=== PATIENT | male | born 1950 | race Caucasian/White ===

== ENCOUNTER 2017-01-06 04:11 | Inpatient (IN) | payer MEDICARE ==
[~2017-01-06] VITALS: Ht 180.3 cm; Wt 96.8 kg
[2017-01-06] VITALS (10 sets, daily range): BP systolic 103–139; BP diastolic 59–101
[~2017-01-06 04:11] MED LIST: ALLO300T PO; CARV25TA PO; CHOL10003 PO; CYCL10TA2 PO; DIGO125T PO; ENAL2.5T PO; FURO40TA4 PO; FURO80TA72 PO; INSU100C4 SQ; INSU100I13 SQ; LEVO100T5 PO; LEVO500T38 PO; MAGN400T22 PO; POTA10CA PO; POTA500T5 PO; SIMV10TA3 PO; WARF2.5T PO; WARF2TAB PO; WARF5TAB PO
[2017-01-06] MEDS ORDERED: hydrALAZINE 20 MG/ML VIAL. IVP PRN (05:00)
[2017-01-06] MEDS ORDERED: ONDANSETRON PF 4 MG/2 ML VIAL. IV PRN (05:00)
[2017-01-06] MEDS ORDERED: AMIO200T2 PO (05:59)
[2017-01-06] MEDS ORDERED: METO25TA2 PO (05:59)
[2017-01-06 06:28] LABS: ALBUMIN 3.7 g/dL (3.4-5.0); ALBUMIN/GLOBULIN RATIO 1.2 (1.0-1.7); CALCIUM 9.2 mg/dL (8.5-10.1); CREATININE 1.7 mg/dL (0.7-1.3); GFR 40.4; POTASSIUM 4.6 mmol/L (3.5-5.1); TOTAL BILIRUBIN 1.2 mg/dL (0.2-1.0); TOTAL PROTEIN 6.9 g/dL (6.4-8.2)
[2017-01-06 07:20] LABS: BASO % 0 % (0-3); EOS % 0 % (0-3); HEMATOCRIT 47.4 % (39.0-53.0); HEMOGLOBIN 14.5 g/dL (13.0-17.5); LYMPH # 0.2 x10^3/uL (1.0-4.8); LYMPH % 2 % (24-48); MEAN CORPUSCULAR HEMOGLOBIN 24 pg (25-35); MEAN CORPUSCULAR HGB CONC 31 g/dL (31-37); MEAN CORPUSCULAR VOLUME 79 fL (79-100); MONO % 1 % (0-9); NEUT % 97 % (31-73); PLATELET COUNT 152 x10^3/uL (140-400); RED BLOOD COUNT 5.99 x10^6/uL (4.30-5.70); RED CELL DISTRIBUTION WIDTH 22.1 % (11.5-14.5); WHITE BLOOD COUNT 11.1 x10^3/uL (4.0-11.0)
[2017-01-06] MEDS ORDERED: TORS20TA2 PO (08:46)
[2017-01-06 09:25] LABS: % EOS 2 % (0-5); PLT ESTIMATE ADEQUATE (ADEQUATE)
[2017-01-06 09:26] LABS: ANISOCYTOSIS MOD; HYPOCHROMIA SLIGHT
[2017-01-06] MEDS ORDERED: DEXTROSE 50% 25 GM / 50ML DISP.SYRIN. IV PRN (09:45)
--- NOTE | 2017-01-06 09:54 | PDOC2 ---
NOE CASTLE SUPERINTENDENT TRANSPORTATION 01/06/17 0954: CARDIAC CONSULT DATE OF CONSULT Date of Consult DATE: 01/06/17 TIME: 09:37 REASON FOR CONSULT Reason for Consult: CHF REFERRING PHYSICIAN Referring Physician: Joao SOURCE Source: Chart review HISTORY OF PRESENT ILLNESS HISTORY OF PRESENT ILLNESS This is a pleasant 66 yo male admitted for complains of SOA and hallucination. Reports that Friday last week, he saw his senior electronics technician in and told them of his SOA but was not significant at that time. Thru the week his SOA progressed to nonproductive cough, increasing elevation of his HOB when sleeping, PND. They then went to his senior electronics technician again Friday but with same answers. This weekend his SOA got even worse, now with wheezing and he was having auditory hallucination noting that someone was trying to talk to him but actually it was his wheezing that he was hearing. Notable for decreased urination, bloating, decreased appetite. He was then admitted to [facility] and was transferred to [facility] for further evaluation. Denies any CP nor palpitations. He does admit that sometimes he tend to skip his meds but compliant with his diuretics. He was recently started on amiodarone and zaroxylyn. Currently he is doing better and his SOA is much improved. 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 Cardiovascular: AFIB, CHF, HTN, Hyperlipidemia, Valve insufficiency, Other ( NICM) Pulmonary: COPD CENTRAL NERVOUS SYSTEM: Other (No pertinent history) GI: Constipation Heme/Onc: Anemia NOS, Other Hepatobiliary: No pertinent hx Psych: Anxiety Musculoskeletal: Osteoarthritis, Other (bilateral BKA; WC bound, uses bilateral prothetic) Rheumatologic: Gout Infectious disease: No pertinent hx ENT: No pertinent hx Renal/: Chronic renal insuff, UTI Endocrine: Diabetes (2), Hypothyroidism Dermatology: Other (superficial hemangioma to left neck?) PAST SURGICAL HISTORY Past Surgical History (cholecystectomy, mitral valve repair (medtronic) 2005 and 2009, Bilateral BKA and left hand digital amputation due to HIT (after MV repair in 2009), [employer] ( [employer]) FAMILY HISTORY Family History: Stroke SOCIAL HISTORY Smoke: No (quit) ALCOHOL: none Drugs: None Lives: with Family ALLERGIES ALLERGIES: Coded Allergies: heparin (Verified Allergy, Severe, HIT IN 2010 PER HX, 06/12/16) pt ended up loosing bilateral lower legs , partial tongue and several fingers as a result of a sever reaction to Heparin levofloxacin (Verified Allergy, Severe, 01/06/17) Penicillins (Verified Allergy, Intermediate, 11/06/15) ROS Review of System 14 point ROS evaluated with pertinent positives noted per HPI PHYSICAL EXAM General: Alert, Oriented X3, Cooperative, No acute distress HEENT: Atraumatic, Mucous membr. moist/pink Lungs: Other (diffuse wheeze with bibasilar crackles) Heart: Other (3/6 systolic murmur to LLS border; paced rhythm with underlying AFIB, rate controlled. ) Abdomen: Other (truncal obesity no scrotal edema) Extremities: No cyanosis, No edema (to BKA) Skin: No breakdown, No significant lesion Neuro: Normal speech, Sensation intact Psych/Mental Status: Mental status NL, Mood NL MUSCULOSKELETAL: Abnormal exam of right VITALS VITALS Vital Signs Date Time Temp Pulse Resp B/P Pulse Ox O2 Delivery O2 Flow Rate FiO2 01/06/17 09:09 89 24 133/78 100 Nasal Cannula 3.0 01/06/17 07:00 97.6 97.6 LABS Lab: Laboratory Tests Test 01/06/17 05:38 01/06/17 08:41 White Blood Count 11.1x10^3/uL (4.0-11.0) Red Blood Count 5.99x10^6/uL (4.30-5.70) Hemoglobin 14.5g/dL (13.0-17.5) Hematocrit 47.4% (39.0-53.0) Mean Corpuscular Volume 79fL (79-100) Mean Corpuscular Hemoglobin 24pg (25-35) Mean Corpuscular Hemoglobin Concent 31g/dL (31-37) Red Cell Distribution Width 22.1% (11.5-14.5) Platelet Count 152x10^3/uL (140-400) Neutrophils (%) (Auto) 97% (31-73) Lymphocytes (%) (Auto) 2% (24-48) Monocytes (%) (Auto) 1% (0-9) Eosinophils (%) (Auto) 0% (0-3) Basophils (%) (Auto) 0% (0-3) Neutrophils # (Auto) 10.7x10^3uL (1.8-7.7) Lymphocytes # (Auto) 0.2x10^3/uL (1.0-4.8) Monocytes # (Auto) 0.1x10^3/uL (0.0-1.1) Eosinophils # (Auto) 0.0x10^3/uL (0.0-0.7) Basophils # (Auto) 0.0x10^3/uL (0.0-0.2) Segmented Neutrophils % 97% (35-66) Monocytes % 1% (0-10) Eosinophils % 2% (0-5) Platelet Estimate Adequate (ADEQUATE) Hypochromasia Slight Anisocytosis Mod Activated Partial Thromboplast Time 44SEC (24-38) Sodium Level 144mmol/L (136-145) Potassium Level 4.6mmol/L (3.5-5.1) Chloride Level 102mmol/L (98-107) Carbon Dioxide Level 28mmol/L (21-32) Anion Gap 14 (6-14) Blood Urea Nitrogen 43mg/dL (8-26) Creatinine 1.7mg/dL (0.7-1.3) Estimated GFR (Cockcroft-Gault) 40.4 BUN/Creatinine Ratio 25 (6-20) Glucose Level 74mg/dL (70-99) Calcium Level 9.2mg/dL (8.5-10.1) Total Bilirubin 1.2mg/dL (0.2-1.0) Aspartate Amino Transf (AST/SGOT) 21U/L (15-37) Alanine Aminotransferase (ALT/SGPT) 20U/L (16-63) Alkaline Phosphatase 117U/L (46-116) Troponin I Quantitative 0.071ng/mL (0.000-0.055) Total Protein 6.9g/dL (6.4-8.2) Albumin 3.7g/dL (3.4-5.0) Albumin/Globulin Ratio 1.2 (1.0-1.7) Glucose (Fingerstick) 100mg/dL (70-99) ECHOCARDIOGRAM ECHOCARDIOGRAM <Conclusion> There is normal left ventricular wall thickness. Left ventricle systolic function is severely impaired. The Ejection Fraction is 15-20%. Doppler and Color Flow revealed moderate eccentric mitral regurgitation. Doppler and Color Flow revealed trace to mild tricuspid regurgitation. The PA pressure was estimated at 36 mmHg. Doppler and Color Flow revealed trace to mild pulmonic valvular regurgitation. There is no evidence of significant pericardial effusion. DATE: 03/13/16 0908 ASSESSMENT/PLAN ASSESSMENT/PLAN 1. Acute on chronic systolic CHF: improving 2. NICM: verbalized LHC with no significant obstructive disease in 2009. 3. Possible underlying AECOPD: possible DINO 4. HTN/HLP/DM2 5. [employer]ICAL [employer] insitu: [employer] 6. Hx of Mitral valve repair: 2005 and 2009 7. 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 Hypoglycemia 9. Hypoxic encephalopathy: notable for auditory hallucination 10 AFIB: Paroxysmal? paced with underlying AFIB 11. Subclinical hypothyroidism: TSH 4.8. Recommendation 1. Continue with diuretic therapy. extra dose lasix this afternoon. Add zaroxylyn I & O with khalil to DD. 2. Pulmonary and neurology was on board. 3. Continue with amiodarone/dig. On coumadin INR therapeutic. 4. Continue with secondary prevention 5. DC coreg (not on this at home) and continue with toprol 6. Avoid tight BG control 7. TTE today and interrogate device. 8. Will try to obtain records 9. Close monitoring of TSH with amiodarone use. Problems: ODALYS SHAHID MD 01/07/17 0937: CARDIAC CONSULT ALLERGIES ALLERGIES: Coded Allergies: heparin (Verified Allergy, Severe, HIT IN 2010 PER HX, 06/12/16) pt ended up loosing bilateral lower legs , partial tongue and several fingers as a result of a sever reaction to Heparin levofloxacin (Verified Allergy, Severe, 01/06/17) Penicillins (Verified Allergy, Intermediate, 11/06/15) ASSESSMENT/PLAN ASSESSMENT/PLAN Patient seen and examined 01/06/17. Agree with PHYSICIAN OFFICE REP's assessment and plan. Continue Lasix and add zaroxolyn for acute on chronic systolic heart failure. 2D echo showed severe LV systolic dysfunction. We will have patient's [employer]ICAL [employer] interrogated. Continue amiodarone and coumadin for paroxysmal atrial fibrillation. Thank you for your consultation. Problems: NOE CASTLE APRN Jan 06, 2017 09:54 ODALYS SHAHID MD Jan 07, 2017 09:37
[2017-01-06] MEDS ORDERED: TORSEMIDE 20 MG TABLET. PO SCH (10:00)
[2017-01-06] MEDS: TORSEMIDE 20 MG TABLET. PO SCH (10:19)
[2017-01-06] MEDS: CHOLECALCIFEROL (VITAMIN D3) 1,000 UNIT TABLET PO SCH (10:20)
[2017-01-06] MEDS: MAGNESIUM OXIDE 400 MG TABLET PO SCH (10:21)
[2017-01-06] MEDS: LISINOPRIL 2.5 MG TABLET PO SCH (10:21)
[2017-01-06] MEDS: LEVOTHYROXINE 100 MCG TABLET PO SCH (10:21)
[2017-01-06] MEDS: AMIODARONE HCL 200 MG TABLET PO SCH (10:21)
[2017-01-06] MEDS: DIGOXIN 125 MCG TABLET PO SCH (10:22)
[2017-01-06] MEDS: METOPROLOL SUCC 24HR ER 25 MG TAB.ER.24H. PO SCH (10:22)
--- NOTE | 2017-01-06 10:22 | RAD ---
Portable chest, 01/06/2017: History: Congestive heart failure Comparison is made to a study from 06/09/2016. There is been a previous median sternotomy. A left-sided transvenous pacing device remains in place with 3 leads extending into the heart. The heart is enlarged. The pulmonary vascularity appears congested. A moderate volume of right-sided pleural fluid has developed. There is mild underlying right basilar atelectasis/infiltrate. No left lung infiltrate is seen. IMPRESSION: 1. Cardiomegaly with mild vascular congestion. 2. A moderate-sized right pleural effusion has developed with underlying right basilar atelectasis/infiltrate.
[2017-01-06] MEDS: INSULIN DETEMIR 300 UNITS/3 ML INSULN.PEN. SQ SCH ×2 (10:27→20:11)
[2017-01-06] MEDS ORDERED: CARVEDILOL 12.5 MG TABLET PO SCH (10:30)
[2017-01-06 10:51] LABS: INR 2.6 (0.8-1.1); PROTHROMBIN TIME PATIENT 26.7 SEC (11.7-14.0)
[2017-01-06] MEDS: INSULIN ASPART 300 UNITS/3 ML INSULN.PEN SQ SCH ×4 (12:00→18:38)
[2017-01-06 12:10] LABS: MAGNESIUM 2.3 mg/dL (1.8-2.4)
[2017-01-06 12:14] LABS: CHOLESTEROL/HDL RATIO 2.5
--- NOTE | 2017-01-06 12:50 | PDOC2 ---
NEUROLOGY CONSULT Date of Admission Date of Admission DATE: 01/06/17 TIME: 12:40 Reason for Consult Reason for Consult: Dysarthria Referring Physician Referring Physician: Dr. Monzon PCP: Dr. Villalta Source Source: Caregiver, Chart review, Patient History of Present Illness History of Present Illness The patient is a 66-year-old right-handed male with a history of cardiomyopathy and heart failure who presented to the [facility] emergency department last night with severe dyspnea. He had some dysarthria. He had part of his tongue excised a few months ago due to heparin reaction and has had chronic dysarthria since then. He did have a stroke following valve replacement surgery several years ago, but no recent strokes. There is no history of seizure or head injury. Past Medical History Cardiovascular: AFIB, CHF, HTN Pulmonary: COPD, Other ( sleep apnea) CENTRAL NERVOUS SYSTEM: CVA ( following valve replacement surgery, he was in a coma for several months) Heme/Onc: Other ( heparin induced thrombocytopenia 2010) Musculoskeletal: low back pain, Osteoarthritis, Other (lumbar fracture, left clavicle fracture) Rheumatologic: Gout Renal/: Chronic renal insuff ( he was temporarily on dialysis), Benign prostatic enlarg. Endocrine: Diabetes, Hypothyroidism Past Surgical History Past Surgical History: Pacemaker ( and defibrillator), Appendectomy, Other ( Partial tongue resection, mechanical mitral valve replacement, bilateral below the knee amputations, ) Family History Family History: CVA Social History Social History , quit smoking, no alcohol Current Medications Current Medications Current Medications Acetaminophen (Tylenol) 650 mg PRN Q6HRS PRN PO MILD PAIN / TEMP; Start at 05:00 Ondansetron HCl (Zofran) 4 mg PRN Q6HRS PRN IV NAUSEA/VOMITING; Start 01/06/17 at 05:00 Hydralazine HCl (Apresoline) 10 mg PRN Q4HRS PRN IVP ELEVATED BP, SEE COMMENTS ; Start 01/06/17 at 05:00 Amiodarone HCl (Cordarone) 200 mg DAILY PO Last administered on 01/06/17 10:21 ; Start 01/06/17 at 10:00 Vitamin D (Vitamin D3) 2,000 unit DAILY PO Last administered on 01/06/17 10:20 ; Start 01/06/17 at 10:00 Digoxin (Lanoxin) 125 mcg DAILY PO Last administered on 01/06/17 10:22; Start 01/06/17 at 10:30 Levothyroxine Sodium (Synthroid) 100 mcg DAILY07 PO Last administered on 10:21; Start 01/06/17 at 10:30 Magnesium Oxide (Magnesium Oxide) 400 mg DAILY PO Last administered on 10:21; Start 01/06/17 at 10:30 Metoprolol Succinate (Toprol Xl) 25 mg DAILY PO Last administered on 01/06/17 10:22; Start 01/06/17 at 10:30 Simvastatin (Zocor) 10 mg QHS PO ; Start 01/06/17 at 21:00 Torsemide (Demadex) 80 mg DAILY PO Last administered on 01/06/17 10:19; Start 01/06/17 at 10:30 Warfarin Sodium (Coumadin) 2 mg DAILY16 PO ; Start 01/06/17 at 16:00 Carvedilol (Coreg) 25 mg BIDWMEALS PO Last administered on 01/06/17 10:22; Start 01/06/17 at 10:30; Stop 01/06/17 at 11:51; Status DC Lisinopril (Prinivil) 2.5 mg DAILY PO Last administered on 01/06/17 10:21; Start 01/06/17 at 10:30 Insulin Aspart (Novolog) 10 units TIDAC SQ Last administered on 01/06/17 12:33 ; Start 01/06/17 at 11:30 Insulin Detemir (Levemir) 30 units BID SQ Last administered on 01/06/17 10:27 ; Start 01/06/17 at 10:30 Non-Formulary Medication 500 mg DAILY PO ; Start 01/07/17 at 09:00; Status UNV Torsemide (Demadex) 80 mg DAILY PO ; Start 01/06/17 at 10:00; Status UNV Insulin Aspart (Novolog) 0-9 UNITS TIDWMEALS SQ ; Start 01/06/17 at 12:00 Dextrose 12.5 gm PRN Q15MIN PRN IV SEE COMMENTS; Start 01/06/17 at 09:45 Warfarin Sodium (Coumadin Per Physician) 1 each PRN DAILY PRN MC SEE COMMENTS; Start 01/06/17 at 10:45 Furosemide (Lasix) 40 mg 1X ONCE IVP ; Start 01/06/17 at 16:00; Stop 01/06/17 at 16:01 Metolazone (Zaroxolyn) 5 mg DAILY PO ; Start 01/07/17 at 09:00 Active Scripts Active Reported Torsemide 20 Mg Tablet 4 Tab PO DAILY Amiodarone Hcl 200 Mg Tablet 1 Tab PO DAILY Toprol Xl (Metoprolol Succinate) 25 Mg Tab.er.24h 1 Tab PO DAILY Novolog (Insulin Aspart) 100 Unit/1 Ml Cartridge 10 Unit SQ TID Lantus Solostar (Insulin Glargine,Hum.rec.anlog) 100 Unit/1 Ml Insuln.pen 40 Unit SQ BID Cyclobenzaprine Hcl 10 Mg Tablet 1 Tab PO TID Allopurinol 300 Mg Tablet 1 Tab PO DAILY Simvastatin 10 Mg Tablet 1 Tab PO QHS Coumadin (Warfarin Sodium) 2.5 Mg Tablet 1 Tab PO DAILY Potassium Gluconate 500 Mg Tablet 500 Mg PO DAILY Furosemide 40 Mg Tablet 1 Tab PO DAILY Mag-Oxide (Magnesium Oxide) 400 Mg Tablet 1 Tab PO DAILY Levothyroxine Sodium 100 Mcg Tablet 1 Tab PO DAILY Digoxin 125 Mcg Tablet 1 Tab PO DAILY Enalapril Maleate 2.5 Mg Tablet 1 Tab PO DAILY Vitamin D3 (Cholecalciferol (Vitamin D3)) 1,000 Unit Tablet 2,000 Unit PO DAILY Coreg (Carvedilol) 25 Mg Tablet 1 Tab PO BID Allergies Allergies: Coded Allergies: heparin (Verified Allergy, Severe, HIT IN 2010 PER HX, 06/12/16) pt ended up loosing bilateral lower legs , partial tongue and several fingers as a result of a sever reaction to Heparin levofloxacin (Verified Allergy, Severe, 01/06/17) Penicillins (Verified Allergy, Intermediate, 11/06/15) ROS Review of System Negative for fevers, chills, weight loss, shortness of breath, chest pain, indigestion, hematochezia, melena, dysuria. Full 14-point review systems is negative. Physical Exam Physical Examination PHYSICAL EXAMINATION: Vital signs: see above. General appearance is normal and in no acute distress. HEENT: Normocephalic and nontraumatic. Eyes, nose, ears, and throat are unremarkable. Extremities: bilateral below the knee amputations and several finger amputations NEUROLOGIC: Mental status is intact, there is no aphasia. He does has some lingual dysarthria. There is no facial asymmetry. Pupils are equal and reactive to light , extraocular movements are intact, palate elevates and tongue protrudes in the midline. Reflexes are 0-1+. Strength is 5/5. Finger nose finger is intact. sensory exam is intact. Gait is not tested. Vitals VITALS Vital Signs Date Time Temp Pulse Resp B/P Pulse Ox O2 Delivery O2 Flow Rate FiO2 01/06/17 12:00 97.7 89 31 118/67 96 Nasal Cannula 4.0 97.7 Labs Labs Laboratory Tests Test 01/06/17 05:38 01/06/17 08:41 01/06/17 10:00 01/06/17 12:29 White Blood Count 11.1x10^3/uL (4.0-11.0) Red Blood Count 5.99x10^6/uL (4.30-5.70) Hemoglobin 14.5g/dL (13.0-17.5) Hematocrit 47.4% (39.0-53.0) Mean Corpuscular Volume 79fL (79-100) Mean Corpuscular Hemoglobin 24pg (25-35) Mean Corpuscular Hemoglobin Concent 31g/dL (31-37) Red Cell Distribution Width 22.1% (11.5-14.5) Platelet Count 152x10^3/uL (140-400) Neutrophils (%) (Auto) 97% (31-73) Lymphocytes (%) (Auto) 2% (24-48) Monocytes (%) (Auto) 1% (0-9) Eosinophils (%) (Auto) 0% (0-3) Basophils (%) (Auto) 0% (0-3) Neutrophils # (Auto) 10.7x10^3uL (1.8-7.7) Lymphocytes # (Auto) 0.2x10^3/uL (1.0-4.8) Monocytes # (Auto) 0.1x10^3/uL (0.0-1.1) Eosinophils # (Auto) 0.0x10^3/uL (0.0-0.7) Basophils # (Auto) 0.0x10^3/uL (0.0-0.2) Segmented Neutrophils % 97% (35-66) Monocytes % 1% (0-10) Eosinophils % 2% (0-5) Platelet Estimate Adequate (ADEQUATE) Hypochromasia Slight Anisocytosis Mod Activated Partial Thromboplast Time 44SEC (24-38) Sodium Level 144mmol/L (136-145) Potassium Level 4.6mmol/L (3.5-5.1) Chloride Level 102mmol/L (98-107) Carbon Dioxide Level 28mmol/L (21-32) Anion Gap 14 (6-14) Blood Urea Nitrogen 43mg/dL (8-26) Creatinine 1.7mg/dL (0.7-1.3) Estimated GFR (Cockcroft-Gault) 40.4 BUN/Creatinine Ratio 25 (6-20) Glucose Level 74mg/dL (70-99) Calcium Level 9.2mg/dL (8.5-10.1) Magnesium Level 2.3mg/dL (1.8-2.4) Total Bilirubin 1.2mg/dL (0.2-1.0) Aspartate Amino Transf (AST/SGOT) 21U/L (15-37) Alanine Aminotransferase (ALT/SGPT) 20U/L (16-63) Alkaline Phosphatase 117U/L (46-116) Troponin I Quantitative 0.071ng/mL (0.000-0.055) 0.068ng/mL (0.000-0.055) Total Protein 6.9g/dL (6.4-8.2) Albumin 3.7g/dL (3.4-5.0) Albumin/Globulin Ratio 1.2 (1.0-1.7) Triglycerides Level 79mg/dL (0-150) Cholesterol Level 112mg/dL (0-200) LDL Cholesterol, Calculated 52mg/dL (0-100) VLDL Cholesterol, Calculated 16mg/dL (0-40) HDL Cholesterol 44mg/dL (40-60) Cholesterol/HDL Ratio 2.5 Thyroid Stimulating Hormone (TSH) 4.823uIU/mL (0.358-3.74) Glucose (Fingerstick) 100mg/dL (70-99) 143mg/dL (70-99) Prothrombin Time 26.7SEC (11.7-14.0) Prothromb Time International Ratio 2.6 (0.8-1.1) Laboratory Tests Test 01/06/17 05:38 01/06/17 08:41 01/06/17 10:00 01/06/17 12:29 White Blood Count 11.1x10^3/uL (4.0-11.0) Red Blood Count 5.99x10^6/uL (4.30-5.70) Hemoglobin 14.5g/dL (13.0-17.5) Hematocrit 47.4% (39.0-53.0) Mean Corpuscular Volume 79fL (79-100) Mean Corpuscular Hemoglobin 24pg (25-35) Mean Corpuscular Hemoglobin Concent 31g/dL (31-37) Red Cell Distribution Width 22.1% (11.5-14.5) Platelet Count 152x10^3/uL (140-400) Neutrophils (%) (Auto) 97% (31-73) Lymphocytes (%) (Auto) 2% (24-48) Monocytes (%) (Auto) 1% (0-9) Eosinophils (%) (Auto) 0% (0-3) Basophils (%) (Auto) 0% (0-3) Neutrophils # (Auto) 10.7x10^3uL (1.8-7.7) Lymphocytes # (Auto) 0.2x10^3/uL (1.0-4.8) Monocytes # (Auto) 0.1x10^3/uL (0.0-1.1) Eosinophils # (Auto) 0.0x10^3/uL (0.0-0.7) Basophils # (Auto) 0.0x10^3/uL (0.0-0.2) Segmented Neutrophils % 97% (35-66) Monocytes % 1% (0-10) Eosinophils % 2% (0-5) Platelet Estimate Adequate (ADEQUATE) Hypochromasia Slight Anisocytosis Mod Activated Partial Thromboplast Time 44SEC (24-38) Sodium Level 144mmol/L (136-145) Potassium Level 4.6mmol/L (3.5-5.1) Chloride Level 102mmol/L (98-107) Carbon Dioxide Level 28mmol/L (21-32) Anion Gap 14 (6-14) Blood Urea Nitrogen 43mg/dL (8-26) Creatinine 1.7mg/dL (0.7-1.3) Estimated GFR (Cockcroft-Gault) 40.4 BUN/Creatinine Ratio 25 (6-20) Glucose Level 74mg/dL (70-99) Calcium Level 9.2mg/dL (8.5-10.1) Magnesium Level 2.3mg/dL (1.8-2.4) Total Bilirubin 1.2mg/dL (0.2-1.0) Aspartate Amino Transf (AST/SGOT) 21U/L (15-37) Alanine Aminotransferase (ALT/SGPT) 20U/L (16-63) Alkaline Phosphatase 117U/L (46-116) Troponin I Quantitative 0.071ng/mL (0.000-0.055) 0.068ng/mL (0.000-0.055) Total Protein 6.9g/dL (6.4-8.2) Albumin 3.7g/dL (3.4-5.0) Albumin/Globulin Ratio 1.2 (1.0-1.7) Triglycerides Level 79mg/dL (0-150) Cholesterol Level 112mg/dL (0-200) LDL Cholesterol, Calculated 52mg/dL (0-100) VLDL Cholesterol, Calculated 16mg/dL (0-40) HDL Cholesterol 44mg/dL (40-60) Cholesterol/HDL Ratio 2.5 Thyroid Stimulating Hormone (TSH) 4.823uIU/mL (0.358-3.74) Glucose (Fingerstick) 100mg/dL (70-99) 143mg/dL (70-99) Prothrombin Time 26.7SEC (11.7-14.0) Prothromb Time International Ratio 2.6 (0.8-1.1) Assessment/Plan Assessment/Plan Impression: Dysarthria's due to previous tongue resection plus his hypoxia which makes him short of breath, but I find no evidence of neurological dysarthria or aphasia. Recommendations: It is reasonable to check a head CT. He cannot have an MRI because of his pacemaker/defibrillator No other neurological workup of treatment needed. Treatment of heart failure. Thank you for letting me help the patient care. ANN MARIE MALONE MD Jan 06, 2017 12:50
--- NOTE | 2017-01-06 12:50 | PDOC1 ---
History and Physical Date of Admission Date of Admission 01/06/17 Identification/Chief Complaint Chief Complaint sob Problems: Source Source: Chart review, Patient History of Present Illness History of Present Illness 66yo M with severe EF 15% with PPM/ICD, and severe MR was transfered from [facility] for sob. Pt has been sob for a few days, with mild cough which he said is his baseline. No home o2, now need NC 3L. no chest pain, N/V,. fever, chills. got lasix x1 in [facility]. He also has had slurry speech with hallucination for a few days, no weakness. Past Medical History Cardiovascular: AFIB, CHF, HTN, Hyperlipidemia, Valve insufficiency Heme/Onc: Anemia NOS Renal/: Chronic renal insuff, Acute renal failure Endocrine: Diabetes Past Surgical History Past Surgical History: CABG Family History Family History: Heart Disease Social History Smoke: No ALCOHOL: none Drugs: None Current Medications Current Medications Current Medications Medications (Trade) Dose Ordered Sig/Leonel Start Time Stop Time Status Last Admin Dose Admin Acetaminophen (Tylenol) 650 mg PRN Q6HRS PRN 01/06/17 05:00 Amiodarone HCl (Cordarone) 200 mg DAILY 01/06/17 10:00 01/06/17 10:21 200 MG Carvedilol (Coreg) 25 mg BIDWMEALS 01/06/17 10:30 01/06/17 11:51 DC 01/06/17 10:22 25 MG Dextrose 12.5 gm PRN Q15MIN PRN 01/06/17 09:45 Digoxin (Lanoxin) 125 mcg DAILY 01/06/17 10:30 01/06/17 10:22 125 MCG Furosemide (Lasix) 40 mg 1X ONCE 01/06/17 16:00 01/06/17 16:01 Hydralazine HCl (Apresoline) 10 mg PRN Q4HRS PRN 01/06/17 05:00 Insulin Aspart (Novolog) 0-9 UNITS TIDWMEALS 01/06/17 12:00 Insulin Detemir (Levemir) 30 units BID 01/06/17 10:30 01/06/17 10:27 30 UNITS Levothyroxine Sodium (Synthroid) 100 mcg DAILY07 01/06/17 10:30 01/06/17 10:21 100 MCG Lisinopril (Prinivil) 2.5 mg DAILY 01/06/17 10:30 01/06/17 10:21 2.5 MG Magnesium Oxide (Magnesium Oxide) 400 mg DAILY 01/06/17 10:30 01/06/17 10:21 400 MG Metolazone (Zaroxolyn) 5 mg DAILY 01/07/17 09:00 Metoprolol Succinate (Toprol Xl) 25 mg DAILY 01/06/17 10:30 01/06/17 10:22 25 MG Non-Formulary Medication 500 mg DAILY 01/07/17 09:00 UNV Ondansetron HCl (Zofran) 4 mg PRN Q6HRS PRN 01/06/17 05:00 Simvastatin (Zocor) 10 mg QHS 01/06/17 21:00 Torsemide (Demadex) 80 mg DAILY 01/06/17 10:00 UNV Vitamin D (Vitamin D3) 2,000 unit DAILY 01/06/17 10:00 01/06/17 10:20 2,000 UNIT Warfarin Sodium (Coumadin Per Physician) 1 each PRN DAILY PRN 01/06/17 10:45 Warfarin Sodium (Coumadin) 2 mg DAILY16 01/06/17 16:00 Allergies Allergies Allergies Coded Allergies Type Severity Reaction Last Updated Verified heparin Allergy Severe HIT IN 2011 PER HX 06/12/16 Yes levofloxacin Allergy Severe 01/06/17 Yes Penicillins Allergy Intermediate 11/06/15 Yes ROS Review of System CONSTITUTIONAL: No fever or chills EYES: No recent changes SKIN: No rash or itching CARDIOVASCULAR: No chest pain, syncope, palpitations, or edema RESPIRATORY: No SOB or cough GASTROINTESTINAL: No nausea, vomiting or abdominal pain NEUROLOGICAL: No headaches or weakness ENDOCRINE: No cold or heat intolerance GENITOURINARY: No urgency or frequency of urination MUSCULOSKELETAL: No back pain or joint pain LYMPHATICS: No enlarged lymph nodes PSYCHIATRIC: No anxiety or depression Physical Exam Physical Exam GEN.: No apparent distress. Alert and oriented x3 HEENT: Head is normocephalic, atraumatic NECK: Supple. LUNGS: bl diffuse tight, and mild wheezing HEART: RRR, S1, S2 present. Peripheral pulses intact ABDOMEN: Soft, nontender. Positive bowel sounds. EXTREMITIES: Without any cyanosis. multiple amputation from HIT NEUROLOGIC: Normal speech, normal tone PSYCHIATRIC: Normal affect, normal mood. SKIN: No ulcerations Vitals Vitals Vital Signs Date Time Temp Pulse Resp B/P Pulse Ox O2 Delivery O2 Flow Rate FiO2 01/06/17 12:00 97.7 89 31 118/67 96 Nasal Cannula 4.0 97.7 Labs Labs Laboratory Tests Test 01/06/17 05:38 01/06/17 08:41 01/06/17 10:00 01/06/17 12:29 White Blood Count 11.1x10^3/uL (4.0-11.0) Red Blood Count 5.99x10^6/uL (4.30-5.70) Hemoglobin 14.5g/dL (13.0-17.5) Hematocrit 47.4% (39.0-53.0) Mean Corpuscular Volume 79fL (79-100) Mean Corpuscular Hemoglobin 24pg (25-35) Mean Corpuscular Hemoglobin Concent 31g/dL (31-37) Red Cell Distribution Width 22.1% (11.5-14.5) Platelet Count 152x10^3/uL (140-400) Neutrophils (%) (Auto) 97% (31-73) Lymphocytes (%) (Auto) 2% (24-48) Monocytes (%) (Auto) 1% (0-9) Eosinophils (%) (Auto) 0% (0-3) Basophils (%) (Auto) 0% (0-3) Neutrophils # (Auto) 10.7x10^3uL (1.8-7.7) Lymphocytes # (Auto) 0.2x10^3/uL (1.0-4.8) Monocytes # (Auto) 0.1x10^3/uL (0.0-1.1) Eosinophils # (Auto) 0.0x10^3/uL (0.0-0.7) Basophils # (Auto) 0.0x10^3/uL (0.0-0.2) Segmented Neutrophils % 97% (35-66) Monocytes % 1% (0-10) Eosinophils % 2% (0-5) Platelet Estimate Adequate (ADEQUATE) Hypochromasia Slight Anisocytosis Mod Activated Partial Thromboplast Time 44SEC (24-38) Sodium Level 144mmol/L (136-145) Potassium Level 4.6mmol/L (3.5-5.1) Chloride Level 102mmol/L (98-107) Carbon Dioxide Level 28mmol/L (21-32) Anion Gap 14 (6-14) Blood Urea Nitrogen 43mg/dL (8-26) Creatinine 1.7mg/dL (0.7-1.3) Estimated GFR (Cockcroft-Gault) 40.4 BUN/Creatinine Ratio 25 (6-20) Glucose Level 74mg/dL (70-99) Calcium Level 9.2mg/dL (8.5-10.1) Magnesium Level 2.3mg/dL (1.8-2.4) Total Bilirubin 1.2mg/dL (0.2-1.0) Aspartate Amino Transf (AST/SGOT) 21U/L (15-37) Alanine Aminotransferase (ALT/SGPT) 20U/L (16-63) Alkaline Phosphatase 117U/L (46-116) Troponin I Quantitative 0.071ng/mL (0.000-0.055) 0.068ng/mL (0.000-0.055) Total Protein 6.9g/dL (6.4-8.2) Albumin 3.7g/dL (3.4-5.0) Albumin/Globulin Ratio 1.2 (1.0-1.7) Triglycerides Level 79mg/dL (0-150) Cholesterol Level 112mg/dL (0-200) LDL Cholesterol, Calculated 52mg/dL (0-100) VLDL Cholesterol, Calculated 16mg/dL (0-40) HDL Cholesterol 44mg/dL (40-60) Cholesterol/HDL Ratio 2.5 Thyroid Stimulating Hormone (TSH) 4.823uIU/mL (0.358-3.74) Glucose (Fingerstick) 100mg/dL (70-99) 143mg/dL (70-99) Prothrombin Time 26.7SEC (11.7-14.0) Prothromb Time International Ratio 2.6 (0.8-1.1) Laboratory Tests Test 01/06/17 05:38 01/06/17 08:41 01/06/17 10:00 01/06/17 12:29 White Blood Count 11.1x10^3/uL (4.0-11.0) Red Blood Count 5.99x10^6/uL (4.30-5.70) Hemoglobin 14.5g/dL (13.0-17.5) Hematocrit 47.4% (39.0-53.0) Mean Corpuscular Volume 79fL (79-100) Mean Corpuscular Hemoglobin 24pg (25-35) Mean Corpuscular Hemoglobin Concent 31g/dL (31-37) Red Cell Distribution Width 22.1% (11.5-14.5) Platelet Count 152x10^3/uL (140-400) Neutrophils (%) (Auto) 97% (31-73) Lymphocytes (%) (Auto) 2% (24-48) Monocytes (%) (Auto) 1% (0-9) Eosinophils (%) (Auto) 0% (0-3) Basophils (%) (Auto) 0% (0-3) Neutrophils # (Auto) 10.7x10^3uL (1.8-7.7) Lymphocytes # (Auto) 0.2x10^3/uL (1.0-4.8) Monocytes # (Auto) 0.1x10^3/uL (0.0-1.1) Eosinophils # (Auto) 0.0x10^3/uL (0.0-0.7) Basophils # (Auto) 0.0x10^3/uL (0.0-0.2) Segmented Neutrophils % 97% (35-66) Monocytes % 1% (0-10) Eosinophils % 2% (0-5) Platelet Estimate Adequate (ADEQUATE) Hypochromasia Slight Anisocytosis Mod Activated Partial Thromboplast Time 44SEC (24-38) Sodium Level 144mmol/L (136-145) Potassium Level 4.6mmol/L (3.5-5.1) Chloride Level 102mmol/L (98-107) Carbon Dioxide Level 28mmol/L (21-32) Anion Gap 14 (6-14) Blood Urea Nitrogen 43mg/dL (8-26) Creatinine 1.7mg/dL (0.7-1.3) Estimated GFR (Cockcroft-Gault) 40.4 BUN/Creatinine Ratio 25 (6-20) Glucose Level 74mg/dL (70-99) Calcium Level 9.2mg/dL (8.5-10.1) Magnesium Level 2.3mg/dL (1.8-2.4) Total Bilirubin 1.2mg/dL (0.2-1.0) Aspartate Amino Transf (AST/SGOT) 21U/L (15-37) Alanine Aminotransferase (ALT/SGPT) 20U/L (16-63) Alkaline Phosphatase 117U/L (46-116) Troponin I Quantitative 0.071ng/mL (0.000-0.055) 0.068ng/mL (0.000-0.055) Total Protein 6.9g/dL (6.4-8.2) Albumin 3.7g/dL (3.4-5.0) Albumin/Globulin Ratio 1.2 (1.0-1.7) Triglycerides Level 79mg/dL (0-150) Cholesterol Level 112mg/dL (0-200) LDL Cholesterol, Calculated 52mg/dL (0-100) VLDL Cholesterol, Calculated 16mg/dL (0-40) HDL Cholesterol 44mg/dL (40-60) Cholesterol/HDL Ratio 2.5 Thyroid Stimulating Hormone (TSH) 4.823uIU/mL (0.358-3.74) Glucose (Fingerstick) 100mg/dL (70-99) 143mg/dL (70-99) Prothrombin Time 26.7SEC (11.7-14.0) Prothromb Time International Ratio 2.6 (0.8-1.1) VTE Prophylaxis Ordered VTE Prophylaxis Devices: No VTE Pharmacological Prophylaxi: No Assessment/Plan Assessment/Plan 1. acute resp failure with systolic CHF exacerbation 2. systolic CHF exacerbation EF 15 % before 3. ICD, PPM 4. CHRNOIC afib, on coumadin 5. 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 AMS, slurry speech , hallucination, 2/2 hypoxica possibly, need to rule out stroke 7. HTN 8. CKD4 9. HLD 10. MR 11. DM2 on insulin 12. high troponin, 2/2 2 likely plan: 1. card consult, echo pending 2. cont home meds, hold lasix, on torsemide, add metolazone as per card 3. slightly decrease insulin to levemir 30u bid and aspart 10u tid, SSI 4. on NC 5. cont warfarin 2mg daily home dose, INR daily talk to family at bedside RENATO WEBER MD Jan 06, 2017 12:49
--- NOTE | 2017-01-06 14:06 | PDOC ---
PULMONARY PROGRESS NOTES Vitals Vital Signs Date Time Temp Pulse Resp B/P Pulse Ox O2 Delivery O2 Flow Rate FiO2 01/06/17 12:00 97.7 89 31 118/67 96 Nasal Cannula 4.0 97.7 General: Alert, Oriented X4, No acute distress Lungs: Clear, Other Cardiovascular: S1 Abdomen: Soft, Non-tender Extremities: Other Labs Laboratory Tests Test 01/06/17 05:38 01/06/17 08:41 01/06/17 10:00 01/06/17 12:29 White Blood Count 11.1x10^3/uL (4.0-11.0) Red Blood Count 5.99x10^6/uL (4.30-5.70) Hemoglobin 14.5g/dL (13.0-17.5) Hematocrit 47.4% (39.0-53.0) Mean Corpuscular Volume 79fL (79-100) Mean Corpuscular Hemoglobin 24pg (25-35) Mean Corpuscular Hemoglobin Concent 31g/dL (31-37) Red Cell Distribution Width 22.1% (11.5-14.5) Platelet Count 152x10^3/uL (140-400) Neutrophils (%) (Auto) 97% (31-73) Lymphocytes (%) (Auto) 2% (24-48) Monocytes (%) (Auto) 1% (0-9) Eosinophils (%) (Auto) 0% (0-3) Basophils (%) (Auto) 0% (0-3) Neutrophils # (Auto) 10.7x10^3uL (1.8-7.7) Lymphocytes # (Auto) 0.2x10^3/uL (1.0-4.8) Monocytes # (Auto) 0.1x10^3/uL (0.0-1.1) Eosinophils # (Auto) 0.0x10^3/uL (0.0-0.7) Basophils # (Auto) 0.0x10^3/uL (0.0-0.2) Segmented Neutrophils % 97% (35-66) Monocytes % 1% (0-10) Eosinophils % 2% (0-5) Platelet Estimate Adequate (ADEQUATE) Hypochromasia Slight Anisocytosis Mod Activated Partial Thromboplast Time 44SEC (24-38) Sodium Level 144mmol/L (136-145) Potassium Level 4.6mmol/L (3.5-5.1) Chloride Level 102mmol/L (98-107) Carbon Dioxide Level 28mmol/L (21-32) Anion Gap 14 (6-14) Blood Urea Nitrogen 43mg/dL (8-26) Creatinine 1.7mg/dL (0.7-1.3) Estimated GFR (Cockcroft-Gault) 40.4 BUN/Creatinine Ratio 25 (6-20) Glucose Level 74mg/dL (70-99) Calcium Level 9.2mg/dL (8.5-10.1) Magnesium Level 2.3mg/dL (1.8-2.4) Total Bilirubin 1.2mg/dL (0.2-1.0) Aspartate Amino Transf (AST/SGOT) 21U/L (15-37) Alanine Aminotransferase (ALT/SGPT) 20U/L (16-63) Alkaline Phosphatase 117U/L (46-116) Troponin I Quantitative 0.071ng/mL (0.000-0.055) 0.068ng/mL (0.000-0.055) Total Protein 6.9g/dL (6.4-8.2) Albumin 3.7g/dL (3.4-5.0) Albumin/Globulin Ratio 1.2 (1.0-1.7) Triglycerides Level 79mg/dL (0-150) Cholesterol Level 112mg/dL (0-200) LDL Cholesterol, Calculated 52mg/dL (0-100) VLDL Cholesterol, Calculated 16mg/dL (0-40) HDL Cholesterol 44mg/dL (40-60) Cholesterol/HDL Ratio 2.5 Thyroid Stimulating Hormone (TSH) 4.823uIU/mL (0.358-3.74) Glucose (Fingerstick) 100mg/dL (70-99) 143mg/dL (70-99) Prothrombin Time 26.7SEC (11.7-14.0) Prothromb Time International Ratio 2.6 (0.8-1.1) Laboratory Tests Test 01/06/17 05:38 01/06/17 08:41 01/06/17 10:00 01/06/17 12:29 White Blood Count 11.1x10^3/uL (4.0-11.0) Red Blood Count 5.99x10^6/uL (4.30-5.70) Hemoglobin 14.5g/dL (13.0-17.5) Hematocrit 47.4% (39.0-53.0) Mean Corpuscular Volume 79fL (79-100) Mean Corpuscular Hemoglobin 24pg (25-35) Mean Corpuscular Hemoglobin Concent 31g/dL (31-37) Red Cell Distribution Width 22.1% (11.5-14.5) Platelet Count 152x10^3/uL (140-400) Neutrophils (%) (Auto) 97% (31-73) Lymphocytes (%) (Auto) 2% (24-48) Monocytes (%) (Auto) 1% (0-9) Eosinophils (%) (Auto) 0% (0-3) Basophils (%) (Auto) 0% (0-3) Neutrophils # (Auto) 10.7x10^3uL (1.8-7.7) Lymphocytes # (Auto) 0.2x10^3/uL (1.0-4.8) Monocytes # (Auto) 0.1x10^3/uL (0.0-1.1) Eosinophils # (Auto) 0.0x10^3/uL (0.0-0.7) Basophils # (Auto) 0.0x10^3/uL (0.0-0.2) Segmented Neutrophils % 97% (35-66) Monocytes % 1% (0-10) Eosinophils % 2% (0-5) Platelet Estimate Adequate (ADEQUATE) Hypochromasia Slight Anisocytosis Mod Activated Partial Thromboplast Time 44SEC (24-38) Sodium Level 144mmol/L (136-145) Potassium Level 4.6mmol/L (3.5-5.1) Chloride Level 102mmol/L (98-107) Carbon Dioxide Level 28mmol/L (21-32) Anion Gap 14 (6-14) Blood Urea Nitrogen 43mg/dL (8-26) Creatinine 1.7mg/dL (0.7-1.3) Estimated GFR (Cockcroft-Gault) 40.4 BUN/Creatinine Ratio 25 (6-20) Glucose Level 74mg/dL (70-99) Calcium Level 9.2mg/dL (8.5-10.1) Magnesium Level 2.3mg/dL (1.8-2.4) Total Bilirubin 1.2mg/dL (0.2-1.0) Aspartate Amino Transf (AST/SGOT) 21U/L (15-37) Alanine Aminotransferase (ALT/SGPT) 20U/L (16-63) Alkaline Phosphatase 117U/L (46-116) Troponin I Quantitative 0.071ng/mL (0.000-0.055) 0.068ng/mL (0.000-0.055) Total Protein 6.9g/dL (6.4-8.2) Albumin 3.7g/dL (3.4-5.0) Albumin/Globulin Ratio 1.2 (1.0-1.7) Triglycerides Level 79mg/dL (0-150) Cholesterol Level 112mg/dL (0-200) LDL Cholesterol, Calculated 52mg/dL (0-100) VLDL Cholesterol, Calculated 16mg/dL (0-40) HDL Cholesterol 44mg/dL (40-60) Cholesterol/HDL Ratio 2.5 Thyroid Stimulating Hormone (TSH) 4.823uIU/mL (0.358-3.74) Glucose (Fingerstick) 100mg/dL (70-99) 143mg/dL (70-99) Prothrombin Time 26.7SEC (11.7-14.0) Prothromb Time International Ratio 2.6 (0.8-1.1) Medications Active Scripts Medications Dose Route/Sig Days Date Category Torsemide 20 Mg Tablet 4 Tab PO DAILY 01/06/17 Reported Amiodarone Hcl 200 Mg Tablet 1 Tab PO DAILY 01/06/17 Reported Toprol Xl (Metoprolol Succinate) 25 Mg Tab.er.24h 1 Tab PO DAILY 01/06/17 Reported Novolog (Insulin Aspart) 100 Unit/1 Ml Cartridge 10 Unit SQ TID 06/08/16 Reported Lantus Solostar (Insulin Glargine,Hum.rec.anlog) 100 Unit/1 Ml Insuln.pen 40 Unit SQ BID 06/08/16 Reported Cyclobenzaprine Hcl 10 Mg Tablet 1 Tab PO TID 06/08/16 Reported Allopurinol 300 Mg Tablet 1 Tab PO DAILY 06/08/16 Reported Simvastatin 10 Mg Tablet 1 Tab PO QHS 06/08/16 Reported Coumadin (Warfarin Sodium) 2.5 Mg Tablet 1 Tab PO DAILY 06/08/16 Reported Potassium Gluconate 500 Mg Tablet 500 Mg PO DAILY 06/08/16 Reported Furosemide 40 Mg Tablet 1 Tab PO DAILY 06/08/16 Reported Mag-Oxide (Magnesium Oxide) 400 Mg Tablet 1 Tab PO DAILY 11/06/15 Reported Levothyroxine Sodium 100 Mcg Tablet 1 Tab PO DAILY 11/06/15 Reported Digoxin 125 Mcg Tablet 1 Tab PO DAILY 11/06/15 Reported Enalapril Maleate 2.5 Mg Tablet 1 Tab PO DAILY 11/06/15 Reported Vitamin D3 (Cholecalciferol (Vitamin D3)) 1,000 Unit Tablet 2,000 Unit PO DAILY 11/06/15 Reported Coreg (Carvedilol) 25 Mg Tablet 1 Tab PO BID 11/06/15 Reported Impression . FULL CONSULT DICTATED WILL PROCEED WITH THORACENTESIS HOLD ANTICOAGULATION TIMMY BACON MD Jan 06, 2017 14:06
--- NOTE | 2017-01-06 15:13 | CARD ---
APPROVED REPORT EXAM: Two-dimensional and M-mode echocardiogram with Doppler and color Doppler. Other Information Quality : Good Rhythm : NSR INDICATION CHF, NIDM 2D DIMENSIONS RVDd5.0 (2.9-3.5cm)Left Atrium(2D)6.3 (1.6-4.0cm) IVSd1.2 (0.7-1.1cm)Aortic Root(2D)3.1 (2.0-3.7cm) LVDd5.8 (3.9-5.9cm)LVOT Diameter2.4 (1.8-2.4cm) PWd1.2 (0.7-1.1cm)LVDs5.6 (2.5-4.0cm) FS (%) 4.2 %SV15.7 ml LVEF(%)9.3 (>50%) Aortic Valve AoV Peak Joshua.109.4cm/sAoV VTI15.7cm AO Peak GR.4.8mmHgLVOT Peak Joshua.95.3cm/s AO Mean GR.3mmHgAVA (VMAX)4.02cm2 Mitral Valve MV E Kjbzizhm532.6cm/sMV E Peak Gr.13mmHg MV DECEL [id number] A Vapbxgdj247.7cm/s MV E Mean Gr.6mmHgE/A Ratio1.6 Pulmonary Valve PV Peak Yosddcmm95.2cm/s Tricuspid Valve TR P. [id number]/sTR Peak Gr.39mmHg Pulmonary Vein S1 Cecxefzn41.3cm/sD2 Jwybfxzr97.8cm/s PVa [id number] LEFT VENTRICLE The Left Ventricle is mildly dilated. There is mild concentric left ventricular hypertrophy. Left rajeev tricle systolic function is severely impaired. The Ejection Fraction is <20%. There is severe global hypokinesis of the left ventricle. Abnormal septal wall motion is noted. Tissue Doppler imaging revea ls severe left ventricular diastolic dysfunction. No left ventricle thrombus noted on this study. The re is no left ventricular aneurysm. RIGHT VENTRICLE The right ventricle is mildly dilated. There is normal right ventricular wall thickness. The right ve ntricular systolic function is normal. There is a pacemaker lead in the right ventricle. ATRIA The left atrium is severely dilated. The right atrium size is normal. The interatrial septum is intac t with no evidence for an atrial septal defect or patent foramen ovale as noted on 2-D or Doppler sven ging. AORTIC VALVE The aortic valve is mildly sclerotic. Doppler and Color Flow revealed no significant aortic regurgita tion. There is no significant aortic valvular stenosis. MITRAL VALVE Mitral annular calcification is mild. There is no evidence of mitral valve prolapse. There is no mitr al valve stenosis. Doppler and Color Flow revealed mild mitral regurgitation. Suspect mitral ring, no clear mechanical valve noted. TRICUSPID VALVE The tricuspid valve is normal in structure and function. Doppler and Color Flow revealed moderate tri cuspid regurgitation. There is no tricuspid valve stenosis. PULMONIC VALVE Doppler and Color Flow revealed no pulmonic valvular regurgitation. There is no pulmonic valvular foster nosis. GREAT VESSELS The aortic root is normal in size. The ascending aorta is normal in size. The IVC is dilated and [place] apses <50% with inspiration consistent with fluid overload. PERICARDIAL EFFUSION There is large right pleural effusion. There is no evidence of significant pericardial effusion. Critical Notification Critical Value: No <Conclusion> Left ventricle systolic function is severely impaired. The Ejection Fraction is <20%. There is severe global hypokinesis of the left ventricle. Abnormal septal wall motion is noted. Tissue Doppler imaging reveals severe left ventricular diastolic dysfunction. There is a pacemaker lead in the right ventricle. The IVC is dilated and collapses <50% with inspiration consistent with fluid overload. There is large right pleural effusion.
[2017-01-06] MEDS ORDERED: FUROSEMIDE 40 MG/4 ML VIAL IVP ONE (16:00)
[2017-01-06] MEDS ORDERED: WARFARIN 2 MG TABLET. PO SCH (16:00)
--- NOTE | 2017-01-06 17:19 | RAD ---
INDICATION: slurred speech/ COMPARISON: None. TECHNIQUE: Axial CT images obtained through the head without intravenous contrast. FINDINGS: No intracranial hemorrhage. No midline shift. Basal cisterns patents. Ventricles and sulci are globally prominent. Romero white differentiation is maintained without evidence of acute ischemia to large vessel territory. No acute osseous abnormality. Orbits and paranasal sinuses unremarkable. Scattered foci of low attenuation within the white matter. IMPRESSION: 1. No acute intracranial hemorrhage. 2. Scattered regions of low attenuation within the white matter. Non-specific in nature but frequently secondary to chronic small vessel ischemic disease. If there is clinical concern for acute etiology MRI could better evaluate to ensure none of these foci are acute. 3. Prominence of ventricles and sulci which is frequently secondary to age related volume loss. PQRS Compliance Statement: One or more of the following individualized dose reduction techniques were utilized for this examination: 1. Automated exposure control 2. Adjustment of the mA and/or kV according to patient size 3. Use of iterative reconstruction technique
--- NOTE | 2017-01-06 17:45 | RAD ---
CT of the chest without contrast, 01/06/2017: History: Pleural fluid, congestive heart failure Noncontrast scans were obtained as requested. There has been a previous median sternotomy. There is severe generalized cardiomegaly. Transvenous pacing leads are in place. The inferior vena cava is mildly dilated. There is mild calcific plaquing of the thoracic aorta without evidence of aneurysm. Mild scattered coronary artery calcifications are present. Multiple small mediastinal lymph nodes are seen without definite pathologic enlargement. There is a moderate-sized right pleural effusion. The right lower lobe is atelectatic. There is partial atelectasis of the right middle lobe and the posterior aspect of the right upper lobe due to the pleural fluid. There is only a trace amount of left-sided pleural fluid. Evaluation of the lung parenchyma is compromised by patient history motion artifact, however, there are mild scattered groundglass opacities and interlobular septal thickening probably due to edema. There is a moderate vertebral compression forming at T12, of indeterminate age. There are scattered spurs in the spine. IMPRESSION: 1. Moderate sized right pleural effusion with underlying right lower lobe atelectasis and partial atelectasis of the right middle and upper lobes. 2. Mild patchy groundglass opacities and interlobular septal thickening compatible with mild pulmonary edema. 3. Severe generalized cardiomegaly.
[2017-01-06] MEDS: SIMVASTATIN 10 MG TABLET PO SCH (20:10)
[2017-01-07] VITALS (7 sets, daily range): BP systolic 84–108; BP diastolic 49–62
--- NOTE | 2017-01-07 04:59 | CONS ---
DATE OF CONSULTATION: 01/06/2017 ATTENDING PHYSICIAN: Dr. Monzon. REASON FOR CONSULTATION: The patient seen in pulmonary consultation at the request of Dr. Monzon for abnormal x-ray and dyspnea. HISTORY OF PRESENT ILLNESS: The patient is a 66-year-old with a prior history of severe cardiomyopathy, ejection fraction 15%, status post ICD placement with severe mitral regurgitation, was transferred from [facility] for shortness of breath. The patient has been more short of breath for the last several days. No fever, chills or night sweats. No home oxygen. He was also experiencing some paroxysmal nocturnal dyspnea. A chest x-ray was obtained. I reviewed the x-ray, which revealed right-sided effusion with some atelectasis. I was asked to see him in consultation. The patient states that he has had a previous thoracentesis sometime ago, removing 2 liters of fluid. PAST MEDICAL HISTORY: 1. Cardiomyopathy with ejection fraction estimated at 15%, status post ICD placement. 2. AFib. 3. Chronic heart failure. 4. Hypertension. 5. Hyperlipidemia. 6. Chronic renal insufficiency. 7. Acute renal failure. 8. Heparin intolerance, status post repair below knee amputation bilaterally. 9. Diabetes. 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 FAMILY HISTORY: Heart disease. SOCIAL HISTORY: He quit tobacco many years ago. Denies any alcohol intake. CURRENT MEDICATIONS: List was reviewed. ALLERGIES: PENICILLIN, HEPARIN AND LEVOFLOXACIN. PHYSICAL EXAMINATION: GENERAL: The patient was in mild respiratory distress, but able to complete full sentences. VITAL SIGNS: He is currently on 4 liters of oxygen supplementation, has been afebrile. HEENT: Eyes, the sclerae were nonicteric. NECK: Jugular venous distention was not elevated. No lymphadenopathy. CHEST: Full expansion. LUNGS: Poor airway flow, no wheezes. CARDIOVASCULAR: Regular rate and rhythm with S1, S2, no S3. ABDOMEN: Soft, nontender, nondistended. EXTREMITIES: Amputation as indicated above, below knee, bilaterally. NEUROLOGIC: The patient was awake, alert, following commands. A detailed neuro exam was not performed. LABORATORY DATA: White count was 11,000, hemoglobin 14, hematocrit 47, platelet count was 252. INR was 2.6. Electrolytes were noted. BUN is elevated. Creatinine was elevated. Troponin was elevated. IMPRESSION: 1. Acute respiratory failure secondary to acute systolic heart failure. 2. Acute on chronic systolic heart failure with previous ejection fraction estimated at 15%. 3. Status post implantable cardioverter-defibrillator placement. 4. Abnormal x-ray revealing a large right-sided effusion with atelectasis. 5. Chronic atrial fibrillation, on Coumadin. 6. History of heparin-induced thrombocytopenia, status post bilateral below knee amputation. 7. Hypertension. 8. Chronic kidney disease. 9. Type 2 diabetes. 10. Elevated troponin level. PLAN: 1. From a pulmonary standpoint of view, I suspect most of the patient's respiratory distress is related to acute heart failure in addition to the right-sided effusion. 2. We will proceed with thoracentesis, doubt that the fluid is related to infectious or malignant process. 3. Echo pending. 4. Hold anticoagulation for now. 5. Continue home meds. 6. Follow cardiology input. Dr. Monzon, I do appreciate the privilege in sharing in the patient's care. TIMMY BACON MD DR: YAKELIN/eder JOB#: [id number] / [id number]
[2017-01-07 06:49] LABS: BASO % 0 % (0-3); EOS % 0 % (0-3); HEMOGLOBIN 13.3 g/dL (13.0-17.5); LYMPH # 0.3 x10^3/uL (1.0-4.8); LYMPH % 4 % (24-48); MEAN CORPUSCULAR HEMOGLOBIN 24 pg (25-35); MEAN CORPUSCULAR HGB CONC 31 g/dL (31-37); MEAN CORPUSCULAR VOLUME 78 fL (79-100); MONO % 7 % (0-9); NEUT % 89 % (31-73); PLATELET COUNT 148 x10^3/uL (140-400); RED BLOOD COUNT 5.55 x10^6/uL (4.30-5.70); RED CELL DISTRIBUTION WIDTH 22.6 % (11.5-14.5); WHITE BLOOD COUNT 8.3 x10^3/uL (4.0-11.0)
[2017-01-07 06:52] LABS: CALCIUM 8.9 mg/dL (8.5-10.1); CREATININE 1.8 mg/dL (0.7-1.3); GFR 37.8; POTASSIUM 4.5 mmol/L (3.5-5.1)
[2017-01-07 07:08] LABS: INR 2.9 (0.8-1.1); PROTHROMBIN TIME PATIENT 28.7 SEC (11.7-14.0)
[2017-01-07] MEDS: INSULIN ASPART 300 UNITS/3 ML INSULN.PEN SQ SCH ×6 (07:30→16:58)
[2017-01-07] MEDS: MAGNESIUM OXIDE 400 MG TABLET PO SCH (08:38)
[2017-01-07] MEDS: CHOLECALCIFEROL (VITAMIN D3) 1,000 UNIT TABLET PO SCH (08:38)
[2017-01-07] MEDS: LEVOTHYROXINE 100 MCG TABLET PO SCH (08:39)
[2017-01-07] MEDS: DIGOXIN 125 MCG TABLET PO SCH (08:39)
[2017-01-07] MEDS: TORSEMIDE 20 MG TABLET. PO SCH (08:40)
[2017-01-07] MEDS: METOPROLOL SUCC 24HR ER 25 MG TAB.ER.24H. PO SCH (08:41)
[2017-01-07] MEDS: LISINOPRIL 2.5 MG TABLET PO SCH (08:41)
[2017-01-07] MEDS: AMIODARONE HCL 200 MG TABLET PO SCH (08:41)
[2017-01-07] MEDS ORDERED: NON FORMULARY ITEM (Potassium Gluconate 500 MG) PO SCH (09:00)
[2017-01-07] MEDS ORDERED: METOLAZONE 2.5 MG TABLET PO SCH (09:00)
[2017-01-07] MEDS: INSULIN DETEMIR 300 UNITS/3 ML INSULN.PEN. SQ SCH ×2 (09:35→21:10)
--- NOTE | 2017-01-07 09:49 | PDOC ---
NOE CASTLE SIGNAL REPAIRER 01/07/17 0949: CARDIO Progress Notes Date and Time Date of Service 01/07/2017 Time of Evaluation 0940 Subjective Subjective: No Chest Pain, No shortness of breath, No Palpitations, No Dizziness, Other (feels wheezy; appetite better) Vitals Vitals Vital Signs Date Time Temp Pulse Resp B/P Pulse Ox O2 Delivery O2 Flow Rate FiO2 01/07/17 08:39 89 84/60 01/07/17 04:00 98.5 27 97 Nasal Cannula 4.0 98.5 Weight Weight [ ] Input and Output Intake and Output Intake and Output 01/07/17 07:00 Intake Total 100 ml Output Total 1375 ml Balance -1275 ml Intake Oral 100 ml Output Urine Total 1375 ml Laboratory Labs Laboratory Tests Test 01/06/17 10:00 01/06/17 12:29 01/06/17 17:44 01/06/17 20:09 Prothrombin Time 26.7SEC (11.7-14.0) Prothromb Time International Ratio 2.6 (0.8-1.1) Troponin I Quantitative 0.068ng/mL (0.000-0.055) Glucose (Fingerstick) 143mg/dL (70-99) 130mg/dL (70-99) 144mg/dL (70-99) Test 01/07/17 06:05 01/07/17 08:36 White Blood Count 8.3x10^3/uL (4.0-11.0) Red Blood Count 5.55x10^6/uL (4.30-5.70) Hemoglobin 13.3g/dL (13.0-17.5) Hematocrit 43.0% (39.0-53.0) Mean Corpuscular Volume 78fL (79-100) Mean Corpuscular Hemoglobin 24pg (25-35) Mean Corpuscular Hemoglobin Concent 31g/dL (31-37) Red Cell Distribution Width 22.6% (11.5-14.5) Platelet Count 148x10^3/uL (140-400) Neutrophils (%) (Auto) 89% (31-73) Lymphocytes (%) (Auto) 4% (24-48) Monocytes (%) (Auto) 7% (0-9) Eosinophils (%) (Auto) 0% (0-3) Basophils (%) (Auto) 0% (0-3) Neutrophils # (Auto) 7.4x10^3uL (1.8-7.7) Lymphocytes # (Auto) 0.3x10^3/uL (1.0-4.8) Monocytes # (Auto) 0.5x10^3/uL (0.0-1.1) Eosinophils # (Auto) 0.0x10^3/uL (0.0-0.7) Basophils # (Auto) 0.0x10^3/uL (0.0-0.2) Prothrombin Time 28.7SEC (11.7-14.0) Prothromb Time International Ratio 2.9 (0.8-1.1) Sodium Level 141mmol/L (136-145) Potassium Level 4.5mmol/L (3.5-5.1) Chloride Level 101mmol/L (98-107) Carbon Dioxide Level 30mmol/L (21-32) Anion Gap 10 (6-14) Blood Urea Nitrogen 57mg/dL (8-26) Creatinine 1.8mg/dL (0.7-1.3) Estimated GFR (Cockcroft-Gault) 37.8 Glucose Level 123mg/dL (70-99) Calcium Level 8.9mg/dL (8.5-10.1) Glucose (Fingerstick) 103mg/dL (70-99) Physical Exam HEENT: Neck Supple W Full Motion Chest: Symmetric LUNGS: Other (diminished bases with diffuse wheezes) Heart: S1S2, murmurs (3/6 systolic murmur to LLS border), irregularly irregular (Paced with underlying AFIB) Extremities: Other (bilateral BKA; no stump edema, no scrotal edema) Neurology: alert, oriented, follow commands Assessment Assessment 1. Acute on chronic mixed diastolic/systolic CHF/persistent right mod pleural effusion 2. NICM: verbalized LHC with no significant obstructive disease in 2009. EF is < 20% 3. 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 4. 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 Hx of Mitral valve repair: 2005 and 2009 7. 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 Hypoglycemia: no further episodes 9. Hypoxic encephalopathy: notable for auditory hallucination, no recurrences 10 AFIB: Paroxysmal? paced with underlying AFIB 11. Subclinical hypothyroidism: TSH 4.8. Recommendation 1. Continue with diuretic therapy per BP tolerance, dosing decreased 2. Albuterol x1, no home inhalers. Will defer further to pulmonary 3. Continue with amiodarone/dig. On coumadin INR 2.9, will hold coumadin for anticipated thoracentesis 4. Continue with secondary prevention as tolerated 5. Avoid tight BG control 6. Device interrogation pending. PCXR 7. Records still not available. 8. Staff mentioned adequate po hydration, not recorded, good UOP overnight. Strict I & O. ODALYS SHAHID MD 01/07/17 1700: CARDIO Progress Notes Assessment Assessment Patient seen and examined. Agree with TALENT ASSISTANT's assessment and plan. Continue diuresis for acute on chronic systolic heart failure. Coumadin on hold for thoracentesis. Continue other medications. NOE CASTLE APRN Jan 07, 2017 09:49 ODALYS SHAHID MD Jan 07, 2017 17:00
--- NOTE | 2017-01-07 10:58 | PDOC ---
PROGRESS NOTES Assessment Problems Medical Problems: (1) Acute congestive heart failure Status: Acute Dysarthria due to prior tongue surgery and dyspnea, resolved CT head negative Plan Will follow as needed Subjective Feels better Objective Vital Signs Date Time Temp Pulse Resp B/P Pulse Ox O2 Delivery O2 Flow Rate FiO2 01/07/17 09:00 89 84/60 01/07/17 08:00 97.4 18 94 Nasal Cannula 4.0 97.4 Intake and Output 01/07/17 07:00 Intake Total 100 ml Output Total 1375 ml Balance -1275 ml Intake Oral 100 ml Output Urine Total 1375 ml PHYSICAL EXAM Alert. Oriented to time, place and person. PERRL. EOMI. CN: no focal findings. Muscle tone: normal. Muscle strength: 4/5 DTR: 1+ Plantar reflex: s/p BKA Gait: not examined in bed. Sensory exam: no abnormal findings. No cerebellar signs elicited. Review of Relevant I have reviewed the following items anuja (where applicable) has been applied. Labs Laboratory Tests Test 01/06/17 04:00 01/06/17 05:38 01/06/17 08:41 01/06/17 10:00 Nasal Screen MRSA (PCR) Negative (Negative) White Blood Count 11.1x10^3/uL (4.0-11.0) Red Blood Count 5.99x10^6/uL (4.30-5.70) Hemoglobin 14.5g/dL (13.0-17.5) Hematocrit 47.4% (39.0-53.0) Mean Corpuscular Volume 79fL (79-100) Mean Corpuscular Hemoglobin 24pg (25-35) Mean Corpuscular Hemoglobin Concent 31g/dL (31-37) Red Cell Distribution Width 22.1% (11.5-14.5) Platelet Count 152x10^3/uL (140-400) Neutrophils (%) (Auto) 97% (31-73) Lymphocytes (%) (Auto) 2% (24-48) Monocytes (%) (Auto) 1% (0-9) Eosinophils (%) (Auto) 0% (0-3) Basophils (%) (Auto) 0% (0-3) Neutrophils # (Auto) 10.7x10^3uL (1.8-7.7) Lymphocytes # (Auto) 0.2x10^3/uL (1.0-4.8) Monocytes # (Auto) 0.1x10^3/uL (0.0-1.1) Eosinophils # (Auto) 0.0x10^3/uL (0.0-0.7) Basophils # (Auto) 0.0x10^3/uL (0.0-0.2) Segmented Neutrophils % 97% (35-66) Monocytes % 1% (0-10) Eosinophils % 2% (0-5) Platelet Estimate Adequate (ADEQUATE) Hypochromasia Slight Anisocytosis Mod Activated Partial Thromboplast Time 44SEC (24-38) Sodium Level 144mmol/L (136-145) Potassium Level 4.6mmol/L (3.5-5.1) Chloride Level 102mmol/L (98-107) Carbon Dioxide Level 28mmol/L (21-32) Anion Gap 14 (6-14) Blood Urea Nitrogen 43mg/dL (8-26) Creatinine 1.7mg/dL (0.7-1.3) Estimated GFR (Cockcroft-Gault) 40.4 BUN/Creatinine Ratio 25 (6-20) Glucose Level 74mg/dL (70-99) Calcium Level 9.2mg/dL (8.5-10.1) Magnesium Level 2.3mg/dL (1.8-2.4) Total Bilirubin 1.2mg/dL (0.2-1.0) Aspartate Amino Transf (AST/SGOT) 21U/L (15-37) Alanine Aminotransferase (ALT/SGPT) 20U/L (16-63) Alkaline Phosphatase 117U/L (46-116) Troponin I Quantitative 0.071ng/mL (0.000-0.055) 0.068ng/mL (0.000-0.055) Total Protein 6.9g/dL (6.4-8.2) Albumin 3.7g/dL (3.4-5.0) Albumin/Globulin Ratio 1.2 (1.0-1.7) Triglycerides Level 79mg/dL (0-150) Cholesterol Level 112mg/dL (0-200) LDL Cholesterol, Calculated 52mg/dL (0-100) VLDL Cholesterol, Calculated 16mg/dL (0-40) HDL Cholesterol 44mg/dL (40-60) Cholesterol/HDL Ratio 2.5 Thyroid Stimulating Hormone (TSH) 4.823uIU/mL (0.358-3.74) Glucose (Fingerstick) 100mg/dL (70-99) Prothrombin Time 26.7SEC (11.7-14.0) Prothromb Time International Ratio 2.6 (0.8-1.1) Test 01/06/17 12:29 01/06/17 17:44 01/06/17 20:09 01/07/17 06:05 Glucose (Fingerstick) 143mg/dL (70-99) 130mg/dL (70-99) 144mg/dL (70-99) White Blood Count 8.3x10^3/uL (4.0-11.0) Red Blood Count 5.55x10^6/uL (4.30-5.70) Hemoglobin 13.3g/dL (13.0-17.5) Hematocrit 43.0% (39.0-53.0) Mean Corpuscular Volume 78fL (79-100) Mean Corpuscular Hemoglobin 24pg (25-35) Mean Corpuscular Hemoglobin Concent 31g/dL (31-37) Red Cell Distribution Width 22.6% (11.5-14.5) Platelet Count 148x10^3/uL (140-400) Neutrophils (%) (Auto) 89% (31-73) Lymphocytes (%) (Auto) 4% (24-48) Monocytes (%) (Auto) 7% (0-9) Eosinophils (%) (Auto) 0% (0-3) Basophils (%) (Auto) 0% (0-3) Neutrophils # (Auto) 7.4x10^3uL (1.8-7.7) Lymphocytes # (Auto) 0.3x10^3/uL (1.0-4.8) Monocytes # (Auto) 0.5x10^3/uL (0.0-1.1) Eosinophils # (Auto) 0.0x10^3/uL (0.0-0.7) Basophils # (Auto) 0.0x10^3/uL (0.0-0.2) Prothrombin Time 28.7SEC (11.7-14.0) Prothromb Time International Ratio 2.9 (0.8-1.1) Sodium Level 141mmol/L (136-145) Potassium Level 4.5mmol/L (3.5-5.1) Chloride Level 101mmol/L (98-107) Carbon Dioxide Level 30mmol/L (21-32) Anion Gap 10 (6-14) Blood Urea Nitrogen 57mg/dL (8-26) Creatinine 1.8mg/dL (0.7-1.3) Estimated GFR (Cockcroft-Gault) 37.8 Glucose Level 123mg/dL (70-99) Calcium Level 8.9mg/dL (8.5-10.1) Test 01/07/17 08:36 Glucose (Fingerstick) 103mg/dL (70-99) Laboratory Tests Test 01/06/17 12:29 01/06/17 17:44 01/06/17 20:09 01/07/17 06:05 Glucose (Fingerstick) 143mg/dL (70-99) 130mg/dL (70-99) 144mg/dL (70-99) White Blood Count 8.3x10^3/uL (4.0-11.0) Red Blood Count 5.55x10^6/uL (4.30-5.70) Hemoglobin 13.3g/dL (13.0-17.5) Hematocrit 43.0% (39.0-53.0) Mean Corpuscular Volume 78fL (79-100) Mean Corpuscular Hemoglobin 24pg (25-35) Mean Corpuscular Hemoglobin Concent 31g/dL (31-37) Red Cell Distribution Width 22.6% (11.5-14.5) Platelet Count 148x10^3/uL (140-400) Neutrophils (%) (Auto) 89% (31-73) Lymphocytes (%) (Auto) 4% (24-48) Monocytes (%) (Auto) 7% (0-9) Eosinophils (%) (Auto) 0% (0-3) Basophils (%) (Auto) 0% (0-3) Neutrophils # (Auto) 7.4x10^3uL (1.8-7.7) Lymphocytes # (Auto) 0.3x10^3/uL (1.0-4.8) Monocytes # (Auto) 0.5x10^3/uL (0.0-1.1) Eosinophils # (Auto) 0.0x10^3/uL (0.0-0.7) Basophils # (Auto) 0.0x10^3/uL (0.0-0.2) Prothrombin Time 28.7SEC (11.7-14.0) Prothromb Time International Ratio 2.9 (0.8-1.1) Sodium Level 141mmol/L (136-145) Potassium Level 4.5mmol/L (3.5-5.1) Chloride Level 101mmol/L (98-107) Carbon Dioxide Level 30mmol/L (21-32) Anion Gap 10 (6-14) Blood Urea Nitrogen 57mg/dL (8-26) Creatinine 1.8mg/dL (0.7-1.3) Estimated GFR (Cockcroft-Gault) 37.8 Glucose Level 123mg/dL (70-99) Calcium Level 8.9mg/dL (8.5-10.1) Test 01/07/17 08:36 Glucose (Fingerstick) 103mg/dL (70-99) Medications Current Medications Acetaminophen (Tylenol) 650 mg PRN Q6HRS PRN PO MILD PAIN / TEMP; Start at 05:00 Ondansetron HCl (Zofran) 4 mg PRN Q6HRS PRN IV NAUSEA/VOMITING; Start 01/06/17 at 05:00 Hydralazine HCl (Apresoline) 10 mg PRN Q4HRS PRN IVP ELEVATED BP, SEE COMMENTS ; Start 01/06/17 at 05:00 Amiodarone HCl (Cordarone) 200 mg DAILY PO Last administered on 01/06/17 10:21 ; Start 01/06/17 at 10:00 Vitamin D (Vitamin D3) 2,000 unit DAILY PO Last administered on 01/07/17 08:38 ; Start 01/06/17 at 10:00 Digoxin (Lanoxin) 125 mcg DAILY PO Last administered on 01/07/17 08:39; Start 01/06/17 at 10:30 Levothyroxine Sodium (Synthroid) 100 mcg DAILY07 PO Last administered on 08:39; Start 01/06/17 at 10:30 Magnesium Oxide (Magnesium Oxide) 400 mg DAILY PO Last administered on 08:38; Start 01/06/17 at 10:30 Metoprolol Succinate (Toprol Xl) 25 mg DAILY PO Last administered on 01/06/17 10:22; Start 01/06/17 at 10:30 Simvastatin (Zocor) 10 mg QHS PO Last administered on 01/06/17 20:10; Start at 21:00 Torsemide (Demadex) 80 mg DAILY PO Last administered on 01/07/17 08:40; Start 01/06/17 at 10:30 Warfarin Sodium (Coumadin) 2 mg DAILY16 PO ; Start 01/06/17 at 16:00; Stop 01/06 at 16:00; Status DC Carvedilol (Coreg) 25 mg BIDWMEALS PO Last administered on 01/06/17 10:22; Start 01/06/17 at 10:30; Stop 01/06/17 at 11:51; Status DC Lisinopril (Prinivil) 2.5 mg DAILY PO Last administered on 01/06/17 10:21; Start 01/06/17 at 10:30 Insulin Aspart (Novolog) 10 units TIDAC SQ Last administered on 01/06/17 18:38 ; Start 01/06/17 at 11:30 Insulin Detemir (Levemir) 30 units BID SQ Last administered on 01/07/17 09:35 ; Start 01/06/17 at 10:30 Non-Formulary Medication 500 mg DAILY PO ; Start 01/07/17 at 09:00; Status UNV Torsemide (Demadex) 80 mg DAILY PO ; Start 01/06/17 at 10:00; Status UNV Insulin Aspart (Novolog) 0-9 UNITS TIDWMEALS SQ ; Start 01/06/17 at 12:00 Dextrose 12.5 gm PRN Q15MIN PRN IV SEE COMMENTS; Start 01/06/17 at 09:45 Warfarin Sodium (Coumadin Per Physician) 1 each PRN DAILY PRN MC SEE COMMENTS Last administered on 01/06/17 17:31; Start 01/06/17 at 10:45 Furosemide (Lasix) 40 mg 1X ONCE IVP Last administered on 01/06/17 15:55; Start 01/06/17 at 16:00; Stop 01/06/17 at 16:01; Status DC Metolazone (Zaroxolyn) 5 mg DAILY PO Last administered on 01/07/17t 08:40; Start 01/07/17 at 09:00 Ascorbic Acid (Vitamin C) 500 mg DAILY PO ; Start 01/08/17 at 09:00 Multivitamins/ Calcium (Thera M Plus) 1 tab DAILY PO ; Start 01/08/17 at 09:00 Active Scripts Active Reported Torsemide 20 Mg Tablet 4 Tab PO DAILY Amiodarone Hcl 200 Mg Tablet 1 Tab PO DAILY Toprol Xl (Metoprolol Succinate) 25 Mg Tab.er.24h 1 Tab PO DAILY Novolog (Insulin Aspart) 100 Unit/1 Ml Cartridge 10 Unit SQ TID Lantus Solostar (Insulin Glargine,Hum.rec.anlog) 100 Unit/1 Ml Insuln.pen 40 Unit SQ BID Cyclobenzaprine Hcl 10 Mg Tablet 1 Tab PO TID Allopurinol 300 Mg Tablet 1 Tab PO DAILY Simvastatin 10 Mg Tablet 1 Tab PO QHS Coumadin (Warfarin Sodium) 2.5 Mg Tablet 1 Tab PO DAILY Potassium Gluconate 500 Mg Tablet 500 Mg PO DAILY Furosemide 40 Mg Tablet 1 Tab PO DAILY Mag-Oxide (Magnesium Oxide) 400 Mg Tablet 1 Tab PO DAILY Levothyroxine Sodium 100 Mcg Tablet 1 Tab PO DAILY Digoxin 125 Mcg Tablet 1 Tab PO DAILY Enalapril Maleate 2.5 Mg Tablet 1 Tab PO DAILY Vitamin D3 (Cholecalciferol (Vitamin D3)) 1,000 Unit Tablet 2,000 Unit PO DAILY Coreg (Carvedilol) 25 Mg Tablet 1 Tab PO BID Vitals/I & O Vital Sign - Last 24 Hours 01/06/17 01/06/17 01/06/17 01/06/17 12:00 16:00 20:00 20:00 Temp 97.7 98.5 97.7 98.5 Pulse 89 89 89 Resp 31 27 25 B/P 118/67 103/60 106/59 Pulse Ox 96 98 98 O2 Delivery Nasal Cannula Nasal Cannula Nasal Cannula O2 Flow Rate 4.0 4.0 4.0 4.0 01/07/17 01/07/17 01/07/17 01/07/17 00:00 04:00 08:00 08:00 Temp 98.4 98.5 97.4 98.4 98.5 97.4 Pulse 90 89 92 Resp 22 27 18 B/P 98/55 104/49 105/56 Pulse Ox 98 97 94 O2 Delivery Nasal Cannula Nasal Cannula Nasal Cannula Nasal Cannula O2 Flow Rate 4.0 4.0 4.0 4.0 01/07/17 01/07/17 08:39 09:00 Pulse 89 89 B/P 84/60 84/60 Intake and Output 01/06/17 01/06/17 01/07/17 15:00 23:00 07:00 Intake Total 100 ml Output Total 200 ml 825 ml 350 ml Balance -200 ml -725 ml -[address] head: 1. No acute intracranial hemorrhage. 2. Scattered regions of low attenuation within the white matter. Non-specific in nature but frequently secondary to chronic small vessel ischemic disease. If there is clinical concern for acute etiology MRI could better evaluate to ensure none of these foci are acute. 3. Prominence of ventricles and sulci which is frequently secondary to age related volume loss. ANN MARIE MALONE MD Jan 07, 2017 10:58
--- NOTE | 2017-01-07 11:12 | PDOC ---
PULMONARY PROGRESS NOTES Subjective PT LESS SOA Vitals Vital Signs Date Time Temp Pulse Resp B/P Pulse Ox O2 Delivery O2 Flow Rate FiO2 01/07/17 09:00 89 84/60 01/07/17 08:00 97.4 18 94 Nasal Cannula 4.0 97.4 ROS: No Nausea, No Chest Pain, No Abdominal Pain, No Increase Cough General: Alert, No acute distress Lungs: Clear, Other (DECREASE BS RIGHT BASE) Cardiovascular: S1 Abdomen: Soft, Non-tender Neuro Exam: Alert Extremities: Other Skin: Warm Labs Laboratory Tests Test 01/06/17 04:00 01/06/17 05:38 01/06/17 08:41 01/06/17 10:00 Nasal Screen MRSA (PCR) Negative (Negative) White Blood Count 11.1x10^3/uL (4.0-11.0) Red Blood Count 5.99x10^6/uL (4.30-5.70) Hemoglobin 14.5g/dL (13.0-17.5) Hematocrit 47.4% (39.0-53.0) Mean Corpuscular Volume 79fL (79-100) Mean Corpuscular Hemoglobin 24pg (25-35) Mean Corpuscular Hemoglobin Concent 31g/dL (31-37) Red Cell Distribution Width 22.1% (11.5-14.5) Platelet Count 152x10^3/uL (140-400) Neutrophils (%) (Auto) 97% (31-73) Lymphocytes (%) (Auto) 2% (24-48) Monocytes (%) (Auto) 1% (0-9) Eosinophils (%) (Auto) 0% (0-3) Basophils (%) (Auto) 0% (0-3) Neutrophils # (Auto) 10.7x10^3uL (1.8-7.7) Lymphocytes # (Auto) 0.2x10^3/uL (1.0-4.8) Monocytes # (Auto) 0.1x10^3/uL (0.0-1.1) Eosinophils # (Auto) 0.0x10^3/uL (0.0-0.7) Basophils # (Auto) 0.0x10^3/uL (0.0-0.2) Segmented Neutrophils % 97% (35-66) Monocytes % 1% (0-10) Eosinophils % 2% (0-5) Platelet Estimate Adequate (ADEQUATE) Hypochromasia Slight Anisocytosis Mod Activated Partial Thromboplast Time 44SEC (24-38) Sodium Level 144mmol/L (136-145) Potassium Level 4.6mmol/L (3.5-5.1) Chloride Level 102mmol/L (98-107) Carbon Dioxide Level 28mmol/L (21-32) Anion Gap 14 (6-14) Blood Urea Nitrogen 43mg/dL (8-26) Creatinine 1.7mg/dL (0.7-1.3) Estimated GFR (Cockcroft-Gault) 40.4 BUN/Creatinine Ratio 25 (6-20) Glucose Level 74mg/dL (70-99) Calcium Level 9.2mg/dL (8.5-10.1) Magnesium Level 2.3mg/dL (1.8-2.4) Total Bilirubin 1.2mg/dL (0.2-1.0) Aspartate Amino Transf (AST/SGOT) 21U/L (15-37) Alanine Aminotransferase (ALT/SGPT) 20U/L (16-63) Alkaline Phosphatase 117U/L (46-116) Troponin I Quantitative 0.071ng/mL (0.000-0.055) 0.068ng/mL (0.000-0.055) Total Protein 6.9g/dL (6.4-8.2) Albumin 3.7g/dL (3.4-5.0) Albumin/Globulin Ratio 1.2 (1.0-1.7) Triglycerides Level 79mg/dL (0-150) Cholesterol Level 112mg/dL (0-200) LDL Cholesterol, Calculated 52mg/dL (0-100) VLDL Cholesterol, Calculated 16mg/dL (0-40) HDL Cholesterol 44mg/dL (40-60) Cholesterol/HDL Ratio 2.5 Thyroid Stimulating Hormone (TSH) 4.823uIU/mL (0.358-3.74) Glucose (Fingerstick) 100mg/dL (70-99) Prothrombin Time 26.7SEC (11.7-14.0) Prothromb Time International Ratio 2.6 (0.8-1.1) Test 01/06/17 12:29 01/06/17 17:44 01/06/17 20:09 01/07/17 06:05 Glucose (Fingerstick) 143mg/dL (70-99) 130mg/dL (70-99) 144mg/dL (70-99) White Blood Count 8.3x10^3/uL (4.0-11.0) Red Blood Count 5.55x10^6/uL (4.30-5.70) Hemoglobin 13.3g/dL (13.0-17.5) Hematocrit 43.0% (39.0-53.0) Mean Corpuscular Volume 78fL (79-100) Mean Corpuscular Hemoglobin 24pg (25-35) Mean Corpuscular Hemoglobin Concent 31g/dL (31-37) Red Cell Distribution Width 22.6% (11.5-14.5) Platelet Count 148x10^3/uL (140-400) Neutrophils (%) (Auto) 89% (31-73) Lymphocytes (%) (Auto) 4% (24-48) Monocytes (%) (Auto) 7% (0-9) Eosinophils (%) (Auto) 0% (0-3) Basophils (%) (Auto) 0% (0-3) Neutrophils # (Auto) 7.4x10^3uL (1.8-7.7) Lymphocytes # (Auto) 0.3x10^3/uL (1.0-4.8) Monocytes # (Auto) 0.5x10^3/uL (0.0-1.1) Eosinophils # (Auto) 0.0x10^3/uL (0.0-0.7) Basophils # (Auto) 0.0x10^3/uL (0.0-0.2) Prothrombin Time 28.7SEC (11.7-14.0) Prothromb Time International Ratio 2.9 (0.8-1.1) Sodium Level 141mmol/L (136-145) Potassium Level 4.5mmol/L (3.5-5.1) Chloride Level 101mmol/L (98-107) Carbon Dioxide Level 30mmol/L (21-32) Anion Gap 10 (6-14) Blood Urea Nitrogen 57mg/dL (8-26) Creatinine 1.8mg/dL (0.7-1.3) Estimated GFR (Cockcroft-Gault) 37.8 Glucose Level 123mg/dL (70-99) Calcium Level 8.9mg/dL (8.5-10.1) Test 01/07/17 08:36 Glucose (Fingerstick) 103mg/dL (70-99) Laboratory Tests Test 01/06/17 12:29 01/06/17 17:44 01/06/17 20:09 01/07/17 06:05 Glucose (Fingerstick) 143mg/dL (70-99) 130mg/dL (70-99) 144mg/dL (70-99) White Blood Count 8.3x10^3/uL (4.0-11.0) Red Blood Count 5.55x10^6/uL (4.30-5.70) Hemoglobin 13.3g/dL (13.0-17.5) Hematocrit 43.0% (39.0-53.0) Mean Corpuscular Volume 78fL (79-100) Mean Corpuscular Hemoglobin 24pg (25-35) Mean Corpuscular Hemoglobin Concent 31g/dL (31-37) Red Cell Distribution Width 22.6% (11.5-14.5) Platelet Count 148x10^3/uL (140-400) Neutrophils (%) (Auto) 89% (31-73) Lymphocytes (%) (Auto) 4% (24-48) Monocytes (%) (Auto) 7% (0-9) Eosinophils (%) (Auto) 0% (0-3) Basophils (%) (Auto) 0% (0-3) Neutrophils # (Auto) 7.4x10^3uL (1.8-7.7) Lymphocytes # (Auto) 0.3x10^3/uL (1.0-4.8) Monocytes # (Auto) 0.5x10^3/uL (0.0-1.1) Eosinophils # (Auto) 0.0x10^3/uL (0.0-0.7) Basophils # (Auto) 0.0x10^3/uL (0.0-0.2) Prothrombin Time 28.7SEC (11.7-14.0) Prothromb Time International Ratio 2.9 (0.8-1.1) Sodium Level 141mmol/L (136-145) Potassium Level 4.5mmol/L (3.5-5.1) Chloride Level 101mmol/L (98-107) Carbon Dioxide Level 30mmol/L (21-32) Anion Gap 10 (6-14) Blood Urea Nitrogen 57mg/dL (8-26) Creatinine 1.8mg/dL (0.7-1.3) Estimated GFR (Cockcroft-Gault) 37.8 Glucose Level 123mg/dL (70-99) Calcium Level 8.9mg/dL (8.5-10.1) Test 01/07/17 08:36 Glucose (Fingerstick) 103mg/dL (70-99) Medications Active Scripts Medications Dose Route/Sig Days Date Category Torsemide 20 Mg Tablet 4 Tab PO DAILY 01/06/17 Reported Amiodarone Hcl 200 Mg Tablet 1 Tab PO DAILY 01/06/17 Reported Toprol Xl (Metoprolol Succinate) 25 Mg Tab.er.24h 1 Tab PO DAILY 01/06/17 Reported Novolog (Insulin Aspart) 100 Unit/1 Ml Cartridge 10 Unit SQ TID 06/08/16 Reported Lantus Solostar (Insulin Glargine,Hum.rec.anlog) 100 Unit/1 Ml Insuln.pen 40 Unit SQ BID 06/08/16 Reported Cyclobenzaprine Hcl 10 Mg Tablet 1 Tab PO TID 06/08/16 Reported Allopurinol 300 Mg Tablet 1 Tab PO DAILY 06/08/16 Reported Simvastatin 10 Mg Tablet 1 Tab PO QHS 06/08/16 Reported Coumadin (Warfarin Sodium) 2.5 Mg Tablet 1 Tab PO DAILY 06/08/16 Reported Potassium Gluconate 500 Mg Tablet 500 Mg PO DAILY 06/08/16 Reported Furosemide 40 Mg Tablet 1 Tab PO DAILY 06/08/16 Reported Mag-Oxide (Magnesium Oxide) 400 Mg Tablet 1 Tab PO DAILY 11/06/15 Reported Levothyroxine Sodium 100 Mcg Tablet 1 Tab PO DAILY 11/06/15 Reported Digoxin 125 Mcg Tablet 1 Tab PO DAILY 11/06/15 Reported Enalapril Maleate 2.5 Mg Tablet 1 Tab PO DAILY 11/06/15 Reported Vitamin D3 (Cholecalciferol (Vitamin D3)) 1,000 Unit Tablet 2,000 Unit PO DAILY 11/06/15 Reported Coreg (Carvedilol) 25 Mg Tablet 1 Tab PO BID 11/06/15 Reported Impression . 1. Acute respiratory failure secondary to acute systolic heart failure. 2. Acute on chronic systolic heart failure with previous ejection fraction estimated at 15%. 3. Status post implantable cardioverter-defibrillator placement. 4. Abnormal x-ray revealing a large right-sided effusion with atelectasis. 5. Chronic atrial fibrillation, on Coumadin. 6. History of heparin-induced thrombocytopenia, status post bilateral below knee amputation. 7. Hypertension. 8. Chronic kidney disease. 9. Type 2 diabetes. 10. Elevated troponin level. CT CHEST 1. Moderate sized right pleural effusion with underlying right lower lobe atelectasis and partial atelectasis of the right middle and upper lobes. 2. Mild patchy groundglass opacities and interlobular septal thickening compatible with mild pulmonary edema. 3. Severe generalized cardiomegaly. Plan . WILL PROCEED WITH THORACENTESIS WHEN INR IS LOWER PT BETTER LESS SOA TODAY CONTINUE THE SAME TRANSFER OUT OF ICU TIMMY BACON MD Jan 07, 2017 11:12
[2017-01-07] MEDS ORDERED: ALBUTEROL SULFATE 2.5 MG/3 ML NEBU. NEB ONE (11:45)
--- NOTE | 2017-01-07 12:36 | PDOC ---
PROGRESS NOTES Chief Complaint Chief Complaint 1. acute resp failure with systolic CHF exacerbation 2. systolic CHF exacerbation EF 15 % before 3. ICD, PPM 4. CHRNOIC afib, on coumadin 5. 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 AMS, slurry speech , hallucination, 2/2 hypoxica possibly,no stroke 7. HTN 8. CKD4 9. HLD 10. MR 11. DM2 on insulin 12. high troponin, 2/2 2 likely 13. bl pleural effusion, moderate RT plan: 1. card consult, echo pending 2. cont home meds, hold lasix, on torsemide, decreased to 40mg daily as per Card , add metolazone as per card 3. slightly decrease insulin to levemir 30u bid and decrease aspart to 8u tid, SSI 4. on NC 3L. 5. cont warfarin 2mg daily home dose, INR daily, hold coumadin for today, with INR 2.9, need to do thoracentesis with pulm OK to transfer out of ICU hEAD CT neg History of Present Illness History of Present Illness sob better, still on NC 3L Vitals Vitals Vital Signs Date Time Temp Pulse Resp B/P Pulse Ox O2 Delivery O2 Flow Rate FiO2 01/07/17 12:00 97.8 88 18 99/60 94 Nasal Cannula 4.0 97.8 Physical Exam General: Alert, Oriented X3, Cooperative, No acute distress Heart: Other (3/6 systolic murmur to LLS border; paced rhythm with underlying AFIB, rate controlled. ) Lungs: Other (bl mild wheezing) Abdomen: Other (truncal obesity no scrotal edema) Extremities: No cyanosis, No edema (to BKA) Skin: No breakdown, No significant lesion Labs LABS Laboratory Tests Test 01/06/17 17:44 01/06/17 20:09 01/07/17 06:05 01/07/17 08:36 Glucose (Fingerstick) 130mg/dL (70-99) 144mg/dL (70-99) 103mg/dL (70-99) White Blood Count 8.3x10^3/uL (4.0-11.0) Red Blood Count 5.55x10^6/uL (4.30-5.70) Hemoglobin 13.3g/dL (13.0-17.5) Hematocrit 43.0% (39.0-53.0) Mean Corpuscular Volume 78fL (79-100) Mean Corpuscular Hemoglobin 24pg (25-35) Mean Corpuscular Hemoglobin Concent 31g/dL (31-37) Red Cell Distribution Width 22.6% (11.5-14.5) Platelet Count 148x10^3/uL (140-400) Neutrophils (%) (Auto) 89% (31-73) Lymphocytes (%) (Auto) 4% (24-48) Monocytes (%) (Auto) 7% (0-9) Eosinophils (%) (Auto) 0% (0-3) Basophils (%) (Auto) 0% (0-3) Neutrophils # (Auto) 7.4x10^3uL (1.8-7.7) Lymphocytes # (Auto) 0.3x10^3/uL (1.0-4.8) Monocytes # (Auto) 0.5x10^3/uL (0.0-1.1) Eosinophils # (Auto) 0.0x10^3/uL (0.0-0.7) Basophils # (Auto) 0.0x10^3/uL (0.0-0.2) Prothrombin Time 28.7SEC (11.7-14.0) Prothromb Time International Ratio 2.9 (0.8-1.1) Sodium Level 141mmol/L (136-145) Potassium Level 4.5mmol/L (3.5-5.1) Chloride Level 101mmol/L (98-107) Carbon Dioxide Level 30mmol/L (21-32) Anion Gap 10 (6-14) Blood Urea Nitrogen 57mg/dL (8-26) Creatinine 1.8mg/dL (0.7-1.3) Estimated GFR (Cockcroft-Gault) 37.8 Glucose Level 123mg/dL (70-99) Calcium Level 8.9mg/dL (8.5-10.1) Test 01/07/17 11:35 Glucose (Fingerstick) 147mg/dL (70-99) Review of Systems Review of Systems no fever, chills, sob or chest pain Assessment and Plan Assessmemt and Plan Problems Medical Problems: (1) Acute congestive heart failure Status: Acute Problems: Comment Review of Relevant I have reviewed the following items anuja (where applicable) has been applied. Labs Laboratory Tests Test 01/06/17 04:00 01/06/17 05:38 01/06/17 08:41 01/06/17 10:00 Nasal Screen MRSA (PCR) Negative (Negative) White Blood Count 11.1x10^3/uL (4.0-11.0) Red Blood Count 5.99x10^6/uL (4.30-5.70) Hemoglobin 14.5g/dL (13.0-17.5) Hematocrit 47.4% (39.0-53.0) Mean Corpuscular Volume 79fL (79-100) Mean Corpuscular Hemoglobin 24pg (25-35) Mean Corpuscular Hemoglobin Concent 31g/dL (31-37) Red Cell Distribution Width 22.1% (11.5-14.5) Platelet Count 152x10^3/uL (140-400) Neutrophils (%) (Auto) 97% (31-73) Lymphocytes (%) (Auto) 2% (24-48) Monocytes (%) (Auto) 1% (0-9) Eosinophils (%) (Auto) 0% (0-3) Basophils (%) (Auto) 0% (0-3) Neutrophils # (Auto) 10.7x10^3uL (1.8-7.7) Lymphocytes # (Auto) 0.2x10^3/uL (1.0-4.8) Monocytes # (Auto) 0.1x10^3/uL (0.0-1.1) Eosinophils # (Auto) 0.0x10^3/uL (0.0-0.7) Basophils # (Auto) 0.0x10^3/uL (0.0-0.2) Segmented Neutrophils % 97% (35-66) Monocytes % 1% (0-10) Eosinophils % 2% (0-5) Platelet Estimate Adequate (ADEQUATE) Hypochromasia Slight Anisocytosis Mod Activated Partial Thromboplast Time 44SEC (24-38) Sodium Level 144mmol/L (136-145) Potassium Level 4.6mmol/L (3.5-5.1) Chloride Level 102mmol/L (98-107) Carbon Dioxide Level 28mmol/L (21-32) Anion Gap 14 (6-14) Blood Urea Nitrogen 43mg/dL (8-26) Creatinine 1.7mg/dL (0.7-1.3) Estimated GFR (Cockcroft-Gault) 40.4 BUN/Creatinine Ratio 25 (6-20) Glucose Level 74mg/dL (70-99) Calcium Level 9.2mg/dL (8.5-10.1) Magnesium Level 2.3mg/dL (1.8-2.4) Total Bilirubin 1.2mg/dL (0.2-1.0) Aspartate Amino Transf (AST/SGOT) 21U/L (15-37) Alanine Aminotransferase (ALT/SGPT) 20U/L (16-63) Alkaline Phosphatase 117U/L (46-116) Troponin I Quantitative 0.071ng/mL (0.000-0.055) 0.068ng/mL (0.000-0.055) Total Protein 6.9g/dL (6.4-8.2) Albumin 3.7g/dL (3.4-5.0) Albumin/Globulin Ratio 1.2 (1.0-1.7) Triglycerides Level 79mg/dL (0-150) Cholesterol Level 112mg/dL (0-200) LDL Cholesterol, Calculated 52mg/dL (0-100) VLDL Cholesterol, Calculated 16mg/dL (0-40) HDL Cholesterol 44mg/dL (40-60) Cholesterol/HDL Ratio 2.5 Thyroid Stimulating Hormone (TSH) 4.823uIU/mL (0.358-3.74) Glucose (Fingerstick) 100mg/dL (70-99) Prothrombin Time 26.7SEC (11.7-14.0) Prothromb Time International Ratio 2.6 (0.8-1.1) Test 01/06/17 12:29 01/06/17 17:44 01/06/17 20:09 01/07/17 06:05 Glucose (Fingerstick) 143mg/dL (70-99) 130mg/dL (70-99) 144mg/dL (70-99) White Blood Count 8.3x10^3/uL (4.0-11.0) Red Blood Count 5.55x10^6/uL (4.30-5.70) Hemoglobin 13.3g/dL (13.0-17.5) Hematocrit 43.0% (39.0-53.0) Mean Corpuscular Volume 78fL (79-100) Mean Corpuscular Hemoglobin 24pg (25-35) Mean Corpuscular Hemoglobin Concent 31g/dL (31-37) Red Cell Distribution Width 22.6% (11.5-14.5) Platelet Count 148x10^3/uL (140-400) Neutrophils (%) (Auto) 89% (31-73) Lymphocytes (%) (Auto) 4% (24-48) Monocytes (%) (Auto) 7% (0-9) Eosinophils (%) (Auto) 0% (0-3) Basophils (%) (Auto) 0% (0-3) Neutrophils # (Auto) 7.4x10^3uL (1.8-7.7) Lymphocytes # (Auto) 0.3x10^3/uL (1.0-4.8) Monocytes # (Auto) 0.5x10^3/uL (0.0-1.1) Eosinophils # (Auto) 0.0x10^3/uL (0.0-0.7) Basophils # (Auto) 0.0x10^3/uL (0.0-0.2) Prothrombin Time 28.7SEC (11.7-14.0) Prothromb Time International Ratio 2.9 (0.8-1.1) Sodium Level 141mmol/L (136-145) Potassium Level 4.5mmol/L (3.5-5.1) Chloride Level 101mmol/L (98-107) Carbon Dioxide Level 30mmol/L (21-32) Anion Gap 10 (6-14) Blood Urea Nitrogen 57mg/dL (8-26) Creatinine 1.8mg/dL (0.7-1.3) Estimated GFR (Cockcroft-Gault) 37.8 Glucose Level 123mg/dL (70-99) Calcium Level 8.9mg/dL (8.5-10.1) Test 01/07/17 08:36 01/07/17 11:35 Glucose (Fingerstick) 103mg/dL (70-99) 147mg/dL (70-99) Laboratory Tests Test 01/06/17 17:44 01/06/17 20:09 01/07/17 06:05 01/07/17 08:36 Glucose (Fingerstick) 130mg/dL (70-99) 144mg/dL (70-99) 103mg/dL (70-99) White Blood Count 8.3x10^3/uL (4.0-11.0) Red Blood Count 5.55x10^6/uL (4.30-5.70) Hemoglobin 13.3g/dL (13.0-17.5) Hematocrit 43.0% (39.0-53.0) Mean Corpuscular Volume 78fL (79-100) Mean Corpuscular Hemoglobin 24pg (25-35) Mean Corpuscular Hemoglobin Concent 31g/dL (31-37) Red Cell Distribution Width 22.6% (11.5-14.5) Platelet Count 148x10^3/uL (140-400) Neutrophils (%) (Auto) 89% (31-73) Lymphocytes (%) (Auto) 4% (24-48) Monocytes (%) (Auto) 7% (0-9) Eosinophils (%) (Auto) 0% (0-3) Basophils (%) (Auto) 0% (0-3) Neutrophils # (Auto) 7.4x10^3uL (1.8-7.7) Lymphocytes # (Auto) 0.3x10^3/uL (1.0-4.8) Monocytes # (Auto) 0.5x10^3/uL (0.0-1.1) Eosinophils # (Auto) 0.0x10^3/uL (0.0-0.7) Basophils # (Auto) 0.0x10^3/uL (0.0-0.2) Prothrombin Time 28.7SEC (11.7-14.0) Prothromb Time International Ratio 2.9 (0.8-1.1) Sodium Level 141mmol/L (136-145) Potassium Level 4.5mmol/L (3.5-5.1) Chloride Level 101mmol/L (98-107) Carbon Dioxide Level 30mmol/L (21-32) Anion Gap 10 (6-14) Blood Urea Nitrogen 57mg/dL (8-26) Creatinine 1.8mg/dL (0.7-1.3) Estimated GFR (Cockcroft-Gault) 37.8 Glucose Level 123mg/dL (70-99) Calcium Level 8.9mg/dL (8.5-10.1) Test 01/07/17 11:35 Glucose (Fingerstick) 147mg/dL (70-99) Medications Current Medications Acetaminophen (Tylenol) 650 mg PRN Q6HRS PRN PO MILD PAIN / TEMP; Start at 05:00 Ondansetron HCl (Zofran) 4 mg PRN Q6HRS PRN IV NAUSEA/VOMITING; Start 01/06/17 at 05:00 Hydralazine HCl (Apresoline) 10 mg PRN Q4HRS PRN IVP ELEVATED BP, SEE COMMENTS ; Start 01/06/17 at 05:00 Amiodarone HCl (Cordarone) 200 mg DAILY PO Last administered on 01/06/17 10:21 ; Start 01/06/17 at 10:00 Vitamin D (Vitamin D3) 2,000 unit DAILY PO Last administered on 01/07/17 08:38 ; Start 01/06/17 at 10:00 Digoxin (Lanoxin) 125 mcg DAILY PO Last administered on 01/07/17 08:39; Start 01/06/17 at 10:30 Levothyroxine Sodium (Synthroid) 100 mcg DAILY07 PO Last administered on 08:39; Start 01/06/17 at 10:30 Magnesium Oxide (Magnesium Oxide) 400 mg DAILY PO Last administered on 08:38; Start 01/06/17 at 10:30 Metoprolol Succinate (Toprol Xl) 25 mg DAILY PO Last administered on 01/06/17 10:22; Start 01/06/17 at 10:30 Simvastatin (Zocor) 10 mg QHS PO Last administered on 01/06/17 20:10; Start at 21:00 Torsemide (Demadex) 80 mg DAILY PO Last administered on 01/07/17 08:40; Start 01/06/17 at 10:30; Stop 01/07/17 at 11:53; Status DC Warfarin Sodium (Coumadin) 2 mg DAILY16 PO ; Start 01/06/17 at 16:00; Stop 01/06 at 16:00; Status DC Carvedilol (Coreg) 25 mg BIDWMEALS PO Last administered on 01/06/17 10:22; Start 01/06/17 at 10:30; Stop 01/06/17 at 11:51; Status DC Lisinopril (Prinivil) 2.5 mg DAILY PO Last administered on 01/06/17 10:21; Start 01/06/17 at 10:30 Insulin Aspart (Novolog) 10 units TIDAC SQ Last administered on 01/06/17 18:38 ; Start 01/06/17 at 11:30 Insulin Detemir (Levemir) 30 units BID SQ Last administered on 01/07/17 09:35 ; Start 01/06/17 at 10:30 Non-Formulary Medication 500 mg DAILY PO ; Start 01/07/17 at 09:00; Status UNV Torsemide (Demadex) 80 mg DAILY PO ; Start 01/06/17 at 10:00; Status UNV Insulin Aspart (Novolog) 0-9 UNITS TIDWMEALS SQ ; Start 01/06/17 at 12:00 Dextrose 12.5 gm PRN Q15MIN PRN IV SEE COMMENTS; Start 01/06/17 at 09:45 Warfarin Sodium (Coumadin Per Physician) 1 each PRN DAILY PRN MC SEE COMMENTS Last administered on 01/06/17 17:31; Start 01/06/17 at 10:45 Furosemide (Lasix) 40 mg 1X ONCE IVP Last administered on 01/06/17 15:55; Start 01/06/17 at 16:00; Stop 01/06/17 at 16:01; Status DC Metolazone (Zaroxolyn) 5 mg DAILY PO Last administered on 01/07/17 08:40; Start 01/07/17 at 09:00 Ascorbic Acid (Vitamin C) 500 mg DAILY PO ; Start 01/08/17 at 09:00 Multivitamins/ Calcium (Thera M Plus) 1 tab DAILY PO ; Start 01/08/17 at 09:00 Albuterol Sulfate (Ventolin Neb Soln) 2.5 mg 1X ONCE NEB ; Start 01/07/17 at 11 :45; Stop 01/07/17 at 11:46; Status DC Torsemide (Demadex) 40 mg DAILY PO ; Start 01/08/17 at 09:00 Active Scripts Active Reported Torsemide 20 Mg Tablet 4 Tab PO DAILY Amiodarone Hcl 200 Mg Tablet 1 Tab PO DAILY Toprol Xl (Metoprolol Succinate) 25 Mg Tab.er.24h 1 Tab PO DAILY Novolog (Insulin Aspart) 100 Unit/1 Ml Cartridge 10 Unit SQ TID Lantus Solostar (Insulin Glargine,Hum.rec.anlog) 100 Unit/1 Ml Insuln.pen 40 Unit SQ BID Cyclobenzaprine Hcl 10 Mg Tablet 1 Tab PO TID Allopurinol 300 Mg Tablet 1 Tab PO DAILY Simvastatin 10 Mg Tablet 1 Tab PO QHS Coumadin (Warfarin Sodium) 2.5 Mg Tablet 1 Tab PO DAILY Potassium Gluconate 500 Mg Tablet 500 Mg PO DAILY Furosemide 40 Mg Tablet 1 Tab PO DAILY Mag-Oxide (Magnesium Oxide) 400 Mg Tablet 1 Tab PO DAILY Levothyroxine Sodium 100 Mcg Tablet 1 Tab PO DAILY Digoxin 125 Mcg Tablet 1 Tab PO DAILY Enalapril Maleate 2.5 Mg Tablet 1 Tab PO DAILY Vitamin D3 (Cholecalciferol (Vitamin D3)) 1,000 Unit Tablet 2,000 Unit PO DAILY Coreg (Carvedilol) 25 Mg Tablet 1 Tab PO BID Vitals/I & O Vital Sign - Last 24 Hours 01/06/17 01/06/17 01/06/17 01/07/17 16:00 20:00 20:00 00:00 Temp 98.5 98.4 98.5 98.4 Pulse 89 89 90 Resp 22 B/P 103/60 106/59 98/55 Pulse Ox 98 98 98 O2 Delivery Nasal Cannula Nasal Cannula Nasal Cannula O2 Flow Rate 4.0 4.0 4.0 4.0 01/07/17 01/07/17 01/07/17 01/07/17 04:00 08:00 08:00 08:39 Temp 98.5 97.4 98.5 97.4 Pulse 89 92 89 Resp 27 18 B/P 104/49 105/56 84/60 Pulse Ox 97 94 O2 Delivery Nasal Cannula Nasal Cannula Nasal Cannula O2 Flow Rate 4.0 4.0 4.0 01/07/17 01/07/17 09:00 12:00 Temp 97.8 97.8 Pulse 89 88 Resp 18 B/P 84/60 99/60 Pulse Ox 94 O2 Delivery Nasal Cannula O2 Flow Rate 4.0 Intake and Output 2/01/06/17 01/07/17 15:00 23:00 07:00 Intake Total 100 ml Output Total 200 ml 825 ml 350 ml Balance -200 ml -725 ml -350 ml RENATO WEBER MD Jan 07, 2017 12:36
--- NOTE | 2017-01-07 14:13 | RAD ---
01/07/2017: History: Congestive heart failure Comparison is made to a study from 01/06/2017. A transvenous pacemaker is unchanged in position. The heart is enlarged. The pulmonary vascularity is at the upper limits of normal and slightly better defined. There is a moderate ongoing right basilar opacity compatible with pleural fluid and underlying atelectasis/infiltrate. This is unchanged. No new pulmonary abnormality is seen. No left-sided pleural fluid is evident. IMPRESSION: Unchanged moderate sized right pleural effusion with underlying right basilar atelectasis/infiltrate.
[2017-01-07] MEDS: SIMVASTATIN 10 MG TABLET PO SCH (21:09)
[2017-01-08] VITALS: BP 107/52
[2017-01-08 04:00] VITALS: BP 106/55
[2017-01-08 06:59] LABS: INR 2.6 (0.8-1.1); PROTHROMBIN TIME PATIENT 26.5 SEC (11.7-14.0)
[2017-01-08] MEDS: LEVOTHYROXINE 100 MCG TABLET PO SCH (07:08)
[2017-01-08 07:13] LABS: CALCIUM 9.1 mg/dL (8.5-10.1); CREATININE 2.5 mg/dL (0.7-1.3); GFR 25.9
[2017-01-08] MEDS: INSULIN ASPART 300 UNITS/3 ML INSULN.PEN SQ SCH ×6 (07:30→16:09)
[2017-01-08 08:00] VITALS: BP 129/66
[2017-01-08] MEDS ORDERED: IV NORMAL SALINE 1000ML BAG 1,000 ML IV ONE (08:45)
[2017-01-08] MEDS: METOPROLOL SUCC 24HR ER 25 MG TAB.ER.24H. PO SCH (08:52)
[2017-01-08] MEDS: MULTIVITAMIN with MINERAL TABLET. PO SCH (08:52)
[2017-01-08] MEDS: MAGNESIUM OXIDE 400 MG TABLET PO SCH (08:52)
[2017-01-08] MEDS: CHOLECALCIFEROL (VITAMIN D3) 1,000 UNIT TABLET PO SCH (08:52)
[2017-01-08] MEDS: ASPIRIN ENTERIC COATED 81 MG TABLET.DR. PO SCH (08:52)
[2017-01-08] MEDS: ASCORBIC ACID 500 MG TABLET PO SCH (08:53)
[2017-01-08] MEDS: AMIODARONE HCL 200 MG TABLET PO SCH (08:53)
[2017-01-08] MEDS: DIGOXIN 125 MCG TABLET PO SCH (08:54)
[2017-01-08] MEDS ORDERED: METOLAZONE 2.5 MG TABLET PO SCH (09:00)
[2017-01-08] MEDS: INSULIN DETEMIR 300 UNITS/3 ML INSULN.PEN. SQ SCH ×2 (09:00→21:00)
[2017-01-08] MEDS ORDERED: TORSEMIDE 20 MG TABLET. PO SCH (09:00)
--- NOTE | 2017-01-08 10:10 | PDOC ---
CARDIO Progress Notes Date and Time Date of Service 01/08/2017 Time of Evaluation 0950 Subjective Subjective: No Chest Pain, No shortness of breath, No Palpitations, No Dizziness, Other (Remains with wheeze) Vitals Vitals Vital Signs Date Time Temp Pulse Resp B/P Pulse Ox O2 Delivery O2 Flow Rate FiO2 01/08/17 08:54 91 129/66 01/08/17 08:00 97.3 33 100 Nasal Cannula 3.0 97.3 Weight Weight [ ] Input and Output Intake and Output Intake and Output 01/08/17 07:00 Intake Total 900 ml Output Total 1205 ml Balance -305 ml Intake Oral 900 ml Output Urine Total 1205 ml Laboratory Labs Laboratory Tests Test 01/07/17 11:35 01/07/17 16:49 01/07/17 21:08 01/08/17 06:34 Glucose (Fingerstick) 147mg/dL (70-99) 163mg/dL (70-99) 143mg/dL (70-99) Prothrombin Time 26.5SEC (11.7-14.0) Prothromb Time International Ratio 2.6 (0.8-1.1) Sodium Level 144mmol/L (136-145) Potassium Level 4.0mmol/L (3.5-5.1) Chloride Level 103mmol/L (98-107) Carbon Dioxide Level 32mmol/L (21-32) Anion Gap 9 (6-14) Blood Urea Nitrogen 69mg/dL (8-26) Creatinine 2.5mg/dL (0.7-1.3) Estimated GFR (Cockcroft-Gault) 25.9 Glucose Level 95mg/dL (70-99) Calcium Level 9.1mg/dL (8.5-10.1) Test 01/08/17 08:26 Glucose (Fingerstick) 85mg/dL (70-99) Physical Exam HEENT: Neck Supple W Full Motion Chest: Symmetric LUNGS: Other (diffuse wheeze) Heart: S1S2, murmurs (3/6 systolic murmur to LLS border), irregularly irregular (Paced with underlying AFIB) Extremities: Other (bilateral BKA; no stump edema, no scrotal edema) Neurology: alert, oriented, follow commands Assessment Assessment 1. Acute on chronic mixed diastolic/systolic CHF/persistent right mod pleural effusion 2. Nonischemic dilated cardiomyopathy: 09/[address] [facility]. EF is <20%, virtually unchanged by comparison. NYHA2-3 3. COPD: >30 yrs of tobaccoism. 4. HTN/HLP/DM2 5. [employer] insitu: [employer]. This has alicia RV lead, per interrogation this has been stable. Last Gen change 06/08/2015 6. Permanent AFIB: paced with underlying AFIB, rate controlled 7. JOHANN on CKD3: po hydration inadequacy confirmed, with diuretic therapy. 8. Hx of mitral valve repair , Hx of HIT (2009) Recommendation 1. DC diuretics/ACEi for now till evaluated by renal. IVF x1. 2. Thoracentesis pending per pulmonary. Continue to hold coumadin. OAC is for AFIB not for his mitral valve repair. Resume OAC once OK with IR. 3. Unpaced AFIB with aberrancy today x1. Continue with amiodarone/dig. 4. Continue with secondary prevention as tolerated 5. Avoid tight BG control 6. Device interrogation revealed normal function, DDDR, optivol elevated, AFIB burden 100% since 11/28/2016, no ventricular arrhythmias, no treatments, 7. [facility] records reviewed, AV elieser ablation was brought up on his last appointment with Dr. Hernandez on 12/25/2016 but hesitant due to his past hx of HIT. 8. Already has a established f/u with [facility] on 01/31/2017 NOE CASTLE APRN Jan 08, 2017 10:10
[2017-01-08] MEDS ORDERED: PHYTONADIONE 10 MG in IV NORMAL SALINE 50ML 50 ML IV ONE (11:00)
--- NOTE | 2017-01-08 11:16 | PDOC2 ---
CONSULT Date of Consult Date of Consult DATE: 01/08/17 TIME: 11:11 Reason for Consult Reason for Consult: JOHANN Referring Physician Referring Physician: GUSTAVO Identification/Chief Complaint Chief Complaint SOB Source Source: Chart review History of Present Illness Reason for Visit: THIS IS A 66 YR OLD TRANSFERRED HERE FROM [facility] FOR SOB. HE HAS AN EF OF 15% AND IS CHF. HE HAS BEEN GIVEN DIURETICS WITH MILD RELIEF. HIS CR IS 2.5. USUALLY IT IS ABOUT 1.5-1.8 C/W STAGE 3 CKD. HE HAS CKD DUE TO HTN AND DM HX. HE ALSO HAS RIGHT SIDED PLEURAL EFFUSION Past Medical History Cardiovascular: AFIB, CHF, HTN, Hyperlipidemia, Valve insufficiency, Other ( NICM) Pulmonary: COPD CENTRAL NERVOUS SYSTEM: Other (No pertinent history) GI: Constipation Heme/Onc: Anemia NOS, Other Hepatobiliary: No pertinent hx Psych: Anxiety Musculoskeletal: Osteoarthritis, Other (bilateral BKA; WC bound, uses bilateral prothetic) Rheumatologic: Gout Infectious disease: No pertinent hx ENT: No pertinent hx Renal/: Chronic renal insuff, UTI Endocrine: Diabetes (2), Hypothyroidism Dermatology: Other (superficial hemangioma to left neck?) Past Surgical History Past Surgical History: Pacemaker ( and defibrillator), Appendectomy, Other ( Partial tongue resection, mechanical mitral valve replacement, bilateral below the knee amputations, ) Family History Family History: Stroke Social History No (quit) ALCOHOL: none Drugs: None Lives: with Family Current Problem List Problem List Problems Medical Problems: (1) Acute congestive heart failure Status: Acute Current Medications Current Medications Current Medications Acetaminophen (Tylenol) 650 mg PRN Q6HRS PRN PO MILD PAIN / TEMP; Start at 05:00 Ondansetron HCl (Zofran) 4 mg PRN Q6HRS PRN IV NAUSEA/VOMITING; Start 01/06/17 at 05:00 Hydralazine HCl (Apresoline) 10 mg PRN Q4HRS PRN IVP ELEVATED BP, SEE COMMENTS ; Start 01/06/17 at 05:00 Amiodarone HCl (Cordarone) 200 mg DAILY PO Last administered on 01/08/17 08:53 ; Start 01/06/17 at 10:00 Vitamin D (Vitamin D3) 2,000 unit DAILY PO Last administered on 01/08/17 08:52 ; Start 01/06/17 at 10:00 Digoxin (Lanoxin) 125 mcg DAILY PO Last administered on 01/08/17 08:54; Start 01/06/17 at 10:30 Levothyroxine Sodium (Synthroid) 100 mcg DAILY07 PO Last administered on 07:08; Start 01/06/17 at 10:30 Magnesium Oxide (Magnesium Oxide) 400 mg DAILY PO Last administered on 08:52; Start 01/06/17 at 10:30 Metoprolol Succinate (Toprol Xl) 25 mg DAILY PO Last administered on 01/08/17 08:52; Start 01/06/17 at 10:30 Simvastatin (Zocor) 10 mg QHS PO Last administered on 01/07/17 21:09; Start at 21:00 Torsemide (Demadex) 80 mg DAILY PO Last administered on 01/07/17 08:40; Start 01/06/17 at 10:30; Stop 01/07/17 at 11:53; Status DC Warfarin Sodium (Coumadin) 2 mg DAILY16 PO ; Start 01/06/17 at 16:00; Stop 01/06 at 16:00; Status DC Carvedilol (Coreg) 25 mg BIDWMEALS PO Last administered on 01/06/17 10:22; Start 01/06/17 at 10:30; Stop 01/06/17 at 11:51; Status DC Lisinopril (Prinivil) 2.5 mg DAILY PO Last administered on 01/06/17 10:21; Start 01/06/17 at 10:30; Stop 01/08/17 at 08:36; Status DC Insulin Aspart (Novolog) 10 units TIDAC SQ Last administered on 01/06/17 18:38 ; Start 01/06/17 at 11:30; Stop 01/07/17 at 12:38; Status DC Insulin Detemir (Levemir) 30 units BID SQ Last administered on 01/07/17 21:10 ; Start 01/06/17 at 10:30 Non-Formulary Medication 500 mg DAILY PO ; Start 01/07/17 at 09:00; Status UNV Torsemide (Demadex) 80 mg DAILY PO ; Start 01/06/17 at 10:00; Status UNV Insulin Aspart (Novolog) 0-9 UNITS TIDWMEALS SQ Last administered on 01/07/17 16:58; Start 01/06/17 at 12:00 Dextrose 12.5 gm PRN Q15MIN PRN IV SEE COMMENTS; Start 01/06/17 at 09:45 Warfarin Sodium (Coumadin Per Physician) 1 each PRN DAILY PRN MC SEE COMMENTS Last administered on 01/07/17 12:33; Start 01/06/17 at 10:45; Stop 01/07/17 at 13:37; Status DC Furosemide (Lasix) 40 mg 1X ONCE IVP Last administered on 01/06/17 15:55; Start 01/06/17 at 16:00; Stop 01/06/17 at 16:01; Status DC Metolazone (Zaroxolyn) 5 mg DAILY PO Last administered on 01/07/17 08:40; Start 01/07/17 at 09:00; Stop 01/07/17 at 14:45; Status DC Ascorbic Acid (Vitamin C) 500 mg DAILY PO Last administered on 01/08/17 08:53 ; Start 01/08/17 at 09:00 Multivitamins/ Calcium (Thera M Plus) 1 tab DAILY PO Last administered on 08:52; Start 01/08/17 at 09:00 Albuterol Sulfate (Ventolin Neb Soln) 2.5 mg 1X ONCE NEB Last administered on 01/07/17 15:45; Start 01/07/17 at 11:45; Stop 01/07/17 at 11:46; Status DC Torsemide (Demadex) 40 mg DAILY PO ; Start 01/08/17 at 09:00; Stop 01/08/17 at 09:00; Status DC Insulin Aspart (Novolog) 8 units TIDAC SQ Last administered on 01/07/17 16:57 ; Start 01/07/17 at 16:30 Warfarin Sodium (Coumadin Per Pharmacy) 1 each PRN DAILY PRN MC SEE COMMENTS; Start 01/09/17 at 13:45 Aspirin (Ecotrin) 81 mg DAILYWBKFT PO Last administered on 01/08/17 08:52; Start 01/08/17 at 08:00 Warfarin Sodium (Coumadin - No Dose Today) 1 each 1X WARF ONCE MC ; Start 01/07 at 16:00; Stop 01/07/17 at 16:01; Status DC Metolazone 2.5 mg 2.5 mg DAILY PO ; Start 01/08/17 at 09:00; Stop 01/08/17 at 09 :00; Status DC Sodium Chloride 1,000 ml @ 100 mls/hr 1X ONCE IV Last administered on t 10:53; Start 01/08/17 at 08:45; Stop 01/08/17 at 18:44 Phytonadione/ Sodium Chloride (Vitamin K/Iv Sodium Chloride 0.9% 50ml) 51 ml @ 102 mls/hr 1X ONCE IV ; Start 01/08/17 at 11:00; Stop 01/08/17 at 11:29 Active Scripts Active Reported Torsemide 20 Mg Tablet 4 Tab PO DAILY Amiodarone Hcl 200 Mg Tablet 1 Tab PO DAILY Toprol Xl (Metoprolol Succinate) 25 Mg Tab.er.24h 1 Tab PO DAILY Novolog (Insulin Aspart) 100 Unit/1 Ml Cartridge 10 Unit SQ TID Lantus Solostar (Insulin Glargine,Hum.rec.anlog) 100 Unit/1 Ml Insuln.pen 40 Unit SQ BID Cyclobenzaprine Hcl 10 Mg Tablet 1 Tab PO TID Allopurinol 300 Mg Tablet 1 Tab PO DAILY Simvastatin 10 Mg Tablet 1 Tab PO QHS Coumadin (Warfarin Sodium) 2.5 Mg Tablet 1 Tab PO DAILY Potassium Gluconate 500 Mg Tablet 500 Mg PO DAILY Furosemide 40 Mg Tablet 1 Tab PO DAILY Mag-Oxide (Magnesium Oxide) 400 Mg Tablet 1 Tab PO DAILY Levothyroxine Sodium 100 Mcg Tablet 1 Tab PO DAILY Digoxin 125 Mcg Tablet 1 Tab PO DAILY Enalapril Maleate 2.5 Mg Tablet 1 Tab PO DAILY Vitamin D3 (Cholecalciferol (Vitamin D3)) 1,000 Unit Tablet 2,000 Unit PO DAILY Coreg (Carvedilol) 25 Mg Tablet 1 Tab PO BID Allergies Allergies: Coded Allergies: heparin (Verified Allergy, Severe, HIT IN 2010 PER HX, 06/12/16) pt ended up loosing bilateral lower legs , partial tongue and several fingers as a result of a sever reaction to Heparin levofloxacin (Verified Allergy, Severe, 01/06/17) Penicillins (Verified Allergy, Intermediate, 11/06/15) ROS General: YES: Appetite, Fatigue, Malaise PSYCHOLOGICAL ROS: YES: Anxiety, Depression Eyes: Yes Decreased vision Respiratory: YES: Cough, Orthopnea, Shortness of breath Cardiovascular: yes Orthopnea Gastrointestinal: Yes Constipation Musculoskeletal: Yes Muscular Weakness Neurological: Yes Weakness Skin: Yes Dry Skin Physical Exam General: Alert, moderate distress HEENT: Atraumatic, PERRLA Lungs: Other (DECREASED AT BASES) Heart: Regular rate, Normal S1 Abdomen: Normal bowel sounds, Soft, No tenderness Neuro: Normal speech, Cranial nerves 3-12 NL Psych/Mental Status: Mood NL MUSCULOSKELETAL: No deformity, No swelling Vitals VITALS Vital Signs Date Time Temp Pulse Resp B/P Pulse Ox O2 Delivery O2 Flow Rate FiO2 01/08/17 08:54 91 129/66 01/08/17 08:00 97.3 33 100 Nasal Cannula 3.0 97.3 Labs Labs Laboratory Tests Test 01/06/17 12:29 01/06/17 17:44 01/06/17 20:09 01/07/17 06:05 Glucose (Fingerstick) 143mg/dL (70-99) 130mg/dL (70-99) 144mg/dL (70-99) White Blood Count 8.3x10^3/uL (4.0-11.0) Red Blood Count 5.55x10^6/uL (4.30-5.70) Hemoglobin 13.3g/dL (13.0-17.5) Hematocrit 43.0% (39.0-53.0) Mean Corpuscular Volume 78fL (79-100) Mean Corpuscular Hemoglobin 24pg (25-35) Mean Corpuscular Hemoglobin Concent 31g/dL (31-37) Red Cell Distribution Width 22.6% (11.5-14.5) Platelet Count 148x10^3/uL (140-400) Neutrophils (%) (Auto) 89% (31-73) Lymphocytes (%) (Auto) 4% (24-48) Monocytes (%) (Auto) 7% (0-9) Eosinophils (%) (Auto) 0% (0-3) Basophils (%) (Auto) 0% (0-3) Neutrophils # (Auto) 7.4x10^3uL (1.8-7.7) Lymphocytes # (Auto) 0.3x10^3/uL (1.0-4.8) Monocytes # (Auto) 0.5x10^3/uL (0.0-1.1) Eosinophils # (Auto) 0.0x10^3/uL (0.0-0.7) Basophils # (Auto) 0.0x10^3/uL (0.0-0.2) Prothrombin Time 28.7SEC (11.7-14.0) Prothromb Time International Ratio 2.9 (0.8-1.1) Sodium Level 141mmol/L (136-145) Potassium Level 4.5mmol/L (3.5-5.1) Chloride Level 101mmol/L (98-107) Carbon Dioxide Level 30mmol/L (21-32) Anion Gap 10 (6-14) Blood Urea Nitrogen 57mg/dL (8-26) Creatinine 1.8mg/dL (0.7-1.3) Estimated GFR (Cockcroft-Gault) 37.8 Glucose Level 123mg/dL (70-99) Calcium Level 8.9mg/dL (8.5-10.1) Test 01/07/17 08:36 01/07/17 11:35 01/07/17 16:49 01/07/17 21:08 Glucose (Fingerstick) 103mg/dL (70-99) 147mg/dL (70-99) 163mg/dL (70-99) 143mg/dL (70-99) Test 01/08/17 06:34 01/08/17 08:26 Prothrombin Time 26.5SEC (11.7-14.0) Prothromb Time International Ratio 2.6 (0.8-1.1) Sodium Level 144mmol/L (136-145) Potassium Level 4.0mmol/L (3.5-5.1) Chloride Level 103mmol/L (98-107) Carbon Dioxide Level 32mmol/L (21-32) Anion Gap 9 (6-14) Blood Urea Nitrogen 69mg/dL (8-26) Creatinine 2.5mg/dL (0.7-1.3) Estimated GFR (Cockcroft-Gault) 25.9 Glucose Level 95mg/dL (70-99) Calcium Level 9.1mg/dL (8.5-10.1) Glucose (Fingerstick) 85mg/dL (70-99) Laboratory Tests Test 01/07/17 11:35 01/07/17 16:49 01/07/17 21:08 01/08/17 06:34 Glucose (Fingerstick) 147mg/dL (70-99) 163mg/dL (70-99) 143mg/dL (70-99) Prothrombin Time 26.5SEC (11.7-14.0) Prothromb Time International Ratio 2.6 (0.8-1.1) Sodium Level 144mmol/L (136-145) Potassium Level 4.0mmol/L (3.5-5.1) Chloride Level 103mmol/L (98-107) Carbon Dioxide Level 32mmol/L (21-32) Anion Gap 9 (6-14) Blood Urea Nitrogen 69mg/dL (8-26) Creatinine 2.5mg/dL (0.7-1.3) Estimated GFR (Cockcroft-Gault) 25.9 Glucose Level 95mg/dL (70-99) Calcium Level 9.1mg/dL (8.5-10.1) Test 01/08/17 08:26 Glucose (Fingerstick) 85mg/dL (70-99) Assessment/Plan Assessment/Plan IMP CHRONIC SYSTOLIC CHF PLEURAL EFFUSION ANEMIA JOHANN-CR OF 2.5 DUE TO DIURETICS CKD STAGE 3 CR OF 1.5-1.8 PLAN NEEDS THORACENTESIS RESUME LOW DOSE PO DEMADEX AGREE WITH LITER OF IVF'S MONITOR RESP STATUS WILL FOLLOW LIZETTE DAVIS MD Jan 08, 2017 11:16
--- NOTE | 2017-01-08 11:40 | PDOC ---
PULMONARY PROGRESS NOTES Subjective PT LESS SOA Vitals Vital Signs Date Time Temp Pulse Resp B/P Pulse Ox O2 Delivery O2 Flow Rate FiO2 01/08/17 08:54 91 129/66 01/08/17 08:00 97.3 33 100 Nasal Cannula 3.0 97.3 ROS: No Nausea, No Chest Pain, No Abdominal Pain, No Increase Cough General: Alert, No acute distress Lungs: Other (bl mild wheezing) Cardiovascular: S1 Abdomen: Soft, Non-tender Neuro Exam: Alert Extremities: Other Skin: Warm Labs Laboratory Tests Test 01/06/17 12:29 01/06/17 17:44 01/06/17 20:09 01/07/17 06:05 Glucose (Fingerstick) 143mg/dL (70-99) 130mg/dL (70-99) 144mg/dL (70-99) White Blood Count 8.3x10^3/uL (4.0-11.0) Red Blood Count 5.55x10^6/uL (4.30-5.70) Hemoglobin 13.3g/dL (13.0-17.5) Hematocrit 43.0% (39.0-53.0) Mean Corpuscular Volume 78fL (79-100) Mean Corpuscular Hemoglobin 24pg (25-35) Mean Corpuscular Hemoglobin Concent 31g/dL (31-37) Red Cell Distribution Width 22.6% (11.5-14.5) Platelet Count 148x10^3/uL (140-400) Neutrophils (%) (Auto) 89% (31-73) Lymphocytes (%) (Auto) 4% (24-48) Monocytes (%) (Auto) 7% (0-9) Eosinophils (%) (Auto) 0% (0-3) Basophils (%) (Auto) 0% (0-3) Neutrophils # (Auto) 7.4x10^3uL (1.8-7.7) Lymphocytes # (Auto) 0.3x10^3/uL (1.0-4.8) Monocytes # (Auto) 0.5x10^3/uL (0.0-1.1) Eosinophils # (Auto) 0.0x10^3/uL (0.0-0.7) Basophils # (Auto) 0.0x10^3/uL (0.0-0.2) Prothrombin Time 28.7SEC (11.7-14.0) Prothromb Time International Ratio 2.9 (0.8-1.1) Sodium Level 141mmol/L (136-145) Potassium Level 4.5mmol/L (3.5-5.1) Chloride Level 101mmol/L (98-107) Carbon Dioxide Level 30mmol/L (21-32) Anion Gap 10 (6-14) Blood Urea Nitrogen 57mg/dL (8-26) Creatinine 1.8mg/dL (0.7-1.3) Estimated GFR (Cockcroft-Gault) 37.8 Glucose Level 123mg/dL (70-99) Calcium Level 8.9mg/dL (8.5-10.1) Test 01/07/17 08:36 01/07/17 11:35 01/07/17 16:49 01/07/17 21:08 Glucose (Fingerstick) 103mg/dL (70-99) 147mg/dL (70-99) 163mg/dL (70-99) 143mg/dL (70-99) Test 01/08/17 06:34 01/08/17 08:26 Prothrombin Time 26.5SEC (11.7-14.0) Prothromb Time International Ratio 2.6 (0.8-1.1) Sodium Level 144mmol/L (136-145) Potassium Level 4.0mmol/L (3.5-5.1) Chloride Level 103mmol/L (98-107) Carbon Dioxide Level 32mmol/L (21-32) Anion Gap 9 (6-14) Blood Urea Nitrogen 69mg/dL (8-26) Creatinine 2.5mg/dL (0.7-1.3) Estimated GFR (Cockcroft-Gault) 25.9 Glucose Level 95mg/dL (70-99) Calcium Level 9.1mg/dL (8.5-10.1) Glucose (Fingerstick) 85mg/dL (70-99) Laboratory Tests Test 01/07/17 16:49 01/07/17 21:08 01/08/17 06:34 01/08/17 08:26 Glucose (Fingerstick) 163mg/dL (70-99) 143mg/dL (70-99) 85mg/dL (70-99) Prothrombin Time 26.5SEC (11.7-14.0) Prothromb Time International Ratio 2.6 (0.8-1.1) Sodium Level 144mmol/L (136-145) Potassium Level 4.0mmol/L (3.5-5.1) Chloride Level 103mmol/L (98-107) Carbon Dioxide Level 32mmol/L (21-32) Anion Gap 9 (6-14) Blood Urea Nitrogen 69mg/dL (8-26) Creatinine 2.5mg/dL (0.7-1.3) Estimated GFR (Cockcroft-Gault) 25.9 Glucose Level 95mg/dL (70-99) Calcium Level 9.1mg/dL (8.5-10.1) Medications Active Scripts Medications Dose Route/Sig Days Date Category Torsemide 20 Mg Tablet 4 Tab PO DAILY 01/06/17 Reported Amiodarone Hcl 200 Mg Tablet 1 Tab PO DAILY 01/06/17 Reported Toprol Xl (Metoprolol Succinate) 25 Mg Tab.er.24h 1 Tab PO DAILY 01/06/17 Reported Novolog (Insulin Aspart) 100 Unit/1 Ml Cartridge 10 Unit SQ TID 06/08/16 Reported Lantus Solostar (Insulin Glargine,Hum.rec.anlog) 100 Unit/1 Ml Insuln.pen 40 Unit SQ BID 06/08/16 Reported Cyclobenzaprine Hcl 10 Mg Tablet 1 Tab PO TID 06/08/16 Reported Allopurinol 300 Mg Tablet 1 Tab PO DAILY 06/08/16 Reported Simvastatin 10 Mg Tablet 1 Tab PO QHS 06/08/16 Reported Coumadin (Warfarin Sodium) 2.5 Mg Tablet 1 Tab PO DAILY 06/08/16 Reported Potassium Gluconate 500 Mg Tablet 500 Mg PO DAILY 06/08/16 Reported Furosemide 40 Mg Tablet 1 Tab PO DAILY 06/08/16 Reported Mag-Oxide (Magnesium Oxide) 400 Mg Tablet 1 Tab PO DAILY 11/06/15 Reported Levothyroxine Sodium 100 Mcg Tablet 1 Tab PO DAILY 11/06/15 Reported Digoxin 125 Mcg Tablet 1 Tab PO DAILY 11/06/15 Reported Enalapril Maleate 2.5 Mg Tablet 1 Tab PO DAILY 11/06/15 Reported Vitamin D3 (Cholecalciferol (Vitamin D3)) 1,000 Unit Tablet 2,000 Unit PO DAILY 11/06/15 Reported Coreg (Carvedilol) 25 Mg Tablet 1 Tab PO BID 11/06/15 Reported Impression . 1. Acute respiratory failure secondary to acute systolic heart failure. 2. Acute on chronic systolic heart failure with previous ejection fraction estimated at 15%. 3. Status post implantable cardioverter-defibrillator placement. 4. Abnormal x-ray revealing a large right-sided effusion with atelectasis. 5. Chronic atrial fibrillation, on Coumadin. 6. History of heparin-induced thrombocytopenia, status post bilateral below knee amputation. 7. Hypertension. 8. Chronic kidney disease. 9. Type 2 diabetes. 10. Elevated troponin level. CT CHEST 1. Moderate sized right pleural effusion with underlying right lower lobe atelectasis and partial atelectasis of the right middle and upper lobes. 2. Mild patchy groundglass opacities and interlobular septal thickening compatible with mild pulmonary edema. 3. Severe generalized cardiomegaly. Plan . WILL PROCEED WITH THORACENTESIS WHEN INR IS LOWER VIT K FOR NOW CONTINUE THE SAME TRANSFER OUT OF ICU TIMMY BACON MD Jan 08, 2017 11:40
[2017-01-08 12:00] VITALS: BP 128/64
[2017-01-08] MEDS: TORSEMIDE 20 MG TABLET. PO SCH (12:15)
[2017-01-08] MEDS ORDERED: IPRATRPIUM/ALBUTEROL 0.5/2.5MG 3 ML NEBU. NEB ONE (12:45)
--- NOTE | 2017-01-08 12:58 | PDOC ---
PROGRESS NOTES Chief Complaint Chief Complaint 1. acute resp failure with systolic CHF exacerbation 2. systolic CHF exacerbation EF 15 % before 3. ICD, PPM 4. CHRNOIC afib, on coumadin 5. 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 AMS, slurry speech , hallucination, 2/2 hypoxica possibly,no stroke 7. HTN 8. JOHANN on CKD4, ATN 9. HLD 10. MR s/p repair 11. DM2 on insulin 12. high troponin, 2/2 2 likely 13. bl pleural effusion, moderate RT plan: 1. card consult, echo done 2. cont home meds, held lasix, ACEI given JOHANN, GENTel IVF with card, renal consult, low dose torsomide 20mg daily 3. slightly decrease insulin to levemir 25u bid and decrease aspart to 8u tid, SSI 4. on NC 3L. 5. cont warfarin 2mg daily home dose, INR daily, hold coumadin for today, with INR 2.9, need to do thoracentesis with pulm, vit K today, may need FFP OK to transfer out of ICU hEAD CT neg History of Present Illness History of Present Illness sob better, still on NC 3L seems cough more today to me, INR 2.6 Cr higher, 2.5 Vitals Vitals Vital Signs Date Time Temp Pulse Resp B/P Pulse Ox O2 Delivery O2 Flow Rate FiO2 01/08/17 08:54 91 129/66 01/08/17 08:00 97.3 33 100 Nasal Cannula 3.0 97.3 Physical Exam General: Alert, moderate distress Heart: Regular rate, Normal S1 Lungs: Other (bl mild wheezing) Abdomen: Normal bowel sounds, Soft, No tenderness Extremities: No cyanosis, No edema (to BKA) Skin: No breakdown, No significant lesion Labs LABS Laboratory Tests Test 01/07/17 16:49 01/07/17 21:08 01/08/17 06:34 01/08/17 08:26 Glucose (Fingerstick) 163mg/dL (70-99) 143mg/dL (70-99) 85mg/dL (70-99) Prothrombin Time 26.5SEC (11.7-14.0) Prothromb Time International Ratio 2.6 (0.8-1.1) Sodium Level 144mmol/L (136-145) Potassium Level 4.0mmol/L (3.5-5.1) Chloride Level 103mmol/L (98-107) Carbon Dioxide Level 32mmol/L (21-32) Anion Gap 9 (6-14) Blood Urea Nitrogen 69mg/dL (8-26) Creatinine 2.5mg/dL (0.7-1.3) Estimated GFR (Cockcroft-Gault) 25.9 Glucose Level 95mg/dL (70-99) Calcium Level 9.1mg/dL (8.5-10.1) Test 01/08/17 11:53 01/08/17 12:42 Glucose (Fingerstick) 69mg/dL (70-99) 60mg/dL (70-99) Review of Systems Review of Systems no fever, chills, chest pain Assessment and Plan Assessmemt and Plan Problems Medical Problems: (1) Acute congestive heart failure Status: Acute Problems: Comment Review of Relevant I have reviewed the following items anuja (where applicable) has been applied. Labs Laboratory Tests Test 01/06/17 17:44 01/06/17 20:09 01/07/17 06:05 01/07/17 08:36 Glucose (Fingerstick) 130mg/dL (70-99) 144mg/dL (70-99) 103mg/dL (70-99) White Blood Count 8.3x10^3/uL (4.0-11.0) Red Blood Count 5.55x10^6/uL (4.30-5.70) Hemoglobin 13.3g/dL (13.0-17.5) Hematocrit 43.0% (39.0-53.0) Mean Corpuscular Volume 78fL (79-100) Mean Corpuscular Hemoglobin 24pg (25-35) Mean Corpuscular Hemoglobin Concent 31g/dL (31-37) Red Cell Distribution Width 22.6% (11.5-14.5) Platelet Count 148x10^3/uL (140-400) Neutrophils (%) (Auto) 89% (31-73) Lymphocytes (%) (Auto) 4% (24-48) Monocytes (%) (Auto) 7% (0-9) Eosinophils (%) (Auto) 0% (0-3) Basophils (%) (Auto) 0% (0-3) Neutrophils # (Auto) 7.4x10^3uL (1.8-7.7) Lymphocytes # (Auto) 0.3x10^3/uL (1.0-4.8) Monocytes # (Auto) 0.5x10^3/uL (0.0-1.1) Eosinophils # (Auto) 0.0x10^3/uL (0.0-0.7) Basophils # (Auto) 0.0x10^3/uL (0.0-0.2) Prothrombin Time 28.7SEC (11.7-14.0) Prothromb Time International Ratio 2.9 (0.8-1.1) Sodium Level 141mmol/L (136-145) Potassium Level 4.5mmol/L (3.5-5.1) Chloride Level 101mmol/L (98-107) Carbon Dioxide Level 30mmol/L (21-32) Anion Gap 10 (6-14) Blood Urea Nitrogen 57mg/dL (8-26) Creatinine 1.8mg/dL (0.7-1.3) Estimated GFR (Cockcroft-Gault) 37.8 Glucose Level 123mg/dL (70-99) Calcium Level 8.9mg/dL (8.5-10.1) Test 01/07/17 11:35 01/07/17 16:49 01/07/17 21:08 01/08/17 06:34 Glucose (Fingerstick) 147mg/dL (70-99) 163mg/dL (70-99) 143mg/dL (70-99) Prothrombin Time 26.5SEC (11.7-14.0) Prothromb Time International Ratio 2.6 (0.8-1.1) Sodium Level 144mmol/L (136-145) Potassium Level 4.0mmol/L (3.5-5.1) Chloride Level 103mmol/L (98-107) Carbon Dioxide Level 32mmol/L (21-32) Anion Gap 9 (6-14) Blood Urea Nitrogen 69mg/dL (8-26) Creatinine 2.5mg/dL (0.7-1.3) Estimated GFR (Cockcroft-Gault) 25.9 Glucose Level 95mg/dL (70-99) Calcium Level 9.1mg/dL (8.5-10.1) Test 01/08/17 08:26 01/08/17 11:53 01/08/17 12:42 Glucose (Fingerstick) 85mg/dL (70-99) 69mg/dL (70-99) 60mg/dL (70-99) Laboratory Tests Test 01/07/17 16:49 01/07/17 21:08 01/08/17 06:34 01/08/17 08:26 Glucose (Fingerstick) 163mg/dL (70-99) 143mg/dL (70-99) 85mg/dL (70-99) Prothrombin Time 26.5SEC (11.7-14.0) Prothromb Time International Ratio 2.6 (0.8-1.1) Sodium Level 144mmol/L (136-145) Potassium Level 4.0mmol/L (3.5-5.1) Chloride Level 103mmol/L (98-107) Carbon Dioxide Level 32mmol/L (21-32) Anion Gap 9 (6-14) Blood Urea Nitrogen 69mg/dL (8-26) Creatinine 2.5mg/dL (0.7-1.3) Estimated GFR (Cockcroft-Gault) 25.9 Glucose Level 95mg/dL (70-99) Calcium Level 9.1mg/dL (8.5-10.1) Test 01/08/17 11:53 01/08/17 12:42 Glucose (Fingerstick) 69mg/dL (70-99) 60mg/dL (70-99) Medications Current Medications Acetaminophen (Tylenol) 650 mg PRN Q6HRS PRN PO MILD PAIN / TEMP; Start at 05:00 Ondansetron HCl (Zofran) 4 mg PRN Q6HRS PRN IV NAUSEA/VOMITING; Start 01/06/17 at 05:00 Hydralazine HCl (Apresoline) 10 mg PRN Q4HRS PRN IVP ELEVATED BP, SEE COMMENTS ; Start 01/06/17 at 05:00 Amiodarone HCl (Cordarone) 200 mg DAILY PO Last administered on 01/08/17 08:53 ; Start 01/06/17 at 10:00 Vitamin D (Vitamin D3) 2,000 unit DAILY PO Last administered on 01/08/17 08:52 ; Start 01/06/17 at 10:00 Digoxin (Lanoxin) 125 mcg DAILY PO Last administered on 01/08/17 08:54; Start 01/06/17 at 10:30 Levothyroxine Sodium (Synthroid) 100 mcg DAILY07 PO Last administered on 07:08; Start 01/06/17 at 10:30 Magnesium Oxide (Magnesium Oxide) 400 mg DAILY PO Last administered on 08:52; Start 01/06/17 at 10:30 Metoprolol Succinate (Toprol Xl) 25 mg DAILY PO Last administered on 01/08/17 08:52; Start 01/06/17 at 10:30 Simvastatin (Zocor) 10 mg QHS PO Last administered on 01/07/17 21:09; Start at 21:00 Torsemide (Demadex) 80 mg DAILY PO Last administered on 01/07/17 08:40; Start 01/06/17 at 10:30; Stop 01/07/17 at 11:53; Status DC Warfarin Sodium (Coumadin) 2 mg DAILY16 PO ; Start 01/06/17 at 16:00; Stop 01/06 at 16:00; Status DC Carvedilol (Coreg) 25 mg BIDWMEALS PO Last administered on 01/06/17 10:22; Start 01/06/17 at 10:30; Stop 01/06/17 at 11:51; Status DC Lisinopril (Prinivil) 2.5 mg DAILY PO Last administered on 01/06/17 10:21; Start 01/06/17 at 10:30; Stop 01/08/17 at 08:36; Status DC Insulin Aspart (Novolog) 10 units TIDAC SQ Last administered on 01/06/17 18:38 ; Start 01/06/17 at 11:30; Stop 01/07/17 at 12:38; Status DC Insulin Detemir (Levemir) 30 units BID SQ Last administered on 01/08/17 09:00 ; Start 01/06/17 at 10:30 Non-Formulary Medication 500 mg DAILY PO ; Start 01/07/17 at 09:00; Status UNV Torsemide (Demadex) 80 mg DAILY PO ; Start 01/06/17 at 10:00; Status UNV Insulin Aspart (Novolog) 0-9 UNITS TIDWMEALS SQ Last administered on 01/07/17 16:58; Start 01/06/17 at 12:00 Dextrose 12.5 gm PRN Q15MIN PRN IV SEE COMMENTS; Start 01/06/17 at 09:45 Warfarin Sodium (Coumadin Per Physician) 1 each PRN DAILY PRN MC SEE COMMENTS Last administered on 01/07/17 12:33; Start 01/06/17 at 10:45; Stop 01/07/17 at 13:37; Status DC Furosemide (Lasix) 40 mg 1X ONCE IVP Last administered on 01/06/17 15:55; Start 01/06/17 at 16:00; Stop 01/06/17 at 16:01; Status DC Metolazone (Zaroxolyn) 5 mg DAILY PO Last administered on 01/07/17 08:40; Start 01/07/17 at 09:00; Stop 01/07/17 at 14:45; Status DC Ascorbic Acid (Vitamin C) 500 mg DAILY PO Last administered on 01/08/17 08:53 ; Start 01/08/17 at 09:00 Multivitamins/ Calcium (Thera M Plus) 1 tab DAILY PO Last administered on 08:52; Start 01/08/17 at 09:00 Albuterol Sulfate (Ventolin Neb Soln) 2.5 mg 1X ONCE NEB Last administered on 01/07/17 15:45; Start 01/07/17 at 11:45; Stop 01/07/17 at 11:46; Status DC Torsemide (Demadex) 40 mg DAILY PO ; Start 01/08/17 at 09:00; Stop 01/08/17 at 09:00; Status DC Insulin Aspart (Novolog) 8 units TIDAC SQ Last administered on 01/08/17 07:30 ; Start 01/07/17 at 16:30 Warfarin Sodium (Coumadin Per Pharmacy) 1 each PRN DAILY PRN MC SEE COMMENTS; Start 01/09/17 at 13:45 Aspirin (Ecotrin) 81 mg DAILYWBKFT PO Last administered on 01/08/17 08:52; Start 01/08/17 at 08:00 Warfarin Sodium (Coumadin - No Dose Today) 1 each 1X WARF ONCE MC ; Start 01/07 at 16:00; Stop 01/07/17 at 16:01; Status DC Metolazone 2.5 mg 2.5 mg DAILY PO ; Start 01/08/17 at 09:00; Stop 01/08/17 at 09 :00; Status DC Sodium Chloride 1,000 ml @ 100 mls/hr 1X ONCE IV Last administered on t 10:53; Start 01/08/17 at 08:45; Stop 01/08/17 at 18:44 Phytonadione/ Sodium Chloride (Vitamin K/Iv Sodium Chloride 0.9% 50ml) 51 ml @ 102 mls/hr 1X ONCE IV Last administered on 01/08/17t 12:15; Start 01/08/17 at 11:00; Stop 01/08/17 at 11:29; Status DC Torsemide (Demadex) 20 mg DAILY PO Last administered on 01/08/17t 12:15; Start 01/08/17 at 12:00 Albuterol/ Ipratropium (Duoneb) 3 ml 1X ONCE NEB ; Start 01/08/17 at 12:45; Stop 01/08/17 at 12:46; Status DC Active Scripts Active Reported Torsemide 20 Mg Tablet 4 Tab PO DAILY Amiodarone Hcl 200 Mg Tablet 1 Tab PO DAILY Toprol Xl (Metoprolol Succinate) 25 Mg Tab.er.24h 1 Tab PO DAILY Novolog (Insulin Aspart) 100 Unit/1 Ml Cartridge 10 Unit SQ TID Lantus Solostar (Insulin Glargine,Hum.rec.anlog) 100 Unit/1 Ml Insuln.pen 40 Unit SQ BID Cyclobenzaprine Hcl 10 Mg Tablet 1 Tab PO TID Allopurinol 300 Mg Tablet 1 Tab PO DAILY Simvastatin 10 Mg Tablet 1 Tab PO QHS Coumadin (Warfarin Sodium) 2.5 Mg Tablet 1 Tab PO DAILY Potassium Gluconate 500 Mg Tablet 500 Mg PO DAILY Furosemide 40 Mg Tablet 1 Tab PO DAILY Mag-Oxide (Magnesium Oxide) 400 Mg Tablet 1 Tab PO DAILY Levothyroxine Sodium 100 Mcg Tablet 1 Tab PO DAILY Digoxin 125 Mcg Tablet 1 Tab PO DAILY Enalapril Maleate 2.5 Mg Tablet 1 Tab PO DAILY Vitamin D3 (Cholecalciferol (Vitamin D3)) 1,000 Unit Tablet 2,000 Unit PO DAILY Coreg (Carvedilol) 25 Mg Tablet 1 Tab PO BID Vitals/I & O Vital Sign - Last 24 Hours 01/07/17 01/07/17 01/07/17 01/07/17 15:45 16:00 20:00 20:00 Temp 97.8 98.5 97.8 98.5 Pulse 90 90 Resp 30 28 B/P 108/62 103/61 Pulse Ox 100 99 100 O2 Delivery Nasal Cannula Nasal Cannula Nasal Cannula Nasal Cannula O2 Flow Rate 3.0 3.0 3.0 4.0 01/08/17 01/08/17 01/08/17 01/08/17 00:00 04:00 08:00 08:52 Temp 98.0 97.4 97.3 98.0 97.4 97.3 Pulse 86 89 91 91 Resp 28 3 33 B/P 107/52 106/55 129/66 129/66 Pulse Ox 100 100 100 O2 Delivery Nasal Cannula Nasal Cannula Nasal Cannula O2 Flow Rate 3.0 3.0 3.0 01/08/17 01/08/17 08:53 08:54 Pulse 91 91 B/P 129/66 129/66 Intake and Output 01/07/17 01/07/17 01/08/17 15:00 23:00 07:00 Intake Total 500 ml 400 ml Output Total 455 ml 750 ml Balance 500 ml -55 ml -750 ml RENATO WEBER MD Jan 08, 2017 12:58
[2017-01-08] MEDS ORDERED: PHYTONADIONE 5 MG TABLET PO ONE (15:45)
[2017-01-08 16:00] VITALS: BP 139/65
[2017-01-08 20:00] VITALS: BP 139/75
[2017-01-08] MEDS: SIMVASTATIN 10 MG TABLET PO SCH (20:04)
[2017-01-08] MEDS: ACETAMINOPHEN 325 MG TABLET. PO PRN (20:04)
[2017-01-09] VITALS: BP 109/54
[2017-01-09 04:00] VITALS: BP 123/55
[2017-01-09] MEDS: LEVOTHYROXINE 100 MCG TABLET PO SCH (07:12)
[2017-01-09 07:14] LABS: CALCIUM 8.9 mg/dL (8.5-10.1); CREATININE 1.9 mg/dL (0.7-1.3); GFR 35.5; POTASSIUM 3.5 mmol/L (3.5-5.1)
[2017-01-09] MEDS: INSULIN ASPART 300 UNITS/3 ML INSULN.PEN SQ SCH ×6 (07:30→17:00)
[2017-01-09 08:00] VITALS: BP 120/83
[2017-01-09] MEDS: METOPROLOL SUCC 24HR ER 25 MG TAB.ER.24H. PO SCH (09:17)
[2017-01-09] MEDS: ASCORBIC ACID 500 MG TABLET PO SCH (09:17)
[2017-01-09] MEDS: MULTIVITAMIN with MINERAL TABLET. PO SCH (09:17)
[2017-01-09] MEDS: MAGNESIUM OXIDE 400 MG TABLET PO SCH (09:17)
[2017-01-09] MEDS: TORSEMIDE 20 MG TABLET. PO SCH (09:17)
[2017-01-09] MEDS: ASPIRIN ENTERIC COATED 81 MG TABLET.DR. PO SCH (09:18)
[2017-01-09] MEDS: DIGOXIN 125 MCG TABLET PO SCH (09:18)
[2017-01-09] MEDS: CHOLECALCIFEROL (VITAMIN D3) 1,000 UNIT TABLET PO SCH (09:18)
[2017-01-09] MEDS: AMIODARONE HCL 200 MG TABLET PO SCH (09:18)
[2017-01-09] MEDS: INSULIN DETEMIR 300 UNITS/3 ML INSULN.PEN. SQ SCH ×2 (09:22→20:56)
--- NOTE | 2017-01-09 09:37 | PDOC ---
PULMONARY PROGRESS NOTES Subjective PT LESS SOA Vitals Vital Signs Date Time Temp Pulse Resp B/P Pulse Ox O2 Delivery O2 Flow Rate FiO2 01/09/17 09:18 76 120/83 01/09/17 08:00 98.3 31 95 Nasal Cannula 3.0 98.3 ROS: No Nausea, No Chest Pain, No Abdominal Pain, No Increase Cough General: Alert, No acute distress Lungs: Other (bl mild wheezing) Cardiovascular: S1 Abdomen: Soft, Non-tender Neuro Exam: Alert Extremities: Other Skin: Warm Labs Laboratory Tests Test 01/07/17 11:35 01/07/17 16:49 01/07/17 21:08 01/08/17 06:34 Glucose (Fingerstick) 147mg/dL (70-99) 163mg/dL (70-99) 143mg/dL (70-99) Prothrombin Time 26.5SEC (11.7-14.0) Prothromb Time International Ratio 2.6 (0.8-1.1) Sodium Level 144mmol/L (136-145) Potassium Level 4.0mmol/L (3.5-5.1) Chloride Level 103mmol/L (98-107) Carbon Dioxide Level 32mmol/L (21-32) Anion Gap 9 (6-14) Blood Urea Nitrogen 69mg/dL (8-26) Creatinine 2.5mg/dL (0.7-1.3) Estimated GFR (Cockcroft-Gault) 25.9 Glucose Level 95mg/dL (70-99) Calcium Level 9.1mg/dL (8.5-10.1) Test 01/08/17 08:26 01/08/17 11:53 01/08/17 12:42 01/08/17 13:06 Glucose (Fingerstick) 85mg/dL (70-99) 69mg/dL (70-99) 60mg/dL (70-99) 108mg/dL (70-99) Test 01/08/17 16:05 01/08/17 18:37 01/08/17 19:55 01/09/17 00:06 Glucose (Fingerstick) 68mg/dL (70-99) 69mg/dL (70-99) 81mg/dL (70-99) 63mg/dL (70-99) Test 01/09/17 00:53 01/09/17 01:26 01/09/17 05:55 01/09/17 08:38 Glucose (Fingerstick) 60mg/dL (70-99) 103mg/dL (70-99) 81mg/dL (70-99) Sodium Level 144mmol/L (136-145) Potassium Level 3.5mmol/L (3.5-5.1) Chloride Level 101mmol/L (98-107) Carbon Dioxide Level 34mmol/L (21-32) Anion Gap 9 (6-14) Blood Urea Nitrogen 62mg/dL (8-26) Creatinine 1.9mg/dL (0.7-1.3) Estimated GFR (Cockcroft-Gault) 35.5 Glucose Level 77mg/dL (70-99) Calcium Level 8.9mg/dL (8.5-10.1) Laboratory Tests Test 01/08/17 11:53 01/08/17 12:42 01/08/17 13:06 01/08/17 16:05 Glucose (Fingerstick) 69mg/dL (70-99) 60mg/dL (70-99) 108mg/dL (70-99) 68mg/dL (70-99) Test 01/08/17 18:37 01/08/17 19:55 01/09/17 00:06 01/09/17 00:53 Glucose (Fingerstick) 69mg/dL (70-99) 81mg/dL (70-99) 63mg/dL (70-99) 60mg/dL (70-99) Test 01/09/17 01:26 01/09/17 05:55 01/09/17 08:38 Glucose (Fingerstick) 103mg/dL (70-99) 81mg/dL (70-99) Sodium Level 144mmol/L (136-145) Potassium Level 3.5mmol/L (3.5-5.1) Chloride Level 101mmol/L (98-107) Carbon Dioxide Level 34mmol/L (21-32) Anion Gap 9 (6-14) Blood Urea Nitrogen 62mg/dL (8-26) Creatinine 1.9mg/dL (0.7-1.3) Estimated GFR (Cockcroft-Gault) 35.5 Glucose Level 77mg/dL (70-99) Calcium Level 8.9mg/dL (8.5-10.1) Medications Active Scripts Medications Dose Route/Sig Days Date Category Torsemide 20 Mg Tablet 4 Tab PO DAILY 01/06/17 Reported Amiodarone Hcl 200 Mg Tablet 1 Tab PO DAILY 01/06/17 Reported Toprol Xl (Metoprolol Succinate) 25 Mg Tab.er.24h 1 Tab PO DAILY 01/06/17 Reported Novolog (Insulin Aspart) 100 Unit/1 Ml Cartridge 10 Unit SQ TID 06/08/16 Reported Lantus Solostar (Insulin Glargine,Hum.rec.anlog) 100 Unit/1 Ml Insuln.pen 40 Unit SQ BID 06/08/16 Reported Cyclobenzaprine Hcl 10 Mg Tablet 1 Tab PO TID 06/08/16 Reported Allopurinol 300 Mg Tablet 1 Tab PO DAILY 06/08/16 Reported Simvastatin 10 Mg Tablet 1 Tab PO QHS 06/08/16 Reported Coumadin (Warfarin Sodium) 2.5 Mg Tablet 1 Tab PO DAILY 06/08/16 Reported Potassium Gluconate 500 Mg Tablet 500 Mg PO DAILY 06/08/16 Reported Furosemide 40 Mg Tablet 1 Tab PO DAILY 06/08/16 Reported Mag-Oxide (Magnesium Oxide) 400 Mg Tablet 1 Tab PO DAILY 11/06/15 Reported Levothyroxine Sodium 100 Mcg Tablet 1 Tab PO DAILY 11/06/15 Reported Digoxin 125 Mcg Tablet 1 Tab PO DAILY 11/06/15 Reported Enalapril Maleate 2.5 Mg Tablet 1 Tab PO DAILY 11/06/15 Reported Vitamin D3 (Cholecalciferol (Vitamin D3)) 1,000 Unit Tablet 2,000 Unit PO DAILY 11/06/15 Reported Coreg (Carvedilol) 25 Mg Tablet 1 Tab PO BID 11/06/15 Reported Impression . 1. Acute respiratory failure secondary to acute systolic heart failure. 2. Acute on chronic systolic heart failure with previous ejection fraction estimated at 15%. 3. Status post implantable cardioverter-defibrillator placement. 4. Abnormal x-ray revealing a large right-sided effusion with atelectasis. 5. Chronic atrial fibrillation, on Coumadin. 6. History of heparin-induced thrombocytopenia, status post bilateral below knee amputation. 7. Hypertension. 8. Chronic kidney disease. 9. Type 2 diabetes. 10. Elevated troponin level. CT CHEST 1. Moderate sized right pleural effusion with underlying right lower lobe atelectasis and partial atelectasis of the right middle and upper lobes. 2. Mild patchy groundglass opacities and interlobular septal thickening compatible with mild pulmonary edema. 3. Severe generalized cardiomegaly. Plan . WILL PROCEED WITH THORACENTESIS INR 1.4 02, SEE ORDERS CONTINUE THE SAME TRANSFER OUT OF ICU TIMMY BACON MD Jan 09, 2017 09:37
--- NOTE | 2017-01-09 10:45 | PDOC ---
CARDIO Progress Notes Date and Time Date of Service 01/09/2017 Time of Evaluation 0930 Subjective Subjective: No Chest Pain, No shortness of breath, No Palpitations, No Dizziness, Other (appetite better but feels weak) Vitals Vitals Vital Signs Date Time Temp Pulse Resp B/P Pulse Ox O2 Delivery O2 Flow Rate FiO2 01/09/17 09:18 76 120/83 01/09/17 08:00 98.3 31 95 Nasal Cannula 3.0 98.3 Weight Weight [ ] Input and Output Intake and Output Intake and Output 01/09/17 07:00 Intake Total 1691 ml Output Total 2323 ml Balance -632 ml Intake Oral 1100 ml IV Total 591 ml Output Urine Total 2323 ml Laboratory Labs Laboratory Tests Test 01/08/17 11:53 01/08/17 12:42 01/08/17 13:06 01/08/17 16:05 Glucose (Fingerstick) 69mg/dL (70-99) 60mg/dL (70-99) 108mg/dL (70-99) 68mg/dL (70-99) Test 01/08/17 18:37 01/08/17 19:55 01/09/17 00:06 01/09/17 00:53 Glucose (Fingerstick) 69mg/dL (70-99) 81mg/dL (70-99) 63mg/dL (70-99) 60mg/dL (70-99) Test 01/09/17 01:26 01/09/17 05:55 01/09/17 08:38 Glucose (Fingerstick) 103mg/dL (70-99) 81mg/dL (70-99) Sodium Level 144mmol/L (136-145) Potassium Level 3.5mmol/L (3.5-5.1) Chloride Level 101mmol/L (98-107) Carbon Dioxide Level 34mmol/L (21-32) Anion Gap 9 (6-14) Blood Urea Nitrogen 62mg/dL (8-26) Creatinine 1.9mg/dL (0.7-1.3) Estimated GFR (Cockcroft-Gault) 35.5 Glucose Level 77mg/dL (70-99) Calcium Level 8.9mg/dL (8.5-10.1) Physical Exam HEENT: Neck Supple W Full Motion Chest: Symmetric LUNGS: Other (bibasilar crackles with expiratory wheeze) Heart: S1S2, murmurs (3/6 systolic murmur to LLS border), irregularly irregular (Paced with underlying AFIB; no significant rhythm ectopies overnight) Extremities: Other (bilateral BKA; no stump edema, no scrotal edema) Neurology: alert, oriented, follow commands Assessment Assessment 1. Acute on chronic mixed diastolic/systolic CHF/persistent right mod pleural effusion 2. Nonischemic dilated cardiomyopathy: 09/2010 normal coronaries via [facility]. EF is <20%, virtually unchanged by comparison. NYHA2-3 3. COPD: >30 yrs of tobaccoism. 4. HTN/HLP/DM2: BP controlled 5. 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 This has alicia RV lead, per interrogation this has been stable. Last Gen change 06/08/2015 6. Permanent AFIB: Past documentation revealed permanent AFIB but upon further inquiry with interrogation, he does show paroxysms. Rate controlled. 7. JOHANN on CKD3: Improving 8. Hx of mitral valve repair , Hx of HIT (2009) Recommendation 1. Push fluids within fluid restriction range. Low dose demadex for now per nephrology. 2. Thoracentesis pending per pulmonary. Continue to hold coumadin. OAC is for AFIB not for his mitral valve repair. Resume OAC once OK with IR. 3. Continue with amiodarone/dig. 4. Continue with secondary prevention as tolerated 5. Avoid tight BG control 6. Already has a established f/u with [place] on 01/31/2017 7. Will Reevaluate diuretic need post thoracentesis NOE CASTLE APRN Jan 09, 2017 10:45
[2017-01-09 11:14] LABS: INR 1.4 (0.8-1.1); PROTHROMBIN TIME PATIENT 16.6 SEC (11.7-14.0)
--- NOTE | 2017-01-09 11:21 | PDOC ---
Renal-Progress Notes Subjective Notes Notes NONE History of Present Illness Hx of present illness STABLE Vitals Vitals Vital Signs Date Time Temp Pulse Resp B/P Pulse Ox O2 Delivery O2 Flow Rate FiO2 01/09/17 09:18 76 120/83 01/09/17 08:00 98.3 31 95 Nasal Cannula 3.0 98.3 Weight Weight [ ] I.O. Intake and Output Intake and Output 01/09/17 07:00 Intake Total 1691 ml Output Total 2323 ml Balance -632 ml Intake Oral 1100 ml IV Total 591 ml Output Urine Total 2323 ml Labs Labs Laboratory Tests Test 01/08/17 11:53 01/08/17 12:42 01/08/17 13:06 01/08/17 16:05 Glucose (Fingerstick) 69mg/dL (70-99) 60mg/dL (70-99) 108mg/dL (70-99) 68mg/dL (70-99) Test 01/08/17 18:37 01/08/17 19:55 01/09/17 00:06 01/09/17 00:53 Glucose (Fingerstick) 69mg/dL (70-99) 81mg/dL (70-99) 63mg/dL (70-99) 60mg/dL (70-99) Test 01/09/17 01:26 01/09/17 05:55 01/09/17 08:38 01/09/17 10:58 Glucose (Fingerstick) 103mg/dL (70-99) 81mg/dL (70-99) Sodium Level 144mmol/L (136-145) Potassium Level 3.5mmol/L (3.5-5.1) Chloride Level 101mmol/L (98-107) Carbon Dioxide Level 34mmol/L (21-32) Anion Gap 9 (6-14) Blood Urea Nitrogen 62mg/dL (8-26) Creatinine 1.9mg/dL (0.7-1.3) Estimated GFR (Cockcroft-Gault) 35.5 Glucose Level 77mg/dL (70-99) Calcium Level 8.9mg/dL (8.5-10.1) Prothrombin Time 16.6SEC (11.7-14.0) Prothromb Time International Ratio 1.4 (0.8-1.1) Review of Systems Constitutional: yes: alert, weakness Ears/Nose/Throat: Yes: no symptom reported Eyes: Yes: no symptom reported Pulmonary: Yes dyspnea Cardiovascular: Yes edema Gastrointestional: Yes: constipation Genitourinary: Yes: no symptom reported Skin: Yes no symptom reported Physical Exam General Appearance: no apparent distress Skin: warm Respiratory: decreased breath sounds Heart: S1S2, RRR Abdomen: soft, bowel sounds present Extremities: edema Neurology: alert, oriented, follow commands Musculoskeletal: Other (bilateral BKA; WC bound, uses bilateral prothetic) Assessment Assessment IMP JOHANN-BETTER WITH CR DOWN TO 1.9 FROM 2.5 CKD STAGE 3 WTIH CR OF 1.7 CHF-IMPROVED PLAN CONT WITH DEMADEX FLUID AND NA RESTRICT WILL FOLLOW LIZETTE DAVIS MD Jan 09, 2017 11:21
[2017-01-09 12:00] VITALS: BP 154/85
--- NOTE | 2017-01-09 14:21 | PDOC ---
PROGRESS NOTES Chief Complaint Chief Complaint 1. acute resp failure with systolic CHF exacerbation 2. systolic CHF exacerbation EF 15 % before 3. ICD, PPM 4. CHRNOIC afib, on coumadin 5. 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 AMS, slurry speech , hallucination, 2/2 hypoxica possibly,no stroke 7. HTN 8. JOHANN on CKD4, ATN 9. HLD 10. MR s/p repair 11. DM2 on insulin 12. high troponin, 2/2 2 likely 13. bl pleural effusion, moderate RT plan: 1. card consult, echo done 2. cont home meds, held lasix, ACEI given JOHANN, GENTel IVF with card, renal consult, low dose torsomide 20mg daily 3. slightly decrease insulin to levemir 25u bid and decrease aspart to 5u tid, SSI 4. on NC 3L. 5. cont warfarin 2mg daily home dose, INR daily, hold coumadin for today, with INR 2.9, need to do thoracentesis with pulm, vit K given on 01/08. OK to transfer out of ICU hEAD CT neg need thoracentesis. History of Present Illness History of Present Illness sob better, still on NC 3L seems cough more today to me, INR 2.6 to 1.4 post vitk Cr silghtly better Vitals Vitals Vital Signs Date Time Temp Pulse Resp B/P Pulse Ox O2 Delivery O2 Flow Rate FiO2 01/09/17 12:00 98.5 88 24 154/85 97 Nasal Cannula 4.0 98.5 Physical Exam General: Alert, moderate distress Heart: Regular rate, Normal S1 Lungs: Other (bl mild wheezing) Abdomen: Normal bowel sounds, Soft, No tenderness Extremities: No cyanosis, No edema (to BKA) Skin: No breakdown, No significant lesion Labs LABS Laboratory Tests Test 01/08/17 16:05 01/08/17 18:37 01/08/17 19:55 01/09/17 00:06 Glucose (Fingerstick) 68mg/dL (70-99) 69mg/dL (70-99) 81mg/dL (70-99) 63mg/dL (70-99) Test 01/09/17 00:53 01/09/17 01:26 01/09/17 05:55 01/09/17 08:38 Glucose (Fingerstick) 60mg/dL (70-99) 103mg/dL (70-99) 81mg/dL (70-99) Sodium Level 144mmol/L (136-145) Potassium Level 3.5mmol/L (3.5-5.1) Chloride Level 101mmol/L (98-107) Carbon Dioxide Level 34mmol/L (21-32) Anion Gap 9 (6-14) Blood Urea Nitrogen 62mg/dL (8-26) Creatinine 1.9mg/dL (0.7-1.3) Estimated GFR (Cockcroft-Gault) 35.5 Glucose Level 77mg/dL (70-99) Calcium Level 8.9mg/dL (8.5-10.1) Test 01/09/17 10:58 01/09/17 12:28 Prothrombin Time 16.6SEC (11.7-14.0) Prothromb Time International Ratio 1.4 (0.8-1.1) Glucose (Fingerstick) 107mg/dL (70-99) Review of Systems Review of Systems no fever, chills, chest pain Assessment and Plan Assessmemt and Plan Problems Medical Problems: (1) Acute congestive heart failure Status: Acute Problems: Comment Review of Relevant I have reviewed the following items anuja (where applicable) has been applied. Labs Laboratory Tests Test 01/07/17 16:49 01/07/17 21:08 01/08/17 06:34 01/08/17 08:26 Glucose (Fingerstick) 163mg/dL (70-99) 143mg/dL (70-99) 85mg/dL (70-99) Prothrombin Time 26.5SEC (11.7-14.0) Prothromb Time International Ratio 2.6 (0.8-1.1) Sodium Level 144mmol/L (136-145) Potassium Level 4.0mmol/L (3.5-5.1) Chloride Level 103mmol/L (98-107) Carbon Dioxide Level 32mmol/L (21-32) Anion Gap 9 (6-14) Blood Urea Nitrogen 69mg/dL (8-26) Creatinine 2.5mg/dL (0.7-1.3) Estimated GFR (Cockcroft-Gault) 25.9 Glucose Level 95mg/dL (70-99) Calcium Level 9.1mg/dL (8.5-10.1) Test 01/08/17 11:53 01/08/17 12:42 01/08/17 13:06 01/08/17 16:05 Glucose (Fingerstick) 69mg/dL (70-99) 60mg/dL (70-99) 108mg/dL (70-99) 68mg/dL (70-99) Test 01/08/17 18:37 01/08/17 19:55 01/09/17 00:06 01/09/17 00:53 Glucose (Fingerstick) 69mg/dL (70-99) 81mg/dL (70-99) 63mg/dL (70-99) 60mg/dL (70-99) Test 01/09/17 01:26 01/09/17 05:55 01/09/17 08:38 01/09/17 10:58 Glucose (Fingerstick) 103mg/dL (70-99) 81mg/dL (70-99) Sodium Level 144mmol/L (136-145) Potassium Level 3.5mmol/L (3.5-5.1) Chloride Level 101mmol/L (98-107) Carbon Dioxide Level 34mmol/L (21-32) Anion Gap 9 (6-14) Blood Urea Nitrogen 62mg/dL (8-26) Creatinine 1.9mg/dL (0.7-1.3) Estimated GFR (Cockcroft-Gault) 35.5 Glucose Level 77mg/dL (70-99) Calcium Level 8.9mg/dL (8.5-10.1) Prothrombin Time 16.6SEC (11.7-14.0) Prothromb Time International Ratio 1.4 (0.8-1.1) Test 01/09/17 12:28 Glucose (Fingerstick) 107mg/dL (70-99) Laboratory Tests Test 01/08/17 16:05 01/08/17 18:37 01/08/17 19:55 01/09/17 00:06 Glucose (Fingerstick) 68mg/dL (70-99) 69mg/dL (70-99) 81mg/dL (70-99) 63mg/dL (70-99) Test 01/09/17 00:53 01/09/17 01:26 01/09/17 05:55 01/09/17 08:38 Glucose (Fingerstick) 60mg/dL (70-99) 103mg/dL (70-99) 81mg/dL (70-99) Sodium Level 144mmol/L (136-145) Potassium Level 3.5mmol/L (3.5-5.1) Chloride Level 101mmol/L (98-107) Carbon Dioxide Level 34mmol/L (21-32) Anion Gap 9 (6-14) Blood Urea Nitrogen 62mg/dL (8-26) Creatinine 1.9mg/dL (0.7-1.3) Estimated GFR (Cockcroft-Gault) 35.5 Glucose Level 77mg/dL (70-99) Calcium Level 8.9mg/dL (8.5-10.1) Test 01/09/17 10:58 01/09/17 12:28 Prothrombin Time 16.6SEC (11.7-14.0) Prothromb Time International Ratio 1.4 (0.8-1.1) Glucose (Fingerstick) 107mg/dL (70-99) Medications Current Medications Acetaminophen (Tylenol) 650 mg PRN Q6HRS PRN PO MILD PAIN / TEMP Last administered on 01/08/17 20:04; Start 01/06/17 at 05:00 Ondansetron HCl (Zofran) 4 mg PRN Q6HRS PRN IV NAUSEA/VOMITING; Start 01/06/17 at 05:00 Hydralazine HCl (Apresoline) 10 mg PRN Q4HRS PRN IVP ELEVATED BP, SEE COMMENTS ; Start 01/06/17 at 05:00 Amiodarone HCl (Cordarone) 200 mg DAILY PO Last administered on 01/09/17 09:18 ; Start 01/06/17 at 10:00 Vitamin D (Vitamin D3) 2,000 unit DAILY PO Last administered on 01/09/17 09:18 ; Start 01/06/17 at 10:00 Digoxin (Lanoxin) 125 mcg DAILY PO Last administered on 01/09/17 09:18; Start 01/06/17 at 10:30 Levothyroxine Sodium (Synthroid) 100 mcg DAILY07 PO Last administered on 07:12; Start 01/06/17 at 10:30 Magnesium Oxide (Magnesium Oxide) 400 mg DAILY PO Last administered on 09:17; Start 01/06/17 at 10:30 Metoprolol Succinate (Toprol Xl) 25 mg DAILY PO Last administered on 01/09/17 09:17; Start 01/06/17 at 10:30 Simvastatin (Zocor) 10 mg QHS PO Last administered on 01/08/17 20:04; Start at 21:00 Torsemide (Demadex) 80 mg DAILY PO Last administered on 01/07/17 08:40; Start 01/06/17 at 10:30; Stop 01/07/17 at 11:53; Status DC Warfarin Sodium (Coumadin) 2 mg DAILY16 PO ; Start 01/06/17 at 16:00; Stop 01/06 at 16:00; Status DC Carvedilol (Coreg) 25 mg BIDWMEALS PO Last administered on 01/06/17 10:22; Start 01/06/17 at 10:30; Stop 01/06/17 at 11:51; Status DC Lisinopril (Prinivil) 2.5 mg DAILY PO Last administered on 01/06/17 10:21; Start 01/06/17 at 10:30; Stop 01/08/17 at 08:36; Status DC Insulin Aspart (Novolog) 10 units TIDAC SQ Last administered on 01/06/17 18:38 ; Start 01/06/17 at 11:30; Stop 01/07/17 at 12:38; Status DC Insulin Detemir (Levemir) 30 units BID SQ Last administered on 01/08/17 09:00 ; Start 01/06/17 at 10:30; Stop 01/08/17 at 12:56; Status DC Non-Formulary Medication 500 mg DAILY PO ; Start 01/07/17 at 09:00; Status UNV Torsemide (Demadex) 80 mg DAILY PO ; Start 01/06/17 at 10:00; Status UNV Insulin Aspart (Novolog) 0-9 UNITS TIDWMEALS SQ Last administered on 01/07/17 16:58; Start 01/06/17 at 12:00 Dextrose 12.5 gm PRN Q15MIN PRN IV SEE COMMENTS Last administered on 01/09/17 00:56; Start 01/06/17 at 09:45 Warfarin Sodium (Coumadin Per Physician) 1 each PRN DAILY PRN MC SEE COMMENTS Last administered on 01/07/17 12:33; Start 01/06/17 at 10:45; Stop 01/07/17 at 13:37; Status DC Furosemide (Lasix) 40 mg 1X ONCE IVP Last administered on 01/06/17 15:55; Start 01/06/17 at 16:00; Stop 01/06/17 at 16:01; Status DC Metolazone (Zaroxolyn) 5 mg DAILY PO Last administered on 01/07/17 08:40; Start 01/07/17 at 09:00; Stop 01/07/17 at 14:45; Status DC Ascorbic Acid (Vitamin C) 500 mg DAILY PO Last administered on 01/09/17 09:17 ; Start 01/08/17 at 09:00 Multivitamins/ Calcium (Thera M Plus) 1 tab DAILY PO Last administered on 09:17; Start 01/08/17 at 09:00 Albuterol Sulfate (Ventolin Neb Soln) 2.5 mg 1X ONCE NEB Last administered on 01/07/17 15:45; Start 01/07/17 at 11:45; Stop 01/07/17 at 11:46; Status DC Torsemide (Demadex) 40 mg DAILY PO ; Start 01/08/17 at 09:00; Stop 01/08/17 at 09:00; Status DC Insulin Aspart (Novolog) 8 units TIDAC SQ Last administered on 01/08/17 07:30 ; Start 01/07/17 at 16:30; Stop 01/08/17 at 12:56; Status DC Warfarin Sodium (Coumadin Per Pharmacy) 1 each PRN DAILY PRN MC SEE COMMENTS Last administered on 01/09/17 12:26; Start 01/09/17 at 13:45 Aspirin (Ecotrin) 81 mg DAILYWBKFT PO Last administered on 01/09/17 09:18; Start 01/08/17 at 08:00 Warfarin Sodium (Coumadin - No Dose Today) 1 each 1X WARF ONCE MC ; Start 01/07 at 16:00; Stop 01/07/17 at 16:01; Status DC Metolazone 2.5 mg 2.5 mg DAILY PO ; Start 01/08/17 at 09:00; Stop 01/08/17 at 09 :00; Status DC Sodium Chloride 1,000 ml @ 100 mls/hr 1X ONCE IV Last administered on 10:53; Start 01/08/17 at 08:45; Stop 01/08/17 at 18:44; Status DC Phytonadione/ Sodium Chloride (Vitamin K/Iv Sodium Chloride 0.9% 50ml) 51 ml @ 102 mls/hr 1X ONCE IV Last administered on 01/08/17 12:15; Start 01/08/17 at 11:00; Stop 01/08/17 at 11:29; Status DC Torsemide (Demadex) 20 mg DAILY PO Last administered on 01/09/17 09:17; Start 01/08/17 at 12:00 Albuterol/ Ipratropium (Duoneb) 3 ml 1X ONCE NEB ; Start 01/08/17 at 12:45; Stop 01/08/17 at 12:46; Status DC Insulin Aspart (Novolog) 5 units TIDAC SQ ; Start 01/08/17 at 16:30 Insulin Detemir (Levemir) 25 units BID SQ Last administered on 01/09/17 09:22 ; Start 01/08/17 at 21:00 Warfarin Sodium (Coumadin - No Dose Today) 1 each 1X WARF ONCE MC ; Start 01/08 at 16:00; Stop 01/08/17 at 16:01; Status DC Phytonadione (Mephyton) 2.5 mg 1X ONCE PO Last administered on 01/08/17 16:02 ; Start 01/08/17 at 15:45; Stop 01/08/17 at 15:46; Status DC Warfarin Sodium (Coumadin - No Dose Today) 1 each 1X WARF ONCE MC ; Start 01/09 at 16:00; Stop 01/09/17 at 16:01 Active Scripts Active Reported Torsemide 20 Mg Tablet 4 Tab PO DAILY Amiodarone Hcl 200 Mg Tablet 1 Tab PO DAILY Toprol Xl (Metoprolol Succinate) 25 Mg Tab.er.24h 1 Tab PO DAILY Novolog (Insulin Aspart) 100 Unit/1 Ml Cartridge 10 Unit SQ TID Lantus Solostar (Insulin Glargine,Hum.rec.anlog) 100 Unit/1 Ml Insuln.pen 40 Unit SQ BID Cyclobenzaprine Hcl 10 Mg Tablet 1 Tab PO TID Allopurinol 300 Mg Tablet 1 Tab PO DAILY Simvastatin 10 Mg Tablet 1 Tab PO QHS Coumadin (Warfarin Sodium) 2.5 Mg Tablet 1 Tab PO DAILY Potassium Gluconate 500 Mg Tablet 500 Mg PO DAILY Furosemide 40 Mg Tablet 1 Tab PO DAILY Mag-Oxide (Magnesium Oxide) 400 Mg Tablet 1 Tab PO DAILY Levothyroxine Sodium 100 Mcg Tablet 1 Tab PO DAILY Digoxin 125 Mcg Tablet 1 Tab PO DAILY Enalapril Maleate 2.5 Mg Tablet 1 Tab PO DAILY Vitamin D3 (Cholecalciferol (Vitamin D3)) 1,000 Unit Tablet 2,000 Unit PO DAILY Coreg (Carvedilol) 25 Mg Tablet 1 Tab PO BID Vitals/I & O Vital Sign - Last 24 Hours 01/08/17 01/08/17 01/08/17 01/08/17 16:00 17:39 20:00 20:00 Temp 97.8 99.8 97.8 99.8 Pulse 89 89 Resp 33 32 B/P 139/65 139/75 Pulse Ox 98 98 99 O2 Delivery Nasal Cannula Nasal Cannula Nasal Cannula Nasal Cannula O2 Flow Rate 3.0 3.0 3.0 3.0 01/09/17 01/09/17 01/09/17 01/09/17 00:00 04:00 08:00 09:17 Temp 98.5 98.2 98.3 98.5 98.2 98.3 Pulse 81 89 76 76 Resp 26 28 31 B/P 109/54 123/55 120/83 120/83 Pulse Ox 98 99 95 O2 Delivery Nasal Cannula Nasal Cannula Nasal Cannula O2 Flow Rate 3.0 3.0 3.0 01/09/17 01/09/17 01/09/17 09:18 09:18 12:00 Temp 98.5 98.5 Pulse 76 76 88 Resp 24 B/P 120/83 120/83 154/85 Pulse Ox 97 O2 Delivery Nasal Cannula O2 Flow Rate 4.0 Intake and Output 01/08/17 01/08/17 01/09/17 15:00 23:00 07:00 Intake Total 100 ml 791 ml 800 ml Output Total 1400 ml 923 ml Balance 100 ml -609 ml -123 ml RENATO WEBER MD Jan 09, 2017 14:21
[2017-01-09] MEDS ORDERED: LIDOCAINE 1% / SOD BICARB 8.4% 20 ML VIAL. IJ ONE ×2 (15:15→16:30)
[2017-01-09 16:00] VITALS: BP 136/97
--- NOTE | 2017-01-09 16:23 | PDOC ---
Exam Data Integrity Consultant Data Integrity Consultant Aldo Teacher [employer] Consumer Science Teacher Of Family [employer] Consumer Science F Ndumbu. Andrew Moran Pre-Procedure Diagnosis Pre-Procedure Diagnosis 66 YO male with recurrent mod large right pleural effusion, with SOA and cough Post-Procedure Diagnosis Post-Procedure Diagnosis Same Procedure Performed Procedure Performed Bedside ICU sono guided Dx/Tx thoracentesis Type of Anesthesia Type of Anesthesia Local Estimated Blood Loss EBL: Trace Specimens Specimans 2000 cc straw-cloudy right pleural fluid removed---samples to lab per Pulmonary Condition of Patient Condition of Patient No change. No apparent complication. Disposition Disposition STAT pCXR requested post thoracentesis to exclude ptx. Full report to follow. THEE ROSADO MD Jan 09, 2017 16:23
--- NOTE | 2017-01-09 17:04 | RAD ---
INDICATION: Immediate post bedside thoracentesis pCXR COMPARISON: 01/07/2017 FINDINGS: Single view of chest obtained. Enlarged cardiac silhouette with poststernotomy changes and artificial valve as well as pacemaker again seen. Decrease in size of right-sided pleural effusion with pigtail drain seen at right lower chest. Mild haziness left lower lung. Left lower lung is obscured by overlying cardiac silhouette IMPRESSION: Interval decrease in right sided pleural effusion with pigtail catheter seen at right lower chest. No significant post procedure pneumothorax. Repeat demonstration of enlarged cardiac silhouette.
[2017-01-09 20:00] VITALS: BP 129/68
[2017-01-09] MEDS: ACETAMINOPHEN 325 MG TABLET. PO PRN (20:56)
[2017-01-09] MEDS: SIMVASTATIN 10 MG TABLET PO SCH (20:56)
[2017-01-10] VITALS (7 sets, daily range): BP systolic 99–116; BP diastolic 54–75
[2017-01-10 07:09] LABS: CALCIUM 8.8 mg/dL (8.5-10.1); CREATININE 1.6 mg/dL (0.7-1.3); GFR 43.3; POTASSIUM 3.3 mmol/L (3.5-5.1)
[2017-01-10] MEDS: INSULIN ASPART 300 UNITS/3 ML INSULN.PEN SQ SCH ×4 (07:30→16:58)
--- NOTE | 2017-01-10 07:32 | RAD ---
Ultrasound-guided diagnostic and therapeutic right thoracentesis Indication: 66-year-old male with large right pleural effusion, right lung compression atelectasis/infiltrate, shortness of air, and cough. Image guided diagnostic/therapeutic thoracentesis has been requested by pulmonary. Anesthesia: Local only Procedure: Informed consent was obtained from the patient. This procedure was performed bedside in the intensive care unit. Preliminary ultrasound examination over right chest confirm the presence of a large right pleural effusion. A l skin site suitable for ultrasound-guided thoracentesis was selected and marked along posterior lateral, inferior aspect of right hemithorax. This was documented with a single hard copy ultrasound image. That area was prepped and draped in the usual sterile fashion. Using aseptic technique, local anesthesia, and direct ultrasound guidance, a small micropuncture sheath was successfully introduced into the low right posterolateral pleural space. The micropuncture sheath was exchanged over a guidewire for a 6 K[place] drainage catheter. 2000 cc of straw-cloudy right pleural fluid was then easily aspirated, samples which were submitted to the clinical laboratory per referring blood coordinator request. A stat portable chest x-ray was obtained, which revealed no post thoracentesis pneumothorax. The drainage catheter was then removed and a sterile dressing was applied. Patient tolerated the procedure well without apparent complication. Impression: Successful, uneventful ultrasound-guided diagnostic and therapeutic right thoracentesis, performed bedside in the intensive care unit, as described.
[2017-01-10] MEDS: TORSEMIDE 20 MG TABLET. PO SCH (08:53)
[2017-01-10] MEDS: CHOLECALCIFEROL (VITAMIN D3) 1,000 UNIT TABLET PO SCH (08:53)
[2017-01-10] MEDS: MULTIVITAMIN with MINERAL TABLET. PO SCH (08:53)
[2017-01-10] MEDS: LEVOTHYROXINE 100 MCG TABLET PO SCH (08:53)
[2017-01-10] MEDS: ASCORBIC ACID 500 MG TABLET PO SCH (08:54)
[2017-01-10] MEDS: MAGNESIUM OXIDE 400 MG TABLET PO SCH (08:54)
[2017-01-10] MEDS: AMIODARONE HCL 200 MG TABLET PO SCH (08:54)
[2017-01-10] MEDS: DIGOXIN 125 MCG TABLET PO SCH (08:54)
[2017-01-10] MEDS: METOPROLOL SUCC 24HR ER 25 MG TAB.ER.24H. PO SCH (08:54)
[2017-01-10] MEDS: ASPIRIN ENTERIC COATED 81 MG TABLET.DR. PO SCH (08:54)
[2017-01-10] MEDS: INSULIN DETEMIR 300 UNITS/3 ML INSULN.PEN. SQ SCH ×3 (08:58→20:34)
[2017-01-10] MEDS ORDERED: POTASSIUM CHLORIDE 20 MEQ TABLET.ER. PO ONE (09:15)
--- NOTE | 2017-01-10 10:32 | PDOC ---
Renal-Progress Notes Subjective Notes Notes NONE History of Present Illness Hx of present illness BETTER Vitals Vitals Vital Signs Date Time Temp Pulse Resp B/P Pulse Ox O2 Delivery O2 Flow Rate FiO2 01/10/17 08:54 91 116/58 01/10/17 08:00 97.8 39 100 Nasal Cannula 4.0 97.8 Weight Weight [ ] I.O. Intake and Output Intake and Output 01/10/17 07:00 Intake Total 750 ml Output Total 2600 ml Balance -1850 ml Intake Oral 750 ml Output Urine Total 2600 ml Labs Labs Laboratory Tests Test 01/09/17 10:58 01/09/17 12:28 01/09/17 15:35 01/09/17 17:59 Prothrombin Time 16.6SEC (11.7-14.0) Prothromb Time International Ratio 1.4 (0.8-1.1) Glucose (Fingerstick) 107mg/dL (70-99) 74mg/dL (70-99) Body Fluid pH 7.3 Test 01/09/17 20:55 01/10/17 06:07 01/10/17 08:35 Glucose (Fingerstick) 116mg/dL (70-99) 62mg/dL (70-99) Sodium Level 142mmol/L (136-145) Potassium Level 3.3mmol/L (3.5-5.1) Chloride Level 100mmol/L (98-107) Carbon Dioxide Level 36mmol/L (21-32) Anion Gap 6 (6-14) Blood Urea Nitrogen 63mg/dL (8-26) Creatinine 1.6mg/dL (0.7-1.3) Estimated GFR (Cockcroft-Gault) 43.3 Glucose Level 69mg/dL (70-99) Calcium Level 8.8mg/dL (8.5-10.1) Micro Micro Microbiology Review of Systems Constitutional: yes: alert, weakness Ears/Nose/Throat: Yes: no symptom reported Eyes: Yes: no symptom reported Pulmonary: Yes dyspnea Cardiovascular: Yes edema Gastrointestional: Yes: constipation Genitourinary: Yes: no symptom reported Skin: Yes no symptom reported Physical Exam General Appearance: no apparent distress Skin: warm Respiratory: decreased breath sounds Heart: S1S2, RRR Abdomen: soft, bowel sounds present Extremities: edema Neurology: alert, oriented, follow commands Musculoskeletal: Other (bilateral BKA; WC bound, uses bilateral prothetic) Assessment Assessment IMP JOHANN-BETTER WITH CR DOWN TO 1.6 FROM 2.5 CKD STAGE 3 WTIH CR OF 1.7 CHF-IMPROVED PLEURAL EFFUSION S/P THORACENTESIS HYPOKALEMIA PLAN CONT WITH DEMADEX K REPLACED FLUID AND NA RESTRICT WILL FOLLOW LIZETTE DAVIS MD Jan 10, 2017 10:32
--- NOTE | 2017-01-10 11:24 | PDOC ---
NOE CASTLE ENVIRONMENTAL PROTECTION GEOLOGIST 01/10/17 1124: CARDIO Progress Notes Date and Time Date of Service 01/10/2017 Time of Evaluation 1040 Subjective Subjective: No Chest Pain, No shortness of breath, No Palpitations, No Dizziness, Other (appetite better, slept well overnight) Vitals Vitals Vital Signs Date Time Temp Pulse Resp B/P Pulse Ox O2 Delivery O2 Flow Rate FiO2 01/10/17 08:54 91 116/58 01/10/17 08:00 97.8 39 100 Nasal Cannula 4.0 97.8 Weight Weight [ ] Input and Output Intake and Output Intake and Output 01/10/17 07:00 Intake Total 750 ml Output Total 2600 ml Balance -1850 ml Intake Oral 750 ml Output Urine Total 2600 ml Laboratory Labs Laboratory Tests Test 01/09/17 12:28 01/09/17 15:35 01/09/17 17:59 01/09/17 20:55 Glucose (Fingerstick) 107mg/dL (70-99) 74mg/dL (70-99) 116mg/dL (70-99) Body Fluid pH 7.3 Test 01/10/17 06:07 01/10/17 08:35 Sodium Level 142mmol/L (136-145) Potassium Level 3.3mmol/L (3.5-5.1) Chloride Level 100mmol/L (98-107) Carbon Dioxide Level 36mmol/L (21-32) Anion Gap 6 (6-14) Blood Urea Nitrogen 63mg/dL (8-26) Creatinine 1.6mg/dL (0.7-1.3) Estimated GFR (Cockcroft-Gault) 43.3 Glucose Level 69mg/dL (70-99) Calcium Level 8.8mg/dL (8.5-10.1) Glucose (Fingerstick) 62mg/dL (70-99) Microbiology Micro Microbiology Review of Systems Constitutional: yes: alert, weakness Ears/Nose/Throat: Yes: no symptom reported Eyes: Yes: no symptom reported Pulmonary: Yes dyspnea Cardiovascular: Yes edema Gastrointestional: Yes: constipation Genitourinary: Yes: no symptom reported Skin: Yes no symptom reported Physical Exam HEENT: Neck Supple W Full Motion Chest: Symmetric LUNGS: Other (bibasilar crackles ) Heart: S1S2, murmurs (3/6 systolic murmur to LLS border), irregularly irregular (Paced with underlying AFIB; no significant rhythm ectopies overnight) Extremities: Other (bilateral BKA; no stump edema, no scrotal edema) Neurology: alert, oriented, follow commands Assessment Assessment 1. 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 Nonischemic dilated cardiomyopathy: 09/[address] [facility]. EF is <20%, virtually unchanged by comparison. NYHA2-3 3. COPD: >30 yrs of tobaccoism. 4. 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 PAFIB: Paced with underlying AFIB. 7. JOHANN on CKD3: Improving 8. Hx of mitral valve repair , Hx of HIT (2009) Recommendation 1. S/P thoracentesis with 2L off, very good UOP. Continue with current diuretic regimen. 2. Resume coumadin 3. Continue with cardiac regimen. Fluid restriction 1500-2000ml 4. Continue with secondary prevention as tolerated 5. Avoid tight BG control 6. Already has a established f/u with [facility] on 01/31/2017 7. Will increase diuretic regimen as warranted. Replace K 8. Recommend home health arrangement specializing in CHF. [facility]. Consult CM. ODALYS SHAHID MD 01/11/17 0538: CARDIO Progress Notes Assessment Assessment Patient seen and examined 01/10/17. Agree with MULTIPLE PRESSURE RIVETER OPERATOR's assessment and plan. s/p thoracentesis, feeling better. Acute on chronic systolic heart failure better compensated. Resume coumadin and continue other meds. Follow up with Dr. Hernandez as scheduled. NOE CASTLE APRN Jan 10, 2017 11:24 ODALYS SHAHID MD Jan 11, 2017 05:38
[2017-01-10 12:14] LABS: INR 1.2 (0.8-1.1); PROTHROMBIN TIME PATIENT 14.9 SEC (11.7-14.0)
--- NOTE | 2017-01-10 12:56 | PDOC ---
PULMONARY PROGRESS NOTES Subjective PT LESS SOA Vitals Vital Signs Date Time Temp Pulse Resp B/P Pulse Ox O2 Delivery O2 Flow Rate FiO2 01/10/17 12:00 97.6 92 24 106/59 100 Nasal Cannula 2.0 97.6 ROS: No Nausea, No Chest Pain, No Abdominal Pain, No Increase Cough General: Alert, No acute distress Lungs: Other (bl mild wheezing) Cardiovascular: S1 Abdomen: Soft, Non-tender Neuro Exam: Alert Extremities: Other Skin: Warm Labs Laboratory Tests Test 01/08/17 13:06 01/08/17 16:05 01/08/17 18:37 01/08/17 19:55 Glucose (Fingerstick) 108mg/dL (70-99) 68mg/dL (70-99) 69mg/dL (70-99) 81mg/dL (70-99) Test 01/09/17 00:06 01/09/17 00:53 01/09/17 01:26 01/09/17 05:55 Glucose (Fingerstick) 63mg/dL (70-99) 60mg/dL (70-99) 103mg/dL (70-99) Sodium Level 144mmol/L (136-145) Potassium Level 3.5mmol/L (3.5-5.1) Chloride Level 101mmol/L (98-107) Carbon Dioxide Level 34mmol/L (21-32) Anion Gap 9 (6-14) Blood Urea Nitrogen 62mg/dL (8-26) Creatinine 1.9mg/dL (0.7-1.3) Estimated GFR (Cockcroft-Gault) 35.5 Glucose Level 77mg/dL (70-99) Calcium Level 8.9mg/dL (8.5-10.1) Test 01/09/17 08:38 01/09/17 10:58 01/09/17 12:28 01/09/17 15:35 Glucose (Fingerstick) 81mg/dL (70-99) 107mg/dL (70-99) Prothrombin Time 16.6SEC (11.7-14.0) Prothromb Time International Ratio 1.4 (0.8-1.1) Body Fluid pH 7.3 Test 01/09/17 17:59 01/09/17 20:55 01/10/17 06:07 01/10/17 08:35 Glucose (Fingerstick) 74mg/dL (70-99) 116mg/dL (70-99) 62mg/dL (70-99) Sodium Level 142mmol/L (136-145) Potassium Level 3.3mmol/L (3.5-5.1) Chloride Level 100mmol/L (98-107) Carbon Dioxide Level 36mmol/L (21-32) Anion Gap 6 (6-14) Blood Urea Nitrogen 63mg/dL (8-26) Creatinine 1.6mg/dL (0.7-1.3) Estimated GFR (Cockcroft-Gault) 43.3 Glucose Level 69mg/dL (70-99) Calcium Level 8.8mg/dL (8.5-10.1) Test 01/10/17 11:34 01/10/17 12:51 Prothrombin Time 14.9SEC (11.7-14.0) Prothromb Time International Ratio 1.2 (0.8-1.1) Glucose (Fingerstick) 98mg/dL (70-99) Laboratory Tests Test 01/09/17 15:35 01/09/17 17:59 01/09/17 20:55 01/10/17 06:07 Body Fluid pH 7.3 Glucose (Fingerstick) 74mg/dL (70-99) 116mg/dL (70-99) Sodium Level 142mmol/L (136-145) Potassium Level 3.3mmol/L (3.5-5.1) Chloride Level 100mmol/L (98-107) Carbon Dioxide Level 36mmol/L (21-32) Anion Gap 6 (6-14) Blood Urea Nitrogen 63mg/dL (8-26) Creatinine 1.6mg/dL (0.7-1.3) Estimated GFR (Cockcroft-Gault) 43.3 Glucose Level 69mg/dL (70-99) Calcium Level 8.8mg/dL (8.5-10.1) Test 01/10/17 08:35 01/10/17 11:34 01/10/17 12:51 Glucose (Fingerstick) 62mg/dL (70-99) 98mg/dL (70-99) Prothrombin Time 14.9SEC (11.7-14.0) Prothromb Time International Ratio 1.2 (0.8-1.1) Medications Active Scripts Medications Dose Route/Sig Days Date Category Torsemide 20 Mg Tablet 4 Tab PO DAILY 01/06/17 Reported Amiodarone Hcl 200 Mg Tablet 1 Tab PO DAILY 01/06/17 Reported Toprol Xl (Metoprolol Succinate) 25 Mg Tab.er.24h 1 Tab PO DAILY 01/06/17 Reported Novolog (Insulin Aspart) 100 Unit/1 Ml Cartridge 10 Unit SQ TID 06/08/16 Reported Lantus Solostar (Insulin Glargine,Hum.rec.anlog) 100 Unit/1 Ml Insuln.pen 40 Unit SQ BID 06/08/16 Reported Cyclobenzaprine Hcl 10 Mg Tablet 1 Tab PO TID 06/08/16 Reported Allopurinol 300 Mg Tablet 1 Tab PO DAILY 06/08/16 Reported Simvastatin 10 Mg Tablet 1 Tab PO QHS 06/08/16 Reported Coumadin (Warfarin Sodium) 2.5 Mg Tablet 1 Tab PO DAILY 06/08/16 Reported Potassium Gluconate 500 Mg Tablet 500 Mg PO DAILY 06/08/16 Reported Furosemide 40 Mg Tablet 1 Tab PO DAILY 06/08/16 Reported Mag-Oxide (Magnesium Oxide) 400 Mg Tablet 1 Tab PO DAILY 11/06/15 Reported Levothyroxine Sodium 100 Mcg Tablet 1 Tab PO DAILY 11/06/15 Reported Digoxin 125 Mcg Tablet 1 Tab PO DAILY 11/06/15 Reported Enalapril Maleate 2.5 Mg Tablet 1 Tab PO DAILY 11/06/15 Reported Vitamin D3 (Cholecalciferol (Vitamin D3)) 1,000 Unit Tablet 2,000 Unit PO DAILY 11/06/15 Reported Coreg (Carvedilol) 25 Mg Tablet 1 Tab PO BID 11/06/15 Reported Impression . 1. Acute respiratory failure secondary to acute systolic heart failure. 2. Acute on chronic systolic heart failure with previous ejection fraction estimated at 15%. 3. Status post implantable cardioverter-defibrillator placement. 4. Abnormal x-ray revealing a large right-sided effusion with atelectasis. 5. Chronic atrial fibrillation, on Coumadin. 6. History of heparin-induced thrombocytopenia, status post bilateral below knee amputation. 7. Hypertension. 8. Chronic kidney disease. 9. Type 2 diabetes. 10. Elevated troponin level. CT CHEST 1. Moderate sized right pleural effusion with underlying right lower lobe atelectasis and partial atelectasis of the right middle and upper lobes. 2. Mild patchy groundglass opacities and interlobular septal thickening compatible with mild pulmonary edema. 3. Severe generalized cardiomegaly. Plan . WILL PROCEED WITH THORACENTESIS INR 1.4 02, SEE ORDERS CONTINUE THE SAME TRANSFER OUT OF ICU TIMMY BACON MD Jan 10, 2017 12:56
--- NOTE | 2017-01-10 13:26 | PDOC ---
PROGRESS NOTES Chief Complaint Chief Complaint 1. acute resp failure with systolic CHF exacerbation 2. systolic CHF exacerbation EF 15 % before 3. ICD, PPM 4. CHRNOIC afib, on coumadin 5. 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 AMS, slurry speech , hallucination, 2/2 hypoxica possibly,no stroke 7. HTN 8. JOHANN on CKD4, ATN 9. HLD 10. MR s/p repair 11. DM2 on insulin 12. high troponin, 2/2 2 likely 13. bl pleural effusion, moderate RT 14. hypokalemia plan: 1. card consult, echo done 2. cont home meds, held lasix, ACEI given JOHANN, GENTel IVF with card, renal consult, low dose torsomide 20mg daily 3. slightly decrease insulin to levemir 10u bid, dc aspart 4. on NC 2L. 5. thoracentesis done, resume warfarin 2mg daily home dose, INR daily. OK to transfer out of ICU hEAD CT neg hope dc in 1-2 days History of Present Illness History of Present Illness sob better post thoracentesis, on NC 2 L now seems cough more today to me, INR 2.6 to 1.4 post vitk Cr silghtly better, 1.6 low po intake with low glucose Vitals Vitals Vital Signs Date Time Temp Pulse Resp B/P Pulse Ox O2 Delivery O2 Flow Rate FiO2 01/10/17 12:00 97.6 92 24 106/59 100 Nasal Cannula 2.0 97.6 Physical Exam General: Alert, moderate distress Heart: Regular rate, Normal S1 Lungs: Other (bl mild wheezing) Abdomen: Normal bowel sounds, Soft, No tenderness Extremities: No cyanosis, No edema (to BKA) Skin: No breakdown, No significant lesion Labs LABS Laboratory Tests Test 01/09/17 15:35 01/09/17 17:59 01/09/17 20:55 01/10/17 06:07 Body Fluid pH 7.3 Glucose (Fingerstick) 74mg/dL (70-99) 116mg/dL (70-99) Sodium Level 142mmol/L (136-145) Potassium Level 3.3mmol/L (3.5-5.1) Chloride Level 100mmol/L (98-107) Carbon Dioxide Level 36mmol/L (21-32) Anion Gap 6 (6-14) Blood Urea Nitrogen 63mg/dL (8-26) Creatinine 1.6mg/dL (0.7-1.3) Estimated GFR (Cockcroft-Gault) 43.3 Glucose Level 69mg/dL (70-99) Calcium Level 8.8mg/dL (8.5-10.1) Test 01/10/17 08:35 01/10/17 11:34 01/10/17 12:51 Glucose (Fingerstick) 62mg/dL (70-99) 98mg/dL (70-99) Prothrombin Time 14.9SEC (11.7-14.0) Prothromb Time International Ratio 1.2 (0.8-1.1) Review of Systems Review of Systems no fever, chills, sob or chest pain Assessment and Plan Assessmemt and Plan Problems Medical Problems: (1) Acute congestive heart failure Status: Acute Problems: Comment Review of Relevant I have reviewed the following items anuja (where applicable) has been applied. Labs Laboratory Tests Test 01/08/17 16:05 01/08/17 18:37 01/08/17 19:55 01/09/17 00:06 Glucose (Fingerstick) 68mg/dL (70-99) 69mg/dL (70-99) 81mg/dL (70-99) 63mg/dL (70-99) Test 01/09/17 00:53 01/09/17 01:26 01/09/17 05:55 01/09/17 08:38 Glucose (Fingerstick) 60mg/dL (70-99) 103mg/dL (70-99) 81mg/dL (70-99) Sodium Level 144mmol/L (136-145) Potassium Level 3.5mmol/L (3.5-5.1) Chloride Level 101mmol/L (98-107) Carbon Dioxide Level 34mmol/L (21-32) Anion Gap 9 (6-14) Blood Urea Nitrogen 62mg/dL (8-26) Creatinine 1.9mg/dL (0.7-1.3) Estimated GFR (Cockcroft-Gault) 35.5 Glucose Level 77mg/dL (70-99) Calcium Level 8.9mg/dL (8.5-10.1) Test 01/09/17 10:58 01/09/17 12:28 01/09/17 15:35 01/09/17 17:59 Prothrombin Time 16.6SEC (11.7-14.0) Prothromb Time International Ratio 1.4 (0.8-1.1) Glucose (Fingerstick) 107mg/dL (70-99) 74mg/dL (70-99) Body Fluid pH 7.3 Test 01/09/17 20:55 01/10/17 06:07 01/10/17 08:35 01/10/17 11:34 Glucose (Fingerstick) 116mg/dL (70-99) 62mg/dL (70-99) Sodium Level 142mmol/L (136-145) Potassium Level 3.3mmol/L (3.5-5.1) Chloride Level 100mmol/L (98-107) Carbon Dioxide Level 36mmol/L (21-32) Anion Gap 6 (6-14) Blood Urea Nitrogen 63mg/dL (8-26) Creatinine 1.6mg/dL (0.7-1.3) Estimated GFR (Cockcroft-Gault) 43.3 Glucose Level 69mg/dL (70-99) Calcium Level 8.8mg/dL (8.5-10.1) Prothrombin Time 14.9SEC (11.7-14.0) Prothromb Time International Ratio 1.2 (0.8-1.1) Test 01/10/17 12:51 Glucose (Fingerstick) 98mg/dL (70-99) Laboratory Tests Test 01/09/17 15:35 01/09/17 17:59 01/09/17 20:55 01/10/17 06:07 Body Fluid pH 7.3 Glucose (Fingerstick) 74mg/dL (70-99) 116mg/dL (70-99) Sodium Level 142mmol/L (136-145) Potassium Level 3.3mmol/L (3.5-5.1) Chloride Level 100mmol/L (98-107) Carbon Dioxide Level 36mmol/L (21-32) Anion Gap 6 (6-14) Blood Urea Nitrogen 63mg/dL (8-26) Creatinine 1.6mg/dL (0.7-1.3) Estimated GFR (Cockcroft-Gault) 43.3 Glucose Level 69mg/dL (70-99) Calcium Level 8.8mg/dL (8.5-10.1) Test 01/10/17 08:35 01/10/17 11:34 01/10/17 12:51 Glucose (Fingerstick) 62mg/dL (70-99) 98mg/dL (70-99) Prothrombin Time 14.9SEC (11.7-14.0) Prothromb Time International Ratio 1.2 (0.8-1.1) Microbiology 01/09/17 Gram Stain - Final, Complete Medications Current Medications Acetaminophen (Tylenol) 650 mg PRN Q6HRS PRN PO MILD PAIN / TEMP Last administered on 01/09/17 20:56; Start 01/06/17 at 05:00 Ondansetron HCl (Zofran) 4 mg PRN Q6HRS PRN IV NAUSEA/VOMITING; Start 01/06/17 at 05:00 Hydralazine HCl (Apresoline) 10 mg PRN Q4HRS PRN IVP ELEVATED BP, SEE COMMENTS ; Start 01/06/17 at 05:00 Amiodarone HCl (Cordarone) 200 mg DAILY PO Last administered on 01/10/17 08:54 ; Start 01/06/17 at 10:00 Vitamin D (Vitamin D3) 2,000 unit DAILY PO Last administered on 01/10/17 08:53 ; Start 01/06/17 at 10:00 Digoxin (Lanoxin) 125 mcg DAILY PO Last administered on 01/10/17 08:54; Start 01/06/17 at 10:30 Levothyroxine Sodium (Synthroid) 100 mcg DAILY07 PO Last administered on 08:53; Start 01/06/17 at 10:30 Magnesium Oxide (Magnesium Oxide) 400 mg DAILY PO Last administered on 08:54; Start 01/06/17 at 10:30 Metoprolol Succinate (Toprol Xl) 25 mg DAILY PO Last administered on 01/10/17 08:54; Start 01/06/17 at 10:30 Simvastatin (Zocor) 10 mg QHS PO Last administered on 01/09/17 20:56; Start at 21:00 Torsemide (Demadex) 80 mg DAILY PO Last administered on 01/07/17 08:40; Start 01/06/17 at 10:30; Stop 01/07/17 at 11:53; Status DC Warfarin Sodium (Coumadin) 2 mg DAILY16 PO ; Start 01/06/17 at 16:00; Stop 01/06 at 16:00; Status DC Carvedilol (Coreg) 25 mg BIDWMEALS PO Last administered on 01/06/17 10:22; Start 01/06/17 at 10:30; Stop 01/06/17 at 11:51; Status DC Lisinopril (Prinivil) 2.5 mg DAILY PO Last administered on 01/06/17 10:21; Start 01/06/17 at 10:30; Stop 01/08/17 at 08:36; Status DC Insulin Aspart (Novolog) 10 units TIDAC SQ Last administered on 01/06/17 18:38 ; Start 01/06/17 at 11:30; Stop 01/07/17 at 12:38; Status DC Insulin Detemir (Levemir) 30 units BID SQ Last administered on 01/08/17 09:00 ; Start 01/06/17 at 10:30; Stop 01/08/17 at 12:56; Status DC Non-Formulary Medication 500 mg DAILY PO ; Start 01/07/17 at 09:00; Status UNV Torsemide (Demadex) 80 mg DAILY PO ; Start 01/06/17 at 10:00; Status UNV Insulin Aspart (Novolog) 0-9 UNITS TIDWMEALS SQ Last administered on 01/07/17 16:58; Start 01/06/17 at 12:00 Dextrose 12.5 gm PRN Q15MIN PRN IV SEE COMMENTS Last administered on 01/09/17 00:56; Start 01/06/17 at 09:45 Warfarin Sodium (Coumadin Per Physician) 1 each PRN DAILY PRN MC SEE COMMENTS Last administered on 01/07/17 12:33; Start 01/06/17 at 10:45; Stop 01/07/17 at 13:37; Status DC Furosemide (Lasix) 40 mg 1X ONCE IVP Last administered on 01/06/17 15:55; Start 01/06/17 at 16:00; Stop 01/06/17 at 16:01; Status DC Metolazone (Zaroxolyn) 5 mg DAILY PO Last administered on 01/07/17 08:40; Start 01/07/17 at 09:00; Stop 01/07/17 at 14:45; Status DC Ascorbic Acid (Vitamin C) 500 mg DAILY PO Last administered on 01/10/17 08:54 ; Start 01/08/17 at 09:00 Multivitamins/ Calcium (Thera M Plus) 1 tab DAILY PO Last administered on 08:53; Start 01/08/17 at 09:00 Albuterol Sulfate (Ventolin Neb Soln) 2.5 mg 1X ONCE NEB Last administered on 01/07/17 15:45; Start 01/07/17 at 11:45; Stop 01/07/17 at 11:46; Status DC Torsemide (Demadex) 40 mg DAILY PO ; Start 01/08/17 at 09:00; Stop 01/08/17 at 09:00; Status DC Insulin Aspart (Novolog) 8 units TIDAC SQ Last administered on 01/08/17 07:30 ; Start 01/07/17 at 16:30; Stop 01/08/17 at 12:56; Status DC Warfarin Sodium (Coumadin Per Pharmacy) 1 each PRN DAILY PRN MC SEE COMMENTS Last administered on 01/10/17 09:57; Start 01/09/17 at 13:45 Aspirin (Ecotrin) 81 mg DAILYWBKFT PO Last administered on 01/10/17 08:54; Start 01/08/17 at 08:00 Warfarin Sodium (Coumadin - No Dose Today) 1 each 1X WARF ONCE MC ; Start 01/07 at 16:00; Stop 01/07/17 at 16:01; Status DC Metolazone 2.5 mg 2.5 mg DAILY PO ; Start 01/08/17 at 09:00; Stop 01/08/17 at 09 :00; Status DC Sodium Chloride 1,000 ml @ 100 mls/hr 1X ONCE IV Last administered on 10:53; Start 01/08/17 at 08:45; Stop 01/08/17 at 18:44; Status DC Phytonadione/ Sodium Chloride (Vitamin K/Iv Sodium Chloride 0.9% 50ml) 51 ml @ 102 mls/hr 1X ONCE IV Last administered on 01/08/17 12:15; Start 01/08/17 at 11:00; Stop 01/08/17 at 11:29; Status DC Torsemide (Demadex) 20 mg DAILY PO Last administered on 01/10/17 08:53; Start 01/08/17 at 12:00 Albuterol/ Ipratropium (Duoneb) 3 ml 1X ONCE NEB ; Start 01/08/17 at 12:45; Stop 01/08/17 at 12:46; Status DC Insulin Aspart (Novolog) 5 units TIDAC SQ ; Start 01/08/17 at 16:30; Stop at 09:04; Status DC Insulin Detemir (Levemir) 25 units BID SQ Last administered on 01/10/17 08:58 ; Start 01/08/17 at 21:00; Stop 01/10/17 at 09:04; Status DC Warfarin Sodium (Coumadin - No Dose Today) 1 each 1X WARF ONCE MC ; Start 01/08 at 16:00; Stop 01/08/17 at 16:01; Status DC Phytonadione (Mephyton) 2.5 mg 1X ONCE PO Last administered on 01/08/17 16:02 ; Start 01/08/17 at 15:45; Stop 01/08/17 at 15:46; Status DC Warfarin Sodium (Coumadin - No Dose Today) 1 each 1X WARF ONCE MC ; Start 01/09 at 16:00; Stop 01/09/17 at 16:01; Status DC Lidocaine/Sodium Bicarbonate (Buffered Lidocaine 1%) 20 ml STK-MED ONCE IJ ; Start 01/09/17 at 15:15; Stop 01/09/17 at 15:16; Status DC Lidocaine/Sodium Bicarbonate (Buffered Lidocaine 1%) 8 ml 1X ONCE IJ Last administered on 01/09/17 16:25; Start 01/09/17 at 16:30; Stop 01/09/17 at 16:31 ; Status DC Potassium Chloride (Klor-Con) 40 meq 1X ONCE PO Last administered on 10:44; Start 01/10/17 at 09:15; Stop 01/10/17 at 09:16; Status DC Insulin Detemir (Levemir) 10 units BID SQ ; Start 01/10/17 at 09:00 Warfarin Sodium (Coumadin) 2 mg 1X WARF ONCE PO ; Start 01/10/17 at 16:00; Stop 01/10/17 at 16:01 Active Scripts Active Reported Torsemide 20 Mg Tablet 4 Tab PO DAILY Amiodarone Hcl 200 Mg Tablet 1 Tab PO DAILY Toprol Xl (Metoprolol Succinate) 25 Mg Tab.er.24h 1 Tab PO DAILY Novolog (Insulin Aspart) 100 Unit/1 Ml Cartridge 10 Unit SQ TID Lantus Solostar (Insulin Glargine,Hum.rec.anlog) 100 Unit/1 Ml Insuln.pen 40 Unit SQ BID Cyclobenzaprine Hcl 10 Mg Tablet 1 Tab PO TID Allopurinol 300 Mg Tablet 1 Tab PO DAILY Simvastatin 10 Mg Tablet 1 Tab PO QHS Coumadin (Warfarin Sodium) 2.5 Mg Tablet 1 Tab PO DAILY Potassium Gluconate 500 Mg Tablet 500 Mg PO DAILY Furosemide 40 Mg Tablet 1 Tab PO DAILY Mag-Oxide (Magnesium Oxide) 400 Mg Tablet 1 Tab PO DAILY Levothyroxine Sodium 100 Mcg Tablet 1 Tab PO DAILY Digoxin 125 Mcg Tablet 1 Tab PO DAILY Enalapril Maleate 2.5 Mg Tablet 1 Tab PO DAILY Vitamin D3 (Cholecalciferol (Vitamin D3)) 1,000 Unit Tablet 2,000 Unit PO DAILY Coreg (Carvedilol) 25 Mg Tablet 1 Tab PO BID Vitals/I & O Vital Sign - Last 24 Hours 01/09/17 01/09/17 01/09/17 01/10/17 16:00 20:00 20:00 00:00 Temp 97.6 99.6 98.4 97.6 99.6 98.4 Pulse 89 89 88 Resp 32 25 23 B/P 136/97 129/68 103/54 Pulse Ox 89 97 95 O2 Delivery Nasal Cannula Nasal Cannula Nasal Cannula Nasal Cannula O2 Flow Rate 4.0 3.0 4.0 4.0 01/10/17 01/10/17 01/10/17 01/10/17 04:00 08:00 08:54 08:54 Temp 97.0 97.8 97.0 97.8 Pulse 89 91 91 91 Resp 30 39 B/P 116/58 116/58 116/58 116/58 Pulse Ox 98 100 O2 Delivery Nasal Cannula Nasal Cannula O2 Flow Rate 4.0 4.0 01/10/17 01/10/17 08:54 12:00 Temp 97.6 97.6 Pulse 91 92 Resp 24 B/P 116/58 106/59 Pulse Ox 100 O2 Delivery Nasal Cannula O2 Flow Rate 2.0 Intake and Output 01/09/17 01/09/17 01/10/17 15:00 23:00 07:00 Intake Total 750 ml Output Total 2265 ml 335 ml Balance -1515 ml -335 ml RENATO WEBER MD Jan 10, 2017 13:26
[2017-01-10] MEDS ORDERED: WARFARIN 2 MG TABLET. PO ONE (16:00)
[2017-01-10] MEDS: ACETAMINOPHEN 325 MG TABLET. PO PRN (20:26)
[2017-01-10] MEDS: SIMVASTATIN 10 MG TABLET PO SCH (20:29)
[2017-01-11] VITALS (14 sets, daily range): BP systolic 120–148; BP diastolic 55–74
[2017-01-11 05:49] LABS: CREATININE 1.5 mg/dL (0.7-1.3); GFR 46.7; POTASSIUM 3.5 mmol/L (3.5-5.1)
[2017-01-11] MEDS: ACETAMINOPHEN 325 MG TABLET. PO PRN (06:17)
[2017-01-11] MEDS: LEVOTHYROXINE 100 MCG TABLET PO SCH (06:17)
[2017-01-11] MEDS: INSULIN ASPART 300 UNITS/3 ML INSULN.PEN SQ SCH ×3 (08:00→17:00)
[2017-01-11] MEDS: AMIODARONE HCL 200 MG TABLET PO SCH (08:32)
[2017-01-11] MEDS: METOPROLOL SUCC 24HR ER 25 MG TAB.ER.24H. PO SCH (08:32)
[2017-01-11] MEDS: MULTIVITAMIN with MINERAL TABLET. PO SCH (08:33)
[2017-01-11] MEDS: CHOLECALCIFEROL (VITAMIN D3) 1,000 UNIT TABLET PO SCH (08:33)
[2017-01-11] MEDS: MAGNESIUM OXIDE 400 MG TABLET PO SCH (08:33)
[2017-01-11] MEDS: TORSEMIDE 20 MG TABLET. PO SCH (08:33)
[2017-01-11] MEDS: DIGOXIN 125 MCG TABLET PO SCH (08:33)
[2017-01-11] MEDS: ASPIRIN ENTERIC COATED 81 MG TABLET.DR. PO SCH (08:34)
[2017-01-11] MEDS: ASCORBIC ACID 500 MG TABLET PO SCH (08:34)
[2017-01-11] MEDS: INSULIN DETEMIR 300 UNITS/3 ML INSULN.PEN. SQ SCH ×2 (09:00→20:42)
--- NOTE | 2017-01-11 09:27 | PDOC ---
PULMONARY PROGRESS NOTES Subjective PT LESS SOA, has cough, pain, no runny nose. Vitals Vital Signs Date Time Temp Pulse Resp B/P Pulse Ox O2 Delivery O2 Flow Rate FiO2 01/11/17 08:33 93 120/67 01/11/17 08:00 Nasal Cannula 2.0 01/11/17 07:00 98.1 22 92 98.1 Comments ros as mentioned as above, other sys otherwise neg ROS: No Nausea, No Chest Pain, No Abdominal Pain, No Increase Cough General: Alert, No acute distress HEENT: Other (nc at perrl thorat clear) Lungs: Crackles, Other (bl mild wheezing) Cardiovascular: S1, S2 Abdomen: Soft, Non-tender Neuro Exam: Alert Extremities: Other ( + edema, s/p bka) Skin: Warm Labs Laboratory Tests Test 01/09/17 10:58 01/09/17 12:28 01/09/17 15:35 01/09/17 17:30 Prothrombin Time 16.6SEC (11.7-14.0) Prothromb Time International Ratio 1.4 (0.8-1.1) Glucose (Fingerstick) 107mg/dL (70-99) Body Fluid pH 7.3 Body Fluid Total Protein 2.8g/dL (.) Body Fluid Lactate Dehydrogenase 128IU/L (.) Test 01/09/17 17:59 01/09/17 20:55 01/10/17 06:07 01/10/17 08:35 Glucose (Fingerstick) 74mg/dL (70-99) 116mg/dL (70-99) 62mg/dL (70-99) Sodium Level 142mmol/L (136-145) Potassium Level 3.3mmol/L (3.5-5.1) Chloride Level 100mmol/L (98-107) Carbon Dioxide Level 36mmol/L (21-32) Anion Gap 6 (6-14) Blood Urea Nitrogen 63mg/dL (8-26) Creatinine 1.6mg/dL (0.7-1.3) Estimated GFR (Cockcroft-Gault) 43.3 Glucose Level 69mg/dL (70-99) Calcium Level 8.8mg/dL (8.5-10.1) Test 01/10/17 11:34 01/10/17 12:51 01/10/17 16:41 01/10/17 20:28 Prothrombin Time 14.9SEC (11.7-14.0) Prothromb Time International Ratio 1.2 (0.8-1.1) Glucose (Fingerstick) 98mg/dL (70-99) 104mg/dL (70-99) 134mg/dL (70-99) Test 01/11/17 03:50 01/11/17 08:33 Sodium Level 144mmol/L (136-145) Potassium Level 3.5mmol/L (3.5-5.1) Chloride Level 98mmol/L (98-107) Carbon Dioxide Level 37mmol/L (21-32) Anion Gap 9 (6-14) Blood Urea Nitrogen 62mg/dL (8-26) Creatinine 1.5mg/dL (0.7-1.3) Estimated GFR (Cockcroft-Gault) 46.7 Glucose Level 65mg/dL (70-99) Calcium Level 9.0mg/dL (8.5-10.1) Glucose (Fingerstick) 86mg/dL (70-99) Laboratory Tests Test 01/10/17 11:34 01/10/17 12:51 01/10/17 16:41 01/10/17 20:28 Prothrombin Time 14.9SEC (11.7-14.0) Prothromb Time International Ratio 1.2 (0.8-1.1) Glucose (Fingerstick) 98mg/dL (70-99) 104mg/dL (70-99) 134mg/dL (70-99) Test 01/11/17 03:50 01/11/17 08:33 Sodium Level 144mmol/L (136-145) Potassium Level 3.5mmol/L (3.5-5.1) Chloride Level 98mmol/L (98-107) Carbon Dioxide Level 37mmol/L (21-32) Anion Gap 9 (6-14) Blood Urea Nitrogen 62mg/dL (8-26) Creatinine 1.5mg/dL (0.7-1.3) Estimated GFR (Cockcroft-Gault) 46.7 Glucose Level 65mg/dL (70-99) Calcium Level 9.0mg/dL (8.5-10.1) Glucose (Fingerstick) 86mg/dL (70-99) Medications Active Scripts Medications Dose Route/Sig Days Date Category Torsemide 20 Mg Tablet 4 Tab PO DAILY 01/06/17 Reported Amiodarone Hcl 200 Mg Tablet 1 Tab PO DAILY 01/06/17 Reported Toprol Xl (Metoprolol Succinate) 25 Mg Tab.er.24h 1 Tab PO DAILY 01/06/17 Reported Novolog (Insulin Aspart) 100 Unit/1 Ml Cartridge 10 Unit SQ TID 06/08/16 Reported Lantus Solostar (Insulin Glargine,Hum.rec.anlog) 100 Unit/1 Ml Insuln.pen 40 Unit SQ BID 06/08/16 Reported Cyclobenzaprine Hcl 10 Mg Tablet 1 Tab PO TID 06/08/16 Reported Allopurinol 300 Mg Tablet 1 Tab PO DAILY 06/08/16 Reported Simvastatin 10 Mg Tablet 1 Tab PO QHS 06/08/16 Reported Coumadin (Warfarin Sodium) 2.5 Mg Tablet 1 Tab PO DAILY 06/08/16 Reported Potassium Gluconate 500 Mg Tablet 500 Mg PO DAILY 06/08/16 Reported Furosemide 40 Mg Tablet 1 Tab PO DAILY 06/08/16 Reported Mag-Oxide (Magnesium Oxide) 400 Mg Tablet 1 Tab PO DAILY 11/06/15 Reported Levothyroxine Sodium 100 Mcg Tablet 1 Tab PO DAILY 11/06/15 Reported Digoxin 125 Mcg Tablet 1 Tab PO DAILY 11/06/15 Reported Enalapril Maleate 2.5 Mg Tablet 1 Tab PO DAILY 11/06/15 Reported Vitamin D3 (Cholecalciferol (Vitamin D3)) 1,000 Unit Tablet 2,000 Unit PO DAILY 11/06/15 Reported Coreg (Carvedilol) 25 Mg Tablet 1 Tab PO BID 11/06/[address] reviewed, CT CHEST 1. Moderate sized right pleural effusion with underlying right lower lobe atelectasis and partial atelectasis of the right middle and upper lobes. 2. Mild patchy groundglass opacities and interlobular septal thickening compatible with mild pulmonary edema. 3. Severe generalized cardiomegaly. Impression . 1. Acute respiratory failure secondary to acute systolic heart failure. 2. Acute on chronic systolic heart failure with previous ejection fraction estimated at 15%. 3. Status post implantable cardioverter-defibrillator placement. 4. Abnormal x-ray revealing a large right-sided effusion with atelectasis. 5. Chronic atrial fibrillation, on Coumadin. 6. History of heparin-induced thrombocytopenia, status post bilateral below knee amputation. 7. Hypertension. 8. Chronic kidney disease. 9. Type 2 diabetes. 10. Elevated troponin level. 11. wheezing Plan . fu pl studies add bronchodilator, atrovent only keep I<O, torsemide, monitor k, cr increase activity on coumadin, adjust dose per inr. monitor for bleeding. discussed w rn, pt ASHLEY LOVETT MD Jan 11, 2017 09:27
[2017-01-11 11:41] LABS: INR 1.2 (0.8-1.1); PROTHROMBIN TIME PATIENT 14.2 SEC (11.7-14.0)
[2017-01-11] MEDS: IPRATROPIUM BROMIDE 0.5 MG/2.5 ML NEBU. NEB SCH ×3 (12:05→19:28)
--- NOTE | 2017-01-11 12:54 | RAD ---
Indication difficulty breathing. A single view of the chest was obtained and is compared to a study 2 days previously. Postoperative changes as well as defibrillator and cardiac pacing device and a prosthetic valve are noted. There is generalized cardiomegaly similar to the previous exam. There are increasing pulmonary infiltrates compared to the prior study. Findings may reflect congestive heart failure. Superimposed pneumonia is not excluded. There are bilateral pleural effusions. There is no pneumothorax. IMPRESSION: Worsening pulmonary infiltrates. Findings probably reflect congestive heart failure. Pneumonia is not entirely excluded. Bilateral pleural effusions left greater than right
--- NOTE | 2017-01-11 14:57 | PDOC ---
PROGRESS NOTES Chief Complaint Chief Complaint 1. acute resp failure with systolic CHF exacerbation 2. systolic CHF exacerbation EF 15 % before 3. ICD, PPM 4. CHRNOIC afib, on coumadin 5. 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 AMS, slurry speech , hallucination, 2/2 hypoxica possibly,no stroke 7. HTN 8. JOHANN on CKD4, ATN 9. HLD 10. MR s/p repair 11. DM2 on insulin 12. high troponin, 2/2 2 likely 13. bl pleural effusion, moderate RT 14. hypokalemia plan: 1. card consult, echo done 2. cont home meds, held lasix, ACEI given JOHANN, GENTel IVF with card, renal consult, low dose torsomide 20mg daily 3. slightly decrease insulin to levemir 10u bid, dc aspart 4. on NC 2L. 5. thoracentesis done, resume warfarin 2mg daily home dose, INR daily. OK to transfer out of ICU hEAD CT neg hope dc in 1-2 days History of Present Illness History of Present Illness SOB again today,very STAT CXR ordered today by me shows worsening fluid again, pulm infiltrates cant be excluded Just had thoracentesis done few days ago, lots of fluid taken out EF 15% - family not ready for hospice, introduced the concept I < O as per pulmo TRansferred out of iCU yesterday+ PLAN: Extra lasix 40 IV now (crea 1.4, better()\ MIght need indwelling CT tube? Reaching out to pulmo now... Vitals Vitals Vital Signs Date Time Temp Pulse Resp B/P Pulse Ox O2 Delivery O2 Flow Rate FiO2 01/11/17 12:07 93 Nasal Cannula 2.0 01/11/17 11:54 99.3 89 22 121/60 99.3 Physical Exam General: Alert, moderate distress Heart: Regular rate, Normal S1 Lungs: Crackles, Other (bl mild wheezing) Abdomen: Normal bowel sounds, Soft, No tenderness Extremities: No cyanosis, No edema (to BKA) Skin: No breakdown, No significant lesion Labs LABS Laboratory Tests Test 01/10/17 16:41 01/10/17 20:28 01/11/17 03:50 01/11/17 08:33 Glucose (Fingerstick) 104mg/dL (70-99) 134mg/dL (70-99) 86mg/dL (70-99) Sodium Level 144mmol/L (136-145) Potassium Level 3.5mmol/L (3.5-5.1) Chloride Level 98mmol/L (98-107) Carbon Dioxide Level 37mmol/L (21-32) Anion Gap 9 (6-14) Blood Urea Nitrogen 62mg/dL (8-26) Creatinine 1.5mg/dL (0.7-1.3) Estimated GFR (Cockcroft-Gault) 46.7 Glucose Level 65mg/dL (70-99) Calcium Level 9.0mg/dL (8.5-10.1) Test 01/11/17 10:25 01/11/17 11:44 Prothrombin Time 14.2SEC (11.7-14.0) Prothromb Time International Ratio 1.2 (0.8-1.1) Glucose (Fingerstick) 114mg/dL (70-99) Review of Systems Review of Systems cant be obtained SOA Assessment and Plan Assessmemt and Plan Problems Medical Problems: (1) Acute congestive heart failure Status: Acute Problems: Comment Review of Relevant I have reviewed the following items anuja (where applicable) has been applied. Labs Laboratory Tests Test 01/09/17 15:35 01/09/17 17:30 01/09/17 17:59 01/09/17 20:55 Body Fluid pH 7.3 Body Fluid Total Protein 2.8g/dL (.) Body Fluid Lactate Dehydrogenase 128IU/L (.) Glucose (Fingerstick) 74mg/dL (70-99) 116mg/dL (70-99) Test 01/10/17 06:07 01/10/17 08:35 01/10/17 11:34 01/10/17 12:51 Sodium Level 142mmol/L (136-145) Potassium Level 3.3mmol/L (3.5-5.1) Chloride Level 100mmol/L (98-107) Carbon Dioxide Level 36mmol/L (21-32) Anion Gap 6 (6-14) Blood Urea Nitrogen 63mg/dL (8-26) Creatinine 1.6mg/dL (0.7-1.3) Estimated GFR (Cockcroft-Gault) 43.3 Glucose Level 69mg/dL (70-99) Calcium Level 8.8mg/dL (8.5-10.1) Glucose (Fingerstick) 62mg/dL (70-99) 98mg/dL (70-99) Prothrombin Time 14.9SEC (11.7-14.0) Prothromb Time International Ratio 1.2 (0.8-1.1) Test 01/10/17 16:41 01/10/17 20:28 01/11/17 03:50 01/11/17 08:33 Glucose (Fingerstick) 104mg/dL (70-99) 134mg/dL (70-99) 86mg/dL (70-99) Sodium Level 144mmol/L (136-145) Potassium Level 3.5mmol/L (3.5-5.1) Chloride Level 98mmol/L (98-107) Carbon Dioxide Level 37mmol/L (21-32) Anion Gap 9 (6-14) Blood Urea Nitrogen 62mg/dL (8-26) Creatinine 1.5mg/dL (0.7-1.3) Estimated GFR (Cockcroft-Gault) 46.7 Glucose Level 65mg/dL (70-99) Calcium Level 9.0mg/dL (8.5-10.1) Test 01/11/17 10:25 01/11/17 11:44 Prothrombin Time 14.2SEC (11.7-14.0) Prothromb Time International Ratio 1.2 (0.8-1.1) Glucose (Fingerstick) 114mg/dL (70-99) Laboratory Tests Test 01/10/17 16:41 01/10/17 20:28 01/11/17 03:50 01/11/17 08:33 Glucose (Fingerstick) 104mg/dL (70-99) 134mg/dL (70-99) 86mg/dL (70-99) Sodium Level 144mmol/L (136-145) Potassium Level 3.5mmol/L (3.5-5.1) Chloride Level 98mmol/L (98-107) Carbon Dioxide Level 37mmol/L (21-32) Anion Gap 9 (6-14) Blood Urea Nitrogen 62mg/dL (8-26) Creatinine 1.5mg/dL (0.7-1.3) Estimated GFR (Cockcroft-Gault) 46.7 Glucose Level 65mg/dL (70-99) Calcium Level 9.0mg/dL (8.5-10.1) Test 01/11/17 10:25 01/11/17 11:44 Prothrombin Time 14.2SEC (11.7-14.0) Prothromb Time International Ratio 1.2 (0.8-1.1) Glucose (Fingerstick) 114mg/dL (70-99) Microbiology 01/09/17 Gram Stain - Final, Complete Medications Current Medications Acetaminophen (Tylenol) 650 mg PRN Q6HRS PRN PO MILD PAIN / TEMP Last administered on 01/11/17 06:17; Start 01/06/17 at 05:00 Ondansetron HCl (Zofran) 4 mg PRN Q6HRS PRN IV NAUSEA/VOMITING; Start 01/06/17 at 05:00 Hydralazine HCl (Apresoline) 10 mg PRN Q4HRS PRN IVP ELEVATED BP, SEE COMMENTS ; Start 01/06/17 at 05:00 Amiodarone HCl (Cordarone) 200 mg DAILY PO Last administered on 01/11/17 08:32 ; Start 01/06/17 at 10:00 Vitamin D (Vitamin D3) 2,000 unit DAILY PO Last administered on 01/11/17 08:33 ; Start 01/06/17 at 10:00 Digoxin (Lanoxin) 125 mcg DAILY PO Last administered on 01/11/17 08:33; Start 01/06/17 at 10:30 Levothyroxine Sodium (Synthroid) 100 mcg DAILY07 PO Last administered on 06:17; Start 01/06/17 at 10:30 Magnesium Oxide (Magnesium Oxide) 400 mg DAILY PO Last administered on 08:33; Start 01/06/17 at 10:30 Metoprolol Succinate (Toprol Xl) 25 mg DAILY PO Last administered on 01/11/17 08:32; Start 01/06/17 at 10:30 Simvastatin (Zocor) 10 mg QHS PO Last administered on 01/10/17 20:29; Start at 21:00 Torsemide (Demadex) 80 mg DAILY PO Last administered on 01/07/17 08:40; Start 01/06/17 at 10:30; Stop 01/07/17 at 11:53; Status DC Warfarin Sodium (Coumadin) 2 mg DAILY16 PO ; Start 01/06/17 at 16:00; Stop 01/06 at 16:00; Status DC Carvedilol (Coreg) 25 mg BIDWMEALS PO Last administered on 01/06/17 10:22; Start 01/06/17 at 10:30; Stop 01/06/17 at 11:51; Status DC Lisinopril (Prinivil) 2.5 mg DAILY PO Last administered on 01/06/17 10:21; Start 01/06/17 at 10:30; Stop 01/08/17 at 08:36; Status DC Insulin Aspart (Novolog) 10 units TIDAC SQ Last administered on 01/06/17 18:38 ; Start 01/06/17 at 11:30; Stop 01/07/17 at 12:38; Status DC Insulin Detemir (Levemir) 30 units BID SQ Last administered on 01/08/17 09:00 ; Start 01/06/17 at 10:30; Stop 01/08/17 at 12:56; Status DC Non-Formulary Medication 500 mg DAILY PO ; Start 01/07/17 at 09:00; Status UNV Torsemide (Demadex) 80 mg DAILY PO ; Start 01/06/17 at 10:00; Status UNV Insulin Aspart (Novolog) 0-9 UNITS TIDWMEALS SQ Last administered on 01/07/17 16:58; Start 01/06/17 at 12:00 Dextrose 12.5 gm PRN Q15MIN PRN IV SEE COMMENTS Last administered on 01/09/17 00:56; Start 01/06/17 at 09:45 Warfarin Sodium (Coumadin Per Physician) 1 each PRN DAILY PRN MC SEE COMMENTS Last administered on 01/07/17 12:33; Start 01/06/17 at 10:45; Stop 01/07/17 at 13:37; Status DC Furosemide (Lasix) 40 mg 1X ONCE IVP Last administered on 01/06/17 15:55; Start 01/06/17 at 16:00; Stop 01/06/17 at 16:01; Status DC Metolazone (Zaroxolyn) 5 mg DAILY PO Last administered on 01/07/17 08:40; Start 01/07/17 at 09:00; Stop 01/07/17 at 14:45; Status DC Ascorbic Acid (Vitamin C) 500 mg DAILY PO Last administered on 01/11/17 08:34 ; Start 01/08/17 at 09:00 Multivitamins/ Calcium (Thera M Plus) 1 tab DAILY PO Last administered on 08:33; Start 01/08/17 at 09:00 Albuterol Sulfate (Ventolin Neb Soln) 2.5 mg 1X ONCE NEB Last administered on 01/07/17 15:45; Start 01/07/17 at 11:45; Stop 01/07/17 at 11:46; Status DC Torsemide (Demadex) 40 mg DAILY PO ; Start 01/08/17 at 09:00; Stop 01/08/17 at 09:00; Status DC Insulin Aspart (Novolog) 8 units TIDAC SQ Last administered on 01/08/17 07:30 ; Start 01/07/17 at 16:30; Stop 01/08/17 at 12:56; Status DC Warfarin Sodium (Coumadin Per Pharmacy) 1 each PRN DAILY PRN MC SEE COMMENTS Last administered on 01/11/17 12:22; Start 01/09/17 at 13:45 Aspirin (Ecotrin) 81 mg DAILYWBKFT PO Last administered on 01/11/17 08:34; Start 01/08/17 at 08:00 Warfarin Sodium (Coumadin - No Dose Today) 1 each 1X WARF ONCE MC ; Start 01/07 at 16:00; Stop 01/07/17 at 16:01; Status DC Metolazone 2.5 mg 2.5 mg DAILY PO ; Start 01/08/17 at 09:00; Stop 01/08/17 at 09 :00; Status DC Sodium Chloride 1,000 ml @ 100 mls/hr 1X ONCE IV Last administered on 10:53; Start 01/08/17 at 08:45; Stop 01/08/17 at 18:44; Status DC Phytonadione/ Sodium Chloride (Vitamin K/Iv Sodium Chloride 0.9% 50ml) 51 ml @ 102 mls/hr 1X ONCE IV Last administered on 01/08/17 12:15; Start 01/08/17 at 11:00; Stop 01/08/17 at 11:29; Status DC Torsemide (Demadex) 20 mg DAILY PO Last administered on 01/11/17 08:33; Start 01/08/17 at 12:00 Albuterol/ Ipratropium (Duoneb) 3 ml 1X ONCE NEB ; Start 01/08/17 at 12:45; Stop 01/08/17 at 12:46; Status DC Insulin Aspart (Novolog) 5 units TIDAC SQ ; Start 01/08/17 at 16:30; Stop at 09:04; Status DC Insulin Detemir (Levemir) 25 units BID SQ Last administered on 01/10/17 08:58 ; Start 01/08/17 at 21:00; Stop 01/10/17 at 09:04; Status DC Warfarin Sodium (Coumadin - No Dose Today) 1 each 1X WARF ONCE MC ; Start 01/08 at 16:00; Stop 01/08/17 at 16:01; Status DC Phytonadione (Mephyton) 2.5 mg 1X ONCE PO Last administered on 01/08/17 16:02 ; Start 01/08/17 at 15:45; Stop 01/08/17 at 15:46; Status DC Warfarin Sodium (Coumadin - No Dose Today) 1 each 1X WARF ONCE MC ; Start 01/09 at 16:00; Stop 01/09/17 at 16:01; Status DC Lidocaine/Sodium Bicarbonate (Buffered Lidocaine 1%) 20 ml STK-MED ONCE IJ ; Start 01/09/17 at 15:15; Stop 01/09/17 at 15:16; Status DC Lidocaine/Sodium Bicarbonate (Buffered Lidocaine 1%) 8 ml 1X ONCE IJ Last administered on 01/09/17 16:25; Start 01/09/17 at 16:30; Stop 01/09/17 at 16:31 ; Status DC Potassium Chloride (Klor-Con) 40 meq 1X ONCE PO Last administered on 10:44; Start 01/10/17 at 09:15; Stop 01/10/17 at 09:16; Status DC Insulin Detemir (Levemir) 10 units BID SQ Last administered on 01/10/17 20:34 ; Start 01/10/17 at 09:00 Warfarin Sodium (Coumadin) 2 mg 1X WARF ONCE PO Last administered on 17:41; Start 01/10/17 at 16:00; Stop 01/10/17 at 16:01; Status DC Ipratropium [place] (Atrovent) 0.5 mg RTQID NEB Last administered on 01/11/17 12:05; Start 01/11/17 at 12:00 Warfarin Sodium (Coumadin) 4 mg 1X WARF ONCE PO ; Start 01/11/17 at 16:00; Stop 01/11/17 at 16:01 Active Scripts Active Reported Torsemide 20 Mg Tablet 4 Tab PO DAILY Amiodarone Hcl 200 Mg Tablet 1 Tab PO DAILY Toprol Xl (Metoprolol Succinate) 25 Mg Tab.er.24h 1 Tab PO DAILY Novolog (Insulin Aspart) 100 Unit/1 Ml Cartridge 10 Unit SQ TID Lantus Solostar (Insulin Glargine,Hum.rec.anlog) 100 Unit/1 Ml Insuln.pen 40 Unit SQ BID Cyclobenzaprine Hcl 10 Mg Tablet 1 Tab PO TID Allopurinol 300 Mg Tablet 1 Tab PO DAILY Simvastatin 10 Mg Tablet 1 Tab PO QHS Coumadin (Warfarin Sodium) 2.5 Mg Tablet 1 Tab PO DAILY Potassium Gluconate 500 Mg Tablet 500 Mg PO DAILY Furosemide 40 Mg Tablet 1 Tab PO DAILY Mag-Oxide (Magnesium Oxide) 400 Mg Tablet 1 Tab PO DAILY Levothyroxine Sodium 100 Mcg Tablet 1 Tab PO DAILY Digoxin 125 Mcg Tablet 1 Tab PO DAILY Enalapril Maleate 2.5 Mg Tablet 1 Tab PO DAILY Vitamin D3 (Cholecalciferol (Vitamin D3)) 1,000 Unit Tablet 2,000 Unit PO DAILY Coreg (Carvedilol) 25 Mg Tablet 1 Tab PO BID Vitals/I & O Vital Sign - Last 24 Hours 01/10/17 01/10/17 01/10/17 01/10/17 15:48 19:55 20:00 23:55 Temp 97.9 100.4 98.8 97.9 100.4 98.8 Pulse 89 88 88 Resp 16 24 28 B/P 112/65 105/75 99/62 Pulse Ox 92 95 94 O2 Delivery Room Air Nasal Cannula Nasal Cannula Nasal Cannula O2 Flow Rate 2.0 2.0 2.0 01/11/17 01/11/17 01/11/1701/11/17 03:18 07:00 08:00 08:32 Temp 98.1 98.1 Pulse 89 93 Resp 24 22 B/P 120/67 120/67 Pulse Ox 92 O2 Delivery Nasal Cannula Nasal Cannula Nasal Cannula O2 Flow Rate 2.0 2.0 2.0 01/11/17 01/11/17 01/11/17 01/11/17 08:32 08:33 11:54 12:07 Temp 99.3 99.3 Pulse 89 93 89 Resp 22 B/P 120/67 120/67 121/60 Pulse Ox 93 93 O2 Delivery Nasal Cannula Nasal Cannula O2 Flow Rate 2.0 2.0 Intake and Output 01/10/17 01/10/17 01/11/17 15:00 23:00 07:00 Intake Total 370 ml Output Total 1600 ml 800 ml 1200 ml Balance -1600 ml -800 ml -830 ml LORENA ROSENBERG MD Jan 11, 2017 14:57
[2017-01-11] MEDS ORDERED: FUROSEMIDE 40 MG/4 ML VIAL IVP ONE (15:00)
[2017-01-11] MEDS ORDERED: MORPHINE SULFATE 2 MG/ML DISP.SYRIN. IV PRN (15:30)
[2017-01-11] MEDS ORDERED: WARFARIN 4 MG TABLET. PO ONE (16:00)
[2017-01-11 16:37] LABS: BASO % 1 % (0-3); EOS % 3 % (0-3); HEMATOCRIT 47.4 % (39.0-53.0); HEMOGLOBIN 14.3 g/dL (13.0-17.5); LYMPH # 0.6 x10^3/uL (1.0-4.8); LYMPH % 6 % (24-48); MEAN CORPUSCULAR HEMOGLOBIN 24 pg (25-35); MEAN CORPUSCULAR HGB CONC 30 g/dL (31-37); MEAN CORPUSCULAR VOLUME 79 fL (79-100); MONO % 10 % (0-9); NEUT % 81 % (31-73); PLATELET COUNT 119 x10^3/uL (140-400); RED BLOOD COUNT 6.02 x10^6/uL (4.30-5.70); RED CELL DISTRIBUTION WIDTH 22.4 % (11.5-14.5); WHITE BLOOD COUNT 10.1 x10^3/uL (4.0-11.0)
[2017-01-11] MEDS: SIMVASTATIN 10 MG TABLET PO SCH (20:47)
[2017-01-12] VITALS (22 sets, daily range): BP systolic 90–140; BP diastolic 47–74
[2017-01-12 05:45] LABS: INR 1.2 (0.8-1.1); PROTHROMBIN TIME PATIENT 14.9 SEC (11.7-14.0)
[2017-01-12] MEDS: LEVOTHYROXINE 100 MCG TABLET PO SCH (06:52)
--- NOTE | 2017-01-12 06:53 | PDOC ---
PULMONARY PROGRESS NOTES Subjective transfered to icu for resp distress, on 02, responded to lasix, PT LESS SOA, has cough, pain, no runny nose. Vitals Vital Signs Date Time Temp Pulse Resp B/P Pulse Ox O2 Delivery O2 Flow Rate FiO2 01/12/17 06:00 92 18 117/59 95 Nasal Cannula 3.0 01/12/17 04:00 98.8 98.8 Comments ros as mentioned as above, other sys otherwise neg ROS: No Nausea, No Chest Pain, No Abdominal Pain, No Increase Cough General: Alert, No acute distress HEENT: Other (nc at perr thorat clear) Lungs: Wheezing, Crackles, Other (bl mild wheezing) Cardiovascular: S1, S2 Abdomen: Soft, Non-tender Neuro Exam: Alert Extremities: Other ( + edema, s/p bka) Skin: Warm Labs Laboratory Tests Test 01/10/17 08:35 01/10/17 11:34 01/10/17 12:51 01/10/17 16:41 Glucose (Fingerstick) 62mg/dL (70-99) 98mg/dL (70-99) 104mg/dL (70-99) Prothrombin Time 14.9SEC (11.7-14.0) Prothromb Time International Ratio 1.2 (0.8-1.1) Test 01/10/17 20:28 01/11/17 03:50 01/11/17 08:33 01/11/17 08:50 Glucose (Fingerstick) 134mg/dL (70-99) 86mg/dL (70-99) Sodium Level 144mmol/L (136-145) Potassium Level 3.5mmol/L (3.5-5.1) Chloride Level 98mmol/L (98-107) Carbon Dioxide Level 37mmol/L (21-32) Anion Gap 9 (6-14) Blood Urea Nitrogen 62mg/dL (8-26) Creatinine 1.5mg/dL (0.7-1.3) Estimated GFR (Cockcroft-Gault) 46.7 Glucose Level 65mg/dL (70-99) Calcium Level 9.0mg/dL (8.5-10.1) White Blood Count 10.1x10^3/uL (4.0-11.0) Red Blood Count 6.02x10^6/uL (4.30-5.70) Hemoglobin 14.3g/dL (13.0-17.5) Hematocrit 47.4% (39.0-53.0) Mean Corpuscular Volume 79fL (79-100) Mean Corpuscular Hemoglobin 24pg (25-35) Mean Corpuscular Hemoglobin Concent 30g/dL (31-37) Red Cell Distribution Width 22.4% (11.5-14.5) Platelet Count 119x10^3/uL (140-400) Neutrophils (%) (Auto) 81% (31-73) Lymphocytes (%) (Auto) 6% (24-48) Monocytes (%) (Auto) 10% (0-9) Eosinophils (%) (Auto) 3% (0-3) Basophils (%) (Auto) 1% (0-3) Neutrophils # (Auto) 8.2x10^3uL (1.8-7.7) Lymphocytes # (Auto) 0.6x10^3/uL (1.0-4.8) Monocytes # (Auto) 1.0x10^3/uL (0.0-1.1) Eosinophils # (Auto) 0.3x10^3/uL (0.0-0.7) Basophils # (Auto) 0.0x10^3/uL (0.0-0.2) Test 01/11/17 10:25 01/11/17 11:44 01/11/17 17:14 01/11/17 20:40 Prothrombin Time 14.2SEC (11.7-14.0) Prothromb Time International Ratio 1.2 (0.8-1.1) Glucose (Fingerstick) 114mg/dL (70-99) 107mg/dL (70-99) 101mg/dL (70-99) Test 01/12/17 05:00 Prothrombin Time 14.9SEC (11.7-14.0) Prothromb Time International Ratio 1.2 (0.8-1.1) Laboratory Tests Test 01/11/17 08:33 01/11/17 08:50 01/11/17 10:25 01/11/17 11:44 Glucose (Fingerstick) 86mg/dL (70-99) 114mg/dL (70-99) White Blood Count 10.1x10^3/uL (4.0-11.0) Red Blood Count 6.02x10^6/uL (4.30-5.70) Hemoglobin 14.3g/dL (13.0-17.5) Hematocrit 47.4% (39.0-53.0) Mean Corpuscular Volume 79fL (79-100) Mean Corpuscular Hemoglobin 24pg (25-35) Mean Corpuscular Hemoglobin Concent 30g/dL (31-37) Red Cell Distribution Width 22.4% (11.5-14.5) Platelet Count 119x10^3/uL (140-400) Neutrophils (%) (Auto) 81% (31-73) Lymphocytes (%) (Auto) 6% (24-48) Monocytes (%) (Auto) 10% (0-9) Eosinophils (%) (Auto) 3% (0-3) Basophils (%) (Auto) 1% (0-3) Neutrophils # (Auto) 8.2x10^3uL (1.8-7.7) Lymphocytes # (Auto) 0.6x10^3/uL (1.0-4.8) Monocytes # (Auto) 1.0x10^3/uL (0.0-1.1) Eosinophils # (Auto) 0.3x10^3/uL (0.0-0.7) Basophils # (Auto) 0.0x10^3/uL (0.0-0.2) Prothrombin Time 14.2SEC (11.7-14.0) Prothromb Time International Ratio 1.2 (0.8-1.1) Test 01/11/17 17:14 01/11/17 20:40 01/12/17 05:00 Glucose (Fingerstick) 107mg/dL (70-99) 101mg/dL (70-99) Prothrombin Time 14.9SEC (11.7-14.0) Prothromb Time International Ratio 1.2 (0.8-1.1) Medications Active Scripts Medications Dose Route/Sig Days Date Category Torsemide 20 Mg Tablet 4 Tab PO DAILY 01/06/17 Reported Amiodarone Hcl 200 Mg Tablet 1 Tab PO DAILY 01/06/17 Reported Toprol Xl (Metoprolol Succinate) 25 Mg Tab.er.24h 1 Tab PO DAILY 01/06/17 Reported Novolog (Insulin Aspart) 100 Unit/1 Ml Cartridge 10 Unit SQ TID 06/08/16 Reported Lantus Solostar (Insulin Glargine,Hum.rec.anlog) 100 Unit/1 Ml Insuln.pen 40 Unit SQ BID 06/08/16 Reported Cyclobenzaprine Hcl 10 Mg Tablet 1 Tab PO TID 06/08/16 Reported Allopurinol 300 Mg Tablet 1 Tab PO DAILY 06/08/16 Reported Simvastatin 10 Mg Tablet 1 Tab PO QHS 06/08/16 Reported Coumadin (Warfarin Sodium) 2.5 Mg Tablet 1 Tab PO DAILY 06/08/16 Reported Potassium Gluconate 500 Mg Tablet 500 Mg PO DAILY 06/08/16 Reported Furosemide 40 Mg Tablet 1 Tab PO DAILY 06/08/16 Reported Mag-Oxide (Magnesium Oxide) 400 Mg Tablet 1 Tab PO DAILY 11/06/15 Reported Levothyroxine Sodium 100 Mcg Tablet 1 Tab PO DAILY 11/06/15 Reported Digoxin 125 Mcg Tablet 1 Tab PO DAILY 11/06/15 Reported Enalapril Maleate 2.5 Mg Tablet 1 Tab PO DAILY 11/06/15 Reported Vitamin D3 (Cholecalciferol (Vitamin D3)) 1,000 Unit Tablet 2,000 Unit PO DAILY 11/06/15 Reported Coreg (Carvedilol) 25 Mg Tablet 1 Tab PO BID 11/06/[address] reviewed, CT CHEST 1. Moderate sized right pleural effusion with underlying right lower lobe atelectasis and partial atelectasis of the right middle and upper lobes. 2. Mild patchy groundglass opacities and interlobular septal thickening compatible with mild pulmonary edema. 3. Severe generalized cardiomegaly. Impression . 1. Acute respiratory failure secondary to acute systolic heart failure. 2. Acute on chronic systolic heart failure with previous ejection fraction estimated at 15%. 3. Status post implantable cardioverter-defibrillator placement. 4. Abnormal x-ray revealing a large right-sided effusion with atelectasis. 5. Chronic atrial fibrillation, on Coumadin. 6. History of heparin-induced thrombocytopenia, status post bilateral below knee amputation. 7. Hypertension. 8. Chronic kidney disease. 9. Type 2 diabetes. 10. Elevated troponin level. 11. wheezing Plan . fu pl studies add ics bronchodilator, atrovent only keep I<O, torsemide, ? increase dose, monitor k, cr bipap prn on coumadin, adjust dose per inr. monitor for bleeding. discussed w rn, pt ? out of icu ASHLEY LOVETT MD Jan 12, 2017 06:53
[2017-01-12] MEDS ORDERED: AMIODARONE 150 MG in IV DEXTROSE 5% 100 ML IV ONE (07:15)
[2017-01-12 07:25] LABS: CALCIUM 8.9 mg/dL (8.5-10.1); CREATININE 1.7 mg/dL (0.7-1.3); GFR 40.4; POTASSIUM 3.7 mmol/L (3.5-5.1)
[2017-01-12] MEDS ORDERED: AMIODARONE 900 MG in IV DEXTROSE 5% 500 ML IV PRN ×2 (07:30→15:30)
[2017-01-12] MEDS ORDERED: MAGNESIUM SULFATE 2GM 50 ML IV ONE (07:30)
[2017-01-12] MEDS: INSULIN ASPART 300 UNITS/3 ML INSULN.PEN SQ SCH ×3 (08:00→17:00)
[2017-01-12] MEDS: ASPIRIN ENTERIC COATED 81 MG TABLET.DR. PO SCH (08:00)
[2017-01-12] MEDS: AMIODARONE HCL 200 MG TABLET PO SCH (08:30)
[2017-01-12] MEDS: MAGNESIUM OXIDE 400 MG TABLET PO SCH (08:31)
[2017-01-12] MEDS ORDERED: POTASSIUM CHLORIDE 10MEQ 100 ML IV ONE (09:00)
[2017-01-12] MEDS: IPRATROPIUM BROMIDE 0.5 MG/2.5 ML NEBU. NEB SCH ×4 (09:04→20:33)
[2017-01-12] MEDS: BUDESONIDE 0.5 MG/2 ML NEBU NEB SCH ×2 (09:04→20:33)
[2017-01-12] MEDS: TORSEMIDE 20 MG TABLET. PO SCH (09:18)
[2017-01-12] MEDS: MULTIVITAMIN with MINERAL TABLET. PO SCH (09:18)
[2017-01-12] MEDS: ASCORBIC ACID 500 MG TABLET PO SCH (09:18)
[2017-01-12] MEDS: CHOLECALCIFEROL (VITAMIN D3) 1,000 UNIT TABLET PO SCH (09:19)
[2017-01-12] MEDS: METOPROLOL SUCC 24HR ER 25 MG TAB.ER.24H. PO SCH (09:19)
[2017-01-12] MEDS: DIGOXIN 125 MCG TABLET PO SCH (09:19)
[2017-01-12] MEDS: INSULIN DETEMIR 300 UNITS/3 ML INSULN.PEN. SQ SCH (09:40)
[2017-01-12] MEDS ORDERED: VANCOMYCIN 1.75 GM in IV NORMAL SALINE 500ML BAG 500 ML IV SCH (10:15)
--- NOTE | 2017-01-12 10:21 | RAD ---
Indication right-sided abdominal pain. Grayscale imaging was performed targeted to the right upper quadrant. No similar imaging is available. The visualized inferior vena cava is slightly prominent. This suggest possible right heart failure. Clinical correlation advised. Note was made during the examination of a right pleural effusion. In the visualized liver no mass is seen. The gallbladder appears unremarkable. The common bile duct diameter of approximately 6 mm is within normal limits. The right kidney appears unremarkable. The pancreas was poorly visualized and largely obscured by gas. IMPRESSION: Normal gallbladder. Slightly prominent inferior vena cava suggesting possible right heart failure. Clinical correlation advised. Right pleural effusion.
[2017-01-12] MEDS ORDERED: VANCOMYCIN 2 GM in IV NORMAL SALINE 500ML BAG 500 ML IV ONE (11:00)
[2017-01-12] MEDS: MEROPENEM 1 GM in IV NORMAL SALINE 100ML 100 ML IV SCH ×2 (11:22→22:30)
[2017-01-12] MEDS: VANCOMYCIN PER PHARMACY MC PRN (11:26)
--- NOTE | 2017-01-12 11:36 | PDOC ---
PROGRESS NOTES Subjective Subjective The patient is feeling better after field examiner ICD discharges have resolved. Objective Objective Vital Signs Date Time Temp Pulse Resp B/P Pulse Ox O2 Delivery O2 Flow Rate FiO2 01/12/17 11:19 89 24 132/66 99 Nasal Cannula 5.0 01/12/17 04:00 98.8 98.8 Intake and Output 01/12/17 07:00 Intake Total 300 ml Output Total 2555 ml Balance -2255 ml Intake Oral 300 ml Output Urine Total 2555 ml Physical Exam Abdomen: Normal bowel sounds Heart: Regular rate General: mild distress Lungs: Other (mildly decreased breath sounds) Assessment Assessment Problems Medical Problems: (1) Acute congestive heart failure Status: Acute Assessment 1. 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 Nonischemic dilated cardiomyopathy: 09/2010 normal coronaries via [facility]. EF is <20%, virtually unchanged by comparison. Recurrent episodes of discharge of his ICD this morning. Lab testing is within normal limits. Shocks have resolved after starting IV amiodarone. We'll to continue close monitoring. We'll continue IV amiodarone until tomorrow. 3. COPD: >30 yrs of tobaccoism. 4. HTN/HLP/DM2: BP controlled 5. 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 Recurrent discharges this morning as above. 6. PAFIB: Paced with underlying AFIB. 7. JOHANN on CKD3: Improving 8. Hx of mitral valve repair , Hx of HIT (2009) Comment Review of Relevant I have reviewed the following items anuja (where applicable) has been applied. Labs Laboratory Tests Test 01/10/17 12:51 01/10/17 16:41 01/10/17 20:28 01/11/17 03:50 Glucose (Fingerstick) 98mg/dL (70-99) 104mg/dL (70-99) 134mg/dL (70-99) Sodium Level 144mmol/L (136-145) Potassium Level 3.5mmol/L (3.5-5.1) Chloride Level 98mmol/L (98-107) Carbon Dioxide Level 37mmol/L (21-32) Anion Gap 9 (6-14) Blood Urea Nitrogen 62mg/dL (8-26) Creatinine 1.5mg/dL (0.7-1.3) Estimated GFR (Cockcroft-Gault) 46.7 Glucose Level 65mg/dL (70-99) Calcium Level 9.0mg/dL (8.5-10.1) Test 01/11/17 08:33 01/11/17 08:50 01/11/17 10:25 01/11/17 11:44 Glucose (Fingerstick) 86mg/dL (70-99) 114mg/dL (70-99) White Blood Count 10.1x10^3/uL (4.0-11.0) Red Blood Count 6.02x10^6/uL (4.30-5.70) Hemoglobin 14.3g/dL (13.0-17.5) Hematocrit 47.4% (39.0-53.0) Mean Corpuscular Volume 79fL (79-100) Mean Corpuscular Hemoglobin 24pg (25-35) Mean Corpuscular Hemoglobin Concent 30g/dL (31-37) Red Cell Distribution Width 22.4% (11.5-14.5) Platelet Count 119x10^3/uL (140-400) Neutrophils (%) (Auto) 81% (31-73) Lymphocytes (%) (Auto) 6% (24-48) Monocytes (%) (Auto) 10% (0-9) Eosinophils (%) (Auto) 3% (0-3) Basophils (%) (Auto) 1% (0-3) Neutrophils # (Auto) 8.2x10^3uL (1.8-7.7) Lymphocytes # (Auto) 0.6x10^3/uL (1.0-4.8) Monocytes # (Auto) 1.0x10^3/uL (0.0-1.1) Eosinophils # (Auto) 0.3x10^3/uL (0.0-0.7) Basophils # (Auto) 0.0x10^3/uL (0.0-0.2) Prothrombin Time 14.2SEC (11.7-14.0) Prothromb Time International Ratio 1.2 (0.8-1.1) Test 01/11/17 17:14 01/11/17 20:40 01/12/17 05:00 01/12/17 08:34 Glucose (Fingerstick) 107mg/dL (70-99) 101mg/dL (70-99) 143mg/dL (70-99) Prothrombin Time 14.9SEC (11.7-14.0) Prothromb Time International Ratio 1.2 (0.8-1.1) Sodium Level 143mmol/L (136-145) Potassium Level 3.7mmol/L (3.5-5.1) Chloride Level 98mmol/L (98-107) Carbon Dioxide Level 38mmol/L (21-32) Anion Gap 7 (6-14) Blood Urea Nitrogen 66mg/dL (8-26) Creatinine 1.7mg/dL (0.7-1.3) Estimated GFR (Cockcroft-Gault) 40.4 Glucose Level 112mg/dL (70-99) Calcium Level 8.9mg/dL (8.5-10.1) Magnesium Level 1.9mg/dL (1.8-2.4) Laboratory Tests Test 01/11/17 11:44 01/11/17 17:14 01/11/17 20:40 01/12/17 05:00 Glucose (Fingerstick) 114mg/dL (70-99) 107mg/dL (70-99) 101mg/dL (70-99) Prothrombin Time 14.9SEC (11.7-14.0) Prothromb Time International Ratio 1.2 (0.8-1.1) Sodium Level 143mmol/L (136-145) Potassium Level 3.7mmol/L (3.5-5.1) Chloride Level 98mmol/L (98-107) Carbon Dioxide Level 38mmol/L (21-32) Anion Gap 7 (6-14) Blood Urea Nitrogen 66mg/dL (8-26) Creatinine 1.7mg/dL (0.7-1.3) Estimated GFR (Cockcroft-Gault) 40.4 Glucose Level 112mg/dL (70-99) Calcium Level 8.9mg/dL (8.5-10.1) Magnesium Level 1.9mg/dL (1.8-2.4) Test 01/12/17 08:34 Glucose (Fingerstick) 143mg/dL (70-99) Microbiology 01/09/17 Gram Stain - Final, Complete Medications Current Medications Acetaminophen (Tylenol) 650 mg PRN Q6HRS PRN PO MILD PAIN / TEMP Last administered on 01/11/17 06:17; Start 01/06/17 at 05:00 Ondansetron HCl (Zofran) 4 mg PRN Q6HRS PRN IV NAUSEA/VOMITING; Start 01/06/17 at 05:00 Hydralazine HCl (Apresoline) 10 mg PRN Q4HRS PRN IVP ELEVATED BP, SEE COMMENTS ; Start 01/06/17 at 05:00 Amiodarone HCl (Cordarone) 200 mg DAILY PO Last administered on 01/11/17 08:32 ; Start 01/06/17 at 10:00 Vitamin D (Vitamin D3) 2,000 unit DAILY PO Last administered on 01/12/17 09:19 ; Start 01/06/17 at 10:00 Digoxin (Lanoxin) 125 mcg DAILY PO Last administered on 01/12/17 09:19; Start 01/06/17 at 10:30 Levothyroxine Sodium (Synthroid) 100 mcg DAILY07 PO Last administered on 06:52; Start 01/06/17 at 10:30 Magnesium Oxide (Magnesium Oxide) 400 mg DAILY PO Last administered on 08:33; Start 01/06/17 at 10:30 Metoprolol Succinate (Toprol Xl) 25 mg DAILY PO Last administered on 01/12/17 09:19; Start 01/06/17 at 10:30 Simvastatin (Zocor) 10 mg QHS PO Last administered on 01/11/17 20:47; Start at 21:00 Torsemide (Demadex) 80 mg DAILY PO Last administered on 01/07/17 08:40; Start 01/06/17 at 10:30; Stop 01/07/17 at 11:53; Status DC Warfarin Sodium (Coumadin) 2 mg DAILY16 PO ; Start 01/06/17 at 16:00; Stop 01/06 at 16:00; Status DC Carvedilol (Coreg) 25 mg BIDWMEALS PO Last administered on 01/06/17 10:22; Start 01/06/17 at 10:30; Stop 01/06/17 at 11:51; Status DC Lisinopril (Prinivil) 2.5 mg DAILY PO Last administered on 01/06/17 10:21; Start 01/06/17 at 10:30; Stop 01/08/17 at 08:36; Status DC Insulin Aspart (Novolog) 10 units TIDAC SQ Last administered on 01/06/17 18:38 ; Start 01/06/17 at 11:30; Stop 01/07/17 at 12:38; Status DC Insulin Detemir (Levemir) 30 units BID SQ Last administered on 01/08/17 09:00 ; Start 01/06/17 at 10:30; Stop 01/08/17 at 12:56; Status DC Non-Formulary Medication 500 mg DAILY PO ; Start 01/07/17 at 09:00; Status UNV Torsemide (Demadex) 80 mg DAILY PO ; Start 01/06/17 at 10:00; Status UNV Insulin Aspart (Novolog) 0-9 UNITS TIDWMEALS SQ Last administered on 01/07/17 16:58; Start 01/06/17 at 12:00 Dextrose 12.5 gm PRN Q15MIN PRN IV SEE COMMENTS Last administered on 01/09/17 00:56; Start 01/06/17 at 09:45 Warfarin Sodium (Coumadin Per Physician) 1 each PRN DAILY PRN MC SEE COMMENTS Last administered on 01/07/17 12:33; Start 01/06/17 at 10:45; Stop 01/07/17 at 13:37; Status DC Furosemide (Lasix) 40 mg 1X ONCE IVP Last administered on 01/06/17 15:55; Start 01/06/17 at 16:00; Stop 01/06/17 at 16:01; Status DC Metolazone (Zaroxolyn) 5 mg DAILY PO Last administered on 01/07/17 08:40; Start 01/07/17 at 09:00; Stop 01/07/17 at 14:45; Status DC Ascorbic Acid (Vitamin C) 500 mg DAILY PO Last administered on 01/12/17 09:18 ; Start 01/08/17 at 09:00 Multivitamins/ Calcium (Thera M Plus) 1 tab DAILY PO Last administered on 09:18; Start 01/08/17 at 09:00 Albuterol Sulfate (Ventolin Neb Soln) 2.5 mg 1X ONCE NEB Last administered on 01/07/17 15:45; Start 01/07/17 at 11:45; Stop 01/07/17 at 11:46; Status DC Torsemide (Demadex) 40 mg DAILY PO ; Start 01/08/17 at 09:00; Stop 01/08/17 at 09:00; Status DC Insulin Aspart (Novolog) 8 units TIDAC SQ Last administered on 01/08/17 07:30 ; Start 01/07/17 at 16:30; Stop 01/08/17 at 12:56; Status DC Warfarin Sodium (Coumadin Per Pharmacy) 1 each PRN DAILY PRN MC SEE COMMENTS Last administered on 01/11/17 12:22; Start 01/09/17 at 13:45 Aspirin (Ecotrin) 81 mg DAILYWBKFT PO Last administered on 01/11/17 08:34; Start 01/08/17 at 08:00 Warfarin Sodium (Coumadin - No Dose Today) 1 each 1X WARF ONCE MC ; Start 01/07 at 16:00; Stop 01/07/17 at 16:01; Status DC Metolazone 2.5 mg 2.5 mg DAILY PO ; Start 01/08/17 at 09:00; Stop 01/08/17 at 09 :00; Status DC Sodium Chloride 1,000 ml @ 100 mls/hr 1X ONCE IV Last administered on 10:53; Start 01/08/17 at 08:45; Stop 01/08/17 at 18:44; Status DC Phytonadione/ Sodium Chloride (Vitamin K/Iv Sodium Chloride 0.9% 50ml) 51 ml @ 102 mls/hr 1X ONCE IV Last administered on 01/08/17 12:15; Start 01/08/17 at 11:00; Stop 01/08/17 at 11:29; Status DC Torsemide (Demadex) 20 mg DAILY PO Last administered on 01/12/17 09:18; Start 01/08/17 at 12:00 Albuterol/ Ipratropium (Duoneb) 3 ml 1X ONCE NEB ; Start 01/08/17 at 12:45; Stop 01/08/17 at 12:46; Status DC Insulin Aspart (Novolog) 5 units TIDAC SQ ; Start 01/08/17 at 16:30; Stop at 09:04; Status DC Insulin Detemir (Levemir) 25 units BID SQ Last administered on 01/10/17 08:58 ; Start 01/08/17 at 21:00; Stop 01/10/17 at 09:04; Status DC Warfarin Sodium (Coumadin - No Dose Today) 1 each 1X WARF ONCE MC ; Start 01/08 at 16:00; Stop 01/08/17 at 16:01; Status DC Phytonadione (Mephyton) 2.5 mg 1X ONCE PO Last administered on 01/08/17 16:02 ; Start 01/08/17 at 15:45; Stop 01/08/17 at 15:46; Status DC Warfarin Sodium (Coumadin - No Dose Today) 1 each 1X WARF ONCE MC ; Start 01/09 at 16:00; Stop 01/09/17 at 16:01; Status DC Lidocaine/Sodium Bicarbonate (Buffered Lidocaine 1%) 20 ml STK-MED ONCE IJ ; Start 01/09/17 at 15:15; Stop 01/09/17 at 15:16; Status DC Lidocaine/Sodium Bicarbonate (Buffered Lidocaine 1%) 8 ml 1X ONCE IJ Last administered on 01/09/17 16:25; Start 01/09/17 at 16:30; Stop 01/09/17 at 16:31 ; Status DC Potassium Chloride (Klor-Con) 40 meq 1X ONCE PO Last administered on 10:44; Start 01/10/17 at 09:15; Stop 01/10/17 at 09:16; Status DC Insulin Detemir (Levemir) 10 units BID SQ Last administered on 01/12/17 09:40 ; Start 01/10/17 at 09:00; Stop 01/12/17 at 10:04; Status DC Warfarin Sodium (Coumadin) 2 mg 1X WARF ONCE PO Last administered on 17:41; Start 01/10/17 at 16:00; Stop 01/10/17 at 16:01; Status DC Ipratropium [place] (Atrovent) 0.5 mg RTQID NEB Last administered on 01/12/17 09:04; Start 01/11/17 at 12:00 Warfarin Sodium (Coumadin) 4 mg 1X WARF ONCE PO Last administered on 16:34; Start 01/11/17 at 16:00; Stop 01/11/17 at 16:01; Status DC Furosemide (Lasix) 40 mg 1X ONCE IVP Last administered on 01/11/17 15:00; Start 01/11/17 at 15:00; Stop 01/11/17 at 15:01; Status DC Morphine Sulfate 2 mg PRN Q2HR PRN IV PAIN Last administered on 01/11/17 15:37 ; Start 01/11/17 at 15:30 Budesonide 0.5 mg 0.5 mg RTBID NEB Last administered on 01/12/17 09:04; Start 01/12/17 at 08:00 Amiodarone HCl 150 mg/Dextrose 103 ml @ 618 mls/hr 1X ONCE IV Last administered on 01/12/17 08:29; Start 01/12/17 at 07:15; Stop 01/12/17 at 07:24 ; Status DC Amiodarone HCl 900 mg/Dextrose 518 ml @ 0 mls/hr CONT PRN IV SEE I/O RECORD Last administered on 01/12/17 08:28; Start 01/12/17 at 07:30; Stop 01/12/17 at 08:31; Status DC Magnesium Sulfate/ Dextrose 50 ml @ 25 mls/hr 1X ONCE IV Last administered on 01/12/17 08:29; Start 01/12/17 at 07:30; Stop 01/12/17 at 09:29; Status DC Potassium Chloride (KCl Premix 10meq) 100 ml @ 100 mls/hr 1X ONCE IV Last administered on 01/12/17 08:30; Start 01/12/17 at 09:00; Stop 01/12/17 at 09:59 ; Status DC Insulin Detemir 10 units 10 units DAILY SQ ; Start 01/13/17 at 09:00 Meropenem 500 mg/ Sodium Chloride 50 ml @ 100 mls/hr Q8HRS IV ; Start 01/12/17 at 14:00; Status UNV Vancomycin HCl/ Sodium Chloride (Iv Sodium Chloride 0.9% 500ml Bag) 500 ml @ 250 mls/hr Q12H IV ; Start 01/12/17 at 10:15; Status UNV Vancomycin HCl 1 each 1 each PRN DAILY PRN MC SEE COMMENTS Last administered on 01/12/17 11:26; Start 01/12/17 at 10:15 Vancomycin HCl 2 gm/Sodium Chloride 500 ml @ 250 mls/hr 1X ONCE IV Last administered on 01/12/17 11:22; Start 01/12/17 at 11:00; Stop 01/12/17 at 12:59 Meropenem 1 gm/ Sodium Chloride 100 ml @ 200 mls/hr Q8HRS IV Last administered on 01/12/17 11:22; Start 01/12/17 at 11:00 Vancomycin HCl/ Sodium Chloride (Iv Sodium Chloride 0.9% 500ml Bag) 500 ml @ 250 mls/hr Q24H IV ; Start 01/13/17 at 11:00 Vancomycin HCl 1 each 1X ONCE MC ; Start 01/14/17 at 10:30; Stop 01/14/17 at 10 :31 Active Scripts Active Reported Torsemide 20 Mg Tablet 4 Tab PO DAILY Amiodarone Hcl 200 Mg Tablet 1 Tab PO DAILY Toprol Xl (Metoprolol Succinate) 25 Mg Tab.er.24h 1 Tab PO DAILY Novolog (Insulin Aspart) 100 Unit/1 Ml Cartridge 10 Unit SQ TID Lantus Solostar (Insulin Glargine,Hum.rec.anlog) 100 Unit/1 Ml Insuln.pen 40 Unit SQ BID Cyclobenzaprine Hcl 10 Mg Tablet 1 Tab PO TID Allopurinol 300 Mg Tablet 1 Tab PO DAILY Simvastatin 10 Mg Tablet 1 Tab PO QHS Coumadin (Warfarin Sodium) 2.5 Mg Tablet 1 Tab PO DAILY Potassium Gluconate 500 Mg Tablet 500 Mg PO DAILY Furosemide 40 Mg Tablet 1 Tab PO DAILY Mag-Oxide (Magnesium Oxide) 400 Mg Tablet 1 Tab PO DAILY Levothyroxine Sodium 100 Mcg Tablet 1 Tab PO DAILY Digoxin 125 Mcg Tablet 1 Tab PO DAILY Enalapril Maleate 2.5 Mg Tablet 1 Tab PO DAILY Vitamin D3 (Cholecalciferol (Vitamin D3)) 1,000 Unit Tablet 2,000 Unit PO DAILY Coreg (Carvedilol) 25 Mg Tablet 1 Tab PO BID Vitals/I & O Vital Sign - Last 24 Hours 01/11/17 01/11/17 01/11/17 01/11/17 11:54 12:07 15:00 15:37 Temp 99.3 101.8 99.3 101.8 Pulse 89 92 Resp 22 20 24 B/P 121/60 130/61 Pulse Ox 93 93 93 O2 Delivery Nasal Cannula Nasal Cannula Nasal Cannula Nasal Cannula O2 Flow Rate 2.0 2.0 2.0 2.0 2/18/17 2/18/17 2/18/17 2/18/17 16:00 16:15 16:30 16:39 Temp 98.9 98.9 Pulse 90 90 94 Resp B/P 121/63 127/66 134/67 Pulse Ox 95 97 97 97 O2 Delivery Nasal Cannula Nasal Cannula Nasal Cannula Nasal Cannula O2 Flow Rate 3.0 3.0 3.0 4.0 2/18/17 2/18/17 2/18/17 2/18/17 16:45 17:00 18:00 19:00 Temp 98.2 98.2 Pulse 92 90 90 90 Resp B/P 148/67 145/71 125/55 148/63 Pulse Ox 98 99 99 98 O2 Delivery Nasal Cannula Nasal Cannula Nasal Cannula Nasal Cannula O2 Flow Rate 3.0 3.0 3.0 3.0 2/18/17 2/18/17 2/18/17 2/18/17 19:28 19:51 20:00 21:00 Pulse 90 88 Resp 18 20 B/P 129/67 147/68 Pulse Ox 98 98 94 O2 Delivery Nasal Cannula Nasal Cannula Nasal Cannula Nasal Cannula O2 Flow Rate 4.0 3.0 3.0 3.0 2/18/17 2/18/17 2/18/17 2/19/17 22:00 23:00 23:38 00:00 Temp 101.7 101.7 Pulse 94 92 92 Resp 18 18 18 B/P 140/67 137/74 139/74 Pulse Ox 96 98 99 O2 Delivery Nasal Cannula Nasal Cannula Nasal Cannula Nasal Cannula O2 Flow Rate 3.0 3.0 3.0 3.0 2/19/17 2/19/17 2/19/17 2/19/17 01:00 02:00 03:00 03:39 Pulse 90 92 88 Resp 18 18 18 B/P 111/53 92/47 117/67 Pulse Ox 96 96 95 O2 Delivery Nasal Cannula Nasal Cannula Nasal Cannula Nasal Cannula O2 Flow Rate 3.0 3.0 3.0 3.0 2/19/17 2/19/17 2/19/17 2/19/17 04:00 05:00 06:00 07:00 Temp 98.8 98.8 Pulse 94 86 92 104 Resp 18 18 18 B/P 117/59 140/66 Pulse Ox 95 98 95 97 O2 Delivery Nasal Cannula Nasal Cannula Nasal Cannula Nasal Cannula O2 Flow Rate 3.0 3.0 3.0 3.0 01/12/17 01/12/17 01/12/17 01/12/17 08:00 08:00 08:29 09:07 Pulse 88 105 Resp 24 B/P 122/59 122/79 Pulse Ox 95 98 O2 Delivery Nasal Cannula Nasal Cannula Nasal Cannula O2 Flow Rate 3.0 5.0 5.0 01/12/17 01/12/17 01/12/17 01/12/17 09:10 09:12 09:19 09:19 Pulse 89 89 89 Resp 20 B/P 137/70 137/70 137/70 Pulse Ox 98 100 O2 Delivery Nasal Cannula Nasal Cannula O2 Flow Rate 5.0 5.0 01/12/17 01/12/17 10:03 11:19 Pulse 90 89 Resp 22 24 B/P 124/62 132/66 Pulse Ox 98 99 O2 Delivery Nasal Cannula Nasal Cannula O2 Flow Rate 5.0 5.0 Intake and Output 01/11/17 01/11/17 01/12/17 15:00 23:00 07:00 Intake Total 300 ml Output Total 2175 ml 380 ml Balance 300 ml -2175 ml -380 ml VIOLET VILLEGAS MD Jan 12, 2017 11:36
--- NOTE | 2017-01-12 11:43 | PDOC ---
SUBJECTIVE ROS CKD III DOign OK overall but was having Arrhythmias so moved to ICU CVS: no Orthopnea, no CP RESP: no SOB, no GLEZ GI: no Nausea, no Vomiting : no Dysuria, no Urgency OBJECTIVE Vital Signs Vital Signs Date Time Temp Pulse Resp B/P Pulse Ox O2 Delivery O2 Flow Rate FiO2 01/12/17 11:37 Nasal Cannula 5.0 01/12/17 11:19 89 24 132/66 99 01/12/17 04:00 98.8 98.8 I & 0 Intake and Output 01/12/17 07:00 Intake Total 300 ml Output Total 2555 ml Balance -2255 ml Intake Oral 300 ml Output Urine Total 2555 ml PHYSICAL EXAM Physical Exam GEN: Awake, Oriented x 3, In no distress EYES: Vision Unchanged, Conjunctiva Normal EN: No EN Drainage, Mucous Membranes moist NECK: no JVD, min JVP, Supple, no Thyromegaly CVS: S1S2, + Murmur, No Gallop, No Rub,+ Edema RESP: rare Rales, no Rhonchi,no Acc. Muscle Use GI: BS + ve, NO Bruit, Non Tender, Non Distended : no CVA tenderness, no Suprapubic Tenderness DIAGNOSIS/ASSESSMENT Assessment & Plan CKD STAGE 3 v/s IV (on CrCL due to dec Mu Mass) CR OF 1.5-1.8 at baseline. Current fluid and E-lyte status does not necessitate emergent need for dialysis. Will re-evaluate for dialysis in the am HTN: Current BP meds as reviewed. See orders for changes. CHRONIC SYSTOLIC CHF with EF < 20% PLEURAL EFFUSION - s/p Thoracentesis Problems: COMMENT/RELEVANT DATA Meds Current Medications Medications (Trade) Dose Ordered Sig/Leonel Start Time Stop Time Status Last Admin Dose Admin Acetaminophen (Tylenol) 650 mg PRN Q6HRS PRN 01/06/17 05:00 01/11/17 06:17 650 MG Albuterol Sulfate (Ventolin Neb Soln) 2.5 mg 1X ONCE 01/07/17 11:45 01/07/17 11:46 DC 01/07/17 15:45 2.5 MG Albuterol/ Ipratropium (Duoneb) 3 ml 1X ONCE 01/08/17 12:45 01/08/17 12:46 DC Amiodarone HCl (Cordarone) 200 mg DAILY 01/06/17 10:00 01/11/17 08:32 200 MG Amiodarone HCl 150 mg/Dextrose 103 ml @ 618 mls/hr 1X ONCE 01/12/17 07:15 01/12/17 07:24 DC 01/12/17 08:29 618 MLS/HR Amiodarone HCl 900 mg/Dextrose 518 ml @ 0 mls/hr CONT PRN 01/12/17 07:30 01/12/17 08:31 DC 01/12/17 08:28 33.3 MLS/HR Ascorbic Acid (Vitamin C) 500 mg DAILY 01/08/17 09:00 01/12/17 09:18 500 MG Aspirin (Ecotrin) 81 mg DAILYWBKFT 01/08/17 08:00 01/11/17 08:34 81 MG Budesonide 0.5 mg 0.5 mg RTBID 01/12/17 08:00 01/12/17 09:04 0.5 MG Carvedilol (Coreg) 25 mg BIDWMEALS 01/06/17 10:30 01/06/17 11:51 DC 01/06/17 10:22 25 MG Dextrose 12.5 gm PRN Q15MIN PRN 01/06/17 09:45 01/09/17 00:56 12.5 GM Digoxin (Lanoxin) 125 mcg DAILY 01/06/17 10:30 01/12/17 09:19 125 MCG Furosemide (Lasix) 40 mg 1X ONCE 01/11/17 15:00 01/11/17 15:01 DC 01/11/17 15:00 40 MG Hydralazine HCl (Apresoline) 10 mg PRN Q4HRS PRN 01/06/17 05:00 Insulin Aspart (Novolog) 5 units TIDAC 01/08/17 16:30 01/10/17 09:04 DC Insulin Detemir (Levemir) 10 units BID 01/10/17 09:00 01/12/17 10:04 DC 01/12/17 09:40 10 UNITS Insulin Detemir 10 units 10 units DAILY 01/13/17 09:00 Ipratropium [place] (Atrovent) 0.5 mg RTQID 01/11/17 12:00 01/12/17 09:04 0.5 MG Levothyroxine Sodium (Synthroid) 100 mcg DAILY07 01/06/17 10:30 01/12/17 06:52 100 MCG Lidocaine/Sodium Bicarbonate (Buffered Lidocaine 1%) 8 ml 1X ONCE 01/09/17 16:30 01/09/17 16:31 DC 01/09/17 16:25 8 ML Lisinopril (Prinivil) 2.5 mg DAILY 01/06/17 10:30 01/08/17 08:36 DC 01/06/17 10:21 2.5 MG Magnesium Oxide (Magnesium Oxide) 400 mg DAILY 01/06/17 10:30 01/11/17 08:33 400 MG Magnesium Sulfate/ Dextrose 50 ml @ 25 mls/hr 1X ONCE 01/12/17 07:30 01/12/17 09:29 DC 01/12/17 08:29 25 MLS/HR Meropenem 1 gm/ Sodium Chloride 100 ml @ 200 mls/hr Q8HRS 01/12/17 11:00 01/12/17 11:22 200 MLS/HR Meropenem/Sodium Chloride (Merrem/Iv Sodium Chloride 0.9% 50ml) 50 ml @ 100 mls/hr Q8HRS 01/12/17 14:00 UNV Metolazone (Zaroxolyn) 5 mg DAILY 01/07/17 09:00 01/07/17 14:45 DC 01/07/17 08:40 5 MG Metolazone 2.5 mg 2.5 mg DAILY 01/08/17 09:00 01/08/17 09:00 DC Metoprolol Succinate (Toprol Xl) 25 mg DAILY 01/06/17 10:30 01/12/17 09:19 25 MG Morphine Sulfate 2 mg PRN Q2HR PRN 01/11/17 15:30 01/11/17 15:37 2 MG Multivitamins/ Calcium (Thera M Plus) 1 tab DAILY 01/08/17 09:00 01/12/17 09:18 1 TAB Non-Formulary Medication 500 mg DAILY 01/07/17 09:00 UNV Ondansetron HCl (Zofran) 4 mg PRN Q6HRS PRN 01/06/17 05:00 Phytonadione (Mephyton) 2.5 mg 1X ONCE 01/08/17 15:45 01/08/17 15:46 DC 01/08/17 16:02 2.5 MG Phytonadione/ Sodium Chloride (Vitamin K/Iv Sodium Chloride 0.9% 50ml) 51 ml @ 102 mls/hr 1X ONCE 01/08/17 11:00 01/08/17 11:29 DC 01/08/17 12:15 102 MLS/HR Potassium Chloride (KCl Premix 10meq) 100 ml @ 100 mls/hr 1X ONCE 01/12/17 09:00 01/12/17 09:59 DC 01/12/17 08:30 100 MLS/HR Potassium Chloride (Klor-Con) 40 meq 1X ONCE 01/10/17 09:15 01/10/17 09:16 DC 01/10/17 10:44 40 MEQ Simvastatin (Zocor) 10 mg QHS 01/06/17 21:00 01/11/17 20:47 10 MG Sodium Chloride 1,000 ml @ 100 mls/hr 1X ONCE 01/08/17 08:45 01/08/17 18:44 DC 01/08/17 10:53 100 MLS/HR Torsemide (Demadex) 20 mg DAILY 01/08/17 12:00 01/12/17 09:18 20 MG Vancomycin HCl 1 each 1X ONCE 01/14/17 10:30 01/14/17 10:31 Vancomycin HCl 1 each 1 each PRN DAILY PRN 01/12/17 10:15 01/12/17 11:26 1 EACH Vancomycin HCl 2 gm/Sodium Chloride 500 ml @ 250 mls/hr 1X ONCE 01/12/17 11:00 01/12/17 12:59 01/12/17 11:22 250 MLS/HR Vancomycin HCl/ Sodium Chloride (Iv Sodium Chloride 0.9% 500ml Bag) 500 ml @ 250 mls/hr Q24H 01/13/17 11:00 Vitamin D (Vitamin D3) 2,000 unit DAILY 01/06/17 10:00 01/12/17 09:19 2,000 UNIT Warfarin Sodium (Coumadin - No Dose Today) 1 each 1X WARF ONCE 01/09/17 16:00 01/09/17 16:01 DC Warfarin Sodium (Coumadin Per Pharmacy) 1 each PRN DAILY PRN 01/09/17 13:45 01/12/17 11:32 1 EACH Warfarin Sodium (Coumadin Per Physician) 1 each PRN DAILY PRN 01/06/17 10:45 01/07/17 13:37 DC 01/07/17 12:33 1 EACH Warfarin Sodium (Coumadin) 4 mg 1X WARF ONCE 01/12/17 16:00 01/12/17 16:01 Lab Laboratory Tests Test 01/11/17 11:44 01/11/17 17:14 01/11/17 20:40 01/12/17 05:00 Glucose (Fingerstick) 114mg/dL (70-99) 107mg/dL (70-99) 101mg/dL (70-99) Prothrombin Time 14.9SEC (11.7-14.0) Prothromb Time International Ratio 1.2 (0.8-1.1) Sodium Level 143mmol/L (136-145) Potassium Level 3.7mmol/L (3.5-5.1) Chloride Level 98mmol/L (98-107) Carbon Dioxide Level 38mmol/L (21-32) Anion Gap 7 (6-14) Blood Urea Nitrogen 66mg/dL (8-26) Creatinine 1.7mg/dL (0.7-1.3) Estimated GFR (Cockcroft-Gault) 40.4 Glucose Level 112mg/dL (70-99) Calcium Level 8.9mg/dL (8.5-10.1) Magnesium Level 1.9mg/dL (1.8-2.4) Test 01/12/17 08:34 Glucose (Fingerstick) 143mg/dL (70-99) JUAN JONES MD Jan 12, 2017 11:43
--- NOTE | 2017-01-12 12:53 | PDOC ---
PROGRESS NOTES Chief Complaint Chief Complaint 1. acute resp failure with systolic CHF exacerbation 2. systolic CHF exacerbation EF 15 % before 3. ICD, PPM 4. CHRNOIC afib, on coumadin 5. 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 AMS, slurry speech , hallucination, 2/2 hypoxica possibly,no stroke 7. HTN 8. JOHANN on CKD4, ATN 9. HLD 10. MR s/p repair 11. DM2 on insulin 12. high troponin, 2/2 2 likely 13. bl pleural effusion, moderate RT 14. hypokalemia 15. possible HAP plan: 1. card consult, echo done EF <20 2. cont home meds, held lasix, ACEI given JOHANN, GENTel IVF with card, renal consult, low dose torsomide 20mg daily 3. slightly decrease insulin to levemir 10u DAIly, dc aspart 4. on NC 3L. 5. thoracentesis done, resume warfarin 2mg daily home dose, INR daily. hEAD CT neg cont amiodarone drip for now, also on po, may need higher dose tmr as per card add vanco and meropenum for possible HAP. POOr prognosis, refuse hospice for now History of Present Illness History of Present Illness SOB again 01/11, transfered to ICU again Just had thoracentesis done few days ago, lots of fluid taken out EF 15% beseline with ICU- family not ready for hospice, introduced the concept I < O as per pulmo 6 times of ICD discharge for VT early today, torsades, stopped with amiodarone drip, on amiodarone po and dig po pt looks very weak Vitals Vitals Vital Signs Date Time Temp Pulse Resp B/P Pulse Ox O2 Delivery O2 Flow Rate FiO2 01/12/17 12:44 98 Nasal Cannula 3.0 01/12/17 12:10 98.9 89 22 125/64 98.9 Physical Exam General: Alert, Oriented X3, mild distress Heart: Regular rate Lungs: Crackles, Other (bl mild wheezing) Abdomen: Normal bowel sounds Extremities: No cyanosis, No edema (to BKA) Skin: No breakdown, No significant lesion Labs LABS Laboratory Tests Test 01/11/17 17:14 01/11/17 20:40 01/12/17 05:00 01/12/17 08:34 Glucose (Fingerstick) 107mg/dL (70-99) 101mg/dL (70-99) 143mg/dL (70-99) Prothrombin Time 14.9SEC (11.7-14.0) Prothromb Time International Ratio 1.2 (0.8-1.1) Sodium Level 143mmol/L (136-145) Potassium Level 3.7mmol/L (3.5-5.1) Chloride Level 98mmol/L (98-107) Carbon Dioxide Level 38mmol/L (21-32) Anion Gap 7 (6-14) Blood Urea Nitrogen 66mg/dL (8-26) Creatinine 1.7mg/dL (0.7-1.3) Estimated GFR (Cockcroft-Gault) 40.4 Glucose Level 112mg/dL (70-99) Calcium Level 8.9mg/dL (8.5-10.1) Magnesium Level 1.9mg/dL (1.8-2.4) Test 01/12/17 12:09 Glucose (Fingerstick) 121mg/dL (70-99) Review of Systems Review of Systems no fever, chills, chest pain Assessment and Plan Assessmemt and Plan Problems Medical Problems: (1) Acute congestive heart failure Status: Acute Problems: Comment Review of Relevant I have reviewed the following items anuja (where applicable) has been applied. Labs Laboratory Tests Test 01/10/17 12:51 01/10/17 16:41 01/10/17 20:28 01/11/17 03:50 Glucose (Fingerstick) 98mg/dL (70-99) 104mg/dL (70-99) 134mg/dL (70-99) Sodium Level 144mmol/L (136-145) Potassium Level 3.5mmol/L (3.5-5.1) Chloride Level 98mmol/L (98-107) Carbon Dioxide Level 37mmol/L (21-32) Anion Gap 9 (6-14) Blood Urea Nitrogen 62mg/dL (8-26) Creatinine 1.5mg/dL (0.7-1.3) Estimated GFR (Cockcroft-Gault) 46.7 Glucose Level 65mg/dL (70-99) Calcium Level 9.0mg/dL (8.5-10.1) Test 01/11/17 08:33 01/11/17 08:50 01/11/17 10:25 01/11/17 11:44 Glucose (Fingerstick) 86mg/dL (70-99) 114mg/dL (70-99) White Blood Count 10.1x10^3/uL (4.0-11.0) Red Blood Count 6.02x10^6/uL (4.30-5.70) Hemoglobin 14.3g/dL (13.0-17.5) Hematocrit 47.4% (39.0-53.0) Mean Corpuscular Volume 79fL (79-100) Mean Corpuscular Hemoglobin 24pg (25-35) Mean Corpuscular Hemoglobin Concent 30g/dL (31-37) Red Cell Distribution Width 22.4% (11.5-14.5) Platelet Count 119x10^3/uL (140-400) Neutrophils (%) (Auto) 81% (31-73) Lymphocytes (%) (Auto) 6% (24-48) Monocytes (%) (Auto) 10% (0-9) Eosinophils (%) (Auto) 3% (0-3) Basophils (%) (Auto) 1% (0-3) Neutrophils # (Auto) 8.2x10^3uL (1.8-7.7) Lymphocytes # (Auto) 0.6x10^3/uL (1.0-4.8) Monocytes # (Auto) 1.0x10^3/uL (0.0-1.1) Eosinophils # (Auto) 0.3x10^3/uL (0.0-0.7) Basophils # (Auto) 0.0x10^3/uL (0.0-0.2) Prothrombin Time 14.2SEC (11.7-14.0) Prothromb Time International Ratio 1.2 (0.8-1.1) Test 01/11/17 17:14 01/11/17 20:40 01/12/17 05:00 01/12/17 08:34 Glucose (Fingerstick) 107mg/dL (70-99) 101mg/dL (70-99) 143mg/dL (70-99) Prothrombin Time 14.9SEC (11.7-14.0) Prothromb Time International Ratio 1.2 (0.8-1.1) Sodium Level 143mmol/L (136-145) Potassium Level 3.7mmol/L (3.5-5.1) Chloride Level 98mmol/L (98-107) Carbon Dioxide Level 38mmol/L (21-32) Anion Gap 7 (6-14) Blood Urea Nitrogen 66mg/dL (8-26) Creatinine 1.7mg/dL (0.7-1.3) Estimated GFR (Cockcroft-Gault) 40.4 Glucose Level 112mg/dL (70-99) Calcium Level 8.9mg/dL (8.5-10.1) Magnesium Level 1.9mg/dL (1.8-2.4) Test 01/12/17 12:09 Glucose (Fingerstick) 121mg/dL (70-99) Laboratory Tests Test 01/11/17 17:14 01/11/17 20:40 01/12/17 05:00 01/12/17 08:34 Glucose (Fingerstick) 107mg/dL (70-99) 101mg/dL (70-99) 143mg/dL (70-99) Prothrombin Time 14.9SEC (11.7-14.0) Prothromb Time International Ratio 1.2 (0.8-1.1) Sodium Level 143mmol/L (136-145) Potassium Level 3.7mmol/L (3.5-5.1) Chloride Level 98mmol/L (98-107) Carbon Dioxide Level 38mmol/L (21-32) Anion Gap 7 (6-14) Blood Urea Nitrogen 66mg/dL (8-26) Creatinine 1.7mg/dL (0.7-1.3) Estimated GFR (Cockcroft-Gault) 40.4 Glucose Level 112mg/dL (70-99) Calcium Level 8.9mg/dL (8.5-10.1) Magnesium Level 1.9mg/dL (1.8-2.4) Test 01/12/17 12:09 Glucose (Fingerstick) 121mg/dL (70-99) Microbiology 01/09/17 Gram Stain - Final, Complete Medications Current Medications Acetaminophen (Tylenol) 650 mg PRN Q6HRS PRN PO MILD PAIN / TEMP Last administered on 01/11/17 06:17; Start 01/06/17 at 05:00 Ondansetron HCl (Zofran) 4 mg PRN Q6HRS PRN IV NAUSEA/VOMITING; Start 01/06/17 at 05:00 Hydralazine HCl (Apresoline) 10 mg PRN Q4HRS PRN IVP ELEVATED BP, SEE COMMENTS ; Start 01/06/17 at 05:00 Amiodarone HCl (Cordarone) 200 mg DAILY PO Last administered on 01/11/17 08:32 ; Start 01/06/17 at 10:00 Vitamin D (Vitamin D3) 2,000 unit DAILY PO Last administered on 01/12/17 09:19 ; Start 01/06/17 at 10:00 Digoxin (Lanoxin) 125 mcg DAILY PO Last administered on 01/12/17 09:19; Start 01/06/17 at 10:30 Levothyroxine Sodium (Synthroid) 100 mcg DAILY07 PO Last administered on 06:52; Start 01/06/17 at 10:30 Magnesium Oxide (Magnesium Oxide) 400 mg DAILY PO Last administered on 08:33; Start 01/06/17 at 10:30 Metoprolol Succinate (Toprol Xl) 25 mg DAILY PO Last administered on 01/12/17 09:19; Start 01/06/17 at 10:30 Simvastatin (Zocor) 10 mg QHS PO Last administered on 01/11/17 20:47; Start at 21:00 Torsemide (Demadex) 80 mg DAILY PO Last administered on 01/07/17 08:40; Start 01/06/17 at 10:30; Stop 01/07/17 at 11:53; Status DC Warfarin Sodium (Coumadin) 2 mg DAILY16 PO ; Start 01/06/17 at 16:00; Stop 01/06 at 16:00; Status DC Carvedilol (Coreg) 25 mg BIDWMEALS PO Last administered on 01/06/17 10:22; Start 01/06/17 at 10:30; Stop 01/06/17 at 11:51; Status DC Lisinopril (Prinivil) 2.5 mg DAILY PO Last administered on 01/06/17 10:21; Start 01/06/17 at 10:30; Stop 01/08/17 at 08:36; Status DC Insulin Aspart (Novolog) 10 units TIDAC SQ Last administered on 01/06/17 18:38 ; Start 01/06/17 at 11:30; Stop 01/07/17 at 12:38; Status DC Insulin Detemir (Levemir) 30 units BID SQ Last administered on 01/08/17 09:00 ; Start 01/06/17 at 10:30; Stop 01/08/17 at 12:56; Status DC Non-Formulary Medication 500 mg DAILY PO ; Start 01/07/17 at 09:00; Status UNV Torsemide (Demadex) 80 mg DAILY PO ; Start 01/06/17 at 10:00; Status UNV Insulin Aspart (Novolog) 0-9 UNITS TIDWMEALS SQ Last administered on 01/07/17 16:58; Start 01/06/17 at 12:00 Dextrose 12.5 gm PRN Q15MIN PRN IV SEE COMMENTS Last administered on 01/09/17 00:56; Start 01/06/17 at 09:45 Warfarin Sodium (Coumadin Per Physician) 1 each PRN DAILY PRN MC SEE COMMENTS Last administered on 01/07/17 12:33; Start 01/06/17 at 10:45; Stop 01/07/17 at 13:37; Status DC Furosemide (Lasix) 40 mg 1X ONCE IVP Last administered on 01/06/17 15:55; Start 01/06/17 at 16:00; Stop 01/06/17 at 16:01; Status DC Metolazone (Zaroxolyn) 5 mg DAILY PO Last administered on 01/07/17 08:40; Start 01/07/17 at 09:00; Stop 01/07/17 at 14:45; Status DC Ascorbic Acid (Vitamin C) 500 mg DAILY PO Last administered on 01/12/17 09:18 ; Start 01/08/17 at 09:00 Multivitamins/ Calcium (Thera M Plus) 1 tab DAILY PO Last administered on 09:18; Start 01/08/17 at 09:00 Albuterol Sulfate (Ventolin Neb Soln) 2.5 mg 1X ONCE NEB Last administered on 01/07/17 15:45; Start 01/07/17 at 11:45; Stop 01/07/17 at 11:46; Status DC Torsemide (Demadex) 40 mg DAILY PO ; Start 01/08/17 at 09:00; Stop 01/08/17 at 09:00; Status DC Insulin Aspart (Novolog) 8 units TIDAC SQ Last administered on 01/08/17 07:30 ; Start 01/07/17 at 16:30; Stop 01/08/17 at 12:56; Status DC Warfarin Sodium (Coumadin Per Pharmacy) 1 each PRN DAILY PRN MC SEE COMMENTS Last administered on 01/12/17 11:32; Start 01/09/17 at 13:45 Aspirin (Ecotrin) 81 mg DAILYWBKFT PO Last administered on 01/11/17 08:34; Start 01/08/17 at 08:00 Warfarin Sodium (Coumadin - No Dose Today) 1 each 1X WARF ONCE MC ; Start 01/07 at 16:00; Stop 01/07/17 at 16:01; Status DC Metolazone 2.5 mg 2.5 mg DAILY PO ; Start 01/08/17 at 09:00; Stop 01/08/17 at 09 :00; Status DC Sodium Chloride 1,000 ml @ 100 mls/hr 1X ONCE IV Last administered on 10:53; Start 01/08/17 at 08:45; Stop 01/08/17 at 18:44; Status DC Phytonadione/ Sodium Chloride (Vitamin K/Iv Sodium Chloride 0.9% 50ml) 51 ml @ 102 mls/hr 1X ONCE IV Last administered on 01/08/17 12:15; Start 01/08/17 at 11:00; Stop 01/08/17 at 11:29; Status DC Torsemide (Demadex) 20 mg DAILY PO Last administered on 01/12/17 09:18; Start 01/08/17 at 12:00 Albuterol/ Ipratropium (Duoneb) 3 ml 1X ONCE NEB ; Start 01/08/17 at 12:45; Stop 01/08/17 at 12:46; Status DC Insulin Aspart (Novolog) 5 units TIDAC SQ ; Start 01/08/17 at 16:30; Stop at 09:04; Status DC Insulin Detemir (Levemir) 25 units BID SQ Last administered on 01/10/17 08:58 ; Start 01/08/17 at 21:00; Stop 01/10/17 at 09:04; Status DC Warfarin Sodium (Coumadin - No Dose Today) 1 each 1X WARF ONCE MC ; Start 01/08 at 16:00; Stop 01/08/17 at 16:01; Status DC Phytonadione (Mephyton) 2.5 mg 1X ONCE PO Last administered on 01/08/17 16:02 ; Start 01/08/17 at 15:45; Stop 01/08/17 at 15:46; Status DC Warfarin Sodium (Coumadin - No Dose Today) 1 each 1X WARF ONCE MC ; Start 01/09 at 16:00; Stop 01/09/17 at 16:01; Status DC Lidocaine/Sodium Bicarbonate (Buffered Lidocaine 1%) 20 ml STK-MED ONCE IJ ; Start 01/09/17 at 15:15; Stop 01/09/17 at 15:16; Status DC Lidocaine/Sodium Bicarbonate (Buffered Lidocaine 1%) 8 ml 1X ONCE IJ Last administered on 01/09/17 16:25; Start 01/09/17 at 16:30; Stop 01/09/17 at 16:31 ; Status DC Potassium Chloride (Klor-Con) 40 meq 1X ONCE PO Last administered on 10:44; Start 01/10/17 at 09:15; Stop 01/10/17 at 09:16; Status DC Insulin Detemir (Levemir) 10 units BID SQ Last administered on 01/12/17 09:40 ; Start 01/10/17 at 09:00; Stop 01/12/17 at 10:04; Status DC Warfarin Sodium (Coumadin) 2 mg 1X WARF ONCE PO Last administered on 17:41; Start 01/10/17 at 16:00; Stop 01/10/17 at 16:01; Status DC Ipratropium [place] (Atrovent) 0.5 mg RTQID NEB Last administered on 01/12/17 12:43; Start 01/11/17 at 12:00 Warfarin Sodium (Coumadin) 4 mg 1X WARF ONCE PO Last administered on 16:34; Start 01/11/17 at 16:00; Stop 01/11/17 at 16:01; Status DC Furosemide (Lasix) 40 mg 1X ONCE IVP Last administered on 01/11/17 15:00; Start 01/11/17 at 15:00; Stop 01/11/17 at 15:01; Status DC Morphine Sulfate 2 mg PRN Q2HR PRN IV PAIN Last administered on 01/11/17 15:37 ; Start 01/11/17 at 15:30 Budesonide 0.5 mg 0.5 mg RTBID NEB Last administered on 01/12/17 09:04; Start 01/12/17 at 08:00 Amiodarone HCl 150 mg/Dextrose 103 ml @ 618 mls/hr 1X ONCE IV Last administered on 01/12/17 08:29; Start 01/12/17 at 07:15; Stop 01/12/17 at 07:24 ; Status DC Amiodarone HCl 900 mg/Dextrose 518 ml @ 0 mls/hr CONT PRN IV SEE I/O RECORD Last administered on 01/12/17 08:28; Start 01/12/17 at 07:30; Stop 01/12/17 at 08:31; Status DC Magnesium Sulfate/ Dextrose 50 ml @ 25 mls/hr 1X ONCE IV Last administered on 01/12/17 08:29; Start 01/12/17 at 07:30; Stop 01/12/17 at 09:29; Status DC Potassium Chloride (KCl Premix 10meq) 100 ml @ 100 mls/hr 1X ONCE IV Last administered on 01/12/17 08:30; Start 01/12/17 at 09:00; Stop 01/12/17 at 09:59 ; Status DC Insulin Detemir 10 units 10 units DAILY SQ ; Start 01/13/17 at 09:00 Meropenem 500 mg/ Sodium Chloride 50 ml @ 100 mls/hr Q8HRS IV ; Start 01/12/17 at 14:00; Status UNV Vancomycin HCl/ Sodium Chloride (Iv Sodium Chloride 0.9% 500ml Bag) 500 ml @ 250 mls/hr Q12H IV ; Start 01/12/17 at 10:15; Status UNV Vancomycin HCl 1 each 1 each PRN DAILY PRN MC SEE COMMENTS Last administered on 01/12/17 11:26; Start 01/12/17 at 10:15 Vancomycin HCl 2 gm/Sodium Chloride 500 ml @ 250 mls/hr 1X ONCE IV Last administered on 01/12/17 11:22; Start 01/12/17 at 11:00; Stop 01/12/17 at 12:59 Meropenem 1 gm/ Sodium Chloride 100 ml @ 200 mls/hr Q8HRS IV Last administered on 01/12/17 11:22; Start 01/12/17 at 11:00 Vancomycin HCl/ Sodium Chloride (Iv Sodium Chloride 0.9% 500ml Bag) 500 ml @ 250 mls/hr Q24H IV ; Start 01/13/17 at 11:00 Vancomycin HCl 1 each 1X ONCE MC ; Start 01/14/17 at 10:30; Stop 01/14/17 at 10 :31 Warfarin Sodium (Coumadin) 4 mg 1X WARF ONCE PO ; Start 01/12/17 at 16:00; Stop 01/12/17 at 16:01 Active Scripts Active Reported Torsemide 20 Mg Tablet 4 Tab PO DAILY Amiodarone Hcl 200 Mg Tablet 1 Tab PO DAILY Toprol Xl (Metoprolol Succinate) 25 Mg Tab.er.24h 1 Tab PO DAILY Novolog (Insulin Aspart) 100 Unit/1 Ml Cartridge 10 Unit SQ TID Lantus Solostar (Insulin Glargine,Hum.rec.anlog) 100 Unit/1 Ml Insuln.pen 40 Unit SQ BID Cyclobenzaprine Hcl 10 Mg Tablet 1 Tab PO TID Allopurinol 300 Mg Tablet 1 Tab PO DAILY Simvastatin 10 Mg Tablet 1 Tab PO QHS Coumadin (Warfarin Sodium) 2.5 Mg Tablet 1 Tab PO DAILY Potassium Gluconate 500 Mg Tablet 500 Mg PO DAILY Furosemide 40 Mg Tablet 1 Tab PO DAILY Mag-Oxide (Magnesium Oxide) 400 Mg Tablet 1 Tab PO DAILY Levothyroxine Sodium 100 Mcg Tablet 1 Tab PO DAILY Digoxin 125 Mcg Tablet 1 Tab PO DAILY Enalapril Maleate 2.5 Mg Tablet 1 Tab PO DAILY Vitamin D3 (Cholecalciferol (Vitamin D3)) 1,000 Unit Tablet 2,000 Unit PO DAILY Coreg (Carvedilol) 25 Mg Tablet 1 Tab PO BID Vitals/I & O Vital Sign - Last 24 Hours 01/11/17 01/11/17 01/11/17 01/11/17 15:00 15:37 16:00 16:15 Temp 101.8 98.9 101.8 98.9 Pulse 92 90 90 Resp 20 22 B/P 130/61 121/63 127/66 Pulse Ox 93 95 97 O2 Delivery Nasal Cannula Nasal Cannula Nasal Cannula Nasal Cannula O2 Flow Rate 2.0 2.0 3.0 3.0 2/18/17 2/18/17 2/18/17 2/18/17 16:30 16:39 16:45 17:00 Pulse 94 92 90 Resp 20 B/P 134/67 148/67 145/71 Pulse Ox 97 97 98 99 O2 Delivery Nasal Cannula Nasal Cannula Nasal Cannula Nasal Cannula O2 Flow Rate 3.0 4.0 3.0 3.0 2/18/17 2/18/17 2/18/17 2/18/17 18:00 19:00 19:28 19:51 Temp 98.2 98.2 Pulse 90 90 Resp B/P 125/55 148/63 Pulse Ox 99 98 98 O2 Delivery Nasal Cannula Nasal Cannula Nasal Cannula Nasal Cannula O2 Flow Rate 3.0 3.0 4.0 3.0 2/18/17 2/18/17 2/18/17 2/18/17 20:00 21:00 22:00 23:00 Pulse 90 88 94 92 Resp 18 20 18 18 B/P 129/67 147/68 140/67 137/74 Pulse Ox 98 94 96 98 O2 Delivery Nasal Cannula Nasal Cannula Nasal Cannula Nasal Cannula O2 Flow Rate 3.0 3.0 3.0 3.0 2/18/17 2/19/17 2/19/17 2/19/17 23:38 00:00 01:00 02:00 Temp 101.7 101.7 Pulse 92 90 92 Resp 18 18 18 B/P 139/74 111/53 92/47 Pulse Ox 99 96 96 O2 Delivery Nasal Cannula Nasal Cannula Nasal Cannula Nasal Cannula O2 Flow Rate 3.0 3.0 3.0 3.0 2/19/17 2/19/17 2/19/17 2/19/17 03:00 03:39 04:00 05:00 Temp 98.8 98.8 Pulse 88 94 86 Resp 18 18 18 B/P 117/67 Pulse Ox 95 95 98 O2 Delivery Nasal Cannula Nasal Cannula Nasal Cannula Nasal Cannula O2 Flow Rate 3.0 3.0 3.0 3.0 2/19/17 2/19/17 2/19/17 2/19/17 06:00 07:00 08:00 08:00 Pulse 92 104 88 Resp 18 24 B/P 117/59 140/66 122/59 Pulse Ox 95 97 95 O2 Delivery Nasal Cannula Nasal Cannula Nasal Cannula Nasal Cannula O2 Flow Rate 3.0 3.0 3.0 5.0 01/12/17 01/12/17 01/12/17 01/12/17 08:29 09:07 09:10 09:12 Pulse 105 89 Resp 20 B/P 122/79 137/70 Pulse Ox 98 98 100 O2 Delivery Nasal Cannula Nasal Cannula Nasal Cannula O2 Flow Rate 5.0 5.0 5.0 01/12/17 01/12/17 01/12/17 01/12/17 09:19 09:19 10:03 11:19 Pulse 89 89 90 89 Resp 24 B/P 137/70 137/70 124/62 132/66 Pulse Ox 98 99 O2 Delivery Nasal Cannula Nasal Cannula O2 Flow Rate 5.0 5.0 01/12/17 01/12/17 01/12/17 11:37 12:10 12:44 Temp 98.9 98.9 Pulse 89 Resp 22 B/P 125/64 Pulse Ox 98 98 O2 Delivery Nasal Cannula Nasal Cannula Nasal Cannula O2 Flow Rate 5.0 5.0 3.0 Intake and Output 01/11/17 01/11/17 01/12/17 15:00 23:00 07:00 Intake Total 300 ml Output Total 2175 ml 380 ml Balance 300 ml -2175 ml -380 ml RENATO WEBER MD Jan 12, 2017 12:53
[2017-01-12] MEDS ORDERED: MEROPENEM 500 MG in IV NORMAL SALINE 50ML 50 ML IV SCH (14:00)
[2017-01-12] MEDS ORDERED: WARFARIN 4 MG TABLET. PO ONE (16:00)
[2017-01-12] MEDS ORDERED: AMIODARONE IV ONE (16:00)
[2017-01-12] MEDS ORDERED: DEXTROSE 5% IV ONE (16:00)
[2017-01-12] MEDS: SIMVASTATIN 10 MG TABLET PO SCH (21:15)
[2017-01-13] VITALS (24 sets, daily range): BP systolic 105–121; BP diastolic 55–68
[2017-01-13] MEDS: MEROPENEM 1 GM in IV NORMAL SALINE 100ML 100 ML IV SCH ×3 (06:35→22:41)
--- NOTE | 2017-01-13 07:45 | PDOC ---
PROGRESS NOTES Chief Complaint Chief Complaint 1. Acute respiratory failure with systolic CHF exacerbation 2. Systolic CHF exacerbation EF 15 % before 3. ICD, PPM 4. CHRONIC afib, on Coumadin 5. 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 AMS, slurry speech , hallucination, 2/2 hypoxia 7. HTN 8. JOHANN on CKD4 9. HLD 10. MR s/p repair 11. DM2 on insulin 12. high troponin, 2/2 2 likely 13. bl pleural effusion, moderate RT 14. hypokalemia Plan on amiodarone gtt, no athymias noted last night, cardiology to adjust the dosage Meropenem and Vancomycin Renal dosing of vancomycin replace electrolytes Nephrology following monitor platelets hx of HIT INR not therapeutic, increase the dose of warfarin, Pharmacy dosing Coumadin Palliative care consult cardiology, pulmonolgy and nephrology following History of Present Illness History of Present Illness no acute issues at bedside no episodes of arrhythmias last night ams Vitals Vitals Vital Signs Date Time Temp Pulse Resp B/P Pulse Ox O2 Delivery O2 Flow Rate FiO2 01/13/17 06:00 88 18 121/65 99 01/13/17 04:00 98.1 98.1 01/13/17 04:00 Nasal Cannula 3.0 Physical Exam General: Alert, mild distress Heart: Regular rate, Normal S1, Normal S2 Lungs: Crackles, Other (bl mild wheezing) Abdomen: Normal bowel sounds Extremities: No cyanosis, No edema (to BKA) Skin: No breakdown, No significant lesion Labs LABS Laboratory Tests Test 01/12/17 08:34 01/12/17 12:09 01/12/17 17:10 Glucose (Fingerstick) 143mg/dL (70-99) 121mg/dL (70-99) 129mg/dL (70-99) Assessment and Plan Assessmemt and Plan Problems Medical Problems: (1) Acute congestive heart failure Status: Acute Problems: Comment Review of Relevant I have reviewed the following items anuja (where applicable) has been applied. Labs Laboratory Tests Test 01/11/17 08:33 01/11/17 08:50 01/11/17 10:25 01/11/17 11:44 Glucose (Fingerstick) 86mg/dL (70-99) 114mg/dL (70-99) White Blood Count 10.1x10^3/uL (4.0-11.0) Red Blood Count 6.02x10^6/uL (4.30-5.70) Hemoglobin 14.3g/dL (13.0-17.5) Hematocrit 47.4% (39.0-53.0) Mean Corpuscular Volume 79fL (79-100) Mean Corpuscular Hemoglobin 24pg (25-35) Mean Corpuscular Hemoglobin Concent 30g/dL (31-37) Red Cell Distribution Width 22.4% (11.5-14.5) Platelet Count 119x10^3/uL (140-400) Neutrophils (%) (Auto) 81% (31-73) Lymphocytes (%) (Auto) 6% (24-48) Monocytes (%) (Auto) 10% (0-9) Eosinophils (%) (Auto) 3% (0-3) Basophils (%) (Auto) 1% (0-3) Neutrophils # (Auto) 8.2x10^3uL (1.8-7.7) Lymphocytes # (Auto) 0.6x10^3/uL (1.0-4.8) Monocytes # (Auto) 1.0x10^3/uL (0.0-1.1) Eosinophils # (Auto) 0.3x10^3/uL (0.0-0.7) Basophils # (Auto) 0.0x10^3/uL (0.0-0.2) Prothrombin Time 14.2SEC (11.7-14.0) Prothromb Time International Ratio 1.2 (0.8-1.1) Test 01/11/17 17:14 01/11/17 20:40 01/12/17 05:00 01/12/17 08:34 Glucose (Fingerstick) 107mg/dL (70-99) 101mg/dL (70-99) 143mg/dL (70-99) Prothrombin Time 14.9SEC (11.7-14.0) Prothromb Time International Ratio 1.2 (0.8-1.1) Sodium Level 143mmol/L (136-145) Potassium Level 3.7mmol/L (3.5-5.1) Chloride Level 98mmol/L (98-107) Carbon Dioxide Level 38mmol/L (21-32) Anion Gap 7 (6-14) Blood Urea Nitrogen 66mg/dL (8-26) Creatinine 1.7mg/dL (0.7-1.3) Estimated GFR (Cockcroft-Gault) 40.4 Glucose Level 112mg/dL (70-99) Calcium Level 8.9mg/dL (8.5-10.1) Magnesium Level 1.9mg/dL (1.8-2.4) Test 01/12/17 12:09 01/12/17 17:10 Glucose (Fingerstick) 121mg/dL (70-99) 129mg/dL (70-99) Laboratory Tests Test 01/12/17 08:34 01/12/17 12:09 01/12/17 17:10 Glucose (Fingerstick) 143mg/dL (70-99) 121mg/dL (70-99) 129mg/dL (70-99) Microbiology 01/09/17 Gram Stain - Final, Complete Medications Current Medications Acetaminophen (Tylenol) 650 mg PRN Q6HRS PRN PO MILD PAIN / TEMP Last administered on 01/11/17 06:17; Start 01/06/17 at 05:00 Ondansetron HCl (Zofran) 4 mg PRN Q6HRS PRN IV NAUSEA/VOMITING; Start 01/06/17 at 05:00 Hydralazine HCl (Apresoline) 10 mg PRN Q4HRS PRN IVP ELEVATED BP, SEE COMMENTS ; Start 01/06/17 at 05:00 Amiodarone HCl (Cordarone) 200 mg DAILY PO Last administered on 01/11/17 08:32 ; Start 01/06/17 at 10:00 Vitamin D (Vitamin D3) 2,000 unit DAILY PO Last administered on 01/12/17 09:19 ; Start 01/06/17 at 10:00 Digoxin (Lanoxin) 125 mcg DAILY PO Last administered on 01/12/17 09:19; Start 01/06/17 at 10:30 Levothyroxine Sodium (Synthroid) 100 mcg DAILY07 PO Last administered on 06:52; Start 01/06/17 at 10:30 Magnesium Oxide (Magnesium Oxide) 400 mg DAILY PO Last administered on 08:33; Start 01/06/17 at 10:30 Metoprolol Succinate (Toprol Xl) 25 mg DAILY PO Last administered on 01/12/17 09:19; Start 01/06/17 at 10:30 Simvastatin (Zocor) 10 mg QHS PO Last administered on 01/12/17 21:15; Start at 21:00 Torsemide (Demadex) 80 mg DAILY PO Last administered on 01/07/17 08:40; Start 01/06/17 at 10:30; Stop 01/07/17 at 11:53; Status DC Warfarin Sodium (Coumadin) 2 mg DAILY16 PO ; Start 01/06/17 at 16:00; Stop 01/06 at 16:00; Status DC Carvedilol (Coreg) 25 mg BIDWMEALS PO Last administered on 01/06/17 10:22; Start 01/06/17 at 10:30; Stop 01/06/17 at 11:51; Status DC Lisinopril (Prinivil) 2.5 mg DAILY PO Last administered on 01/06/17 10:21; Start 01/06/17 at 10:30; Stop 01/08/17 at 08:36; Status DC Insulin Aspart (Novolog) 10 units TIDAC SQ Last administered on 01/06/17 18:38 ; Start 01/06/17 at 11:30; Stop 01/07/17 at 12:38; Status DC Insulin Detemir (Levemir) 30 units BID SQ Last administered on 01/08/17 09:00 ; Start 01/06/17 at 10:30; Stop 01/08/17 at 12:56; Status DC Non-Formulary Medication 500 mg DAILY PO ; Start 01/07/17 at 09:00; Status UNV Torsemide (Demadex) 80 mg DAILY PO ; Start 01/06/17 at 10:00; Status UNV Insulin Aspart (Novolog) 0-9 UNITS TIDWMEALS SQ Last administered on 01/07/17 16:58; Start 01/06/17 at 12:00 Dextrose 12.5 gm PRN Q15MIN PRN IV SEE COMMENTS Last administered on 01/09/17 00:56; Start 01/06/17 at 09:45 Warfarin Sodium (Coumadin Per Physician) 1 each PRN DAILY PRN MC SEE COMMENTS Last administered on 01/07/17 12:33; Start 01/06/17 at 10:45; Stop 01/07/17 at 13:37; Status DC Furosemide (Lasix) 40 mg 1X ONCE IVP Last administered on 01/06/17 15:55; Start 01/06/17 at 16:00; Stop 01/06/17 at 16:01; Status DC Metolazone (Zaroxolyn) 5 mg DAILY PO Last administered on 01/07/17 08:40; Start 01/07/17 at 09:00; Stop 01/07/17 at 14:45; Status DC Ascorbic Acid (Vitamin C) 500 mg DAILY PO Last administered on 01/12/17 09:18 ; Start 01/08/17 at 09:00 Multivitamins/ Calcium (Thera M Plus) 1 tab DAILY PO Last administered on 09:18; Start 01/08/17 at 09:00 Albuterol Sulfate (Ventolin Neb Soln) 2.5 mg 1X ONCE NEB Last administered on 01/07/17 15:45; Start 01/07/17 at 11:45; Stop 01/07/17 at 11:46; Status DC Torsemide (Demadex) 40 mg DAILY PO ; Start 01/08/17 at 09:00; Stop 01/08/17 at 09:00; Status DC Insulin Aspart (Novolog) 8 units TIDAC SQ Last administered on 01/08/17 07:30 ; Start 01/07/17 at 16:30; Stop 01/08/17 at 12:56; Status DC Warfarin Sodium (Coumadin Per Pharmacy) 1 each PRN DAILY PRN MC SEE COMMENTS Last administered on 01/12/17 11:32; Start 01/09/17 at 13:45 Aspirin (Ecotrin) 81 mg DAILYWBKFT PO Last administered on 01/11/17 08:34; Start 01/08/17 at 08:00 Warfarin Sodium (Coumadin - No Dose Today) 1 each 1X WARF ONCE MC ; Start 01/07 at 16:00; Stop 01/07/17 at 16:01; Status DC Metolazone 2.5 mg 2.5 mg DAILY PO ; Start 01/08/17 at 09:00; Stop 01/08/17 at 09 :00; Status DC Sodium Chloride 1,000 ml @ 100 mls/hr 1X ONCE IV Last administered on 10:53; Start 01/08/17 at 08:45; Stop 01/08/17 at 18:44; Status DC Phytonadione/ Sodium Chloride (Vitamin K/Iv Sodium Chloride 0.9% 50ml) 51 ml @ 102 mls/hr 1X ONCE IV Last administered on 01/08/17 12:15; Start 01/08/17 at 11:00; Stop 01/08/17 at 11:29; Status DC Torsemide (Demadex) 20 mg DAILY PO Last administered on 01/12/17 09:18; Start 01/08/17 at 12:00 Albuterol/ Ipratropium (Duoneb) 3 ml 1X ONCE NEB ; Start 01/08/17 at 12:45; Stop 01/08/17 at 12:46; Status DC Insulin Aspart (Novolog) 5 units TIDAC SQ ; Start 01/08/17 at 16:30; Stop at 09:04; Status DC Insulin Detemir (Levemir) 25 units BID SQ Last administered on 01/10/17 08:58 ; Start 01/08/17 at 21:00; Stop 01/10/17 at 09:04; Status DC Warfarin Sodium (Coumadin - No Dose Today) 1 each 1X WARF ONCE MC ; Start 01/08 at 16:00; Stop 01/08/17 at 16:01; Status DC Phytonadione (Mephyton) 2.5 mg 1X ONCE PO Last administered on 01/08/17 16:02 ; Start 01/08/17 at 15:45; Stop 01/08/17 at 15:46; Status DC Warfarin Sodium (Coumadin - No Dose Today) 1 each 1X WARF ONCE MC ; Start 01/09 at 16:00; Stop 01/09/17 at 16:01; Status DC Lidocaine/Sodium Bicarbonate (Buffered Lidocaine 1%) 20 ml STK-MED ONCE IJ ; Start 01/09/17 at 15:15; Stop 01/09/17 at 15:16; Status DC Lidocaine/Sodium Bicarbonate (Buffered Lidocaine 1%) 8 ml 1X ONCE IJ Last administered on 01/09/17 16:25; Start 01/09/17 at 16:30; Stop 01/09/17 at 16:31 ; Status DC Potassium Chloride (Klor-Con) 40 meq 1X ONCE PO Last administered on 10:44; Start 01/10/17 at 09:15; Stop 01/10/17 at 09:16; Status DC Insulin Detemir (Levemir) 10 units BID SQ Last administered on 01/12/17 09:40 ; Start 01/10/17 at 09:00; Stop 01/12/17 at 10:04; Status DC Warfarin Sodium (Coumadin) 2 mg 1X WARF ONCE PO Last administered on 17:41; Start 01/10/17 at 16:00; Stop 01/10/17 at 16:01; Status DC Ipratropium [place] (Atrovent) 0.5 mg RTQID NEB Last administered on 01/12/17 20:33; Start 01/11/17 at 12:00 Warfarin Sodium (Coumadin) 4 mg 1X WARF ONCE PO Last administered on 16:34; Start 01/11/17 at 16:00; Stop 01/11/17 at 16:01; Status DC Furosemide (Lasix) 40 mg 1X ONCE IVP Last administered on 01/11/17 15:00; Start 01/11/17 at 15:00; Stop 01/11/17 at 15:01; Status DC Morphine Sulfate 2 mg PRN Q2HR PRN IV PAIN Last administered on 01/11/17 15:37 ; Start 01/11/17 at 15:30 Budesonide 0.5 mg 0.5 mg RTBID NEB Last administered on 01/12/17 20:33; Start 01/12/17 at 08:00 Amiodarone HCl 150 mg/Dextrose 103 ml @ 618 mls/hr 1X ONCE IV Last administered on 01/12/17 08:29; Start 01/12/17 at 07:15; Stop 01/12/17 at 07:24 ; Status DC Amiodarone HCl 900 mg/Dextrose 518 ml @ 0 mls/hr CONT PRN IV SEE I/O RECORD Last administered on 01/12/17 08:28; Start 01/12/17 at 07:30; Stop 01/12/17 at 08:31; Status DC Magnesium Sulfate/ Dextrose 50 ml @ 25 mls/hr 1X ONCE IV Last administered on 01/12/17 08:29; Start 01/12/17 at 07:30; Stop 01/12/17 at 09:29; Status DC Potassium Chloride (KCl Premix 10meq) 100 ml @ 100 mls/hr 1X ONCE IV Last administered on 01/12/17 08:30; Start 01/12/17 at 09:00; Stop 01/12/17 at 09:59 ; Status DC Insulin Detemir 10 units 10 units DAILY SQ ; Start 01/13/17 at 09:00 Meropenem 500 mg/ Sodium Chloride 50 ml @ 100 mls/hr Q8HRS IV ; Start 01/12/17 at 14:00; Status UNV Vancomycin HCl/ Sodium Chloride (Iv Sodium Chloride 0.9% 500ml Bag) 500 ml @ 250 mls/hr Q12H IV ; Start 01/12/17 at 10:15; Status UNV Vancomycin HCl 1 each 1 each PRN DAILY PRN MC SEE COMMENTS Last administered on 01/12/17 11:26; Start 01/12/17 at 10:15 Vancomycin HCl 2 gm/Sodium Chloride 500 ml @ 250 mls/hr 1X ONCE IV Last administered on 01/12/17 11:22; Start 01/12/17 at 11:00; Stop 01/12/17 at 12:59 ; Status DC Meropenem 1 gm/ Sodium Chloride 100 ml @ 200 mls/hr Q8HRS IV Last administered on 01/13/17 06:35; Start 01/12/17 at 11:00 Vancomycin HCl/ Sodium Chloride (Iv Sodium Chloride 0.9% 500ml Bag) 500 ml @ 250 mls/hr Q24H IV ; Start 01/13/17 at 11:00 Vancomycin HCl 1 each 1X ONCE MC ; Start 01/14/17 at 10:30; Stop 01/14/17 at 10 :31 Warfarin Sodium 4 mg 4 mg 1X WARF ONCE PO Last administered on 01/12/17 16:29 ; Start 01/12/17 at 16:00; Stop 01/12/17 at 16:01; Status DC Amiodarone HCl 50 mg/Dextrose 101 ml @ 618 mls/hr 1X ONCE IV Last administered on 01/12/17 15:48; Start 01/12/17 at 16:00; Stop 01/12/17 at 16:09 ; Status DC Amiodarone HCl/ Dextrose (Cordarone) 518 ml @ 33 mls/hr CONT PRN IV SEE I/O RECORD Last administered on 01/13/17t 06:36; Start 01/12/17 at 15:30; Stop 01/13 at 06:36; Status DC Active Scripts Active Reported Torsemide 20 Mg Tablet 4 Tab PO DAILY Amiodarone Hcl 200 Mg Tablet 1 Tab PO DAILY Toprol Xl (Metoprolol Succinate) 25 Mg Tab.er.24h 1 Tab PO DAILY Novolog (Insulin Aspart) 100 Unit/1 Ml Cartridge 10 Unit SQ TID Lantus Solostar (Insulin Glargine,Hum.rec.anlog) 100 Unit/1 Ml Insuln.pen 40 Unit SQ BID Cyclobenzaprine Hcl 10 Mg Tablet 1 Tab PO TID Allopurinol 300 Mg Tablet 1 Tab PO DAILY Simvastatin 10 Mg Tablet 1 Tab PO QHS Coumadin (Warfarin Sodium) 2.5 Mg Tablet 1 Tab PO DAILY Potassium Gluconate 500 Mg Tablet 500 Mg PO DAILY Furosemide 40 Mg Tablet 1 Tab PO DAILY Mag-Oxide (Magnesium Oxide) 400 Mg Tablet 1 Tab PO DAILY Levothyroxine Sodium 100 Mcg Tablet 1 Tab PO DAILY Digoxin 125 Mcg Tablet 1 Tab PO DAILY Enalapril Maleate 2.5 Mg Tablet 1 Tab PO DAILY Vitamin D3 (Cholecalciferol (Vitamin D3)) 1,000 Unit Tablet 2,000 Unit PO DAILY Coreg (Carvedilol) 25 Mg Tablet 1 Tab PO BID Vitals/I & O Vital Sign - Last 24 Hours 01/12/17 01/12/17 01/12/17 01/12/17 08:00 08:00 08:29 09:07 Pulse 88 105 Resp 24 B/P 122/59 122/79 Pulse Ox 95 98 O2 Delivery Nasal Cannula Nasal Cannula Nasal Cannula O2 Flow Rate 3.0 5.0 5.0 01/12/17 01/12/17 01/12/17 01/12/17 09:10 09:12 09:19 09:19 Pulse 89 89 89 Resp 20 B/P 137/70 137/70 137/70 Pulse Ox 98 100 O2 Delivery Nasal Cannula Nasal Cannula O2 Flow Rate 5.0 5.0 01/12/17 01/12/17 01/12/17 01/12/17 10:03 11:19 11:37 12:10 Temp 98.9 98.9 Pulse 90 89 89 Resp 22 24 22 B/P 124/62 132/66 125/64 Pulse Ox 98 99 98 O2 Delivery Nasal Cannula Nasal Cannula Nasal Cannula Nasal Cannula O2 Flow Rate 5.0 5.0 5.0 5.0 01/12/17 2//17 2//17 2 12:44 13:00 14:00 15:18 Pulse 87 89 89 Resp 20 22 24 B/P 113/59 117/64 116/68 Pulse Ox 98 97 97 96 O2 Delivery Nasal Cannula Nasal Cannula Nasal Cannula Nasal Cannula O2 Flow Rate 3.0 5.0 5.0 5.0 01/12/17 2/17 2//01/12/17 15:48 15:48 15:57 16:17 Pulse 89 92 Resp 20 B/P 120/61 119/70 Pulse Ox 98 97 O2 Delivery Nasal Cannula Nasal Cannula Nasal Cannula O2 Flow Rate 3.0 3.0 5.0 01/12/1701/12/ 2/01/12/17 17:11 18:02 19:30 20:00 Temp 99.0 99.0 Pulse 96 89 89 89 Resp 22 20 B/P 119/57 122/71 113/69 113/60 Pulse Ox 96 93 95 95 O2 Delivery Nasal Cannula Nasal Cannula O2 Flow Rate 5.0 5.0 01/12/17 2//17 2//01/12/17 20:00 20:00 20:00 20:35 Temp 97.9 97.9 Resp 18 Pulse Ox 98 O2 Delivery Nasal Cannula Nasal Cannula O2 Flow Rate 5.0 3.0 01/12/17 2/17 2// 2 20:35 21:00 22:00 22:00 Pulse 72 89 Resp 21 B/P 90/52 118/64 Pulse Ox 98 100 97 O2 Delivery Nasal Cannula O2 Flow Rate 3.0 17 2 2//01/13/17 23:00 00:00 00:00 00:00 Pulse 89 90 Resp 19 B/P 118/58 116/61 Pulse Ox 97 97 O2 Delivery Nasal Cannula O2 Flow Rate 3.0 01/13/1701/13/ 2/01/13/17 00:00 01:00 02:00 03:00 Temp 98.2 98.2 Pulse 93 89 86 B/P 117/63 114/67 121/57 Pulse Ox 99 98 99 01/13/17 01/13/17 01/13/17 01/13/17 04:00 04:00 05:00 06:00 Temp 98.1 98.1 Pulse 87 89 88 Resp 18 B/P 116/61 121/67 121/65 Pulse Ox 97 98 99 O2 Delivery Nasal Cannula O2 Flow Rate 3.0 Intake and Output 01/12/17 01/12/17 01/13/17 15:00 23:00 07:00 Intake Total 700 ml 1701 ml 590 ml Output Total 800 ml 850 ml Balance 700 ml 901 ml -260 ml MARITZA CHEN MD Jan 13, 2017 07:45
[2017-01-13 07:52] LABS: BASO # 0.1 x10^3/uL (0.0-0.2); BASO % 1 % (0-3); EOS % 2 % (0-3); HEMATOCRIT 46.6 % (39.0-53.0); HEMOGLOBIN 14.4 g/dL (13.0-17.5); LYMPH # 0.9 x10^3/uL (1.0-4.8); LYMPH % 10 % (24-48); MEAN CORPUSCULAR HEMOGLOBIN 24 pg (25-35); MEAN CORPUSCULAR HGB CONC 31 g/dL (31-37); MEAN CORPUSCULAR VOLUME 78 fL (79-100); MONO % 6 % (0-9); NEUT % 81 % (31-73); PLATELET COUNT 106 x10^3/uL (140-400); RED CELL DISTRIBUTION WIDTH 22.4 % (11.5-14.5); WHITE BLOOD COUNT 8.9 x10^3/uL (4.0-11.0)
[2017-01-13 07:53] LABS: CALCIUM 8.5 mg/dL (8.5-10.1); CREATININE 1.7 mg/dL (0.7-1.3); GFR 40.4; MAGNESIUM 2.2 mg/dL (1.8-2.4); POTASSIUM 3.2 mmol/L (3.5-5.1)
[2017-01-13] MEDS: INSULIN ASPART 300 UNITS/3 ML INSULN.PEN SQ SCH ×3 (08:00→17:00)
[2017-01-13] MEDS: LEVOTHYROXINE 100 MCG TABLET PO SCH (08:01)
[2017-01-13] MEDS: ASPIRIN ENTERIC COATED 81 MG TABLET.DR. PO SCH (08:01)
[2017-01-13 08:05] LABS: INR 1.4 (0.8-1.1); PROTHROMBIN TIME PATIENT 16.5 SEC (11.7-14.0)
[2017-01-13] MEDS: BUDESONIDE 0.5 MG/2 ML NEBU NEB SCH (08:15)
[2017-01-13] MEDS: IPRATROPIUM BROMIDE 0.5 MG/2.5 ML NEBU. NEB SCH ×4 (08:15→19:40)
[2017-01-13] MEDS: VANCOMYCIN PER PHARMACY MC PRN (08:26)
[2017-01-13] MEDS: AMIODARONE HCL 200 MG TABLET PO SCH ×2 (08:48→11:11)
[2017-01-13] MEDS: INSULIN DETEMIR 300 UNITS/3 ML INSULN.PEN. SQ SCH (09:00)
[2017-01-13] MEDS: TORSEMIDE 20 MG TABLET. PO SCH (09:00)
[2017-01-13] MEDS: CHOLECALCIFEROL (VITAMIN D3) 1,000 UNIT TABLET PO SCH (09:00)
[2017-01-13] MEDS: ASCORBIC ACID 500 MG TABLET PO SCH (09:00)
[2017-01-13] MEDS: MAGNESIUM OXIDE 400 MG TABLET PO SCH (09:00)
[2017-01-13] MEDS: METOPROLOL SUCC 24HR ER 25 MG TAB.ER.24H. PO SCH (09:00)
[2017-01-13] MEDS: DIGOXIN 125 MCG TABLET PO SCH (09:00)
[2017-01-13] MEDS: MULTIVITAMIN with MINERAL TABLET. PO SCH (09:00)
--- NOTE | 2017-01-13 09:16 | PDOC ---
SUBJECTIVE ROS CKD III remains on Amio gtt. + Cough with thick phlegm. COnstipated CVS: no Orthopnea, no CP RESP: no SOB, no GLEZ GI: no Nausea, no Vomiting : no Dysuria, no Urgency OBJECTIVE Vital Signs Vital Signs Date Time Temp Pulse Resp B/P Pulse Ox O2 Delivery O2 Flow Rate FiO2 01/13/17 09:03 98.5 89 20 114/61 98 98.5 01/13/17 08:00 Nasal Cannula 3.0 I & 0 Intake and Output 01/13/17 07:00 Intake Total 2991 ml Output Total 1650 ml Balance 1341 ml Intake Oral 120 ml IV Total 1645 ml Other 1226 ml Output Urine Total 1650 ml PHYSICAL EXAM Physical Exam GEN: Awake, Oriented x 3, In no distress EYES: Vision Unchanged, Conjunctiva Normal EN: No EN Drainage, Mucous Membranes moist NECK: no JVD, min JVP, Supple, no Thyromegaly CVS: S1S2, + Murmur, No Gallop, No Rub,+ Edema RESP: rare Rales, no Rhonchi,no Acc. Muscle Use GI: BS + ve, NO Bruit, Non Tender, Non Distended : no CVA tenderness, no Suprapubic Tenderness DIAGNOSIS/ASSESSMENT CKD STAGE 3 v/s IV (on CrCL due to dec Mu Mass) CR OF 1.5-1.8 at baseline. Current fluid and E-lyte status does not necessitate emergent need for dialysis. Will re-evaluate for dialysis in the am HTN: Current BP meds as reviewed. See orders for changes. CHRONIC SYSTOLIC CHF with EF < 20% Constipation - bowel regimen as ordered Cough and phlegm - defer to Pulm HypoKalmeia - replace PO COMMENT/RELEVANT DATA Meds Current Medications Medications (Trade) Dose Ordered Sig/Leonel Start Time Stop Time Status Last Admin Dose Admin Acetaminophen (Tylenol) 650 mg PRN Q6HRS PRN 01/06/17 05:00 01/11/17 06:17 650 MG Albuterol Sulfate (Ventolin Neb Soln) 2.5 mg 1X ONCE 01/07/17 11:45 01/07/17 11:46 DC 01/07/17 15:45 2.5 MG Albuterol/ Ipratropium (Duoneb) 3 ml 1X ONCE 01/08/17 12:45 01/08/17 12:46 DC Amiodarone HCl (Cordarone) 200 mg DAILY 01/06/17 10:00 01/11/17 08:32 200 MG Amiodarone HCl 150 mg/Dextrose 103 ml @ 618 mls/hr 1X ONCE 01/12/17 07:15 01/12/17 07:24 DC 01/12/17 08:29 618 MLS/HR Amiodarone HCl 900 mg/Dextrose 518 ml @ 0 mls/hr CONT PRN 01/12/17 07:30 01/12/17 08:31 DC 01/12/17 08:28 33.3 MLS/HR Amiodarone HCl 50 mg/Dextrose 101 ml @ 618 mls/hr 1X ONCE 01/12/17 16:00 01/12/17 16:09 DC 01/12/17 15:48 618 MLS/HR Amiodarone HCl/ Dextrose (Cordarone) 518 ml @ 33 mls/hr CONT PRN 01/12/17 15:30 01/13/17 06:36 DC 01/13/17 06:36 33 MLS/HR Ascorbic Acid (Vitamin C) 500 mg DAILY 01/08/17 09:00 01/13/17 09:00 500 MG Aspirin (Ecotrin) 81 mg DAILYWBKFT 01/08/17 08:00 01/13/17 08:01 81 MG Budesonide 0.5 mg 0.5 mg RTBID 01/12/17 08:00 01/13/17 08:15 0.5 MG Carvedilol (Coreg) 25 mg BIDWMEALS 01/06/17 10:30 01/06/17 11:51 DC 01/06/17 10:22 25 MG Dextrose 12.5 gm PRN Q15MIN PRN 01/06/17 09:45 01/09/17 00:56 12.5 GM Digoxin (Lanoxin) 125 mcg DAILY 01/06/17 10:30 01/13/17 09:00 125 MCG Furosemide (Lasix) 40 mg 1X ONCE 01/11/17 15:00 01/11/17 15:01 DC 01/11/17 15:00 40 MG Hydralazine HCl (Apresoline) 10 mg PRN Q4HRS PRN 01/06/17 05:00 Insulin Aspart (Novolog) 5 units TIDAC 2/15/17 16:30 01/10/17 09:04 DC Insulin Detemir (Levemir) 10 units BID 01/10/17 09:00 01/12/17 10:04 DC 01/12/17 09:40 10 UNITS Insulin Detemir 10 units 10 units DAILY 01/13/17 09:00 Ipratropium [place] (Atrovent) 0.5 mg RTQID 01/11/17 12:00 01/13/17 08:15 0.5 MG Levothyroxine Sodium (Synthroid) 100 mcg DAILY07 01/06/17 10:30 01/13/17 08:01 100 MCG Lidocaine/Sodium Bicarbonate (Buffered Lidocaine 1%) 8 ml 1X ONCE 01/09/17 16:30 01/09/17 16:31 DC 01/09/17 16:25 8 ML Lisinopril (Prinivil) 2.5 mg DAILY 01/06/17 10:30 01/08/17 08:36 DC 01/06/17 10:21 2.5 MG Magnesium Oxide (Magnesium Oxide) 400 mg DAILY 01/06/17 10:30 01/13/17 09:00 400 MG Magnesium Sulfate/ Dextrose 50 ml @ 25 mls/hr 1X ONCE 01/12/17 07:30 01/12/17 09:29 DC 01/12/17 08:29 25 MLS/HR Meropenem 1 gm/ Sodium Chloride 100 ml @ 200 mls/hr Q8HRS 01/12/17 11:00 01/13/17 06:35 200 MLS/HR Meropenem/Sodium Chloride (Merrem/Iv Sodium Chloride 0.9% 50ml) 50 ml @ 100 mls/hr Q8HRS 01/12/17 14:00 UNV Metolazone (Zaroxolyn) 5 mg DAILY 01/07/17 09:00 01/07/17 14:45 DC 01/07/17 08:40 5 MG Metolazone 2.5 mg 2.5 mg DAILY 01/08/17 09:00 01/08/17 09:00 DC Metoprolol Succinate (Toprol Xl) 25 mg DAILY 01/06/17 10:30 01/13/17 09:00 25 MG Morphine Sulfate 2 mg PRN Q2HR PRN 01/11/17 15:30 01/11/17 15:37 2 MG Multivitamins/ Calcium (Thera M Plus) 1 tab DAILY 01/08/17 09:00 01/13/17 09:00 1 TAB Non-Formulary Medication 500 mg DAILY 01/07/17 09:00 UNV Ondansetron HCl (Zofran) 4 mg PRN Q6HRS PRN 01/06/17 05:00 Phytonadione (Mephyton) 2.5 mg 1X ONCE 01/08/17 15:45 01/08/17 15:46 DC 01/08/17 16:02 2.5 MG Phytonadione/ Sodium Chloride (Vitamin K/Iv Sodium Chloride 0.9% 50ml) 51 ml @ 102 mls/hr 1X ONCE 01/08/17 11:00 01/08/17 11:29 DC 01/08/17 12:15 102 MLS/HR Potassium Chloride (KCl Premix 10meq) 100 ml @ 100 mls/hr 1X ONCE 01/12/17 09:00 01/12/17 09:59 DC 01/12/17 08:30 100 MLS/HR Potassium Chloride (Klor-Con) 40 meq 1X ONCE 01/10/17 09:15 01/10/17 09:16 DC 01/10/17 10:44 40 MEQ Simvastatin (Zocor) 10 mg QHS 01/06/17 21:00 01/12/17 21:15 10 MG Sodium Chloride 1,000 ml @ 100 mls/hr 1X ONCE 01/08/17 08:45 01/08/17 18:44 DC 01/08/17 10:53 100 MLS/HR Torsemide (Demadex) 20 mg DAILY 01/08/17 12:00 01/13/17 09:00 20 MG Vancomycin HCl 1 each 1X ONCE 01/14/17 10:30 01/14/17 10:31 Vancomycin HCl 1 each 1 each PRN DAILY PRN 01/12/17 10:15 01/13/17 08:26 1 EACH Vancomycin HCl 2 gm/Sodium Chloride 500 ml @ 250 mls/hr 1X ONCE 01/12/17 11:00 01/12/17 12:59 DC 01/12/17 11:22 250 MLS/HR Vancomycin HCl/ Sodium Chloride (Iv Sodium Chloride 0.9% 500ml Bag) 500 ml @ 250 mls/hr Q24H 01/13/17 11:00 Vitamin D (Vitamin D3) 2,000 unit DAILY 01/06/17 10:00 01/13/17 09:00 2,000 UNIT Warfarin Sodium (Coumadin - No Dose Today) 1 each 1X WARF ONCE 01/09/17 16:00 01/09/17 16:01 DC Warfarin Sodium (Coumadin Per Pharmacy) 1 each PRN DAILY PRN 01/09/17 13:45 01/13/17 08:30 1 EACH Warfarin Sodium (Coumadin Per Physician) 1 each PRN DAILY PRN 01/06/17 10:45 01/07/17 13:37 DC 01/07/17 12:33 1 EACH Warfarin Sodium (Coumadin) 5 mg 1X WARF ONCE 01/13/17 16:00 01/13/17 16:01 Warfarin Sodium 4 mg 4 mg 1X WARF ONCE 01/12/17 16:00 01/12/17 16:01 DC 01/12/17 16:29 4 MG Lab Laboratory Tests Test 01/12/17 12:09 01/12/17 17:10 01/13/17 06:44 01/13/17 08:04 Glucose (Fingerstick) 121mg/dL (70-99) 129mg/dL (70-99) 133mg/dL (70-99) White Blood Count 8.9x10^3/uL (4.0-11.0) Red Blood Count 6.00x10^6/uL (4.30-5.70) Hemoglobin 14.4g/dL (13.0-17.5) Hematocrit 46.6% (39.0-53.0) Mean Corpuscular Volume 78fL (79-100) Mean Corpuscular Hemoglobin 24pg (25-35) Mean Corpuscular Hemoglobin Concent 31g/dL (31-37) Red Cell Distribution Width 22.4% (11.5-14.5) Platelet Count 106x10^3/uL (140-400) Neutrophils (%) (Auto) 81% (31-73) Lymphocytes (%) (Auto) 10% (24-48) Monocytes (%) (Auto) 6% (0-9) Eosinophils (%) (Auto) 2% (0-3) Basophils (%) (Auto) 1% (0-3) Neutrophils # (Auto) 7.2x10^3uL (1.8-7.7) Lymphocytes # (Auto) 0.9x10^3/uL (1.0-4.8) Monocytes # (Auto) 0.5x10^3/uL (0.0-1.1) Eosinophils # (Auto) 0.2x10^3/uL (0.0-0.7) Basophils # (Auto) 0.1x10^3/uL (0.0-0.2) Prothrombin Time 16.5SEC (11.7-14.0) Prothromb Time International Ratio 1.4 (0.8-1.1) Sodium Level 143mmol/L (136-145) Potassium Level 3.2mmol/L (3.5-5.1) Chloride Level 99mmol/L (98-107) Carbon Dioxide Level 37mmol/L (21-32) Anion Gap 7 (6-14) Blood Urea Nitrogen 73mg/dL (8-26) Creatinine 1.7mg/dL (0.7-1.3) Estimated GFR (Cockcroft-Gault) 40.4 Glucose Level 129mg/dL (70-99) Calcium Level 8.5mg/dL (8.5-10.1) Magnesium Level 2.2mg/dL (1.8-2.4) JUAN JONES MD Jan 13, 2017 09:16
[2017-01-13] MEDS: POTASSIUM CHLORIDE 20 MEQ TABLET.ER. PO SCH ×3 (09:29→20:40)
[2017-01-13] MEDS: VANCOMYCIN 1.5 GM in IV NORMAL SALINE 500ML BAG 500 ML IV SCH (11:12)
--- NOTE | 2017-01-13 11:49 | PDOC ---
CARDIO Progress Notes Date and Time Date of Service 01/13/17 Time of Evaluation 1030 Subjective Subjective: No Chest Pain, No Palpitations, No Dizziness, Other (mild SOA, fatigued ) Vitals Vitals Vital Signs Date Time Temp Pulse Resp B/P Pulse Ox O2 Delivery O2 Flow Rate FiO2 01/13/17 11:14 92 22 112/56 97 01/13/17 09:03 98.5 98.5 01/13/17 08:00 Nasal Cannula 3.0 Weight Weight [ ] Input and Output Intake and Output Intake and Output 01/13/17 07:00 Intake Total 2991 ml Output Total 1650 ml Balance 1341 ml Intake Oral 120 ml IV Total 1645 ml Other 1226 ml Output Urine Total 1650 ml Laboratory Labs Laboratory Tests Test 01/12/17 12:09 01/12/17 17:10 01/13/17 06:44 01/13/17 08:04 Glucose (Fingerstick) 121mg/dL (70-99) 129mg/dL (70-99) 133mg/dL (70-99) White Blood Count 8.9x10^3/uL (4.0-11.0) Red Blood Count 6.00x10^6/uL (4.30-5.70) Hemoglobin 14.4g/dL (13.0-17.5) Hematocrit 46.6% (39.0-53.0) Mean Corpuscular Volume 78fL (79-100) Mean Corpuscular Hemoglobin 24pg (25-35) Mean Corpuscular Hemoglobin Concent 31g/dL (31-37) Red Cell Distribution Width 22.4% (11.5-14.5) Platelet Count 106x10^3/uL (140-400) Neutrophils (%) (Auto) 81% (31-73) Lymphocytes (%) (Auto) 10% (24-48) Monocytes (%) (Auto) 6% (0-9) Eosinophils (%) (Auto) 2% (0-3) Basophils (%) (Auto) 1% (0-3) Neutrophils # (Auto) 7.2x10^3uL (1.8-7.7) Lymphocytes # (Auto) 0.9x10^3/uL (1.0-4.8) Monocytes # (Auto) 0.5x10^3/uL (0.0-1.1) Eosinophils # (Auto) 0.2x10^3/uL (0.0-0.7) Basophils # (Auto) 0.1x10^3/uL (0.0-0.2) Prothrombin Time 16.5SEC (11.7-14.0) Prothromb Time International Ratio 1.4 (0.8-1.1) Sodium Level 143mmol/L (136-145) Potassium Level 3.2mmol/L (3.5-5.1) Chloride Level 99mmol/L (98-107) Carbon Dioxide Level 37mmol/L (21-32) Anion Gap 7 (6-14) Blood Urea Nitrogen 73mg/dL (8-26) Creatinine 1.7mg/dL (0.7-1.3) Estimated GFR (Cockcroft-Gault) 40.4 Glucose Level 129mg/dL (70-99) Calcium Level 8.5mg/dL (8.5-10.1) Magnesium Level 2.2mg/dL (1.8-2.4) Microbiology Micro Microbiology 01/09/17 Gram Stain - Final, Complete Review of Systems Constitutional: yes: alert, weakness Ears/Nose/Throat: Yes: no symptom reported Eyes: Yes: no symptom reported Pulmonary: Yes dyspnea Cardiovascular: Yes edema Gastrointestional: Yes: constipation Genitourinary: Yes: no symptom reported Skin: Yes no symptom reported Physical Exam HEENT: Neck Supple W Full Motion Chest: Symmetric LUNGS: Other (bibasilar crackles ) Heart: S1S2, murmurs (3/6 systolic murmur to LLS border), irregularly irregular (Paced with underlying AFIB; no significant rhythm ectopies overnight) Abdomen: Soft N/T Extremities: Other (bilateral BKA; no stump edema, no scrotal edema) Neurology: alert, oriented, follow commands Assessment Assessment 1. 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 Ventricular arrhythmia s/p multiple ICD discharges 3. 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 COPD 4. HTN/HLP/DM2 5. 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 PAFIB: Paced with underlying AFIB. 7. JOHANN on CKD3 8. Hx of mitral valve repair , Hx of HIT (2009) 9. ? DINO Recommendations Increase Amiodarone to 400mg PO Qday No further significant arrhythmias overnight on Amio gtt. Will decrease to 0.5mg /min x24hrs. Interrogate device K replaced. Monitor lytes. Keep Mg >2.0 and K >4.0. Bilateral pleural effusion- repeat CXR to eval need for further diuresis. Needs outpatient DINO workup- ?contributing factor. Need for nocturnal desat study? FORREST SAGE APRN Jan 13, 2017 11:49
--- NOTE | 2017-01-13 12:10 | PDOC2 ---
PALLIATIVE CARE Palliative Care Note Palliative Care Consult requested by Dr. Cheung to address goals of care. Patient admitted 01/06 with SOB; mental status changes. 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 COPD . HTN/HLP/DM2 . 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 PAFIB: Paced with underlying AFIB. . JOHANN on [id number], Hx of HIT (2009) Currently changes are being made with Amiodarone dosages Per staff refuses Hospice. ??DNI but wants compressions will arrange family meeting FELICITY PRITCHARD Jan 13, 2017 12:10
[2017-01-13] MEDS ORDERED: FUROSEMIDE 40 MG/4 ML VIAL IVP ONE (14:15)
--- NOTE | 2017-01-13 15:42 | PDOC ---
PULMONARY PROGRESS NOTES Subjective transfered to icu for resp distress, on 02, responded to lasix, NO INCREASE SOA Vitals Vital Signs Date Time Temp Pulse Resp B/P Pulse Ox O2 Delivery O2 Flow Rate FiO2 01/13/17 14:00 88 20 113/68 99 01/13/17 12:49 Nasal Cannula 3.0 01/13/17 09:03 98.5 98.5 ROS: No Nausea, No Chest Pain, No Abdominal Pain, No Increase Cough General: Alert, No acute distress HEENT: Other (nc at perrl thorat clear) Lungs: Crackles Cardiovascular: S1, S2 Abdomen: Soft, Non-tender Neuro Exam: Alert Extremities: Other ( + edema, s/p bka) Skin: Warm Labs Laboratory Tests Test 01/11/17 17:14 01/11/17 20:40 01/12/17 05:00 01/12/17 08:34 Glucose (Fingerstick) 107mg/dL (70-99) 101mg/dL (70-99) 143mg/dL (70-99) Prothrombin Time 14.9SEC (11.7-14.0) Prothromb Time International Ratio 1.2 (0.8-1.1) Sodium Level 143mmol/L (136-145) Potassium Level 3.7mmol/L (3.5-5.1) Chloride Level 98mmol/L (98-107) Carbon Dioxide Level 38mmol/L (21-32) Anion Gap 7 (6-14) Blood Urea Nitrogen 66mg/dL (8-26) Creatinine 1.7mg/dL (0.7-1.3) Estimated GFR (Cockcroft-Gault) 40.4 Glucose Level 112mg/dL (70-99) Calcium Level 8.9mg/dL (8.5-10.1) Magnesium Level 1.9mg/dL (1.8-2.4) Test 01/12/17 12:09 01/12/17 17:10 01/13/17 06:44 01/13/17 08:04 Glucose (Fingerstick) 121mg/dL (70-99) 129mg/dL (70-99) 133mg/dL (70-99) White Blood Count 8.9x10^3/uL (4.0-11.0) Red Blood Count 6.00x10^6/uL (4.30-5.70) Hemoglobin 14.4g/dL (13.0-17.5) Hematocrit 46.6% (39.0-53.0) Mean Corpuscular Volume 78fL (79-100) Mean Corpuscular Hemoglobin 24pg (25-35) Mean Corpuscular Hemoglobin Concent 31g/dL (31-37) Red Cell Distribution Width 22.4% (11.5-14.5) Platelet Count 106x10^3/uL (140-400) Neutrophils (%) (Auto) 81% (31-73) Lymphocytes (%) (Auto) 10% (24-48) Monocytes (%) (Auto) 6% (0-9) Eosinophils (%) (Auto) 2% (0-3) Basophils (%) (Auto) 1% (0-3) Neutrophils # (Auto) 7.2x10^3uL (1.8-7.7) Lymphocytes # (Auto) 0.9x10^3/uL (1.0-4.8) Monocytes # (Auto) 0.5x10^3/uL (0.0-1.1) Eosinophils # (Auto) 0.2x10^3/uL (0.0-0.7) Basophils # (Auto) 0.1x10^3/uL (0.0-0.2) Prothrombin Time 16.5SEC (11.7-14.0) Prothromb Time International Ratio 1.4 (0.8-1.1) Sodium Level 143mmol/L (136-145) Potassium Level 3.2mmol/L (3.5-5.1) Chloride Level 99mmol/L (98-107) Carbon Dioxide Level 37mmol/L (21-32) Anion Gap 7 (6-14) Blood Urea Nitrogen 73mg/dL (8-26) Creatinine 1.7mg/dL (0.7-1.3) Estimated GFR (Cockcroft-Gault) 40.4 Glucose Level 129mg/dL (70-99) Calcium Level 8.5mg/dL (8.5-10.1) Magnesium Level 2.2mg/dL (1.8-2.4) Test 01/13/17 12:06 Glucose (Fingerstick) 145mg/dL (70-99) Laboratory Tests Test 01/12/17 17:10 01/13/17 06:44 01/13/17 08:04 01/13/17 12:06 Glucose (Fingerstick) 129mg/dL (70-99) 133mg/dL (70-99) 145mg/dL (70-99) White Blood Count 8.9x10^3/uL (4.0-11.0) Red Blood Count 6.00x10^6/uL (4.30-5.70) Hemoglobin 14.4g/dL (13.0-17.5) Hematocrit 46.6% (39.0-53.0) Mean Corpuscular Volume 78fL (79-100) Mean Corpuscular Hemoglobin 24pg (25-35) Mean Corpuscular Hemoglobin Concent 31g/dL (31-37) Red Cell Distribution Width 22.4% (11.5-14.5) Platelet Count 106x10^3/uL (140-400) Neutrophils (%) (Auto) 81% (31-73) Lymphocytes (%) (Auto) 10% (24-48) Monocytes (%) (Auto) 6% (0-9) Eosinophils (%) (Auto) 2% (0-3) Basophils (%) (Auto) 1% (0-3) Neutrophils # (Auto) 7.2x10^3uL (1.8-7.7) Lymphocytes # (Auto) 0.9x10^3/uL (1.0-4.8) Monocytes # (Auto) 0.5x10^3/uL (0.0-1.1) Eosinophils # (Auto) 0.2x10^3/uL (0.0-0.7) Basophils # (Auto) 0.1x10^3/uL (0.0-0.2) Prothrombin Time 16.5SEC (11.7-14.0) Prothromb Time International Ratio 1.4 (0.8-1.1) Sodium Level 143mmol/L (136-145) Potassium Level 3.2mmol/L (3.5-5.1) Chloride Level 99mmol/L (98-107) Carbon Dioxide Level 37mmol/L (21-32) Anion Gap 7 (6-14) Blood Urea Nitrogen 73mg/dL (8-26) Creatinine 1.7mg/dL (0.7-1.3) Estimated GFR (Cockcroft-Gault) 40.4 Glucose Level 129mg/dL (70-99) Calcium Level 8.5mg/dL (8.5-10.1) Magnesium Level 2.2mg/dL (1.8-2.4) Medications Active Scripts Medications Dose Route/Sig Days Date Category Torsemide 20 Mg Tablet 4 Tab PO DAILY 01/06/17 Reported Amiodarone Hcl 200 Mg Tablet 1 Tab PO DAILY 01/06/17 Reported Toprol Xl (Metoprolol Succinate) 25 Mg Tab.er.24h 1 Tab PO DAILY 01/06/17 Reported Novolog (Insulin Aspart) 100 Unit/1 Ml Cartridge 10 Unit SQ TID 06/08/16 Reported Lantus Solostar (Insulin Glargine,Hum.rec.anlog) 100 Unit/1 Ml Insuln.pen 40 Unit SQ BID 06/08/16 Reported Cyclobenzaprine Hcl 10 Mg Tablet 1 Tab PO TID 06/08/16 Reported Allopurinol 300 Mg Tablet 1 Tab PO DAILY 06/08/16 Reported Simvastatin 10 Mg Tablet 1 Tab PO QHS 06/08/16 Reported Coumadin (Warfarin Sodium) 2.5 Mg Tablet 1 Tab PO DAILY 06/08/16 Reported Potassium Gluconate 500 Mg Tablet 500 Mg PO DAILY 06/08/16 Reported Furosemide 40 Mg Tablet 1 Tab PO DAILY 06/08/16 Reported Mag-Oxide (Magnesium Oxide) 400 Mg Tablet 1 Tab PO DAILY 11/06/15 Reported Levothyroxine Sodium 100 Mcg Tablet 1 Tab PO DAILY 11/06/15 Reported Digoxin 125 Mcg Tablet 1 Tab PO DAILY 11/06/15 Reported Enalapril Maleate 2.5 Mg Tablet 1 Tab PO DAILY 11/06/15 Reported Vitamin D3 (Cholecalciferol (Vitamin D3)) 1,000 Unit Tablet 2,000 Unit PO DAILY 11/06/15 Reported Coreg (Carvedilol) 25 Mg Tablet 1 Tab PO BID 11/06/[address] reviewed, CT CHEST 1. Moderate sized right pleural effusion with underlying right lower lobe atelectasis and partial atelectasis of the right middle and upper lobes. 2. Mild patchy groundglass opacities and interlobular septal thickening compatible with mild pulmonary edema. 3. Severe generalized cardiomegaly. Impression . 1. Acute respiratory failure secondary to acute systolic heart failure. 2. Acute on chronic systolic heart failure with previous ejection fraction estimated at 15%. 3. Status post implantable cardioverter-defibrillator placement. 4. Abnormal x-ray revealing a large right-sided effusion S/P thoracentesis 5. Chronic atrial fibrillation, on Coumadin. 6. History of heparin-induced thrombocytopenia, status post bilateral below knee amputation. 7. Hypertension. 8. Chronic kidney disease. 9. Type 2 diabetes. 10. Elevated troponin level. 11. possible DINO Plan . outpt sleep study follow card input NEB alesia bipap prn on coumadin, adjust dose per inr. monitor for bleeding. follow up on cytology palliative care meeting TIMMY BACON MD Jan 13, 2017 15:42
[2017-01-13] MEDS ORDERED: WARFARIN 5 MG TABLET. PO ONE (16:00)
--- NOTE | 2017-01-13 16:35 | RAD ---
Portable chest, 01/13/2017: History: Shortness of breath, pleural effusion Comparison is made to a study from 01/11/2017. There has been a previous median sternotomy. A left-sided transvenous pacemaker remains in place. The heart is enlarged. There are patchy bilateral pulmonary infiltrates similar to those seen on the previous exam. There has been little if any improvement. No large volume of pleural fluid is seen. No new abnormality is detected. IMPRESSION: Ongoing moderate patchy pulmonary infiltrates suggesting pulmonary edema and/or pneumonia.
[2017-01-13] MEDS: AMIODARONE 900 MG in IV DEXTROSE 5% 500 ML IV PRN ×2 (19:40→22:24)
[2017-01-13] MEDS: SIMVASTATIN 10 MG TABLET PO SCH (20:40)
[2017-01-14] VITALS (24 sets, daily range): BP systolic 91–125; BP diastolic 58–74
[2017-01-14 05:18] LABS: INR 1.5 (0.8-1.1); PROTHROMBIN TIME PATIENT 17.5 SEC (11.7-14.0)
[2017-01-14] MEDS: MEROPENEM 1 GM in IV NORMAL SALINE 100ML 100 ML IV SCH ×3 (05:28→21:46)
[2017-01-14 06:07] LABS: CALCIUM 8.5 mg/dL (8.5-10.1); CREATININE 1.4 mg/dL (0.7-1.3); GFR 50.5; MAGNESIUM 1.9 mg/dL (1.8-2.4)
[2017-01-14] MEDS: LEVOTHYROXINE 100 MCG TABLET PO SCH (06:11)
[2017-01-14] MEDS: INSULIN ASPART 300 UNITS/3 ML INSULN.PEN SQ SCH ×3 (08:00→17:00)
[2017-01-14] MEDS: MULTIVITAMIN with MINERAL TABLET. PO SCH (08:11)
[2017-01-14] MEDS: AMIODARONE HCL 200 MG TABLET PO SCH (08:12)
[2017-01-14] MEDS: MAGNESIUM OXIDE 400 MG TABLET PO SCH (08:12)
[2017-01-14] MEDS: TORSEMIDE 20 MG TABLET. PO SCH (08:12)
[2017-01-14] MEDS: DIGOXIN 125 MCG TABLET PO SCH (08:12)
[2017-01-14] MEDS: POTASSIUM CHLORIDE 20 MEQ TABLET.ER. PO SCH ×3 (08:12→21:46)
[2017-01-14] MEDS: CHOLECALCIFEROL (VITAMIN D3) 1,000 UNIT TABLET PO SCH (08:12)
[2017-01-14] MEDS: ASPIRIN ENTERIC COATED 81 MG TABLET.DR. PO SCH (08:13)
[2017-01-14] MEDS: METOPROLOL SUCC 24HR ER 25 MG TAB.ER.24H. PO SCH (08:13)
[2017-01-14] MEDS: INSULIN DETEMIR 300 UNITS/3 ML INSULN.PEN. SQ SCH (08:13)
[2017-01-14] MEDS: ASCORBIC ACID 500 MG TABLET PO SCH (08:15)
[2017-01-14] MEDS: IPRATROPIUM BROMIDE 0.5 MG/2.5 ML NEBU. NEB SCH ×4 (09:01→19:57)
--- NOTE | 2017-01-14 10:45 | PDOC ---
PULMONARY PROGRESS NOTES Subjective no soa Vitals Vital Signs Date Time Temp Pulse Resp B/P Pulse Ox O2 Delivery O2 Flow Rate FiO2 01/14/17 10:00 89 12 95/70 100 Nasal Cannula 4.0 01/14/17 08:00 97.7 97.7 ROS: No Nausea, No Chest Pain, No Abdominal Pain, No Increase Cough General: Alert, No acute distress HEENT: Other (nc at perrl thorat clear) Lungs: Crackles (bases) Cardiovascular: S1, S2 Abdomen: Soft, Non-tender Neuro Exam: Alert Extremities: Other ( + edema, s/p bka) Skin: Warm Labs Laboratory Tests Test 01/12/17 12:09 01/12/17 17:10 01/13/17 06:44 01/13/17 08:04 Glucose (Fingerstick) 121mg/dL (70-99) 129mg/dL (70-99) 133mg/dL (70-99) White Blood Count 8.9x10^3/uL (4.0-11.0) Red Blood Count 6.00x10^6/uL (4.30-5.70) Hemoglobin 14.4g/dL (13.0-17.5) Hematocrit 46.6% (39.0-53.0) Mean Corpuscular Volume 78fL (79-100) Mean Corpuscular Hemoglobin 24pg (25-35) Mean Corpuscular Hemoglobin Concent 31g/dL (31-37) Red Cell Distribution Width 22.4% (11.5-14.5) Platelet Count 106x10^3/uL (140-400) Neutrophils (%) (Auto) 81% (31-73) Lymphocytes (%) (Auto) 10% (24-48) Monocytes (%) (Auto) 6% (0-9) Eosinophils (%) (Auto) 2% (0-3) Basophils (%) (Auto) 1% (0-3) Neutrophils # (Auto) 7.2x10^3uL (1.8-7.7) Lymphocytes # (Auto) 0.9x10^3/uL (1.0-4.8) Monocytes # (Auto) 0.5x10^3/uL (0.0-1.1) Eosinophils # (Auto) 0.2x10^3/uL (0.0-0.7) Basophils # (Auto) 0.1x10^3/uL (0.0-0.2) Prothrombin Time 16.5SEC (11.7-14.0) Prothromb Time International Ratio 1.4 (0.8-1.1) Sodium Level 143mmol/L (136-145) Potassium Level 3.2mmol/L (3.5-5.1) Chloride Level 99mmol/L (98-107) Carbon Dioxide Level 37mmol/L (21-32) Anion Gap 7 (6-14) Blood Urea Nitrogen 73mg/dL (8-26) Creatinine 1.7mg/dL (0.7-1.3) Estimated GFR (Cockcroft-Gault) 40.4 Glucose Level 129mg/dL (70-99) Calcium Level 8.5mg/dL (8.5-10.1) Magnesium Level 2.2mg/dL (1.8-2.4) Test 01/13/17 12:06 01/13/17 17:04 01/14/17 04:25 01/14/17 08:10 Glucose (Fingerstick) 145mg/dL (70-99) 101mg/dL (70-99) 105mg/dL (70-99) Prothrombin Time 17.5SEC (11.7-14.0) Prothromb Time International Ratio 1.5 (0.8-1.1) Sodium Level 144mmol/L (136-145) Potassium Level 4.0mmol/L (3.5-5.1) Chloride Level 102mmol/L (98-107) Carbon Dioxide Level 36mmol/L (21-32) Anion Gap 6 (6-14) Blood Urea Nitrogen 66mg/dL (8-26) Creatinine 1.4mg/dL (0.7-1.3) Estimated GFR (Cockcroft-Gault) 50.5 Glucose Level 98mg/dL (70-99) Calcium Level 8.5mg/dL (8.5-10.1) Magnesium Level 1.9mg/dL (1.8-2.4) Laboratory Tests Test 01/13/17 12:06 01/13/17 17:04 01/14/17 04:25 01/14/17 08:10 Glucose (Fingerstick) 145mg/dL (70-99) 101mg/dL (70-99) 105mg/dL (70-99) Prothrombin Time 17.5SEC (11.7-14.0) Prothromb Time International Ratio 1.5 (0.8-1.1) Sodium Level 144mmol/L (136-145) Potassium Level 4.0mmol/L (3.5-5.1) Chloride Level 102mmol/L (98-107) Carbon Dioxide Level 36mmol/L (21-32) Anion Gap 6 (6-14) Blood Urea Nitrogen 66mg/dL (8-26) Creatinine 1.4mg/dL (0.7-1.3) Estimated GFR (Cockcroft-Gault) 50.5 Glucose Level 98mg/dL (70-99) Calcium Level 8.5mg/dL (8.5-10.1) Magnesium Level 1.9mg/dL (1.8-2.4) Medications Active Scripts Medications Dose Route/Sig Days Date Category Torsemide 20 Mg Tablet 4 Tab PO DAILY 01/06/17 Reported Amiodarone Hcl 200 Mg Tablet 1 Tab PO DAILY 01/06/17 Reported Toprol Xl (Metoprolol Succinate) 25 Mg Tab.er.24h 1 Tab PO DAILY 01/06/17 Reported Novolog (Insulin Aspart) 100 Unit/1 Ml Cartridge 10 Unit SQ TID 06/08/16 Reported Lantus Solostar (Insulin Glargine,Hum.rec.anlog) 100 Unit/1 Ml Insuln.pen 40 Unit SQ BID 06/08/16 Reported Cyclobenzaprine Hcl 10 Mg Tablet 1 Tab PO TID 06/08/16 Reported Allopurinol 300 Mg Tablet 1 Tab PO DAILY 06/08/16 Reported Simvastatin 10 Mg Tablet 1 Tab PO QHS 06/08/16 Reported Coumadin (Warfarin Sodium) 2.5 Mg Tablet 1 Tab PO DAILY 06/08/16 Reported Potassium Gluconate 500 Mg Tablet 500 Mg PO DAILY 06/08/16 Reported Furosemide 40 Mg Tablet 1 Tab PO DAILY 06/08/16 Reported Mag-Oxide (Magnesium Oxide) 400 Mg Tablet 1 Tab PO DAILY 11/06/15 Reported Levothyroxine Sodium 100 Mcg Tablet 1 Tab PO DAILY 11/06/15 Reported Digoxin 125 Mcg Tablet 1 Tab PO DAILY 11/06/15 Reported Enalapril Maleate 2.5 Mg Tablet 1 Tab PO DAILY 11/06/15 Reported Vitamin D3 (Cholecalciferol (Vitamin D3)) 1,000 Unit Tablet 2,000 Unit PO DAILY 11/06/15 Reported Coreg (Carvedilol) 25 Mg Tablet 1 Tab PO BID 11/06/[address] reviewed, CT CHEST 1. Moderate sized right pleural effusion with underlying right lower lobe atelectasis and partial atelectasis of the right middle and upper lobes. 2. Mild patchy groundglass opacities and interlobular septal thickening compatible with mild pulmonary edema. 3. Severe generalized cardiomegaly. Impression . 1. Acute respiratory failure secondary to acute systolic heart failure. 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 Acute on chronic systolic heart failure with previous ejection fraction estimated at 15%. 3. Status post implantable cardioverter-defibrillator placement. 4. Abnormal x-ray revealing a large right-sided effusion S/P thoracentesis 5. Chronic atrial fibrillation, on Coumadin. 6. History of heparin-induced thrombocytopenia, status post bilateral below knee amputation. 7. Hypertension. 8. Chronic kidney disease. 9. Type 2 diabetes. 10. Elevated troponin level. 11. possible DINO Plan . outpt sleep study follow card input NEB diures as tolerated bipap prn on coumadin, adjust dose per inr. monitor for bleeding. follow up on cytology monitor CXR while on Amiodarone palliative care meeting today d/w WANDA Ritter MD Jan 14, 2017 10:45
[2017-01-14] MEDS: VANCOMYCIN 1.5 GM in IV NORMAL SALINE 500ML BAG 500 ML IV SCH (11:00)
[2017-01-14] MEDS: VANCOMYCIN PER PHARMACY MC PRN (13:37)
--- NOTE | 2017-01-14 14:10 | PDOC ---
PROGRESS NOTES Chief Complaint Chief Complaint a/p 1. Acute respiratory failure with systolic CHF exacerbation 2. Systolic CHF exacerbation EF 15 % before 3. ICD, PPM 4. CHRONIC afib, on Coumadin 5. 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 AMS, slurry speech , hallucination, 2/2 hypoxia 7. HTN 8. JOHANN on CKD4 9. HLD 10. MR s/p repair 11. DM2 on insulin 12. high troponin, 2/2 2 likely 13. B/L pleural effusion, moderate RT 14. hypokalemia resolved. Plan on amiodarone gtt, no athymias noted last night, cardiology to adjust the dosage Meropenem and Vancomycin Renal dosing of vancomycin replace electrolytes Nephrology following monitor platelets hx of HIT INR not therapeutic, increase the dose of warfarin, Pharmacy dosing Coumadin Palliative care consult cardiology, pulmonolgy and nephrology following History of Present Illness History of Present Illness afib again last night decreased oral intake at bedside no fever Vitals Vitals Vital Signs Date Time Temp Pulse Resp B/P Pulse Ox O2 Delivery O2 Flow Rate FiO2 01/14/17 13:12 100 Nasal Cannula 2.0 01/14/17 13:00 89 32 112/62 01/14/17 12:00 98.6 98.6 Physical Exam General: Alert, mild distress Heart: Regular rate, Normal S1, Normal S2 Lungs: Clear, Crackles Abdomen: Normal bowel sounds Extremities: No cyanosis, No edema (to BKA) Skin: No breakdown, No significant lesion Labs LABS Laboratory Tests Test 01/13/17 17:04 01/14/17 04:25 01/14/17 08:10 01/14/17 10:25 Glucose (Fingerstick) 101mg/dL (70-99) 105mg/dL (70-99) Prothrombin Time 17.5SEC (11.7-14.0) Prothromb Time International Ratio 1.5 (0.8-1.1) Sodium Level 144mmol/L (136-145) Potassium Level 4.0mmol/L (3.5-5.1) Chloride Level 102mmol/L (98-107) Carbon Dioxide Level 36mmol/L (21-32) Anion Gap 6 (6-14) Blood Urea Nitrogen 66mg/dL (8-26) Creatinine 1.4mg/dL (0.7-1.3) Estimated GFR (Cockcroft-Gault) 50.5 Glucose Level 98mg/dL (70-99) Calcium Level 8.5mg/dL (8.5-10.1) Magnesium Level 1.9mg/dL (1.8-2.4) Vancomycin Level Trough 21.5mcg/mL (10.0-20.0) Vancomycin Last Dose Date 01/13/17 Vancomycin Last Dose Time 1100 Test 01/14/17 12:00 Glucose (Fingerstick) 99mg/dL (70-99) Assessment and Plan Assessmemt and Plan Problems Medical Problems: (1) Acute congestive heart failure Status: Acute Problems: Comment Review of Relevant I have reviewed the following items anuja (where applicable) has been applied. Labs Laboratory Tests Test 01/12/17 17:10 01/13/17 06:44 01/13/17 08:04 01/13/17 12:06 Glucose (Fingerstick) 129mg/dL (70-99) 133mg/dL (70-99) 145mg/dL (70-99) White Blood Count 8.9x10^3/uL (4.0-11.0) Red Blood Count 6.00x10^6/uL (4.30-5.70) Hemoglobin 14.4g/dL (13.0-17.5) Hematocrit 46.6% (39.0-53.0) Mean Corpuscular Volume 78fL (79-100) Mean Corpuscular Hemoglobin 24pg (25-35) Mean Corpuscular Hemoglobin Concent 31g/dL (31-37) Red Cell Distribution Width 22.4% (11.5-14.5) Platelet Count 106x10^3/uL (140-400) Neutrophils (%) (Auto) 81% (31-73) Lymphocytes (%) (Auto) 10% (24-48) Monocytes (%) (Auto) 6% (0-9) Eosinophils (%) (Auto) 2% (0-3) Basophils (%) (Auto) 1% (0-3) Neutrophils # (Auto) 7.2x10^3uL (1.8-7.7) Lymphocytes # (Auto) 0.9x10^3/uL (1.0-4.8) Monocytes # (Auto) 0.5x10^3/uL (0.0-1.1) Eosinophils # (Auto) 0.2x10^3/uL (0.0-0.7) Basophils # (Auto) 0.1x10^3/uL (0.0-0.2) Prothrombin Time 16.5SEC (11.7-14.0) Prothromb Time International Ratio 1.4 (0.8-1.1) Sodium Level 143mmol/L (136-145) Potassium Level 3.2mmol/L (3.5-5.1) Chloride Level 99mmol/L (98-107) Carbon Dioxide Level 37mmol/L (21-32) Anion Gap 7 (6-14) Blood Urea Nitrogen 73mg/dL (8-26) Creatinine 1.7mg/dL (0.7-1.3) Estimated GFR (Cockcroft-Gault) 40.4 Glucose Level 129mg/dL (70-99) Calcium Level 8.5mg/dL (8.5-10.1) Magnesium Level 2.2mg/dL (1.8-2.4) Test 01/13/17 17:04 01/14/17 04:25 01/14/17 08:10 01/14/17 10:25 Glucose (Fingerstick) 101mg/dL (70-99) 105mg/dL (70-99) Prothrombin Time 17.5SEC (11.7-14.0) Prothromb Time International Ratio 1.5 (0.8-1.1) Sodium Level 144mmol/L (136-145) Potassium Level 4.0mmol/L (3.5-5.1) Chloride Level 102mmol/L (98-107) Carbon Dioxide Level 36mmol/L (21-32) Anion Gap 6 (6-14) Blood Urea Nitrogen 66mg/dL (8-26) Creatinine 1.4mg/dL (0.7-1.3) Estimated GFR (Cockcroft-Gault) 50.5 Glucose Level 98mg/dL (70-99) Calcium Level 8.5mg/dL (8.5-10.1) Magnesium Level 1.9mg/dL (1.8-2.4) Vancomycin Level Trough 21.5mcg/mL (10.0-20.0) Vancomycin Last Dose Date 01/13/17 Vancomycin Last Dose Time 1100 Test 01/14/17 12:00 Glucose (Fingerstick) 99mg/dL (70-99) Laboratory Tests Test 01/13/17 17:04 01/14/17 04:25 01/14/17 08:10 01/14/17 10:25 Glucose (Fingerstick) 101mg/dL (70-99) 105mg/dL (70-99) Prothrombin Time 17.5SEC (11.7-14.0) Prothromb Time International Ratio 1.5 (0.8-1.1) Sodium Level 144mmol/L (136-145) Potassium Level 4.0mmol/L (3.5-5.1) Chloride Level 102mmol/L (98-107) Carbon Dioxide Level 36mmol/L (21-32) Anion Gap 6 (6-14) Blood Urea Nitrogen 66mg/dL (8-26) Creatinine 1.4mg/dL (0.7-1.3) Estimated GFR (Cockcroft-Gault) 50.5 Glucose Level 98mg/dL (70-99) Calcium Level 8.5mg/dL (8.5-10.1) Magnesium Level 1.9mg/dL (1.8-2.4) Vancomycin Level Trough 21.5mcg/mL (10.0-20.0) Vancomycin Last Dose Date 01/13/17 Vancomycin Last Dose Time 1100 Test 01/14/17 12:00 Glucose (Fingerstick) 99mg/dL (70-99) Microbiology 01/09/17 Gram Stain - Final, Complete Medications Current Medications Acetaminophen (Tylenol) 650 mg PRN Q6HRS PRN PO MILD PAIN / TEMP Last administered on 01/11/17 06:17; Start 01/06/17 at 05:00 Ondansetron HCl (Zofran) 4 mg PRN Q6HRS PRN IV NAUSEA/VOMITING; Start 01/06/17 at 05:00 Hydralazine HCl (Apresoline) 10 mg PRN Q4HRS PRN IVP ELEVATED BP, SEE COMMENTS ; Start 01/06/17 at 05:00 Amiodarone HCl (Cordarone) 200 mg DAILY PO Last administered on 01/11/17 08:32 ; Start 01/06/17 at 10:00; Stop 01/13/17 at 10:54; Status DC Vitamin D (Vitamin D3) 2,000 unit DAILY PO Last administered on 01/14/17 08:12 ; Start 01/06/17 at 10:00 Digoxin (Lanoxin) 125 mcg DAILY PO Last administered on 01/14/17 08:12; Start 01/06/17 at 10:30 Levothyroxine Sodium (Synthroid) 100 mcg DAILY07 PO Last administered on 06:11; Start 01/06/17 at 10:30 Magnesium Oxide (Magnesium Oxide) 400 mg DAILY PO Last administered on 08:12; Start 01/06/17 at 10:30 Metoprolol Succinate (Toprol Xl) 25 mg DAILY PO Last administered on 01/14/17 08:13; Start 01/06/17 at 10:30 Simvastatin (Zocor) 10 mg QHS PO Last administered on 01/13/17 20:40; Start at 21:00 Torsemide (Demadex) 80 mg DAILY PO Last administered on 01/07/17 08:40; Start 01/06/17 at 10:30; Stop 01/07/17 at 11:53; Status DC Warfarin Sodium (Coumadin) 2 mg DAILY16 PO ; Start 01/06/17 at 16:00; Stop 01/06 at 16:00; Status DC Carvedilol (Coreg) 25 mg BIDWMEALS PO Last administered on 01/06/17 10:22; Start 01/06/17 at 10:30; Stop 01/06/17 at 11:51; Status DC Lisinopril (Prinivil) 2.5 mg DAILY PO Last administered on 01/06/17 10:21; Start 01/06/17 at 10:30; Stop 01/08/17 at 08:36; Status DC Insulin Aspart (Novolog) 10 units TIDAC SQ Last administered on 01/06/17 18:38 ; Start 01/06/17 at 11:30; Stop 01/07/17 at 12:38; Status DC Insulin Detemir (Levemir) 30 units BID SQ Last administered on 01/08/17 09:00 ; Start 01/06/17 at 10:30; Stop 01/08/17 at 12:56; Status DC Non-Formulary Medication 500 mg DAILY PO ; Start 01/07/17 at 09:00; Status UNV Torsemide (Demadex) 80 mg DAILY PO ; Start 01/06/17 at 10:00; Status UNV Insulin Aspart (Novolog) 0-9 UNITS TIDWMEALS SQ Last administered on 01/07/17 16:58; Start 01/06/17 at 12:00 Dextrose 12.5 gm PRN Q15MIN PRN IV SEE COMMENTS Last administered on 01/09/17 00:56; Start 01/06/17 at 09:45 Warfarin Sodium (Coumadin Per Physician) 1 each PRN DAILY PRN MC SEE COMMENTS Last administered on 01/07/17 12:33; Start 01/06/17 at 10:45; Stop 01/07/17 at 13:37; Status DC Furosemide (Lasix) 40 mg 1X ONCE IVP Last administered on 01/06/17 15:55; Start 01/06/17 at 16:00; Stop 01/06/17 at 16:01; Status DC Metolazone (Zaroxolyn) 5 mg DAILY PO Last administered on 01/07/17 08:40; Start 01/07/17 at 09:00; Stop 01/07/17 at 14:45; Status DC Ascorbic Acid (Vitamin C) 500 mg DAILY PO Last administered on 01/14/17 08:15 ; Start 01/08/17 at 09:00 Multivitamins/ Calcium (Thera M Plus) 1 tab DAILY PO Last administered on 08:11; Start 01/08/17 at 09:00 Albuterol Sulfate (Ventolin Neb Soln) 2.5 mg 1X ONCE NEB Last administered on 01/07/17 15:45; Start 01/07/17 at 11:45; Stop 01/07/17 at 11:46; Status DC Torsemide (Demadex) 40 mg DAILY PO ; Start 01/08/17 at 09:00; Stop 01/08/17 at 09:00; Status DC Insulin Aspart (Novolog) 8 units TIDAC SQ Last administered on 01/08/17 07:30 ; Start 01/07/17 at 16:30; Stop 01/08/17 at 12:56; Status DC Warfarin Sodium (Coumadin Per Pharmacy) 1 each PRN DAILY PRN MC SEE COMMENTS Last administered on 01/14/17 09:59; Start 01/09/17 at 13:45 Aspirin (Ecotrin) 81 mg DAILYWBKFT PO Last administered on 01/14/17 08:13; Start 01/08/17 at 08:00 Warfarin Sodium (Coumadin - No Dose Today) 1 each 1X WARF ONCE MC ; Start 01/07 at 16:00; Stop 01/07/17 at 16:01; Status DC Metolazone 2.5 mg 2.5 mg DAILY PO ; Start 01/08/17 at 09:00; Stop 01/08/17 at 09 :00; Status DC Sodium Chloride 1,000 ml @ 100 mls/hr 1X ONCE IV Last administered on 10:53; Start 01/08/17 at 08:45; Stop 01/08/17 at 18:44; Status DC Phytonadione/ Sodium Chloride (Vitamin K/Iv Sodium Chloride 0.9% 50ml) 51 ml @ 102 mls/hr 1X ONCE IV Last administered on 01/08/17 12:15; Start 01/08/17 at 11:00; Stop 01/08/17 at 11:29; Status DC Torsemide (Demadex) 20 mg DAILY PO Last administered on 01/14/17 08:12; Start 01/08/17 at 12:00 Albuterol/ Ipratropium (Duoneb) 3 ml 1X ONCE NEB ; Start 01/08/17 at 12:45; Stop 01/08/17 at 12:46; Status DC Insulin Aspart (Novolog) 5 units TIDAC SQ ; Start 01/08/17 at 16:30; Stop at 09:04; Status DC Insulin Detemir (Levemir) 25 units BID SQ Last administered on 01/10/17 08:58 ; Start 01/08/17 at 21:00; Stop 01/10/17 at 09:04; Status DC Warfarin Sodium (Coumadin - No Dose Today) 1 each 1X WARF ONCE MC ; Start 01/08 at 16:00; Stop 01/08/17 at 16:01; Status DC Phytonadione (Mephyton) 2.5 mg 1X ONCE PO Last administered on 01/08/17 16:02 ; Start 01/08/17 at 15:45; Stop 01/08/17 at 15:46; Status DC Warfarin Sodium (Coumadin - No Dose Today) 1 each 1X WARF ONCE MC ; Start 01/09 at 16:00; Stop 01/09/17 at 16:01; Status DC Lidocaine/Sodium Bicarbonate (Buffered Lidocaine 1%) 20 ml STK-MED ONCE IJ ; Start 01/09/17 at 15:15; Stop 01/09/17 at 15:16; Status DC Lidocaine/Sodium Bicarbonate (Buffered Lidocaine 1%) 8 ml 1X ONCE IJ Last administered on 01/09/17 16:25; Start 01/09/17 at 16:30; Stop 01/09/17 at 16:31 ; Status DC Potassium Chloride (Klor-Con) 40 meq 1X ONCE PO Last administered on 10:44; Start 01/10/17 at 09:15; Stop 01/10/17 at 09:16; Status DC Insulin Detemir (Levemir) 10 units BID SQ Last administered on 01/12/17 09:40 ; Start 01/10/17 at 09:00; Stop 01/12/17 at 10:04; Status DC Warfarin Sodium (Coumadin) 2 mg 1X WARF ONCE PO Last administered on 17:41; Start 01/10/17 at 16:00; Stop 01/10/17 at 16:01; Status DC Ipratropium [place] (Atrovent) 0.5 mg RTQID NEB Last administered on 01/14/17 13:12; Start 01/11/17 at 12:00 Warfarin Sodium (Coumadin) 4 mg 1X WARF ONCE PO Last administered on 16:34; Start 01/11/17 at 16:00; Stop 01/11/17 at 16:01; Status DC Furosemide (Lasix) 40 mg 1X ONCE IVP Last administered on 01/11/17 15:00; Start 01/11/17 at 15:00; Stop 01/11/17 at 15:01; Status DC Morphine Sulfate 2 mg PRN Q2HR PRN IV PAIN Last administered on 01/11/17 15:37 ; Start 01/11/17 at 15:30 Budesonide 0.5 mg 0.5 mg RTBID NEB Last administered on 01/13/17 08:15; Start 01/12/17 at 08:00; Stop 01/13/17 at 15:42; Status DC Amiodarone HCl 150 mg/Dextrose 103 ml @ 618 mls/hr 1X ONCE IV Last administered on 01/12/17 08:29; Start 01/12/17 at 07:15; Stop 01/12/17 at 07:24 ; Status DC Amiodarone HCl 900 mg/Dextrose 518 ml @ 0 mls/hr CONT PRN IV SEE I/O RECORD Last administered on 01/12/17 08:28; Start 01/12/17 at 07:30; Stop 01/12/17 at 08:31; Status DC Magnesium Sulfate/ Dextrose 50 ml @ 25 mls/hr 1X ONCE IV Last administered on 01/12/17 08:29; Start 01/12/17 at 07:30; Stop 01/12/17 at 09:29; Status DC Potassium Chloride (KCl Premix 10meq) 100 ml @ 100 mls/hr 1X ONCE IV Last administered on 01/12/17 08:30; Start 01/12/17 at 09:00; Stop 01/12/17 at 09:59 ; Status DC Insulin Detemir 10 units 10 units DAILY SQ ; Start 01/13/17 at 09:00 Meropenem 500 mg/ Sodium Chloride 50 ml @ 100 mls/hr Q8HRS IV ; Start 01/12/17 at 14:00; Status UNV Vancomycin HCl/ Sodium Chloride (Iv Sodium Chloride 0.9% 500ml Bag) 500 ml @ 250 mls/hr Q12H IV ; Start 01/12/17 at 10:15; Status UNV Vancomycin HCl 1 each 1 each PRN DAILY PRN MC SEE COMMENTS Last administered on 01/14/17 13:37; Start 01/12/17 at 10:15 Vancomycin HCl 2 gm/Sodium Chloride 500 ml @ 250 mls/hr 1X ONCE IV Last administered on 01/12/17 11:22; Start 01/12/17 at 11:00; Stop 01/12/17 at 12:59 ; Status DC Meropenem 1 gm/ Sodium Chloride 100 ml @ 200 mls/hr Q8HRS IV Last administered on 01/14/17 05:28; Start 01/12/17 at 11:00 Vancomycin HCl/ Sodium Chloride (Iv Sodium Chloride 0.9% 500ml Bag) 500 ml @ 250 mls/hr Q24H IV Last administered on 01/13/17 11:12; Start 01/13/17 at 11: 00; Stop 01/14/17 at 13:25; Status DC Vancomycin HCl 1 each 1X ONCE MC ; Start 01/14/17 at 10:30; Stop 01/14/17 at 10 :31; Status DC Warfarin Sodium 4 mg 4 mg 1X WARF ONCE PO Last administered on 01/12/17 16:29 ; Start 01/12/17 at 16:00; Stop 01/12/17 at 16:01; Status DC Amiodarone HCl 50 mg/Dextrose 101 ml @ 618 mls/hr 1X ONCE IV Last administered on 01/12/17 15:48; Start 01/12/17 at 16:00; Stop 01/12/17 at 16:09 ; Status DC Amiodarone HCl/ Dextrose (Cordarone) 518 ml @ 33 mls/hr CONT PRN IV SEE I/O RECORD Last administered on 01/13/17 06:36; Start 01/12/17 at 15:30; Stop 01/13 at 06:36; Status DC Warfarin Sodium (Coumadin) 5 mg 1X WARF ONCE PO Last administered on 16:40; Start 01/13/17 at 16:00; Stop 01/13/17 at 16:01; Status DC Potassium Chloride (Klor-Con) 40 meq TID PO Last administered on 01/14/17 08: 12; Start 01/13/17 at 09:15 Amiodarone HCl 400 mg 400 mg DAILY PO Last administered on 01/14/17 08:12; Start 01/13/17 at 11:00 Amiodarone HCl/ Dextrose (Cordarone) 518 ml @ 16.6 mls/hr CONT PRN IV CONTINUOUS INFUSION Last administered on 01/13/17 22:24; Start 01/13/17 at 11: 15; Stop 01/14/17 at 11:15; Status DC Furosemide (Lasix) 40 mg 1X ONCE IVP Last administered on 01/13/17 14:21; Start 01/13/17 at 14:15; Stop 01/13/17 at 14:16; Status DC Warfarin Sodium 5 mg 5 mg 1X WARF ONCE PO ; Start 01/14/17 at 16:00; Stop 01/14 at 16:01 Vancomycin HCl/ Sodium Chloride (Iv Sodium Chloride 0.9% 250ml) 250 ml @ 167 mls/hr Q24H IV ; Start 01/14/17 at 16:00 Vancomycin HCl 1 each 1X ONCE MC ; Start 01/16/17 at 15:30; Stop 01/16/17 at 15 :31 Active Scripts Active Reported Torsemide 20 Mg Tablet 4 Tab PO DAILY Amiodarone Hcl 200 Mg Tablet 1 Tab PO DAILY Toprol Xl (Metoprolol Succinate) 25 Mg Tab.er.24h 1 Tab PO DAILY Novolog (Insulin Aspart) 100 Unit/1 Ml Cartridge 10 Unit SQ TID Lantus Solostar (Insulin Glargine,Hum.rec.anlog) 100 Unit/1 Ml Insuln.pen 40 Unit SQ BID Cyclobenzaprine Hcl 10 Mg Tablet 1 Tab PO TID Allopurinol 300 Mg Tablet 1 Tab PO DAILY Simvastatin 10 Mg Tablet 1 Tab PO QHS Coumadin (Warfarin Sodium) 2.5 Mg Tablet 1 Tab PO DAILY Potassium Gluconate 500 Mg Tablet 500 Mg PO DAILY Furosemide 40 Mg Tablet 1 Tab PO DAILY Mag-Oxide (Magnesium Oxide) 400 Mg Tablet 1 Tab PO DAILY Levothyroxine Sodium 100 Mcg Tablet 1 Tab PO DAILY Digoxin 125 Mcg Tablet 1 Tab PO DAILY Enalapril Maleate 2.5 Mg Tablet 1 Tab PO DAILY Vitamin D3 (Cholecalciferol (Vitamin D3)) 1,000 Unit Tablet 2,000 Unit PO DAILY Coreg (Carvedilol) 25 Mg Tablet 1 Tab PO BID Vitals/I & O Vital Sign - Last 24 Hours 01/13/17 01/13/17 01/13/17 01/13/17 15:00 15:54 16:00 16:03 Pulse 88 88 Resp 18 20 B/P 115/59 113/62 Pulse Ox 98 100 100 O2 Delivery Nasal Cannula Nasal Cannula O2 Flow Rate 3.0 3.0 01/13/17 01/13/17 01/13/17 01/13/17 17:00 18:00 19:00 19:40 Pulse 88 88 88 Resp 18 22 20 B/P 116/64 112/60 105/55 Pulse Ox 96 100 100 100 O2 Delivery Nasal Cannula Nasal Cannula O2 Flow Rate 5.0 5.0 3.0 01/13/17 01/13/17 01/13/17 01/13/17 20:00 20:00 21:00 22:00 Temp 98.6 98.6 Pulse 89 88 88 Resp 23 25 25 B/P 107/62 109/61 117/61 Pulse Ox 99 100 99 O2 Delivery Nasal Cannula O2 Flow Rate 5.0 5.0 5.0 5.0 01/13/17 01/14/17 01/14/17 01/14/17 23:00 00:00 00:00 01:00 Temp 98.7 98.7 Pulse 88 88 88 Resp 30 30 28 B/P 110/62 110/62 112/68 Pulse Ox 100 100 100 O2 Delivery Nasal Cannula O2 Flow Rate 5.0 5.0 5.0 5.0 01/14/17 01/14/17 01/14/17 01/14/17 02:00 03:00 04:00 04:00 Temp 98.6 98.6 Pulse 88 89 89 Resp 27 29 27 B/P 111/59 112/60 112/60 Pulse Ox 100 100 100 O2 Delivery Nasal Cannula O2 Flow Rate 5.0 5.0 5.0 5.0 01/14/17 01/14/17 01/14/17 01/14/17 05:00 06:00 07:00 08:00 Temp 97.7 97.7 Pulse 89 91 89 89 Resp 33 28 15 20 B/P 119/67 114/64 110/64 112/65 Pulse Ox 100 100 100 100 O2 Delivery Nasal Cannula Nasal Cannula O2 Flow Rate 5.0 5.0 4.0 4.0 01/14/17 01/14/17 01/14/17 01/14/17 08:00 08:12 08:12 08:13 Pulse 89 89 91 B/P 121/64 121/64 121/64 O2 Delivery Nasal Cannula O2 Flow Rate 4.0 01/14/17 01/14/17 01/14/17 01/14/17 09:00 09:02 10:00 11:00 Pulse 87 89 89 Resp 34 12 27 B/P 117/66 95/70 100/58 Pulse Ox 100 100 100 100 O2 Delivery Nasal Cannula Nasal Cannula Nasal Cannula Nasal Cannula O2 Flow Rate 4.0 3.0 4.0 4.0 01/14/17 01/14/17 01/14/17 01/14/17 12:00 12:00 13:00 13:12 Temp 98.6 98.6 Pulse 89 89 Resp 31 32 B/P 111/65 112/62 Pulse Ox 100 100 100 O2 Delivery Nasal Cannula Nasal Cannula Nasal Cannula Nasal Cannula O2 Flow Rate 4.0 4.0 4.0 2.0 Intake and Output 01/13/17 01/13/17 01/14/17 15:00 23:00 07:00 Intake Total 600 ml 1422 ml 213 ml Output Total 1355 ml 695 ml Balance 600 ml 67 ml -482 ml MARITZA CHEN MD Jan 14, 2017 14:10
--- NOTE | 2017-01-14 14:56 | PDOC ---
CARDIO Progress Notes Date and Time Date of Service 01/14/17 Time of Evaluation 1210 Subjective Subjective: No Chest Pain, No Palpitations, No Dizziness, Other (SOA slightly improved ) Vitals Vitals Vital Signs Date Time Temp Pulse Resp B/P Pulse Ox O2 Delivery O2 Flow Rate FiO2 01/14/17 14:00 89 26 119/74 97 Nasal Cannula 4.0 01/14/17 12:00 98.6 98.6 Weight Weight [ ] Input and Output Intake and Output Intake and Output 01/14/17 07:00 Intake Total 2235 ml Output Total 2050 ml Balance 185 ml Intake Oral 200 ml IV Total 1065 ml Other 970 ml Output Urine Total 2050 ml Laboratory Labs Laboratory Tests Test 01/13/17 17:04 01/14/17 04:25 01/14/17 08:10 01/14/17 10:25 Glucose (Fingerstick) 101mg/dL (70-99) 105mg/dL (70-99) Prothrombin Time 17.5SEC (11.7-14.0) Prothromb Time International Ratio 1.5 (0.8-1.1) Sodium Level 144mmol/L (136-145) Potassium Level 4.0mmol/L (3.5-5.1) Chloride Level 102mmol/L (98-107) Carbon Dioxide Level 36mmol/L (21-32) Anion Gap 6 (6-14) Blood Urea Nitrogen 66mg/dL (8-26) Creatinine 1.4mg/dL (0.7-1.3) Estimated GFR (Cockcroft-Gault) 50.5 Glucose Level 98mg/dL (70-99) Calcium Level 8.5mg/dL (8.5-10.1) Magnesium Level 1.9mg/dL (1.8-2.4) Vancomycin Level Trough 21.5mcg/mL (10.0-20.0) Vancomycin Last Dose Date 01/13/17 Vancomycin Last Dose Time 1100 Test 01/14/17 12:00 Glucose (Fingerstick) 99mg/dL (70-99) Microbiology Micro Microbiology 01/09/17 Gram Stain - Final, Complete Review of Systems Constitutional: yes: alert, weakness Ears/Nose/Throat: Yes: no symptom reported Eyes: Yes: no symptom reported Pulmonary: Yes dyspnea Cardiovascular: Yes edema Gastrointestional: Yes: constipation Genitourinary: Yes: no symptom reported Skin: Yes no symptom reported Physical Exam HEENT: Neck Supple W Full Motion Chest: Symmetric LUNGS: Other (bibasilar crackles ) Heart: S1S2, murmurs (3/6 systolic murmur to LLS border), irregularly irregular (Paced with underlying AFIB; no significant rhythm ectopies overnight) Abdomen: Soft N/T Extremities: No Calf Tenderness, Other (bilateral BKA; no stump edema, no scrotal edema) Neurology: alert, oriented, follow commands Assessment Assessment 1. 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 Ventricular arrhythmia s/p multiple ICD discharges 3. 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 COPD 4. HTN/HLP/DM2 5. CAN HANDLER-D in situ 6. PAFIB: Paced with underlying AFIB. 7. JOHANN on CKD3 8. Hx of mitral valve repair , Hx of HIT (2009) 9. ? DINO Recommendations No further significant arrhythmias overnight; discontinue Amio gtt. continue with PO Amiodarone. Bilateral infiltrates- Amiodarone induced versus contributing aspiration Would need to continue Amiodarone given recent VT/VF/Torsades with multiple ICD discharges High suspicion for aspiration on BS swallow eval- video swallow in am. Pt verbalizes no desire for feeding tube Replace MG Continue supportive care FORREST SAGE APRN Jan 14, 2017 14:56
[2017-01-14] MEDS ORDERED: MAGNESIUM SULFATE 2GM 50 ML IV ONE (15:15)
--- NOTE | 2017-01-14 15:20 | PDOC2 ---
PALLIATIVE CARE Palliative Care Note Palliative Care Note Palliative Care Met with patient and Alma this am. ( had not returned call to arrange meeting) Alma states she wants to take him home with Home Health. Dr. Pagan spoke with patient and --informed of possible Amiodarone effects on lungs. Informed of swallow concerns. Evaluation to follow. Patient states he would not want PEG tube or feeding tube. Diagnosis: Acute on chronic respiratory failure; requests DNI Acute on chronic combined diastolic and systolic heart failure with ICM continue fluid offloading in HD per nephrology CAD SSS with PPM Transaminitis Hypotension--off Levophed l Permanent AFIB JOHANN with CKD . Leukocytosis with sepsis/shock, POA . DM, II Encephalopathy Per Speech Therapy; Video evaluation pending. Will follow as information becomes available to have more discussion of goals. FELICITY PRITCHARD Jan 14, 2017 15:20
[2017-01-14] MEDS ORDERED: WARFARIN 5 MG TABLET. PO ONE (16:00)
[2017-01-14] MEDS: VANCOMYCIN 1.25 GM in IV NORMAL SALINE 250ML 250 ML IV SCH (16:24)
[2017-01-14] MEDS: SIMVASTATIN 10 MG TABLET PO SCH (21:46)
[2017-01-15] VITALS (19 sets, daily range): BP systolic 102–126; BP diastolic 55–73
[2017-01-15 06:13] LABS: PROTHROMBIN TIME PATIENT 21.7 SEC (11.7-14.0)
[2017-01-15] MEDS: MEROPENEM 1 GM in IV NORMAL SALINE 100ML 100 ML IV SCH ×3 (06:26→21:11)
[2017-01-15] MEDS: LEVOTHYROXINE 100 MCG TABLET PO SCH (06:27)
[2017-01-15] MEDS: ASPIRIN ENTERIC COATED 81 MG TABLET.DR. PO SCH (07:57)
[2017-01-15] MEDS: METOPROLOL SUCC 24HR ER 25 MG TAB.ER.24H. PO SCH (07:57)
[2017-01-15] MEDS: MAGNESIUM OXIDE 400 MG TABLET PO SCH (07:57)
[2017-01-15] MEDS: TORSEMIDE 20 MG TABLET. PO SCH (07:57)
[2017-01-15] MEDS: ASCORBIC ACID 500 MG TABLET PO SCH (07:57)
[2017-01-15] MEDS: AMIODARONE HCL 200 MG TABLET PO SCH (07:57)
[2017-01-15] MEDS: CHOLECALCIFEROL (VITAMIN D3) 1,000 UNIT TABLET PO SCH (07:58)
[2017-01-15] MEDS: POTASSIUM CHLORIDE 20 MEQ TABLET.ER. PO SCH ×3 (07:58→21:05)
[2017-01-15] MEDS: MULTIVITAMIN with MINERAL TABLET. PO SCH (07:58)
[2017-01-15] MEDS: DIGOXIN 125 MCG TABLET PO SCH (07:58)
[2017-01-15] MEDS: INSULIN ASPART 300 UNITS/3 ML INSULN.PEN SQ SCH ×3 (08:00→17:00)
[2017-01-15] MEDS: INSULIN DETEMIR 300 UNITS/3 ML INSULN.PEN. SQ SCH (08:04)
[2017-01-15] MEDS: IPRATROPIUM BROMIDE 0.5 MG/2.5 ML NEBU. NEB SCH ×4 (08:45→19:38)
[2017-01-15] MEDS ORDERED: BARIUM SULFATE 40% 148 GM PWD PO ONE ×2 (09:45→10:30)
[2017-01-15] MEDS: VANCOMYCIN PER PHARMACY MC PRN (10:35)
--- NOTE | 2017-01-15 10:45 | PDOC ---
PULMONARY PROGRESS NOTES Subjective no soa Vitals Vital Signs Date Time Temp Pulse Resp B/P Pulse Ox O2 Delivery O2 Flow Rate FiO2 01/15/17 10:00 89 33 114/55 95 Nasal Cannula 2.0 01/15/17 08:00 99.1 99.1 ROS: No Nausea, No Chest Pain, No Abdominal Pain, No Increase Cough General: Alert, No acute distress HEENT: Other (nc at perrl thorat clear) Lungs: Clear, Crackles Cardiovascular: S1, S2 Abdomen: Soft, Non-tender Neuro Exam: Alert Extremities: Other ( + edema, s/p bka) Skin: Warm Labs Laboratory Tests Test 01/13/17 12:06 01/13/17 17:04 01/14/17 04:25 01/14/17 08:10 Glucose (Fingerstick) 145mg/dL (70-99) 101mg/dL (70-99) 105mg/dL (70-99) Prothrombin Time 17.5SEC (11.7-14.0) Prothromb Time International Ratio 1.5 (0.8-1.1) Sodium Level 144mmol/L (136-145) Potassium Level 4.0mmol/L (3.5-5.1) Chloride Level 102mmol/L (98-107) Carbon Dioxide Level 36mmol/L (21-32) Anion Gap 6 (6-14) Blood Urea Nitrogen 66mg/dL (8-26) Creatinine 1.4mg/dL (0.7-1.3) Estimated GFR (Cockcroft-Gault) 50.5 Glucose Level 98mg/dL (70-99) Calcium Level 8.5mg/dL (8.5-10.1) Magnesium Level 1.9mg/dL (1.8-2.4) Test 01/14/17 10:25 01/14/17 12:00 01/14/17 17:09 01/14/17 21:46 Vancomycin Level Trough 21.5mcg/mL (10.0-20.0) Vancomycin Last Dose Date 01/13/17 Vancomycin Last Dose Time 1100 Glucose (Fingerstick) 99mg/dL (70-99) 124mg/dL (70-99) 117mg/dL (70-99) Test 01/15/17 05:20 01/15/17 08:04 Prothrombin Time 21.7SEC (11.7-14.0) Prothromb Time International Ratio 2.0 (0.8-1.1) Glucose (Fingerstick) 105mg/dL (70-99) Laboratory Tests Test 01/14/17 12:00 01/14/17 17:09 01/14/17 21:46 01/15/17 05:20 Glucose (Fingerstick) 99mg/dL (70-99) 124mg/dL (70-99) 117mg/dL (70-99) Prothrombin Time 21.7SEC (11.7-14.0) Prothromb Time International Ratio 2.0 (0.8-1.1) Test 01/15/17 08:04 Glucose (Fingerstick) 105mg/dL (70-99) Medications Active Scripts Medications Dose Route/Sig Days Date Category Torsemide 20 Mg Tablet 4 Tab PO DAILY 01/06/17 Reported Amiodarone Hcl 200 Mg Tablet 1 Tab PO DAILY 01/06/17 Reported Toprol Xl (Metoprolol Succinate) 25 Mg Tab.er.24h 1 Tab PO DAILY 01/06/17 Reported Novolog (Insulin Aspart) 100 Unit/1 Ml Cartridge 10 Unit SQ TID 06/08/16 Reported Lantus Solostar (Insulin Glargine,Hum.rec.anlog) 100 Unit/1 Ml Insuln.pen 40 Unit SQ BID 06/08/16 Reported Cyclobenzaprine Hcl 10 Mg Tablet 1 Tab PO TID 06/08/16 Reported Allopurinol 300 Mg Tablet 1 Tab PO DAILY 06/08/16 Reported Simvastatin 10 Mg Tablet 1 Tab PO QHS 06/08/16 Reported Coumadin (Warfarin Sodium) 2.5 Mg Tablet 1 Tab PO DAILY 06/08/16 Reported Potassium Gluconate 500 Mg Tablet 500 Mg PO DAILY 06/08/16 Reported Furosemide 40 Mg Tablet 1 Tab PO DAILY 06/08/16 Reported Mag-Oxide (Magnesium Oxide) 400 Mg Tablet 1 Tab PO DAILY 11/06/15 Reported Levothyroxine Sodium 100 Mcg Tablet 1 Tab PO DAILY 11/06/15 Reported Digoxin 125 Mcg Tablet 1 Tab PO DAILY 11/06/15 Reported Enalapril Maleate 2.5 Mg Tablet 1 Tab PO DAILY 11/06/15 Reported Vitamin D3 (Cholecalciferol (Vitamin D3)) 1,000 Unit Tablet 2,000 Unit PO DAILY 11/06/15 Reported Coreg (Carvedilol) 25 Mg Tablet 1 Tab PO BID 11/06/[address] reviewed, CT CHEST 1. Moderate sized right pleural effusion with underlying right lower lobe atelectasis and partial atelectasis of the right middle and upper lobes. 2. Mild patchy groundglass opacities and interlobular septal thickening compatible with mild pulmonary edema. 3. Severe generalized cardiomegaly. Impression . 1. Acute respiratory failure secondary to acute systolic heart failure. 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 Acute on chronic systolic heart failure with previous ejection fraction estimated at 15%. 3. Status post implantable cardioverter-defibrillator placement. 4. Abnormal x-ray revealing a large right-sided effusion S/P thoracentesis 5. Chronic atrial fibrillation, on Coumadin. 6. History of heparin-induced thrombocytopenia, status post bilateral below knee amputation. 7. Hypertension. 8. Chronic kidney disease. 9. Type 2 diabetes. 10. Elevated troponin level. 11. possible DINO Plan . nasal canula follow card input NEB alesiae as tolerated bipap prn on coumadin, adjust dose per inr. monitor for bleeding. follow up on cytology monitor CXR while on Amiodarone palliative care meeting done/ home with home health WANDA VELASCO MD Jan 15, 2017 10:45
--- NOTE | 2017-01-15 11:36 | RAD ---
Video dysphasia study, 01/15/2017: History: Dysphasia The swallowing mechanism was examined fluoroscopically in the lateral projection while the patient ingested a variety of food materials mixed with barium. 4.4 minutes of fluoroscopy time was utilized. One fluoroscopic video loop was recorded by a member of the speech Department. The patient demonstrated some difficulty in oral control of the materials related to previous tongue surgery. When ingesting the thin liquids there was intermittent laryngeal penetration which was occasionally deep. When ingesting the thicker materials there was a lesser degree of laryngeal penetration. There was initially no aspiration with these materials. When ingesting the barium coated solids there tended to be a moderate amount of vallecular residue. When ingesting the thin liquids in the presence of this vallecular residue, there were 2 separate episodes of glen aspiration. IMPRESSION: 1. Intermittent deep laryngeal penetration of the thin liquids, improved with the thickened materials. 2. Moderate vallecular residue with the barium coated solids. 3. Glen aspiration of the thin liquids when ingested in the presence of the vallecular residue.
--- NOTE | 2017-01-15 12:00 | PDOC ---
SUBJECTIVE ROS CKD III/Iv Doign OK OBJECTIVE Vital Signs Vital Signs Date Time Temp Pulse Resp B/P Pulse Ox O2 Delivery O2 Flow Rate FiO2 01/15/17 10:00 89 33 114/55 95 Nasal Cannula 2.0 01/15/17 08:00 99.1 99.1 I & 0 Intake and Output 01/15/17 07:00 Intake Total 1224 ml Output Total 2355 ml Balance -1131 ml Intake Oral 355 ml IV Total 869 ml Output Urine Total 2355 ml # Bowel Movements 1 PHYSICAL EXAM Physical Exam General Appearance: Awake: Alert Oriented x 3 Neck: No JVD or JVP Chest: CTA Matt Heart: S1 S2 Abdomen - Soft NTND Extremities - No Edema DIAGNOSIS/ASSESSMENT Assessment & Plan CKD STAGE 3 v/s IV (on CrCL due to dec Mu Mass) CR OF 1.5-1.8 at baseline. Current fluid and E-lyte status does not necessitate emergent need for dialysis. Will re-evaluate for dialysis in the am CHRONIC SYSTOLIC CHF with EF < 20% Problems: COMMENT/RELEVANT DATA Meds Current Medications Medications (Trade) Dose Ordered Sig/Leonel Start Time Stop Time Status Last Admin Dose Admin Acetaminophen (Tylenol) 650 mg PRN Q6HRS PRN 01/06/17 05:00 01/11/17 06:17 650 MG Albuterol Sulfate (Ventolin Neb Soln) 2.5 mg 1X ONCE 01/07/17 11:45 01/07/17 11:46 DC 01/07/17 15:45 2.5 MG Albuterol/ Ipratropium (Duoneb) 3 ml 1X ONCE 01/08/17 12:45 01/08/17 12:46 DC Amiodarone HCl (Cordarone) 200 mg DAILY 01/06/17 10:00 01/13/17 10:54 DC 01/11/17 08:32 200 MG Amiodarone HCl 150 mg/Dextrose 103 ml @ 618 mls/hr 1X ONCE 01/12/17 07:15 01/12/17 07:24 DC 01/12/17 08:29 618 MLS/HR Amiodarone HCl 400 mg 400 mg DAILY 01/13/17 11:00 01/15/17 07:57 400 MG Amiodarone HCl 900 mg/Dextrose 518 ml @ 0 mls/hr CONT PRN 01/12/17 07:30 01/12/17 08:31 DC 01/12/17 08:28 33.3 MLS/HR Amiodarone HCl/ Dextrose (Cordarone) 518 ml @ 16.6 mls/hr CONT PRN 01/13/17 11:15 01/14/17 11:15 DC 01/13/17 22:24 16.6 MLS/HR Ascorbic Acid (Vitamin C) 500 mg DAILY 01/08/17 09:00 01/15/17 07:57 500 MG Aspirin (Ecotrin) 81 mg [id number] 01/08/17 08:00 01/15/17 07:57 81 MG Barium Sulfate (Varibar Thin Liquid) 148 gm 1X ONCE 01/15/17 10:30 01/15/17 10:31 DC Budesonide 0.5 mg 0.5 mg RTBID 01/12/17 08:00 01/13/17 15:42 DC 01/13/17 08:15 0.5 MG Carvedilol (Coreg) 25 mg BIDWMEALS 01/06/17 10:30 01/06/17 11:51 DC 01/06/17 10:22 25 MG Dextrose 12.5 gm PRN Q15MIN PRN 01/06/17 09:45 01/09/17 00:56 12.5 GM Digoxin (Lanoxin) 125 mcg DAILY 01/06/17 10:30 01/15/17 07:58 125 MCG Furosemide (Lasix) 40 mg 1X ONCE 01/13/17 14:15 01/13/17 14:16 DC 01/13/17 14:21 40 MG Hydralazine HCl (Apresoline) 10 mg PRN Q4HRS PRN 01/06/17 05:00 Insulin Aspart (Novolog) 5 units TIDAC 01/08/17 16:30 01/10/17 09:04 DC Insulin Detemir (Levemir) 10 units BID 01/10/17 09:00 01/12/17 10:04 DC 01/12/17 09:40 10 UNITS Insulin Detemir 10 units 10 units DAILY 01/13/17 09:00 Ipratropium [place] (Atrovent) 0.5 mg RTQID 01/11/17 12:00 01/15/17 08:45 0.5 MG Levothyroxine Sodium (Synthroid) 100 mcg DAILY07 01/06/17 10:30 01/15/17 06:27 100 MCG Lidocaine/Sodium Bicarbonate (Buffered Lidocaine 1%) 8 ml 1X ONCE 01/09/17 16:30 01/09/17 16:31 DC 01/09/17 16:25 8 ML Lisinopril (Prinivil) 2.5 mg DAILY 01/06/17 10:30 01/08/17 08:36 DC 01/06/17 10:21 2.5 MG Magnesium Oxide (Magnesium Oxide) 400 mg DAILY 01/06/17 10:30 01/15/17 07:57 400 MG Magnesium Sulfate/ Dextrose (Magnesium Sulfate PREMIX 2GM) 50 ml @ 25 mls/hr 1X ONCE 01/14/17 15:15 01/14/17 17:14 DC 01/14/17 15:34 25 MLS/HR Meropenem 1 gm/ Sodium Chloride 100 ml @ 200 mls/hr Q8HRS 01/12/17 11:00 01/15/17 06:26 200 MLS/HR Meropenem 500 mg/ Sodium Chloride 50 ml @ 100 mls/hr Q8HRS 01/12/17 14:00 UNV Metolazone (Zaroxolyn) 5 mg DAILY 01/07/17 09:00 01/07/17 14:45 DC 01/07/17 08:40 5 MG Metolazone 2.5 mg 2.5 mg DAILY 01/08/17 09:00 01/08/17 09:00 DC Metoprolol Succinate (Toprol Xl) 25 mg DAILY 01/06/17 10:30 01/15/17 07:57 25 MG Morphine Sulfate 2 mg PRN Q2HR PRN 01/11/17 15:30 01/11/17 15:37 2 MG Multivitamins/ Calcium (Thera M Plus) 1 tab DAILY 01/08/17 09:00 01/15/17 07:58 1 TAB Non-Formulary Medication 500 mg DAILY 01/07/17 09:00 UNV Ondansetron HCl (Zofran) 4 mg PRN Q6HRS PRN 01/06/17 05:00 Phytonadione (Mephyton) 2.5 mg 1X ONCE 01/08/17 15:45 01/08/17 15:46 DC 01/08/17 16:02 2.5 MG Phytonadione/ Sodium Chloride (Vitamin K/Iv Sodium Chloride 0.9% 50ml) 51 ml @ 102 mls/hr 1X ONCE 01/08/17 11:00 01/08/17 11:29 DC 01/08/17 12:15 102 MLS/HR Potassium Chloride (KCl Premix 10meq) 100 ml @ 100 mls/hr 1X ONCE 01/12/17 09:00 01/12/17 09:59 DC 01/12/17 08:30 100 MLS/HR Potassium Chloride (Klor-Con) 40 meq TID 01/13/17 09:15 01/15/17 07:58 40 MEQ Simvastatin (Zocor) 10 mg QHS 01/06/17 21:00 01/14/17 21:46 10 MG Sodium Chloride 1,000 ml @ 100 mls/hr 1X ONCE 01/08/17 08:45 01/08/17 18:44 DC 01/08/17 10:53 100 MLS/HR Torsemide (Demadex) 20 mg DAILY 01/08/17 12:00 01/15/17 07:57 20 MG Vancomycin HCl 1 each 1X ONCE 01/14/17 10:30 01/14/17 10:31 DC Vancomycin HCl 1.75 gm/Sodium Chloride 500 ml @ 250 mls/hr Q12H 01/12/17 10:15 UNV Vancomycin HCl 1 each 1 each 1X ONCE 01/16/17 15:30 01/16/17 15:31 Vancomycin HCl 2 gm/Sodium Chloride 500 ml @ 250 mls/hr 1X ONCE 01/12/17 11:00 01/12/17 12:59 DC 01/12/17 11:22 250 MLS/HR Vancomycin HCl/ Sodium Chloride (Iv Sodium Chloride 0.9% 250ml) 250 ml @ 167 mls/hr Q24H 01/14/17 16:00 01/14/17 16:24 167 MLS/HR Vancomycin HCl/ Sodium Chloride (Iv Sodium Chloride 0.9% 500ml Bag) 500 ml @ 250 mls/hr Q24H 01/13/17 11:00 01/14/17 13:25 DC 01/13/17 11:12 250 MLS/HR Vitamin D (Vitamin D3) 2,000 unit DAILY 01/06/17 10:00 01/15/17 07:58 2,000 UNIT Warfarin Sodium (Coumadin - No Dose Today) 1 each 1X WARF ONCE 01/09/17 16:00 01/09/17 16:01 DC Warfarin Sodium (Coumadin Per Pharmacy) 1 each PRN DAILY PRN 01/09/17 13:45 01/15/17 10:39 1 EACH Warfarin Sodium (Coumadin Per Physician) 1 each PRN DAILY PRN 01/06/17 10:45 01/07/17 13:37 DC 01/07/17 12:33 1 EACH Warfarin Sodium (Coumadin) 4 mg 1X WARF ONCE 01/15/17 16:00 01/15/17 16:01 Warfarin Sodium 5 mg 5 mg 1X WARF ONCE 01/14/17 16:00 01/14/17 16:01 DC 01/14/17 16:23 5 MG Lab Laboratory Tests Test 01/14/17 12:00 01/14/17 17:09 01/14/17 21:46 01/15/17 05:20 Glucose (Fingerstick) 99mg/dL (70-99) 124mg/dL (70-99) 117mg/dL (70-99) Prothrombin Time 21.7SEC (11.7-14.0) Prothromb Time International Ratio 2.0 (0.8-1.1) Test 01/15/17 08:04 Glucose (Fingerstick) 105mg/dL (70-99) JUAN JONES MD Jan 15, 2017 12:00
--- NOTE | 2017-01-15 12:03 | PDOC ---
PROGRESS NOTES Chief Complaint Chief Complaint a/p 1. Acute respiratory failure with systolic CHF exacerbation 2. Systolic CHF exacerbation EF 15 % before 3. ICD, PPM 4. CHRONIC afib, on Coumadin 5. 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 AMS, slurry speech , hallucination, 2/2 hypoxia Better 7. HTN 8. JOHANN on CKD4 9. HLD 10. MR s/p repair 11. DM2 on insulin 12. high troponin, 2/2 2 likely 13. B/L pleural effusion, moderate RT 14. hypokalemia resolved. Plan on amiodarone gtt, cardiology to adjust the dosage Meropenem and Vancomycin Renal dosing of vancomycin replace electrolytes Nephrology following monitor platelets hx of HIT INR therapeutic, Pharmacy dosing Coumadin Palliative care consult meeting - partial code wants full treatment cardiology, pulmonolgy and nephrology following History of Present Illness History of Present Illness afib stable, decreased oral intake weak no fever Vitals Vitals Vital Signs Date Time Temp Pulse Resp B/P Pulse Ox O2 Delivery O2 Flow Rate FiO2 01/15/17 10:00 89 33 114/55 95 Nasal Cannula 2.0 01/15/17 08:00 99.1 99.1 Physical Exam General: Alert, mild distress Heart: Regular rate, Normal S1, Normal S2 Lungs: Clear, Crackles Abdomen: Normal bowel sounds Extremities: No cyanosis, No edema (to BKA) Skin: No breakdown, No significant lesion Labs LABS Laboratory Tests Test 01/14/17 17:09 01/14/17 21:46 01/15/17 05:20 01/15/17 08:04 Glucose (Fingerstick) 124mg/dL (70-99) 117mg/dL (70-99) 105mg/dL (70-99) Prothrombin Time 21.7SEC (11.7-14.0) Prothromb Time International Ratio 2.0 (0.8-1.1) Assessment and Plan Assessmemt and Plan Problems Medical Problems: (1) Acute congestive heart failure Status: Acute Problems: Comment Review of Relevant I have reviewed the following items anuja (where applicable) has been applied. Labs Laboratory Tests Test 01/13/17 12:06 01/13/17 17:04 01/14/17 04:25 01/14/17 08:10 Glucose (Fingerstick) 145mg/dL (70-99) 101mg/dL (70-99) 105mg/dL (70-99) Prothrombin Time 17.5SEC (11.7-14.0) Prothromb Time International Ratio 1.5 (0.8-1.1) Sodium Level 144mmol/L (136-145) Potassium Level 4.0mmol/L (3.5-5.1) Chloride Level 102mmol/L (98-107) Carbon Dioxide Level 36mmol/L (21-32) Anion Gap 6 (6-14) Blood Urea Nitrogen 66mg/dL (8-26) Creatinine 1.4mg/dL (0.7-1.3) Estimated GFR (Cockcroft-Gault) 50.5 Glucose Level 98mg/dL (70-99) Calcium Level 8.5mg/dL (8.5-10.1) Magnesium Level 1.9mg/dL (1.8-2.4) Test 01/14/17 10:25 01/14/17 12:00 01/14/17 17:09 01/14/17 21:46 Vancomycin Level Trough 21.5mcg/mL (10.0-20.0) Vancomycin Last Dose Date 01/13/17 Vancomycin Last Dose Time 1100 Glucose (Fingerstick) 99mg/dL (70-99) 124mg/dL (70-99) 117mg/dL (70-99) Test 01/15/17 05:20 01/15/17 08:04 Prothrombin Time 21.7SEC (11.7-14.0) Prothromb Time International Ratio 2.0 (0.8-1.1) Glucose (Fingerstick) 105mg/dL (70-99) Laboratory Tests Test 01/14/17 17:09 01/14/17 21:46 01/15/17 05:20 01/15/17 08:04 Glucose (Fingerstick) 124mg/dL (70-99) 117mg/dL (70-99) 105mg/dL (70-99) Prothrombin Time 21.7SEC (11.7-14.0) Prothromb Time International Ratio 2.0 (0.8-1.1) Microbiology 01/09/17 Gram Stain - Final, Complete Medications Current Medications Acetaminophen (Tylenol) 650 mg PRN Q6HRS PRN PO MILD PAIN / TEMP Last administered on 01/11/17 06:17; Start 01/06/17 at 05:00 Ondansetron HCl (Zofran) 4 mg PRN Q6HRS PRN IV NAUSEA/VOMITING; Start 01/06/17 at 05:00 Hydralazine HCl (Apresoline) 10 mg PRN Q4HRS PRN IVP ELEVATED BP, SEE COMMENTS ; Start 01/06/17 at 05:00 Amiodarone HCl (Cordarone) 200 mg DAILY PO Last administered on 01/11/17 08:32 ; Start 01/06/17 at 10:00; Stop 01/13/17 at 10:54; Status DC Vitamin D (Vitamin D3) 2,000 unit DAILY PO Last administered on 01/15/17 07:58 ; Start 01/06/17 at 10:00 Digoxin (Lanoxin) 125 mcg DAILY PO Last administered on 01/15/17 07:58; Start 01/06/17 at 10:30 Levothyroxine Sodium (Synthroid) 100 mcg DAILY07 PO Last administered on 06:27; Start 01/06/17 at 10:30 Magnesium Oxide (Magnesium Oxide) 400 mg DAILY PO Last administered on 07:57; Start 01/06/17 at 10:30 Metoprolol Succinate (Toprol Xl) 25 mg DAILY PO Last administered on 01/15/17 07:57; Start 01/06/17 at 10:30 Simvastatin (Zocor) 10 mg QHS PO Last administered on 01/14/17 21:46; Start at 21:00 Torsemide (Demadex) 80 mg DAILY PO Last administered on 01/07/17 08:40; Start 01/06/17 at 10:30; Stop 01/07/17 at 11:53; Status DC Warfarin Sodium (Coumadin) 2 mg DAILY16 PO ; Start 01/06/17 at 16:00; Stop 01/06 at 16:00; Status DC Carvedilol (Coreg) 25 mg BIDWMEALS PO Last administered on 01/06/17 10:22; Start 01/06/17 at 10:30; Stop 01/06/17 at 11:51; Status DC Lisinopril (Prinivil) 2.5 mg DAILY PO Last administered on 01/06/17 10:21; Start 01/06/17 at 10:30; Stop 01/08/17 at 08:36; Status DC Insulin Aspart (Novolog) 10 units TIDAC SQ Last administered on 01/06/17 18:38 ; Start 01/06/17 at 11:30; Stop 01/07/17 at 12:38; Status DC Insulin Detemir (Levemir) 30 units BID SQ Last administered on 01/08/17 09:00 ; Start 01/06/17 at 10:30; Stop 01/08/17 at 12:56; Status DC Non-Formulary Medication 500 mg DAILY PO ; Start 01/07/17 at 09:00; Status UNV Torsemide (Demadex) 80 mg DAILY PO ; Start 01/06/17 at 10:00; Status UNV Insulin Aspart (Novolog) 0-9 UNITS TIDWMEALS SQ Last administered on 01/07/17 16:58; Start 01/06/17 at 12:00 Dextrose 12.5 gm PRN Q15MIN PRN IV SEE COMMENTS Last administered on 01/09/17 00:56; Start 01/06/17 at 09:45 Warfarin Sodium (Coumadin Per Physician) 1 each PRN DAILY PRN MC SEE COMMENTS Last administered on 01/07/17 12:33; Start 01/06/17 at 10:45; Stop 01/07/17 at 13:37; Status DC Furosemide (Lasix) 40 mg 1X ONCE IVP Last administered on 01/06/17 15:55; Start 01/06/17 at 16:00; Stop 01/06/17 at 16:01; Status DC Metolazone (Zaroxolyn) 5 mg DAILY PO Last administered on 01/07/17 08:40; Start 01/07/17 at 09:00; Stop 01/07/17 at 14:45; Status DC Ascorbic Acid (Vitamin C) 500 mg DAILY PO Last administered on 01/15/17 07:57 ; Start 01/08/17 at 09:00 Multivitamins/ Calcium (Thera M Plus) 1 tab DAILY PO Last administered on 07:58; Start 01/08/17 at 09:00 Albuterol Sulfate (Ventolin Neb Soln) 2.5 mg 1X ONCE NEB Last administered on 01/07/17 15:45; Start 01/07/17 at 11:45; Stop 01/07/17 at 11:46; Status DC Torsemide (Demadex) 40 mg DAILY PO ; Start 01/08/17 at 09:00; Stop 01/08/17 at 09:00; Status DC Insulin Aspart (Novolog) 8 units TIDAC SQ Last administered on 01/08/17 07:30 ; Start 01/07/17 at 16:30; Stop 01/08/17 at 12:56; Status DC Warfarin Sodium (Coumadin Per Pharmacy) 1 each PRN DAILY PRN MC SEE COMMENTS Last administered on 01/15/17 10:39; Start 01/09/17 at 13:45 Aspirin (Ecotrin) 81 mg DAILYWBKFT PO Last administered on 01/15/17 07:57; Start 01/08/17 at 08:00 Warfarin Sodium (Coumadin - No Dose Today) 1 each 1X WARF ONCE MC ; Start 01/07 at 16:00; Stop 01/07/17 at 16:01; Status DC Metolazone 2.5 mg 2.5 mg DAILY PO ; Start 01/08/17 at 09:00; Stop 01/08/17 at 09 :00; Status DC Sodium Chloride 1,000 ml @ 100 mls/hr 1X ONCE IV Last administered on 10:53; Start 01/08/17 at 08:45; Stop 01/08/17 at 18:44; Status DC Phytonadione/ Sodium Chloride (Vitamin K/Iv Sodium Chloride 0.9% 50ml) 51 ml @ 102 mls/hr 1X ONCE IV Last administered on 01/08/17 12:15; Start 01/08/17 at 11:00; Stop 01/08/17 at 11:29; Status DC Torsemide (Demadex) 20 mg DAILY PO Last administered on 01/15/17 07:57; Start 01/08/17 at 12:00 Albuterol/ Ipratropium (Duoneb) 3 ml 1X ONCE NEB ; Start 01/08/17 at 12:45; Stop 01/08/17 at 12:46; Status DC Insulin Aspart (Novolog) 5 units TIDAC SQ ; Start 01/08/17 at 16:30; Stop at 09:04; Status DC Insulin Detemir (Levemir) 25 units BID SQ Last administered on 01/10/17 08:58 ; Start 01/08/17 at 21:00; Stop 01/10/17 at 09:04; Status DC Warfarin Sodium (Coumadin - No Dose Today) 1 each 1X WARF ONCE MC ; Start 01/08 at 16:00; Stop 01/08/17 at 16:01; Status DC Phytonadione (Mephyton) 2.5 mg 1X ONCE PO Last administered on 01/08/17 16:02 ; Start 01/08/17 at 15:45; Stop 01/08/17 at 15:46; Status DC Warfarin Sodium (Coumadin - No Dose Today) 1 each 1X WARF ONCE MC ; Start 01/09 at 16:00; Stop 01/09/17 at 16:01; Status DC Lidocaine/Sodium Bicarbonate (Buffered Lidocaine 1%) 20 ml STK-MED ONCE IJ ; Start 01/09/17 at 15:15; Stop 01/09/17 at 15:16; Status DC Lidocaine/Sodium Bicarbonate (Buffered Lidocaine 1%) 8 ml 1X ONCE IJ Last administered on 01/09/17 16:25; Start 01/09/17 at 16:30; Stop 01/09/17 at 16:31 ; Status DC Potassium Chloride (Klor-Con) 40 meq 1X ONCE PO Last administered on 10:44; Start 01/10/17 at 09:15; Stop 01/10/17 at 09:16; Status DC Insulin Detemir (Levemir) 10 units BID SQ Last administered on 01/12/17 09:40 ; Start 01/10/17 at 09:00; Stop 01/12/17 at 10:04; Status DC Warfarin Sodium (Coumadin) 2 mg 1X WARF ONCE PO Last administered on 17:41; Start 01/10/17 at 16:00; Stop 01/10/17 at 16:01; Status DC Ipratropium [place] (Atrovent) 0.5 mg RTQID NEB Last administered on 01/15/17 08:45; Start 01/11/17 at 12:00 Warfarin Sodium (Coumadin) 4 mg 1X WARF ONCE PO Last administered on 16:34; Start 01/11/17 at 16:00; Stop 01/11/17 at 16:01; Status DC Furosemide (Lasix) 40 mg 1X ONCE IVP Last administered on 01/11/17 15:00; Start 01/11/17 at 15:00; Stop 01/11/17 at 15:01; Status DC Morphine Sulfate 2 mg PRN Q2HR PRN IV PAIN Last administered on 01/11/17 15:37 ; Start 01/11/17 at 15:30 Budesonide 0.5 mg 0.5 mg RTBID NEB Last administered on 01/13/17 08:15; Start 01/12/17 at 08:00; Stop 01/13/17 at 15:42; Status DC Amiodarone HCl 150 mg/Dextrose 103 ml @ 618 mls/hr 1X ONCE IV Last administered on 01/12/17 08:29; Start 01/12/17 at 07:15; Stop 01/12/17 at 07:24 ; Status DC Amiodarone HCl 900 mg/Dextrose 518 ml @ 0 mls/hr CONT PRN IV SEE I/O RECORD Last administered on 01/12/17 08:28; Start 01/12/17 at 07:30; Stop 01/12/17 at 08:31; Status DC Magnesium Sulfate/ Dextrose 50 ml @ 25 mls/hr 1X ONCE IV Last administered on 01/12/17 08:29; Start 01/12/17 at 07:30; Stop 01/12/17 at 09:29; Status DC Potassium Chloride (KCl Premix 10meq) 100 ml @ 100 mls/hr 1X ONCE IV Last administered on 01/12/17 08:30; Start 01/12/17 at 09:00; Stop 01/12/17 at 09:59 ; Status DC Insulin Detemir 10 units 10 units DAILY SQ ; Start 01/13/17 at 09:00 Meropenem 500 mg/ Sodium Chloride 50 ml @ 100 mls/hr Q8HRS IV ; Start 01/12/17 at 14:00; Status UNV Vancomycin HCl/ Sodium Chloride (Iv Sodium Chloride 0.9% 500ml Bag) 500 ml @ 250 mls/hr Q12H IV ; Start 01/12/17 at 10:15; Status UNV Vancomycin HCl 1 each 1 each PRN DAILY PRN MC SEE COMMENTS Last administered on 01/15/17 10:35; Start 01/12/17 at 10:15 Vancomycin HCl 2 gm/Sodium Chloride 500 ml @ 250 mls/hr 1X ONCE IV Last administered on 01/12/17 11:22; Start 01/12/17 at 11:00; Stop 01/12/17 at 12:59 ; Status DC Meropenem 1 gm/ Sodium Chloride 100 ml @ 200 mls/hr Q8HRS IV Last administered on 01/15/17 06:26; Start 01/12/17 at 11:00 Vancomycin HCl/ Sodium Chloride (Iv Sodium Chloride 0.9% 500ml Bag) 500 ml @ 250 mls/hr Q24H IV Last administered on 01/13/17 11:12; Start 01/13/17 at 11: 00; Stop 01/14/17 at 13:25; Status DC Vancomycin HCl 1 each 1X ONCE MC ; Start 01/14/17 at 10:30; Stop 01/14/17 at 10 :31; Status DC Warfarin Sodium 4 mg 4 mg 1X WARF ONCE PO Last administered on 01/12/17 16:29 ; Start 01/12/17 at 16:00; Stop 01/12/17 at 16:01; Status DC Amiodarone HCl 50 mg/Dextrose 101 ml @ 618 mls/hr 1X ONCE IV Last administered on 01/12/17 15:48; Start 01/12/17 at 16:00; Stop 01/12/17 at 16:09 ; Status DC Amiodarone HCl/ Dextrose (Cordarone) 518 ml @ 33 mls/hr CONT PRN IV SEE I/O RECORD Last administered on 01/13/17 06:36; Start 01/12/17 at 15:30; Stop 01/13 at 06:36; Status DC Warfarin Sodium (Coumadin) 5 mg 1X WARF ONCE PO Last administered on 16:40; Start 01/13/17 at 16:00; Stop 01/13/17 at 16:01; Status DC Potassium Chloride (Klor-Con) 40 meq TID PO Last administered on 01/15/17 07: 58; Start 01/13/17 at 09:15 Amiodarone HCl 400 mg 400 mg DAILY PO Last administered on 01/15/17 07:57; Start 01/13/17 at 11:00 Amiodarone HCl/ Dextrose (Cordarone) 518 ml @ 16.6 mls/hr CONT PRN IV CONTINUOUS INFUSION Last administered on 01/13/17 22:24; Start 01/13/17 at 11: 15; Stop 01/14/17 at 11:15; Status DC Furosemide (Lasix) 40 mg 1X ONCE IVP Last administered on 01/13/17 14:21; Start 01/13/17 at 14:15; Stop 01/13/17 at 14:16; Status DC Warfarin Sodium 5 mg 5 mg 1X WARF ONCE PO Last administered on 01/14/17 16:23 ; Start 01/14/17 at 16:00; Stop 01/14/17 at 16:01; Status DC Vancomycin HCl/ Sodium Chloride (Iv Sodium Chloride 0.9% 250ml) 250 ml @ 167 mls/hr Q24H IV Last administered on 01/14/17 16:24; Start 01/14/17 at 16:00 Vancomycin HCl 1 each 1 each 1X ONCE MC ; Start 01/16/17 at 15:30; Stop at 15:31 Magnesium Sulfate/ Dextrose (Magnesium Sulfate PREMIX 2GM) 50 ml @ 25 mls/hr 1X ONCE IV Last administered on 01/14/17 15:34; Start 01/14/17 at 15:15; Stop 01/14/17 at 17:14; Status DC Barium Sulfate (Varibar Thin Liquid) 148 gm 1X ONCE PO Last administered on 11:24; Start 01/15/17 at 09:45; Stop 01/15/17 at 09:46; Status DC Barium Sulfate (Varibar Thin Liquid) 148 gm 1X ONCE PO ; Start 01/15/17 at 10: 30; Stop 01/15/17 at 10:31; Status DC Warfarin Sodium (Coumadin) 4 mg 1X WARF ONCE PO ; Start 01/15/17 at 16:00; Stop 01/15/17 at 16:01 Active Scripts Active Reported Torsemide 20 Mg Tablet 4 Tab PO DAILY Amiodarone Hcl 200 Mg Tablet 1 Tab PO DAILY Toprol Xl (Metoprolol Succinate) 25 Mg Tab.er.24h 1 Tab PO DAILY Novolog (Insulin Aspart) 100 Unit/1 Ml Cartridge 10 Unit SQ TID Lantus Solostar (Insulin Glargine,Hum.rec.anlog) 100 Unit/1 Ml Insuln.pen 40 Unit SQ BID Cyclobenzaprine Hcl 10 Mg Tablet 1 Tab PO TID Allopurinol 300 Mg Tablet 1 Tab PO DAILY Simvastatin 10 Mg Tablet 1 Tab PO QHS Coumadin (Warfarin Sodium) 2.5 Mg Tablet 1 Tab PO DAILY Potassium Gluconate 500 Mg Tablet 500 Mg PO DAILY Furosemide 40 Mg Tablet 1 Tab PO DAILY Mag-Oxide (Magnesium Oxide) 400 Mg Tablet 1 Tab PO DAILY Levothyroxine Sodium 100 Mcg Tablet 1 Tab PO DAILY Digoxin 125 Mcg Tablet 1 Tab PO DAILY Enalapril Maleate 2.5 Mg Tablet 1 Tab PO DAILY Vitamin D3 (Cholecalciferol (Vitamin D3)) 1,000 Unit Tablet 2,000 Unit PO DAILY Coreg (Carvedilol) 25 Mg Tablet 1 Tab PO BID Vitals/I & O Vital Sign - Last 24 Hours 01/14/17 01/14/17 01/14/17 01/14/17 13:00 13:12 14:00 15:00 Pulse 89 89 89 Resp 32 26 23 B/P 112/62 119/74 91/66 Pulse Ox 100 100 97 93 O2 Delivery Nasal Cannula Nasal Cannula Nasal Cannula Nasal Cannula O2 Flow Rate 4.0 2.0 4.0 4.0 01/14/17 01/14/17 01/14/17 01/14/17 16:00 16:00 16:24 17:00 Temp 98.0 98.0 Pulse 89 89 Resp 30 18 B/P 107/62 116/64 Pulse Ox 100 100 99 O2 Delivery Nasal Cannula Nasal Cannula Nasal Cannula Nasal Cannula O2 Flow Rate 4.0 4.0 2.0 4.0 01/14/17 01/14/17 01/14/17 01/14/17 18:00 19:00 19:57 20:00 Temp 97.8 97.8 Pulse 90 89 89 Resp 28 35 28 B/P 113/70 119/64 123/69 Pulse Ox 99 100 98 100 O2 Delivery Nasal Cannula Nasal Cannula Nasal Cannula Nasal Cannula O2 Flow Rate 4.0 2.0 2.0 2.0 01/14/17 01/14/17 01/14/17 01/14/17 20:01 21:00 22:00 23:00 Pulse 89 89 89 Resp 25 30 28 B/P 125/72 122/73 118/71 Pulse Ox 99 99 98 O2 Delivery Nasal Cannula Nasal Cannula Nasal Cannula Nasal Cannula O2 Flow Rate 2.0 2.0 2.0 2.0 01/15/17 01/15/17 01/15/17 01/15/17 00:00 00:00 01:00 02:00 Temp 98.7 98.7 Pulse 89 89 89 Resp 28 30 30 B/P 118/71 120/73 117/68 Pulse Ox 98 97 98 O2 Delivery Nasal Cannula Nasal Cannula Nasal Cannula Nasal Cannula O2 Flow Rate 2.0 2.0 2.0 2.0 01/15/17 01/15/17 01/15/17 01/15/17 03:00 04:00 04:00 05:00 Temp 98.0 98.0 Pulse 89 89 89 Resp 27 28 28 B/P 121/70 126/73 125/70 Pulse Ox 98 99 98 O2 Delivery Nasal Cannula Nasal Cannula Nasal Cannula Nasal Cannula O2 Flow Rate 2.0 2.0 2.0 2.0 01/15/17 01/15/17 01/15/17 01/15/17 06:00 07:00 07:57 07:57 Pulse 89 92 92 92 Resp 28 24 B/P 116/62 116/62 116/62 116/62 Pulse Ox 99 99 O2 Delivery Nasal Cannula Nasal Cannula O2 Flow Rate 2.0 2.0 01/15/17 01/15/17 01/15/17 01/15/17 07:58 08:00 08:00 08:48 Temp 99.1 99.1 Pulse 92 89 Resp 27 B/P 116/62 111/62 Pulse Ox 100 98 O2 Delivery Nasal Cannula Nasal Cannula Nasal Cannula O2 Flow Rate 2.0 2.0 2.0 01/15/17 01/15/17 09:00 10:00 Pulse 91 89 Resp 30 33 B/P 104/59 114/55 Pulse Ox 92 95 O2 Delivery Nasal Cannula Nasal Cannula O2 Flow Rate 2.0 2.0 Intake and Output 01/14/17 01/14/17 01/15/17 15:00 23:00 07:00 Intake Total 125 ml 230 ml 869 ml Output Total 1610 ml 745 ml Balance 125 ml -1380 ml 124 ml MARITZA CHEN MD Jan 15, 2017 12:03
--- NOTE | 2017-01-15 12:40 | PDOC ---
CARDIO Progress Notes Date and Time Date of Service 01/15/17 Time of Evaluation 1145 Subjective Subjective: No Chest Pain, No Palpitations, No Dizziness, Other (breathing improved. ) Vitals Vitals Vital Signs Date Time Temp Pulse Resp B/P Pulse Ox O2 Delivery O2 Flow Rate FiO2 01/15/17 12:16 Nasal Cannula 2.0 01/15/17 12:00 98.1 89 32 105/57 100 98.1 Weight Weight [ ] Input and Output Intake and Output Intake and Output 01/15/17 07:00 Intake Total 1224 ml Output Total 2355 ml Balance -1131 ml Intake Oral 355 ml IV Total 869 ml Output Urine Total 2355 ml # Bowel Movements 1 Laboratory Labs Laboratory Tests Test 01/14/17 17:09 01/14/17 21:46 01/15/17 05:20 01/15/17 08:04 Glucose (Fingerstick) 124mg/dL (70-99) 117mg/dL (70-99) 105mg/dL (70-99) Prothrombin Time 21.7SEC (11.7-14.0) Prothromb Time International Ratio 2.0 (0.8-1.1) Test 01/15/17 12:08 Glucose (Fingerstick) 149mg/dL (70-99) Microbiology Micro Microbiology 01/09/17 Gram Stain - Final, Complete Review of Systems Constitutional: yes: alert, weakness Ears/Nose/Throat: Yes: no symptom reported Eyes: Yes: no symptom reported Pulmonary: Yes dyspnea Cardiovascular: Yes edema Gastrointestional: Yes: constipation Genitourinary: Yes: no symptom reported Skin: Yes no symptom reported Physical Exam HEENT: Neck Supple W Full Motion Chest: Symmetric LUNGS: Clear to Auscultation Heart: S1S2, murmurs (3/6 systolic murmur to LLS border), irregularly irregular (Paced with underlying AFIB; no significant rhythm ectopies overnight) Abdomen: Soft N/T Extremities: No Calf Tenderness, Other (bilateral BKA; no stump edema, no scrotal edema) Neurology: alert, oriented, follow commands Assessment Assessment 1. 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 Ventricular arrhythmia s/p multiple ICD discharges 3. 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 COPD 4. 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 PAFIB: Paced with underlying AFIB. 7. JOHANN on CKD3 8. Hx of mitral valve repair , Hx of HIT (2009) 9. ? DINO Recommendations No further significant arrhythmias overnight Appears fairly well compensated- continue oral diuresis Video swallow failed. Continue oral Amiodarone given recent VT/VF/Torsades with multiple ICD discharges. Will need close monitoring Supportive care. Prognosis poor/guarded. Palliative care following. FORREST SAGE APRN Jan 15, 2017 12:40
[2017-01-15] MEDS: VANCOMYCIN 1.25 GM in IV NORMAL SALINE 250ML 250 ML IV SCH (15:37)
--- NOTE | 2017-01-15 15:43 | PDOC2 ---
PALLIATIVE CARE Palliative Care Note Palliative Care Patient alert. Denies pain, SOB, nausea. Complains of dry mouth. Will try oral moisturizer for relief. Patient wishes to continue current treatment plan. "I want to live a while longer-not ready to give up" No family at bedside. Will continue to follow and support. FELICITY PRITCHARD Jan 15, 2017 15:43
[2017-01-15] MEDS ORDERED: WARFARIN 4 MG TABLET. PO ONE (16:00)
[2017-01-15] MEDS: SIMVASTATIN 10 MG TABLET PO SCH (21:05)
[2017-01-16 00:03] VITALS: BP 108/62
[2017-01-16 04:00] VITALS: BP 115/63
[2017-01-16] MEDS: LEVOTHYROXINE 100 MCG TABLET PO SCH (06:23)
[2017-01-16] MEDS: IPRATROPIUM BROMIDE 0.5 MG/2.5 ML NEBU. NEB SCH ×4 (06:53→19:24)
--- NOTE | 2017-01-16 07:23 | RAD ---
EXAM: Chest one view. HISTORY: Shortness of breath, pulmonary edema. COMPARISON: 01/13/2017. FINDINGS: A frontal view of the chest is obtained. A left-sided pacemaker/defibrillator has its leads in the right atrium and right ventricle. There are changes of median sternotomy and valve replacement. Interstitial and airspace opacities in the bases are consistent with moderate pulmonary edema. There are not clearly changed. There is no pneumothorax or pleural effusion. The heart is moderately enlarged. IMPRESSION: 1. Stable moderate pulmonary edema. 2. Moderate cardiomegaly.
[2017-01-16 08:00] VITALS: BP 105/64
[2017-01-16] MEDS: INSULIN ASPART 300 UNITS/3 ML INSULN.PEN SQ SCH ×3 (08:00→17:00)
[2017-01-16] MEDS: CHOLECALCIFEROL (VITAMIN D3) 1,000 UNIT TABLET PO SCH (08:38)
[2017-01-16] MEDS: MAGNESIUM OXIDE 400 MG TABLET PO SCH (08:38)
[2017-01-16] MEDS: TORSEMIDE 20 MG TABLET. PO SCH (08:38)
[2017-01-16] MEDS: ASCORBIC ACID 500 MG TABLET PO SCH (08:38)
[2017-01-16] MEDS: AMIODARONE HCL 200 MG TABLET PO SCH (08:38)
[2017-01-16] MEDS: MULTIVITAMIN with MINERAL TABLET. PO SCH (08:38)
[2017-01-16] MEDS: POTASSIUM CHLORIDE 20 MEQ TABLET.ER. PO SCH (08:39)
[2017-01-16] MEDS: METOPROLOL SUCC 24HR ER 25 MG TAB.ER.24H. PO SCH (08:39)
[2017-01-16] MEDS: DIGOXIN 125 MCG TABLET PO SCH (08:40)
[2017-01-16] MEDS: ASPIRIN ENTERIC COATED 81 MG TABLET.DR. PO SCH (08:40)
[2017-01-16] MEDS: INSULIN DETEMIR 300 UNITS/3 ML INSULN.PEN. SQ SCH (08:41)
--- NOTE | 2017-01-16 08:47 | PDOC ---
FORREST SAGE FORMING PRESS OPERATOR 01/16/17 0847: CARDIO Progress Notes Date and Time Date of Service 01/16/17 Time of Evaluation 0845 Subjective Subjective: No Chest Pain, No Palpitations, No Dizziness, Other (weak; dry mouth- doesnt like thickened liquids) Vitals Vitals Vital Signs Date Time Temp Pulse Resp B/P Pulse Ox O2 Delivery O2 Flow Rate FiO2 01/16/17 08:40 89 105/64 01/16/17 06:53 98 Nasal Cannula 2.0 01/16/17 04:00 97.5 20 97.5 Weight Weight [ ] Input and Output Intake and Output Intake and Output 01/16/17 07:00 Intake Total 1440 ml Output Total 2625 ml Balance -1185 ml Intake Oral 940 ml IV Total 500 ml Output Urine Total 2625 ml # Bowel Movements 2 Laboratory Labs Laboratory Tests Test 01/15/17 12:08 01/15/17 17:17 01/15/17 21:15 Glucose (Fingerstick) 149mg/dL (70-99) 99mg/dL (70-99) 83mg/dL (70-99) Microbiology Micro Microbiology 01/09/17 Gram Stain - Final, Complete Review of Systems Constitutional: yes: alert, weakness Ears/Nose/Throat: Yes: no symptom reported Eyes: Yes: no symptom reported Pulmonary: Yes dyspnea Cardiovascular: Yes edema Gastrointestional: Yes: constipation Genitourinary: Yes: no symptom reported Skin: Yes no symptom reported Physical Exam HEENT: Neck Supple W Full Motion Chest: Symmetric LUNGS: Clear to Auscultation, Other (diminished bases) Heart: S1S2, murmurs (3/6 systolic murmur to LLS border), irregularly irregular (AV paced with underlying AFIB; no significant rhythm ectopies overnight) Abdomen: Soft N/T Extremities: No Calf Tenderness, Other (bilateral BKA; no stump edema, no scrotal edema) Neurology: alert, oriented, follow commands Assessment Assessment 1. 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 Ventricular arrhythmia s/p multiple ICD discharges 3. 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 COPD 4. HTN/HLP/DM2 5. 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 PAFIB: Paced with underlying AFIB. 7. JOHANN on CKD3 8. Hx of mitral valve repair , Hx of HIT (2009) 9. ? DINO 10. aspiration Recommendations Rhythm stable; no ventricular tachycardia overnight. Check Mg, BMP Appears fairly well compensated- continue oral diuresis Video swallow failed- on nectar thickened liquids. Continue oral Amiodarone given recent VT/VF/Torsades with multiple ICD discharges. Will need close monitoring Supportive care. Prognosis poor/guarded. Palliative care following. ODALYS SHAHID MD 01/16/17 1610: CARDIO Progress Notes Assessment Assessment Patient seen and examined. Agree with SCALPER OPERATOR's assessment and plan. Acute on chronic systolic heart failure better compensated. No further episodes of VT/ VF on telemetry. Continue current medications including amiodarone. FORREST SAGE APRN Jan 16, 2017 08:47 ODALYS SHAHID MD Jan 16, 2017 16:10
[2017-01-16 09:07] LABS: BASO # 0.1 x10^3/uL (0.0-0.2); BASO % 1 % (0-3); EOS % 6 % (0-3); HEMOGLOBIN 14.2 g/dL (13.0-17.5); LYMPH # 0.5 x10^3/uL (1.0-4.8); LYMPH % 5 % (24-48); MEAN CORPUSCULAR HEMOGLOBIN 23 pg (25-35); MEAN CORPUSCULAR HGB CONC 31 g/dL (31-37); MEAN CORPUSCULAR VOLUME 76 fL (79-100); MONO % 8 % (0-9); NEUT % 80 % (31-73); PLATELET COUNT 200 x10^3/uL (140-400); RED BLOOD COUNT 6.04 x10^6/uL (4.30-5.70); RED CELL DISTRIBUTION WIDTH 21.5 % (11.5-14.5); WHITE BLOOD COUNT 9.9 x10^3/uL (4.0-11.0)
[2017-01-16 09:18] LABS: INR 2.9 (0.8-1.1); PROTHROMBIN TIME PATIENT 28.9 SEC (11.7-14.0)
[2017-01-16 10:02] LABS: CALCIUM 8.7 mg/dL (8.5-10.1); CREATININE 1.3 mg/dL (0.7-1.3); GFR 55.1; MAGNESIUM 2.2 mg/dL (1.8-2.4); POTASSIUM 5.4 mmol/L (3.5-5.1)
--- NOTE | 2017-01-16 10:27 | PDOC ---
PULMONARY PROGRESS NOTES Subjective no soa Vitals Vital Signs Date Time Temp Pulse Resp B/P Pulse Ox O2 Delivery O2 Flow Rate FiO2 01/16/17 08:40 89 105/64 01/16/17 08:00 98.6 28 99 Nasal Cannula 2.0 98.6 ROS: No Nausea, No Chest Pain, No Abdominal Pain, No Increase Cough General: Alert, No acute distress HEENT: Other (nc at perrl thorat clear) Lungs: Clear Cardiovascular: S1, S2 Abdomen: Soft, Non-tender Neuro Exam: Alert Extremities: Other ( + edema, s/p bka) Skin: Warm Labs Laboratory Tests Test 01/14/17 10:25 01/14/17 12:00 01/14/17 17:09 01/14/17 21:46 Vancomycin Level Trough 21.5mcg/mL (10.0-20.0) Vancomycin Last Dose Date 01/13/17 Vancomycin Last Dose Time 1100 Glucose (Fingerstick) 99mg/dL (70-99) 124mg/dL (70-99) 117mg/dL (70-99) Test 01/15/17 05:20 01/15/17 08:04 01/15/17 12:08 01/15/17 17:17 Prothrombin Time 21.7SEC (11.7-14.0) Prothromb Time International Ratio 2.0 (0.8-1.1) Glucose (Fingerstick) 105mg/dL (70-99) 149mg/dL (70-99) 99mg/dL (70-99) Test 01/15/17 21:15 01/16/17 08:40 Glucose (Fingerstick) 83mg/dL (70-99) White Blood Count 9.9x10^3/uL (4.0-11.0) Red Blood Count 6.04x10^6/uL (4.30-5.70) Hemoglobin 14.2g/dL (13.0-17.5) Hematocrit 46.0% (39.0-53.0) Mean Corpuscular Volume 76fL (79-100) Mean Corpuscular Hemoglobin 23pg (25-35) Mean Corpuscular Hemoglobin Concent 31g/dL (31-37) Red Cell Distribution Width 21.5% (11.5-14.5) Platelet Count 200x10^3/uL (140-400) Neutrophils (%) (Auto) 80% (31-73) Lymphocytes (%) (Auto) 5% (24-48) Monocytes (%) (Auto) 8% (0-9) Eosinophils (%) (Auto) 6% (0-3) Basophils (%) (Auto) 1% (0-3) Neutrophils # (Auto) 7.9x10^3uL (1.8-7.7) Lymphocytes # (Auto) 0.5x10^3/uL (1.0-4.8) Monocytes # (Auto) 0.8x10^3/uL (0.0-1.1) Eosinophils # (Auto) 0.6x10^3/uL (0.0-0.7) Basophils # (Auto) 0.1x10^3/uL (0.0-0.2) Prothrombin Time 28.9SEC (11.7-14.0) Prothromb Time International Ratio 2.9 (0.8-1.1) Sodium Level 149mmol/L (136-145) Potassium Level 5.4mmol/L (3.5-5.1) Chloride Level 108mmol/L (98-107) Carbon Dioxide Level 35mmol/L (21-32) Anion Gap 6 (6-14) Blood Urea Nitrogen 50mg/dL (8-26) Creatinine 1.3mg/dL (0.7-1.3) Estimated GFR (Cockcroft-Gault) 55.1 Glucose Level 115mg/dL (70-99) Calcium Level 8.7mg/dL (8.5-10.1) Magnesium Level 2.2mg/dL (1.8-2.4) Laboratory Tests Test 01/15/17 12:08 01/15/17 17:17 01/15/17 21:15 01/16/17 08:40 Glucose (Fingerstick) 149mg/dL (70-99) 99mg/dL (70-99) 83mg/dL (70-99) White Blood Count 9.9x10^3/uL (4.0-11.0) Red Blood Count 6.04x10^6/uL (4.30-5.70) Hemoglobin 14.2g/dL (13.0-17.5) Hematocrit 46.0% (39.0-53.0) Mean Corpuscular Volume 76fL (79-100) Mean Corpuscular Hemoglobin 23pg (25-35) Mean Corpuscular Hemoglobin Concent 31g/dL (31-37) Red Cell Distribution Width 21.5% (11.5-14.5) Platelet Count 200x10^3/uL (140-400) Neutrophils (%) (Auto) 80% (31-73) Lymphocytes (%) (Auto) 5% (24-48) Monocytes (%) (Auto) 8% (0-9) Eosinophils (%) (Auto) 6% (0-3) Basophils (%) (Auto) 1% (0-3) Neutrophils # (Auto) 7.9x10^3uL (1.8-7.7) Lymphocytes # (Auto) 0.5x10^3/uL (1.0-4.8) Monocytes # (Auto) 0.8x10^3/uL (0.0-1.1) Eosinophils # (Auto) 0.6x10^3/uL (0.0-0.7) Basophils # (Auto) 0.1x10^3/uL (0.0-0.2) Prothrombin Time 28.9SEC (11.7-14.0) Prothromb Time International Ratio 2.9 (0.8-1.1) Sodium Level 149mmol/L (136-145) Potassium Level 5.4mmol/L (3.5-5.1) Chloride Level 108mmol/L (98-107) Carbon Dioxide Level 35mmol/L (21-32) Anion Gap 6 (6-14) Blood Urea Nitrogen 50mg/dL (8-26) Creatinine 1.3mg/dL (0.7-1.3) Estimated GFR (Cockcroft-Gault) 55.1 Glucose Level 115mg/dL (70-99) Calcium Level 8.7mg/dL (8.5-10.1) Magnesium Level 2.2mg/dL (1.8-2.4) Medications Active Scripts Medications Dose Route/Sig Days Date Category Torsemide 20 Mg Tablet 4 Tab PO DAILY 01/06/17 Reported Amiodarone Hcl 200 Mg Tablet 1 Tab PO DAILY 01/06/17 Reported Toprol Xl (Metoprolol Succinate) 25 Mg Tab.er.24h 1 Tab PO DAILY 01/06/17 Reported Novolog (Insulin Aspart) 100 Unit/1 Ml Cartridge 10 Unit SQ TID 06/08/16 Reported Lantus Solostar (Insulin Glargine,Hum.rec.anlog) 100 Unit/1 Ml Insuln.pen 40 Unit SQ BID 06/08/16 Reported Cyclobenzaprine Hcl 10 Mg Tablet 1 Tab PO TID 06/08/16 Reported Allopurinol 300 Mg Tablet 1 Tab PO DAILY 06/08/16 Reported Simvastatin 10 Mg Tablet 1 Tab PO QHS 06/08/16 Reported Coumadin (Warfarin Sodium) 2.5 Mg Tablet 1 Tab PO DAILY 06/08/16 Reported Potassium Gluconate 500 Mg Tablet 500 Mg PO DAILY 06/08/16 Reported Furosemide 40 Mg Tablet 1 Tab PO DAILY 06/08/16 Reported Mag-Oxide (Magnesium Oxide) 400 Mg Tablet 1 Tab PO DAILY 11/06/15 Reported Levothyroxine Sodium 100 Mcg Tablet 1 Tab PO DAILY 11/06/15 Reported Digoxin 125 Mcg Tablet 1 Tab PO DAILY 11/06/15 Reported Enalapril Maleate 2.5 Mg Tablet 1 Tab PO DAILY 11/06/15 Reported Vitamin D3 (Cholecalciferol (Vitamin D3)) 1,000 Unit Tablet 2,000 Unit PO DAILY 11/06/15 Reported Coreg (Carvedilol) 25 Mg Tablet 1 Tab PO BID 11/06/[address] reviewed, CT CHEST 1. Moderate sized right pleural effusion with underlying right lower lobe atelectasis and partial atelectasis of the right middle and upper lobes. 2. Mild patchy groundglass opacities and interlobular septal thickening compatible with mild pulmonary edema. 3. Severe generalized cardiomegaly. Impression . 1. Acute respiratory failure secondary to acute systolic heart failure. ? Amiodarone induced pneumonitis 2. Acute on chronic systolic heart failure with previous ejection fraction estimated at 15%. 3. Status post implantable cardioverter-defibrillator placement. 4. Abnormal x-ray revealing a large right-sided effusion S/P thoracentesis 5. Chronic atrial fibrillation, on Coumadin. 6. History of heparin-induced thrombocytopenia, status post bilateral below knee amputation. 7. Hypertension. 8. Chronic kidney disease. 9. Type 2 diabetes. 10. Elevated troponin level. 11. possible DINO Plan . nasal canula Need to qualify for oxygen/ d/w RN follow card input ALFRED balderas as tolerated on coumadin, adjust dose per inr. monitor for bleeding. follow up on cytology monitor CXR while on Amiodarone home with home health can have nocturnal oximetry study as OP by PCP d/w . WANDA VELASCO MD Jan 16, 2017 10:27
[2017-01-16 12:00] VITALS: BP 108/63
--- NOTE | 2017-01-16 14:46 | PDOC2 ---
PALLIATIVE CARE Palliative Care Note Palliative Care Patient visiting with . Patient sitting up in chair. Goal is to continue full aggressive treatment Home with Home Health when discharged per patient and request. PC will sign off. FELICITY PRITCHARD Jan 16, 2017 14:46
[2017-01-16 16:00] VITALS: BP 104/64
[2017-01-16] MEDS ORDERED: WARFARIN 1 MG TABLET. PO ONE (16:00)
[2017-01-16 20:00] VITALS: BP 117/63
--- NOTE | 2017-01-16 21:31 | PDOC ---
PROGRESS NOTES Chief Complaint Chief Complaint a/p 1. Acute respiratory failure with systolic CHF exacerbation 2. Systolic CHF exacerbation EF 15 % before 3. ICD, PPM 4. CHRONIC afib, on Coumadin 5. 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 AMS, slurry speech , hallucination, 2/2 hypoxia Better 7. HTN 8. JOHANN on CKD4 9. HLD 10. MR s/p repair 11. DM2 on insulin 12. high troponin, 2/2 2 likely 13. B/L pleural effusion, moderate RT 14. hypokalemia resolved. Plan on amiodarone rate controlled Britt exalate Nephrology following monitor platelets hx of HIT INR therapeutic, Pharmacy dosing Coumadin Palliative care consult meeting - partial code wants full treatment cardiology, pulmonolgy and nephrology following History of Present Illness History of Present Illness doing same seen this AM 10 no acute changes Vitals Vitals Vital Signs Date Time Temp Pulse Resp B/P Pulse Ox O2 Delivery O2 Flow Rate FiO2 01/16/17 20:00 Room Air 01/16/17 20:00 98.7 89 17 117/63 94 98.7 01/16/17 08:00 2.0 Physical Exam General: Alert, mild distress Heart: Regular rate, Normal S1, Normal S2 Lungs: Clear Abdomen: Normal bowel sounds Extremities: No cyanosis, No edema (to BKA) Skin: No breakdown, No significant lesion Labs LABS Laboratory Tests Test 01/16/17 08:35 01/16/17 08:40 01/16/17 13:06 01/16/17 17:13 Glucose (Fingerstick) 96mg/dL (70-99) 165mg/dL (70-99) 110mg/dL (70-99) White Blood Count 9.9x10^3/uL (4.0-11.0) Red Blood Count 6.04x10^6/uL (4.30-5.70) Hemoglobin 14.2g/dL (13.0-17.5) Hematocrit 46.0% (39.0-53.0) Mean Corpuscular Volume 76fL (79-100) Mean Corpuscular Hemoglobin 23pg (25-35) Mean Corpuscular Hemoglobin Concent 31g/dL (31-37) Red Cell Distribution Width 21.5% (11.5-14.5) Platelet Count 200x10^3/uL (140-400) Neutrophils (%) (Auto) 80% (31-73) Lymphocytes (%) (Auto) 5% (24-48) Monocytes (%) (Auto) 8% (0-9) Eosinophils (%) (Auto) 6% (0-3) Basophils (%) (Auto) 1% (0-3) Neutrophils # (Auto) 7.9x10^3uL (1.8-7.7) Lymphocytes # (Auto) 0.5x10^3/uL (1.0-4.8) Monocytes # (Auto) 0.8x10^3/uL (0.0-1.1) Eosinophils # (Auto) 0.6x10^3/uL (0.0-0.7) Basophils # (Auto) 0.1x10^3/uL (0.0-0.2) Prothrombin Time 28.9SEC (11.7-14.0) Prothromb Time International Ratio 2.9 (0.8-1.1) Sodium Level 149mmol/L (136-145) Potassium Level 5.4mmol/L (3.5-5.1) Chloride Level 108mmol/L (98-107) Carbon Dioxide Level 35mmol/L (21-32) Anion Gap 6 (6-14) Blood Urea Nitrogen 50mg/dL (8-26) Creatinine 1.3mg/dL (0.7-1.3) Estimated GFR (Cockcroft-Gault) 55.1 Glucose Level 115mg/dL (70-99) Calcium Level 8.7mg/dL (8.5-10.1) Magnesium Level 2.2mg/dL (1.8-2.4) Assessment and Plan Assessmemt and Plan Problems Medical Problems: (1) Acute congestive heart failure Status: Acute Problems: Comment Review of Relevant I have reviewed the following items anuja (where applicable) has been applied. Labs Laboratory Tests Test 01/14/17 21:46 01/15/17 05:20 01/15/17 08:04 01/15/17 12:08 Glucose (Fingerstick) 117mg/dL (70-99) 105mg/dL (70-99) 149mg/dL (70-99) Prothrombin Time 21.7SEC (11.7-14.0) Prothromb Time International Ratio 2.0 (0.8-1.1) Test 01/15/17 17:17 01/15/17 21:15 01/16/17 08:35 01/16/17 08:40 Glucose (Fingerstick) 99mg/dL (70-99) 83mg/dL (70-99) 96mg/dL (70-99) White Blood Count 9.9x10^3/uL (4.0-11.0) Red Blood Count 6.04x10^6/uL (4.30-5.70) Hemoglobin 14.2g/dL (13.0-17.5) Hematocrit 46.0% (39.0-53.0) Mean Corpuscular Volume 76fL (79-100) Mean Corpuscular Hemoglobin 23pg (25-35) Mean Corpuscular Hemoglobin Concent 31g/dL (31-37) Red Cell Distribution Width 21.5% (11.5-14.5) Platelet Count 200x10^3/uL (140-400) Neutrophils (%) (Auto) 80% (31-73) Lymphocytes (%) (Auto) 5% (24-48) Monocytes (%) (Auto) 8% (0-9) Eosinophils (%) (Auto) 6% (0-3) Basophils (%) (Auto) 1% (0-3) Neutrophils # (Auto) 7.9x10^3uL (1.8-7.7) Lymphocytes # (Auto) 0.5x10^3/uL (1.0-4.8) Monocytes # (Auto) 0.8x10^3/uL (0.0-1.1) Eosinophils # (Auto) 0.6x10^3/uL (0.0-0.7) Basophils # (Auto) 0.1x10^3/uL (0.0-0.2) Prothrombin Time 28.9SEC (11.7-14.0) Prothromb Time International Ratio 2.9 (0.8-1.1) Sodium Level 149mmol/L (136-145) Potassium Level 5.4mmol/L (3.5-5.1) Chloride Level 108mmol/L (98-107) Carbon Dioxide Level 35mmol/L (21-32) Anion Gap 6 (6-14) Blood Urea Nitrogen 50mg/dL (8-26) Creatinine 1.3mg/dL (0.7-1.3) Estimated GFR (Cockcroft-Gault) 55.1 Glucose Level 115mg/dL (70-99) Calcium Level 8.7mg/dL (8.5-10.1) Magnesium Level 2.2mg/dL (1.8-2.4) Test 01/16/17 13:06 01/16/17 17:13 Glucose (Fingerstick) 165mg/dL (70-99) 110mg/dL (70-99) Laboratory Tests Test 01/16/17 08:35 01/16/17 08:40 01/16/17 13:06 01/16/17 17:13 Glucose (Fingerstick) 96mg/dL (70-99) 165mg/dL (70-99) 110mg/dL (70-99) White Blood Count 9.9x10^3/uL (4.0-11.0) Red Blood Count 6.04x10^6/uL (4.30-5.70) Hemoglobin 14.2g/dL (13.0-17.5) Hematocrit 46.0% (39.0-53.0) Mean Corpuscular Volume 76fL (79-100) Mean Corpuscular Hemoglobin 23pg (25-35) Mean Corpuscular Hemoglobin Concent 31g/dL (31-37) Red Cell Distribution Width 21.5% (11.5-14.5) Platelet Count 200x10^3/uL (140-400) Neutrophils (%) (Auto) 80% (31-73) Lymphocytes (%) (Auto) 5% (24-48) Monocytes (%) (Auto) 8% (0-9) Eosinophils (%) (Auto) 6% (0-3) Basophils (%) (Auto) 1% (0-3) Neutrophils # (Auto) 7.9x10^3uL (1.8-7.7) Lymphocytes # (Auto) 0.5x10^3/uL (1.0-4.8) Monocytes # (Auto) 0.8x10^3/uL (0.0-1.1) Eosinophils # (Auto) 0.6x10^3/uL (0.0-0.7) Basophils # (Auto) 0.1x10^3/uL (0.0-0.2) Prothrombin Time 28.9SEC (11.7-14.0) Prothromb Time International Ratio 2.9 (0.8-1.1) Sodium Level 149mmol/L (136-145) Potassium Level 5.4mmol/L (3.5-5.1) Chloride Level 108mmol/L (98-107) Carbon Dioxide Level 35mmol/L (21-32) Anion Gap 6 (6-14) Blood Urea Nitrogen 50mg/dL (8-26) Creatinine 1.3mg/dL (0.7-1.3) Estimated GFR (Cockcroft-Gault) 55.1 Glucose Level 115mg/dL (70-99) Calcium Level 8.7mg/dL (8.5-10.1) Magnesium Level 2.2mg/dL (1.8-2.4) Microbiology 01/09/17 Gram Stain - Final, Complete Medications Current Medications Acetaminophen (Tylenol) 650 mg PRN Q6HRS PRN PO MILD PAIN / TEMP Last administered on 01/11/17 06:17; Start 01/06/17 at 05:00 Ondansetron HCl (Zofran) 4 mg PRN Q6HRS PRN IV NAUSEA/VOMITING; Start 01/06/17 at 05:00 Hydralazine HCl (Apresoline) 10 mg PRN Q4HRS PRN IVP ELEVATED BP, SEE COMMENTS ; Start 01/06/17 at 05:00 Amiodarone HCl (Cordarone) 200 mg DAILY PO Last administered on 01/11/17 08:32 ; Start 01/06/17 at 10:00; Stop 01/13/17 at 10:54; Status DC Vitamin D (Vitamin D3) 2,000 unit DAILY PO Last administered on 01/16/17 08:38 ; Start 01/06/17 at 10:00 Digoxin (Lanoxin) 125 mcg DAILY PO Last administered on 01/16/17 08:40; Start 01/06/17 at 10:30 Levothyroxine Sodium (Synthroid) 100 mcg DAILY07 PO Last administered on 06:23; Start 01/06/17 at 10:30 Magnesium Oxide (Magnesium Oxide) 400 mg DAILY PO Last administered on 08:38; Start 01/06/17 at 10:30 Metoprolol Succinate (Toprol Xl) 25 mg DAILY PO Last administered on 01/16/17 08:39; Start 01/06/17 at 10:30 Simvastatin (Zocor) 10 mg QHS PO Last administered on 01/15/17 21:05; Start at 21:00 Torsemide (Demadex) 80 mg DAILY PO Last administered on 01/07/17 08:40; Start 01/06/17 at 10:30; Stop 01/07/17 at 11:53; Status DC Warfarin Sodium (Coumadin) 2 mg DAILY16 PO ; Start 01/06/17 at 16:00; Stop 01/06 at 16:00; Status DC Carvedilol (Coreg) 25 mg BIDWMEALS PO Last administered on 01/06/17 10:22; Start 01/06/17 at 10:30; Stop 01/06/17 at 11:51; Status DC Lisinopril (Prinivil) 2.5 mg DAILY PO Last administered on 01/06/17 10:21; Start 01/06/17 at 10:30; Stop 01/08/17 at 08:36; Status DC Insulin Aspart (Novolog) 10 units TIDAC SQ Last administered on 01/06/17 18:38 ; Start 01/06/17 at 11:30; Stop 01/07/17 at 12:38; Status DC Insulin Detemir (Levemir) 30 units BID SQ Last administered on 01/08/17 09:00 ; Start 01/06/17 at 10:30; Stop 01/08/17 at 12:56; Status DC Non-Formulary Medication 500 mg DAILY PO ; Start 01/07/17 at 09:00; Status UNV Torsemide (Demadex) 80 mg DAILY PO ; Start 01/06/17 at 10:00; Status UNV Insulin Aspart (Novolog) 0-9 UNITS TIDWMEALS SQ Last administered on 01/16/17 13:08; Start 01/06/17 at 12:00 Dextrose 12.5 gm PRN Q15MIN PRN IV SEE COMMENTS Last administered on 01/09/17 00:56; Start 01/06/17 at 09:45 Warfarin Sodium (Coumadin Per Physician) 1 each PRN DAILY PRN MC SEE COMMENTS Last administered on 01/07/17 12:33; Start 01/06/17 at 10:45; Stop 01/07/17 at 13:37; Status DC Furosemide (Lasix) 40 mg 1X ONCE IVP Last administered on 01/06/17 15:55; Start 01/06/17 at 16:00; Stop 01/06/17 at 16:01; Status DC Metolazone (Zaroxolyn) 5 mg DAILY PO Last administered on 01/07/17 08:40; Start 01/07/17 at 09:00; Stop 01/07/17 at 14:45; Status DC Ascorbic Acid (Vitamin C) 500 mg DAILY PO Last administered on 01/16/17 08:38 ; Start 01/08/17 at 09:00 Multivitamins/ Calcium (Thera M Plus) 1 tab DAILY PO Last administered on 08:38; Start 01/08/17 at 09:00 Albuterol Sulfate (Ventolin Neb Soln) 2.5 mg 1X ONCE NEB Last administered on 01/07/17 15:45; Start 01/07/17 at 11:45; Stop 01/07/17 at 11:46; Status DC Torsemide (Demadex) 40 mg DAILY PO ; Start 01/08/17 at 09:00; Stop 01/08/17 at 09:00; Status DC Insulin Aspart (Novolog) 8 units TIDAC SQ Last administered on 01/08/17 07:30 ; Start 01/07/17 at 16:30; Stop 01/08/17 at 12:56; Status DC Warfarin Sodium (Coumadin Per Pharmacy) 1 each PRN DAILY PRN MC SEE COMMENTS Last administered on 01/16/17 10:23; Start 01/09/17 at 13:45 Aspirin (Ecotrin) 81 mg DAILYWBKFT PO Last administered on 01/16/17 08:40; Start 01/08/17 at 08:00 Warfarin Sodium (Coumadin - No Dose Today) 1 each 1X WARF ONCE MC ; Start 01/07 at 16:00; Stop 01/07/17 at 16:01; Status DC Metolazone 2.5 mg 2.5 mg DAILY PO ; Start 01/08/17 at 09:00; Stop 01/08/17 at 09 :00; Status DC Sodium Chloride 1,000 ml @ 100 mls/hr 1X ONCE IV Last administered on 10:53; Start 01/08/17 at 08:45; Stop 01/08/17 at 18:44; Status DC Phytonadione/ Sodium Chloride (Vitamin K/Iv Sodium Chloride 0.9% 50ml) 51 ml @ 102 mls/hr 1X ONCE IV Last administered on 01/08/17 12:15; Start 01/08/17 at 11:00; Stop 01/08/17 at 11:29; Status DC Torsemide (Demadex) 20 mg DAILY PO Last administered on 01/16/17 08:38; Start 01/08/17 at 12:00 Albuterol/ Ipratropium (Duoneb) 3 ml 1X ONCE NEB ; Start 01/08/17 at 12:45; Stop 01/08/17 at 12:46; Status DC Insulin Aspart (Novolog) 5 units TIDAC SQ ; Start 01/08/17 at 16:30; Stop at 09:04; Status DC Insulin Detemir (Levemir) 25 units BID SQ Last administered on 01/10/17 08:58 ; Start 01/08/17 at 21:00; Stop 01/10/17 at 09:04; Status DC Warfarin Sodium (Coumadin - No Dose Today) 1 each 1X WARF ONCE MC ; Start 01/08 at 16:00; Stop 01/08/17 at 16:01; Status DC Phytonadione (Mephyton) 2.5 mg 1X ONCE PO Last administered on 01/08/17 16:02 ; Start 01/08/17 at 15:45; Stop 01/08/17 at 15:46; Status DC Warfarin Sodium (Coumadin - No Dose Today) 1 each 1X WARF ONCE MC ; Start 01/09 at 16:00; Stop 01/09/17 at 16:01; Status DC Lidocaine/Sodium Bicarbonate (Buffered Lidocaine 1%) 20 ml STK-MED ONCE IJ ; Start 01/09/17 at 15:15; Stop 01/09/17 at 15:16; Status DC Lidocaine/Sodium Bicarbonate (Buffered Lidocaine 1%) 8 ml 1X ONCE IJ Last administered on 01/09/17 16:25; Start 01/09/17 at 16:30; Stop 01/09/17 at 16:31 ; Status DC Potassium Chloride (Klor-Con) 40 meq 1X ONCE PO Last administered on 10:44; Start 01/10/17 at 09:15; Stop 01/10/17 at 09:16; Status DC Insulin Detemir (Levemir) 10 units BID SQ Last administered on 01/12/17 09:40 ; Start 01/10/17 at 09:00; Stop 01/12/17 at 10:04; Status DC Warfarin Sodium (Coumadin) 2 mg 1X WARF ONCE PO Last administered on 17:41; Start 01/10/17 at 16:00; Stop 01/10/17 at 16:01; Status DC Ipratropium [place] (Atrovent) 0.5 mg RTQID NEB Last administered on 01/16/17 19:24; Start 01/11/17 at 12:00 Warfarin Sodium (Coumadin) 4 mg 1X WARF ONCE PO Last administered on 16:34; Start 01/11/17 at 16:00; Stop 01/11/17 at 16:01; Status DC Furosemide (Lasix) 40 mg 1X ONCE IVP Last administered on 01/11/17 15:00; Start 01/11/17 at 15:00; Stop 01/11/17 at 15:01; Status DC Morphine Sulfate 2 mg PRN Q2HR PRN IV PAIN Last administered on 01/11/17 15:37 ; Start 01/11/17 at 15:30 Budesonide 0.5 mg 0.5 mg RTBID NEB Last administered on 01/13/17 08:15; Start 01/12/17 at 08:00; Stop 01/13/17 at 15:42; Status DC Amiodarone HCl 150 mg/Dextrose 103 ml @ 618 mls/hr 1X ONCE IV Last administered on 01/12/17 08:29; Start 01/12/17 at 07:15; Stop 01/12/17 at 07:24 ; Status DC Amiodarone HCl 900 mg/Dextrose 518 ml @ 0 mls/hr CONT PRN IV SEE I/O RECORD Last administered on 01/12/17 08:28; Start 01/12/17 at 07:30; Stop 01/12/17 at 08:31; Status DC Magnesium Sulfate/ Dextrose 50 ml @ 25 mls/hr 1X ONCE IV Last administered on 01/12/17 08:29; Start 01/12/17 at 07:30; Stop 01/12/17 at 09:29; Status DC Potassium Chloride (KCl Premix 10meq) 100 ml @ 100 mls/hr 1X ONCE IV Last administered on 01/12/17 08:30; Start 01/12/17 at 09:00; Stop 01/12/17 at 09:59 ; Status DC Insulin Detemir 10 units 10 units DAILY SQ Last administered on 01/16/17 08:41 ; Start 01/13/17 at 09:00 Meropenem 500 mg/ Sodium Chloride 50 ml @ 100 mls/hr Q8HRS IV ; Start 01/12/17 at 14:00; Status UNV Vancomycin HCl/ Sodium Chloride (Iv Sodium Chloride 0.9% 500ml Bag) 500 ml @ 250 mls/hr Q12H IV ; Start 01/12/17 at 10:15; Status UNV Vancomycin HCl 1 each 1 each PRN DAILY PRN MC SEE COMMENTS Last administered on 01/15/17 10:35; Start 01/12/17 at 10:15; Stop 01/15/17 at 22:32; Status DC Vancomycin HCl 2 gm/Sodium Chloride 500 ml @ 250 mls/hr 1X ONCE IV Last administered on 01/12/17 11:22; Start 01/12/17 at 11:00; Stop 01/12/17 at 12:59 ; Status DC Meropenem 1 gm/ Sodium Chloride 100 ml @ 200 mls/hr Q8HRS IV Last administered on 01/15/17 21:11; Start 01/12/17 at 11:00; Stop 01/15/17 at 22:31 ; Status DC Vancomycin HCl/ Sodium Chloride (Iv Sodium Chloride 0.9% 500ml Bag) 500 ml @ 250 mls/hr Q24H IV Last administered on 01/13/17 11:12; Start 01/13/17 at 11: 00; Stop 01/14/17 at 13:25; Status DC Vancomycin HCl 1 each 1X ONCE MC ; Start 01/14/17 at 10:30; Stop 01/14/17 at 10 :31; Status DC Warfarin Sodium 4 mg 4 mg 1X WARF ONCE PO Last administered on 01/12/17 16:29 ; Start 01/12/17 at 16:00; Stop 01/12/17 at 16:01; Status DC Amiodarone HCl 50 mg/Dextrose 101 ml @ 618 mls/hr 1X ONCE IV Last administered on 01/12/17 15:48; Start 01/12/17 at 16:00; Stop 01/12/17 at 16:09 ; Status DC Amiodarone HCl/ Dextrose (Cordarone) 518 ml @ 33 mls/hr CONT PRN IV SEE I/O RECORD Last administered on 01/13/17 06:36; Start 01/12/17 at 15:30; Stop 01/13 at 06:36; Status DC Warfarin Sodium (Coumadin) 5 mg 1X WARF ONCE PO Last administered on 16:40; Start 01/13/17 at 16:00; Stop 01/13/17 at 16:01; Status DC Potassium Chloride (Klor-Con) 40 meq TID PO Last administered on 01/16/17 08: 39; Start 01/13/17 at 09:15; Stop 01/16/17 at 10:32; Status DC Amiodarone HCl 400 mg 400 mg DAILY PO Last administered on 01/16/17 08:38; Start 01/13/17 at 11:00 Amiodarone HCl/ Dextrose (Cordarone) 518 ml @ 16.6 mls/hr CONT PRN IV CONTINUOUS INFUSION Last administered on 01/13/17 22:24; Start 01/13/17 at 11: 15; Stop 01/14/17 at 11:15; Status DC Furosemide (Lasix) 40 mg 1X ONCE IVP Last administered on 01/13/17 14:21; Start 01/13/17 at 14:15; Stop 01/13/17 at 14:16; Status DC Warfarin Sodium 5 mg 5 mg 1X WARF ONCE PO Last administered on 01/14/17 16:23 ; Start 01/14/17 at 16:00; Stop 01/14/17 at 16:01; Status DC Vancomycin HCl/ Sodium Chloride (Iv Sodium Chloride 0.9% 250ml) 250 ml @ 167 mls/hr Q24H IV Last administered on 01/15/17 15:37; Start 01/14/17 at 16:00; Stop 01/15/17 at 22:31; Status DC Vancomycin HCl 1 each 1 each 1X ONCE MC ; Start 01/16/17 at 15:30; Stop at 15:30; Status DC Magnesium Sulfate/ Dextrose (Magnesium Sulfate PREMIX 2GM) 50 ml @ 25 mls/hr 1X ONCE IV Last administered on 01/14/17 15:34; Start 01/14/17 at 15:15; Stop 01/14/17 at 17:14; Status DC Barium Sulfate (Varibar Thin Liquid) 148 gm 1X ONCE PO Last administered on 11:24; Start 01/15/17 at 09:45; Stop 01/15/17 at 09:46; Status DC Barium Sulfate (Varibar Thin Liquid) 148 gm 1X ONCE PO ; Start 01/15/17 at 10: 30; Stop 01/15/17 at 10:31; Status DC Warfarin Sodium (Coumadin) 4 mg 1X WARF ONCE PO Last administered on 17:21; Start 01/15/17 at 16:00; Stop 01/15/17 at 16:01; Status DC Warfarin Sodium (Coumadin) 1 mg 1X WARF ONCE PO Last administered on 17:15; Start 01/16/17 at 16:00; Stop 01/16/17 at 16:01; Status DC Active Scripts Active Reported Torsemide 20 Mg Tablet 4 Tab PO DAILY Amiodarone Hcl 200 Mg Tablet 1 Tab PO DAILY Toprol Xl (Metoprolol Succinate) 25 Mg Tab.er.24h 1 Tab PO DAILY Novolog (Insulin Aspart) 100 Unit/1 Ml Cartridge 10 Unit SQ TID Lantus Solostar (Insulin Glargine,Hum.rec.anlog) 100 Unit/1 Ml Insuln.pen 40 Unit SQ BID Cyclobenzaprine Hcl 10 Mg Tablet 1 Tab PO TID Allopurinol 300 Mg Tablet 1 Tab PO DAILY Simvastatin 10 Mg Tablet 1 Tab PO QHS Coumadin (Warfarin Sodium) 2.5 Mg Tablet 1 Tab PO DAILY Potassium Gluconate 500 Mg Tablet 500 Mg PO DAILY Furosemide 40 Mg Tablet 1 Tab PO DAILY Mag-Oxide (Magnesium Oxide) 400 Mg Tablet 1 Tab PO DAILY Levothyroxine Sodium 100 Mcg Tablet 1 Tab PO DAILY Digoxin 125 Mcg Tablet 1 Tab PO DAILY Enalapril Maleate 2.5 Mg Tablet 1 Tab PO DAILY Vitamin D3 (Cholecalciferol (Vitamin D3)) 1,000 Unit Tablet 2,000 Unit PO DAILY Coreg (Carvedilol) 25 Mg Tablet 1 Tab PO BID Vitals/I & O Vital Sign - Last 24 Hours 01/16/17 01/16/17 01/16/17 01/16/17 00:03 04:00 06:53 08:00 Temp 97.4 97.5 97.4 97.5 Pulse 89 89 Resp 20 B/P 108/62 115/63 Pulse Ox 97 97 98 O2 Delivery Nasal Cannula Nasal Cannula Nasal Cannula Nasal Cannula O2 Flow Rate 2.0 2.0 2.0 2.0 01/16/17 01/16/17 01/16/17 01/16/17 08:00 08:38 08:39 08:40 Temp 98.6 98.6 Pulse 89 89 89 89 Resp B/P 105/64 105/64 105/64 105/64 Pulse Ox 99 O2 Delivery Nasal Cannula O2 Flow Rate 2.0 01/16/17 01/16/17 01/16/17 01/16/17 10:55 12:00 15:09 16:00 Temp 97.8 98.4 97.8 98.4 Pulse 89 93 Resp B/P 108/63 104/64 Pulse Ox 94 93 95 92 O2 Delivery Room Air Room Air Room Air Room Air 01/16/17 01/16/17 01/16/17 19:24 20:00 20:00 Temp 98.7 98.7 Pulse 89 Resp 17 B/P 117/63 Pulse Ox 96 94 O2 Delivery Room Air Room Air Room Air Intake and Output 01/15/17 01/15/17 01/16/17 15:00 23:00 07:00 Intake Total 300 ml 750 ml 390 ml Output Total 1400 ml 1225 ml Balance 300 ml -650 ml -835 ml MARITZA CHEN MD Jan 16, 2017 21:31
[2017-01-16] MEDS: SIMVASTATIN 10 MG TABLET PO SCH (21:37)
[2017-01-16] MEDS ORDERED: SODIUM POLYSTYRENE SULFONATE 15 GM/60 ML ORAL.SUSP. PO ONE (21:45)
[2017-01-17] VITALS: BP 118/58
[2017-01-17 04:00] VITALS: BP 113/55
[2017-01-17 05:47] LABS: INR 3.4 (0.8-1.1); PROTHROMBIN TIME PATIENT 32.6 SEC (11.7-14.0)
[2017-01-17] MEDS: LEVOTHYROXINE 100 MCG TABLET PO SCH (06:47)
[2017-01-17 08:00] VITALS: BP 116/59
[2017-01-17] MEDS: IPRATROPIUM BROMIDE 0.5 MG/2.5 ML NEBU. NEB SCH ×2 (08:00→12:19)
[2017-01-17] MEDS: INSULIN ASPART 300 UNITS/3 ML INSULN.PEN SQ SCH ×2 (08:00→12:00)
[2017-01-17] MEDS: TORSEMIDE 20 MG TABLET. PO SCH (08:05)
[2017-01-17] MEDS: CHOLECALCIFEROL (VITAMIN D3) 1,000 UNIT TABLET PO SCH (08:05)
[2017-01-17] MEDS: ASCORBIC ACID 500 MG TABLET PO SCH (08:05)
[2017-01-17] MEDS: AMIODARONE HCL 200 MG TABLET PO SCH (08:06)
[2017-01-17] MEDS: DIGOXIN 125 MCG TABLET PO SCH (08:06)
[2017-01-17] MEDS: METOPROLOL SUCC 24HR ER 25 MG TAB.ER.24H. PO SCH (08:06)
[2017-01-17] MEDS: INSULIN DETEMIR 300 UNITS/3 ML INSULN.PEN. SQ SCH (08:07)
[2017-01-17] MEDS: ASPIRIN ENTERIC COATED 81 MG TABLET.DR. PO SCH (08:07)
[2017-01-17] MEDS: MAGNESIUM OXIDE 400 MG TABLET PO SCH (08:07)
[2017-01-17] MEDS: MULTIVITAMIN with MINERAL TABLET. PO SCH (08:07)
--- NOTE | 2017-01-17 09:38 | PDOC ---
SUBJECTIVE ROS CKD III Doign OK, asking about shayne home CVS: no Orthopnea, no CP RESP: no SOB, no GLEZ GI: no Nausea, no Vomiting : no Dysuria, no Urgency OBJECTIVE Vital Signs Vital Signs Date Time Temp Pulse Resp B/P Pulse Ox O2 Delivery O2 Flow Rate FiO2 01/17/17 08:06 90 116/59 01/17/17 08:00 Room Air 01/17/17 08:00 97.7 30 95 97.7 01/16/17 08:00 2.0 I & 0 Intake and Output 01/17/17 07:00 Intake Total 1600 ml Output Total 1710 ml Balance -110 ml Intake Oral 1600 ml Output Urine Total 1710 ml # Bowel Movements 5 PHYSICAL EXAM Physical Exam GEN: Awake, Oriented x 3, In no distress EYES: Vision Unchanged, Conjunctiva Normal EN: No EN Drainage, Mucous Membranes moist NECK: no JVD, min JVP, Supple, no Thyromegaly CVS: S1S2, + Murmur, No Gallop, No Rub,no Edema RESP: no Rales, no Rhonchi,no Acc. Muscle Use GI: BS + ve, NO Bruit, Non Tender, Non Distended : no CVA tenderness, no Suprapubic Tenderness DIAGNOSIS/ASSESSMENT Assessment & Plan JOHANN - improved CKD III - close to baseline ^Na - recheck labs today and reval ^K - recheck labs today and reval Sev Sys CHF - clinically compensated. Problems: COMMENT/RELEVANT DATA Meds Current Medications Medications (Trade) Dose Ordered Sig/Leonel Start Time Stop Time Status Last Admin Dose Admin Acetaminophen (Tylenol) 650 mg PRN Q6HRS PRN 01/06/17 05:00 01/11/17 06:17 650 MG Albuterol Sulfate (Ventolin Neb Soln) 2.5 mg 1X ONCE 01/07/17 11:45 01/07/17 11:46 DC 01/07/17 15:45 2.5 MG Albuterol/ Ipratropium (Duoneb) 3 ml 1X ONCE 01/08/17 12:45 01/08/17 12:46 DC Amiodarone HCl (Cordarone) 200 mg DAILY 01/06/17 10:00 01/13/17 10:54 DC 01/11/17 08:32 200 MG Amiodarone HCl 150 mg/Dextrose 103 ml @ 618 mls/hr 1X ONCE 01/12/17 07:15 01/12/17 07:24 DC 01/12/17 08:29 618 MLS/HR Amiodarone HCl 400 mg 400 mg DAILY 01/13/17 11:00 01/17/17 08:06 400 MG Amiodarone HCl 900 mg/Dextrose 518 ml @ 0 mls/hr CONT PRN 01/12/17 07:30 01/12/17 08:31 DC 01/12/17 08:28 33.3 MLS/HR Amiodarone HCl/ Dextrose (Cordarone) 518 ml @ 16.6 mls/hr CONT PRN 01/13/17 11:15 01/14/17 11:15 DC 01/13/17 22:24 16.6 MLS/HR Ascorbic Acid (Vitamin C) 500 mg DAILY 01/08/17 09:00 01/17/17 08:05 500 MG Aspirin (Ecotrin) 81 mg [id number] 01/08/17 08:00 01/17/17 08:07 81 MG Barium Sulfate (Varibar Thin Liquid) 148 gm 1X ONCE 01/15/17 10:30 01/15/17 10:31 DC Budesonide 0.5 mg 0.5 mg RTBID 01/12/17 08:00 01/13/17 15:42 DC 01/13/17 08:15 0.5 MG Carvedilol (Coreg) 25 mg BIDWMEALS 01/06/17 10:30 01/06/17 11:51 DC 01/06/17 10:22 25 MG Dextrose 12.5 gm PRN Q15MIN PRN 01/06/17 09:45 01/09/17 00:56 12.5 GM Digoxin (Lanoxin) 125 mcg DAILY 01/06/17 10:30 01/17/17 08:06 125 MCG Furosemide (Lasix) 40 mg 1X ONCE 01/13/17 14:15 01/13/17 14:16 DC 01/13/17 14:21 40 MG Hydralazine HCl (Apresoline) 10 mg PRN Q4HRS PRN 01/06/17 05:00 Insulin Aspart (Novolog) 5 units TIDAC 01/08/17 16:30 01/10/17 09:04 DC Insulin Detemir (Levemir) 10 units BID 01/10/17 09:00 01/12/17 10:04 DC 01/12/17 09:40 10 UNITS Insulin Detemir 10 units 10 units DAILY 01/13/17 09:00 01/16/17 08:41 10 UNITS Ipratropium Mongo (Atrovent) 0.5 mg RTQID 01/11/17 12:00 01/17/17 08:00 0.5 MG Levothyroxine Sodium (Synthroid) 100 mcg DAILY07 01/06/17 10:30 01/17/17 06:47 100 MCG Lidocaine/Sodium Bicarbonate (Buffered Lidocaine 1%) 8 ml 1X ONCE 01/09/17 16:30 01/09/17 16:31 DC 01/09/17 16:25 8 ML Lisinopril (Prinivil) 2.5 mg DAILY 01/06/17 10:30 01/08/17 08:36 DC 01/06/17 10:21 2.5 MG Magnesium Oxide (Magnesium Oxide) 400 mg DAILY 01/06/17 10:30 01/17/17 08:07 400 MG Magnesium Sulfate/ Dextrose (Magnesium Sulfate PREMIX 2GM) 50 ml @ 25 mls/hr 1X ONCE 01/14/17 15:15 01/14/17 17:14 DC 01/14/17 15:34 25 MLS/HR Meropenem 1 gm/ Sodium Chloride 100 ml @ 200 mls/hr Q8HRS 01/12/17 11:00 01/15/17 22:31 DC 01/15/17 21:11 200 MLS/HR Meropenem 500 mg/ Sodium Chloride 50 ml @ 100 mls/hr Q8HRS 01/12/17 14:00 UNV Metolazone (Zaroxolyn) 5 mg DAILY 01/07/17 09:00 01/07/17 14:45 DC 01/07/17 08:40 5 MG Metolazone 2.5 mg 2.5 mg DAILY 01/08/17 09:00 01/08/17 09:00 DC Metoprolol Succinate (Toprol Xl) 25 mg DAILY 01/06/17 10:30 01/17/17 08:06 25 MG Morphine Sulfate 2 mg PRN Q2HR PRN 01/11/17 15:30 01/11/17 15:37 2 MG Multivitamins/ Calcium (Thera M Plus) 1 tab DAILY 01/08/17 09:00 01/17/17 08:07 1 TAB Non-Formulary Medication 500 mg DAILY 01/07/17 09:00 UNV Ondansetron HCl (Zofran) 4 mg PRN Q6HRS PRN 01/06/17 05:00 Phytonadione (Mephyton) 2.5 mg 1X ONCE 01/08/17 15:45 01/08/17 15:46 DC 01/08/17 16:02 2.5 MG Phytonadione/ Sodium Chloride (Vitamin K/Iv Sodium Chloride 0.9% 50ml) 51 ml @ 102 mls/hr 1X ONCE 01/08/17 11:00 01/08/17 11:29 DC 01/08/17 12:15 102 MLS/HR Potassium Chloride (KCl Premix 10meq) 100 ml @ 100 mls/hr 1X ONCE 01/12/17 09:00 01/12/17 09:59 DC 01/12/17 08:30 100 MLS/HR Potassium Chloride (Klor-Con) 40 meq TID 01/13/17 09:15 01/16/17 10:32 DC 01/16/17 08:39 40 MEQ Simvastatin (Zocor) 10 mg QHS 01/06/17 21:00 01/16/17 21:37 10 MG Sodium Polystyrene Sulfonate (Kayexalate) 15 gm 1X ONCE 01/16/17 21:45 01/16/17 21:46 DC 01/16/17 21:37 15 GM Sodium Chloride 1,000 ml @ 100 mls/hr 1X ONCE 01/08/17 08:45 01/08/17 18:44 DC 01/08/17 10:53 100 MLS/HR Torsemide (Demadex) 20 mg DAILY 01/08/17 12:00 01/17/17 08:05 20 MG Vancomycin HCl 1 each 1X ONCE 01/14/17 10:30 01/14/17 10:31 DC Vancomycin HCl 1.75 gm/Sodium Chloride 500 ml @ 250 mls/hr Q12H 01/12/17 10:15 UNV Vancomycin HCl 1 each 1 each 1X ONCE 01/16/17 15:30 01/16/17 15:30 DC Vancomycin HCl 2 gm/Sodium Chloride 500 ml @ 250 mls/hr 1X ONCE 01/12/17 11:00 01/12/17 12:59 DC 01/12/17 11:22 250 MLS/HR Vancomycin HCl/ Sodium Chloride (Iv Sodium Chloride 0.9% 250ml) 250 ml @ 167 mls/hr Q24H 01/14/17 16:00 01/15/17 22:31 DC 01/15/17 15:37 167 MLS/HR Vancomycin HCl/ Sodium Chloride (Iv Sodium Chloride 0.9% 500ml Bag) 500 ml @ 250 mls/hr Q24H 01/13/17 11:00 01/14/17 13:25 DC 01/13/17 11:12 250 MLS/HR Vitamin D (Vitamin D3) 2,000 unit DAILY 01/06/17 10:00 01/17/17 08:05 2,000 UNIT Warfarin Sodium (Coumadin - No Dose Today) 1 each 1X WARF ONCE 01/17/17 16:00 01/17/17 16:01 Warfarin Sodium (Coumadin Per Pharmacy) 1 each PRN DAILY PRN 01/09/17 13:45 01/17/17 09:31 1 EACH Warfarin Sodium (Coumadin Per Physician) 1 each PRN DAILY PRN 01/06/17 10:45 01/07/17 13:37 DC 01/07/17 12:33 1 EACH Warfarin Sodium (Coumadin) 1 mg 1X WARF ONCE 01/16/17 16:00 01/16/17 16:01 DC 01/16/17 17:15 1 MG Warfarin Sodium 5 mg 5 mg 1X WARF ONCE 01/14/17 16:00 01/14/17 16:01 DC 01/14/17 16:23 5 MG Lab Laboratory Tests Test 01/16/17 13:06 01/16/17 17:13 01/16/17 21:36 01/17/17 05:00 Glucose (Fingerstick) 165mg/dL (70-99) 110mg/dL (70-99) 93mg/dL (70-99) Prothrombin Time 32.6SEC (11.7-14.0) Prothromb Time International Ratio 3.4 (0.8-1.1) Test 01/17/17 07:59 Glucose (Fingerstick) 114mg/dL (70-99) JUAN JONES MD Jan 17, 2017 09:38
[2017-01-17 09:54] LABS: CREATININE 1.3 mg/dL (0.7-1.3); GFR 55.1; POTASSIUM 4.4 mmol/L (3.5-5.1)
--- NOTE | 2017-01-17 10:39 | PDOC ---
PULMONARY PROGRESS NOTES Subjective no soa Vitals Vital Signs Date Time Temp Pulse Resp B/P Pulse Ox O2 Delivery O2 Flow Rate FiO2 01/17/17 08:06 90 116/59 01/17/17 08:00 Room Air 01/17/17 08:00 97.7 30 95 97.7 01/16/17 08:00 2.0 ROS: No Nausea, No Chest Pain, No Abdominal Pain, No Increase Cough General: Alert, No acute distress HEENT: Other (nc at perrl thorat clear) Lungs: Clear Cardiovascular: S1, S2 Abdomen: Soft, Non-tender Neuro Exam: Alert Extremities: Other ( + edema, s/p bka) Skin: Warm Labs Laboratory Tests Test 01/15/17 12:08 01/15/17 17:17 01/15/17 21:15 01/16/17 08:35 Glucose (Fingerstick) 149mg/dL (70-99) 99mg/dL (70-99) 83mg/dL (70-99) 96mg/dL (70-99) Test 01/16/17 08:40 01/16/17 13:06 01/16/17 17:13 01/16/17 21:36 White Blood Count 9.9x10^3/uL (4.0-11.0) Red Blood Count 6.04x10^6/uL (4.30-5.70) Hemoglobin 14.2g/dL (13.0-17.5) Hematocrit 46.0% (39.0-53.0) Mean Corpuscular Volume 76fL (79-100) Mean Corpuscular Hemoglobin 23pg (25-35) Mean Corpuscular Hemoglobin Concent 31g/dL (31-37) Red Cell Distribution Width 21.5% (11.5-14.5) Platelet Count 200x10^3/uL (140-400) Neutrophils (%) (Auto) 80% (31-73) Lymphocytes (%) (Auto) 5% (24-48) Monocytes (%) (Auto) 8% (0-9) Eosinophils (%) (Auto) 6% (0-3) Basophils (%) (Auto) 1% (0-3) Neutrophils # (Auto) 7.9x10^3uL (1.8-7.7) Lymphocytes # (Auto) 0.5x10^3/uL (1.0-4.8) Monocytes # (Auto) 0.8x10^3/uL (0.0-1.1) Eosinophils # (Auto) 0.6x10^3/uL (0.0-0.7) Basophils # (Auto) 0.1x10^3/uL (0.0-0.2) Prothrombin Time 28.9SEC (11.7-14.0) Prothromb Time International Ratio 2.9 (0.8-1.1) Sodium Level 149mmol/L (136-145) Potassium Level 5.4mmol/L (3.5-5.1) Chloride Level 108mmol/L (98-107) Carbon Dioxide Level 35mmol/L (21-32) Anion Gap 6 (6-14) Blood Urea Nitrogen 50mg/dL (8-26) Creatinine 1.3mg/dL (0.7-1.3) Estimated GFR (Cockcroft-Gault) 55.1 Glucose Level 115mg/dL (70-99) Calcium Level 8.7mg/dL (8.5-10.1) Magnesium Level 2.2mg/dL (1.8-2.4) Glucose (Fingerstick) 165mg/dL (70-99) 110mg/dL (70-99) 93mg/dL (70-99) Test 01/17/17 05:00 01/17/17 07:59 Prothrombin Time 32.6SEC (11.7-14.0) Prothromb Time International Ratio 3.4 (0.8-1.1) Sodium Level 149mmol/L (136-145) Potassium Level 4.4mmol/L (3.5-5.1) Chloride Level 108mmol/L (98-107) Carbon Dioxide Level 35mmol/L (21-32) Anion Gap 6 (6-14) Blood Urea Nitrogen 47mg/dL (8-26) Creatinine 1.3mg/dL (0.7-1.3) Estimated GFR (Cockcroft-Gault) 55.1 Glucose Level 118mg/dL (70-99) Calcium Level 9.0mg/dL (8.5-10.1) Glucose (Fingerstick) 114mg/dL (70-99) Laboratory Tests Test 01/16/17 13:06 01/16/17 17:13 01/16/17 21:36 01/17/17 05:00 Glucose (Fingerstick) 165mg/dL (70-99) 110mg/dL (70-99) 93mg/dL (70-99) Prothrombin Time 32.6SEC (11.7-14.0) Prothromb Time International Ratio 3.4 (0.8-1.1) Sodium Level 149mmol/L (136-145) Potassium Level 4.4mmol/L (3.5-5.1) Chloride Level 108mmol/L (98-107) Carbon Dioxide Level 35mmol/L (21-32) Anion Gap 6 (6-14) Blood Urea Nitrogen 47mg/dL (8-26) Creatinine 1.3mg/dL (0.7-1.3) Estimated GFR (Cockcroft-Gault) 55.1 Glucose Level 118mg/dL (70-99) Calcium Level 9.0mg/dL (8.5-10.1) Test 01/17/17 07:59 Glucose (Fingerstick) 114mg/dL (70-99) Medications Active Scripts Medications Dose Route/Sig Days Date Category Torsemide 20 Mg Tablet 4 Tab PO DAILY 01/06/17 Reported Amiodarone Hcl 200 Mg Tablet 1 Tab PO DAILY 01/06/17 Reported Toprol Xl (Metoprolol Succinate) 25 Mg Tab.er.24h 1 Tab PO DAILY 01/06/17 Reported Novolog (Insulin Aspart) 100 Unit/1 Ml Cartridge 10 Unit SQ TID 06/08/16 Reported Lantus Solostar (Insulin Glargine,Hum.rec.anlog) 100 Unit/1 Ml Insuln.pen 40 Unit SQ BID 06/08/16 Reported Cyclobenzaprine Hcl 10 Mg Tablet 1 Tab PO TID 06/08/16 Reported Allopurinol 300 Mg Tablet 1 Tab PO DAILY 06/08/16 Reported Simvastatin 10 Mg Tablet 1 Tab PO QHS 06/08/16 Reported Coumadin (Warfarin Sodium) 2.5 Mg Tablet 1 Tab PO DAILY 06/08/16 Reported Potassium Gluconate 500 Mg Tablet 500 Mg PO DAILY 06/08/16 Reported Furosemide 40 Mg Tablet 1 Tab PO DAILY 06/08/16 Reported Mag-Oxide (Magnesium Oxide) 400 Mg Tablet 1 Tab PO DAILY 12/14/15 Reported Levothyroxine Sodium 100 Mcg Tablet 1 Tab PO DAILY 11/06/15 Reported Digoxin 125 Mcg Tablet 1 Tab PO DAILY 11/06/15 Reported Enalapril Maleate 2.5 Mg Tablet 1 Tab PO DAILY 11/06/15 Reported Vitamin D3 (Cholecalciferol (Vitamin D3)) 1,000 Unit Tablet 2,000 Unit PO DAILY 11/06/15 Reported Coreg (Carvedilol) 25 Mg Tablet 1 Tab PO BID 11/06/[address] reviewed, CT CHEST 1. Moderate sized right pleural effusion with underlying right lower lobe atelectasis and partial atelectasis of the right middle and upper lobes. 2. Mild patchy groundglass opacities and interlobular septal thickening compatible with mild pulmonary edema. 3. Severe generalized cardiomegaly. Impression . 1. Acute respiratory failure secondary to acute systolic heart failure. ? Amiodarone induced pneumonitis 2. Acute on chronic systolic heart failure with previous ejection fraction estimated at 15%. 3. Status post implantable cardioverter-defibrillator placement. 4. Abnormal x-ray revealing a large right-sided effusion S/P thoracentesis 5. Chronic atrial fibrillation, on Coumadin. 6. History of heparin-induced thrombocytopenia, status post bilateral below knee amputation. 7. Hypertension. 8. Chronic kidney disease. 9. Type 2 diabetes. 10. Elevated troponin level. 11. possible DINO Plan . nasal canula off oxygen during day follow card input NEB diurese as tolerated on coumadin, adjust dose per inr. monitor for bleeding. follow up on cytology monitor CXR while on Amiodarone home with home health can have nocturnal oximetry study as OP by PCP shira with d/c home WANDA VELASCO MD Jan 17, 2017 10:39
--- NOTE | 2017-01-17 11:27 | PDOC ---
PROGRESS NOTES Chief Complaint Chief Complaint a/p 1. Acute respiratory failure with systolic CHF exacerbation 2. Systolic CHF exacerbation EF 15 % before 3. ICD, PPM 4. CHRONIC afib, on Coumadin 5. 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 AMS, slurry speech , hallucination, 2/2 hypoxia Better 7. HTN 8. JOHANN on CKD4 9. HLD 10. MR s/p repair 11. DM2 on insulin 12. high troponin, 2/2 2 likely 13. B/L pleural effusion, moderate RT Plan on amiodarone rate controlled, Nephrology following monitor platelets hx of HIT INR therapeutic, Pharmacy dosing Coumadin pt and wants to go home, Physically weak. needs cardiology follow up hold Coumadin Platelets improved. potassium improve. cardiology, pulmonolgy and nephrology following History of Present Illness History of Present Illness doing same seen this AM 10 no acute changes Vitals Vitals Vital Signs Date Time Temp Pulse Resp B/P Pulse Ox O2 Delivery O2 Flow Rate FiO2 01/17/17 08:06 90 116/59 01/17/17 08:00 Room Air 01/17/17 08:00 97.7 30 95 97.7 01/16/17 08:00 2.0 Physical Exam General: Alert, mild distress Heart: Regular rate, Normal S1, Normal S2 Lungs: Clear Abdomen: Normal bowel sounds Extremities: No cyanosis, No edema (to BKA) Skin: No breakdown, No significant lesion Labs LABS Laboratory Tests Test 01/16/17 13:06 01/16/17 17:13 01/16/17 21:36 01/17/17 05:00 Glucose (Fingerstick) 165mg/dL (70-99) 110mg/dL (70-99) 93mg/dL (70-99) Prothrombin Time 32.6SEC (11.7-14.0) Prothromb Time International Ratio 3.4 (0.8-1.1) Sodium Level 149mmol/L (136-145) Potassium Level 4.4mmol/L (3.5-5.1) Chloride Level 108mmol/L (98-107) Carbon Dioxide Level 35mmol/L (21-32) Anion Gap 6 (6-14) Blood Urea Nitrogen 47mg/dL (8-26) Creatinine 1.3mg/dL (0.7-1.3) Estimated GFR (Cockcroft-Gault) 55.1 Glucose Level 118mg/dL (70-99) Calcium Level 9.0mg/dL (8.5-10.1) Test 01/17/17 07:59 Glucose (Fingerstick) 114mg/dL (70-99) Assessment and Plan Assessmemt and Plan Problems Medical Problems: (1) Acute congestive heart failure Status: Acute Problems: Comment Review of Relevant I have reviewed the following items anuja (where applicable) has been applied. Labs Laboratory Tests Test 01/15/17 12:08 01/15/17 17:17 01/15/17 21:15 01/16/17 08:35 Glucose (Fingerstick) 149mg/dL (70-99) 99mg/dL (70-99) 83mg/dL (70-99) 96mg/dL (70-99) Test 01/16/17 08:40 01/16/17 13:06 01/16/17 17:13 01/16/17 21:36 White Blood Count 9.9x10^3/uL (4.0-11.0) Red Blood Count 6.04x10^6/uL (4.30-5.70) Hemoglobin 14.2g/dL (13.0-17.5) Hematocrit 46.0% (39.0-53.0) Mean Corpuscular Volume 76fL (79-100) Mean Corpuscular Hemoglobin 23pg (25-35) Mean Corpuscular Hemoglobin Concent 31g/dL (31-37) Red Cell Distribution Width 21.5% (11.5-14.5) Platelet Count 200x10^3/uL (140-400) Neutrophils (%) (Auto) 80% (31-73) Lymphocytes (%) (Auto) 5% (24-48) Monocytes (%) (Auto) 8% (0-9) Eosinophils (%) (Auto) 6% (0-3) Basophils (%) (Auto) 1% (0-3) Neutrophils # (Auto) 7.9x10^3uL (1.8-7.7) Lymphocytes # (Auto) 0.5x10^3/uL (1.0-4.8) Monocytes # (Auto) 0.8x10^3/uL (0.0-1.1) Eosinophils # (Auto) 0.6x10^3/uL (0.0-0.7) Basophils # (Auto) 0.1x10^3/uL (0.0-0.2) Prothrombin Time 28.9SEC (11.7-14.0) Prothromb Time International Ratio 2.9 (0.8-1.1) Sodium Level 149mmol/L (136-145) Potassium Level 5.4mmol/L (3.5-5.1) Chloride Level 108mmol/L (98-107) Carbon Dioxide Level 35mmol/L (21-32) Anion Gap 6 (6-14) Blood Urea Nitrogen 50mg/dL (8-26) Creatinine 1.3mg/dL (0.7-1.3) Estimated GFR (Cockcroft-Gault) 55.1 Glucose Level 115mg/dL (70-99) Calcium Level 8.7mg/dL (8.5-10.1) Magnesium Level 2.2mg/dL (1.8-2.4) Glucose (Fingerstick) 165mg/dL (70-99) 110mg/dL (70-99) 93mg/dL (70-99) Test 01/17/17 05:00 01/17/17 07:59 Prothrombin Time 32.6SEC (11.7-14.0) Prothromb Time International Ratio 3.4 (0.8-1.1) Sodium Level 149mmol/L (136-145) Potassium Level 4.4mmol/L (3.5-5.1) Chloride Level 108mmol/L (98-107) Carbon Dioxide Level 35mmol/L (21-32) Anion Gap 6 (6-14) Blood Urea Nitrogen 47mg/dL (8-26) Creatinine 1.3mg/dL (0.7-1.3) Estimated GFR (Cockcroft-Gault) 55.1 Glucose Level 118mg/dL (70-99) Calcium Level 9.0mg/dL (8.5-10.1) Glucose (Fingerstick) 114mg/dL (70-99) Laboratory Tests Test 01/16/17 13:06 01/16/17 17:13 01/16/17 21:36 01/17/17 05:00 Glucose (Fingerstick) 165mg/dL (70-99) 110mg/dL (70-99) 93mg/dL (70-99) Prothrombin Time 32.6SEC (11.7-14.0) Prothromb Time International Ratio 3.4 (0.8-1.1) Sodium Level 149mmol/L (136-145) Potassium Level 4.4mmol/L (3.5-5.1) Chloride Level 108mmol/L (98-107) Carbon Dioxide Level 35mmol/L (21-32) Anion Gap 6 (6-14) Blood Urea Nitrogen 47mg/dL (8-26) Creatinine 1.3mg/dL (0.7-1.3) Estimated GFR (Cockcroft-Gault) 55.1 Glucose Level 118mg/dL (70-99) Calcium Level 9.0mg/dL (8.5-10.1) Test 01/17/17 07:59 Glucose (Fingerstick) 114mg/dL (70-99) Microbiology 01/09/17 Gram Stain - Final, Complete Medications Current Medications Acetaminophen (Tylenol) 650 mg PRN Q6HRS PRN PO MILD PAIN / TEMP Last administered on 01/11/17 06:17; Start 01/06/17 at 05:00 Ondansetron HCl (Zofran) 4 mg PRN Q6HRS PRN IV NAUSEA/VOMITING; Start 01/06/17 at 05:00 Hydralazine HCl (Apresoline) 10 mg PRN Q4HRS PRN IVP ELEVATED BP, SEE COMMENTS ; Start 01/06/17 at 05:00 Amiodarone HCl (Cordarone) 200 mg DAILY PO Last administered on 01/11/17 08:32 ; Start 01/06/17 at 10:00; Stop 01/13/17 at 10:54; Status DC Vitamin D (Vitamin D3) 2,000 unit DAILY PO Last administered on 01/17/17 08:05 ; Start 01/06/17 at 10:00 Digoxin (Lanoxin) 125 mcg DAILY PO Last administered on 01/17/17 08:06; Start 01/06/17 at 10:30 Levothyroxine Sodium (Synthroid) 100 mcg DAILY07 PO Last administered on 06:47; Start 01/06/17 at 10:30 Magnesium Oxide (Magnesium Oxide) 400 mg DAILY PO Last administered on 08:07; Start 01/06/17 at 10:30 Metoprolol Succinate (Toprol Xl) 25 mg DAILY PO Last administered on 01/17/17 08:06; Start 01/06/17 at 10:30 Simvastatin (Zocor) 10 mg QHS PO Last administered on 01/16/17 21:37; Start at 21:00 Torsemide (Demadex) 80 mg DAILY PO Last administered on 01/07/17 08:40; Start 01/06/17 at 10:30; Stop 01/07/17 at 11:53; Status DC Warfarin Sodium (Coumadin) 2 mg DAILY16 PO ; Start 01/06/17 at 16:00; Stop 01/06 at 16:00; Status DC Carvedilol (Coreg) 25 mg BIDWMEALS PO Last administered on 01/06/17 10:22; Start 01/06/17 at 10:30; Stop 01/06/17 at 11:51; Status DC Lisinopril (Prinivil) 2.5 mg DAILY PO Last administered on 01/06/17 10:21; Start 01/06/17 at 10:30; Stop 01/08/17 at 08:36; Status DC Insulin Aspart (Novolog) 10 units TIDAC SQ Last administered on 01/06/17 18:38 ; Start 01/06/17 at 11:30; Stop 01/07/17 at 12:38; Status DC Insulin Detemir (Levemir) 30 units BID SQ Last administered on 01/08/17 09:00 ; Start 01/06/17 at 10:30; Stop 01/08/17 at 12:56; Status DC Non-Formulary Medication 500 mg DAILY PO ; Start 01/07/17 at 09:00; Status UNV Torsemide (Demadex) 80 mg DAILY PO ; Start 01/06/17 at 10:00; Status UNV Insulin Aspart (Novolog) 0-9 UNITS TIDWMEALS SQ Last administered on 01/16/17 13:08; Start 01/06/17 at 12:00 Dextrose 12.5 gm PRN Q15MIN PRN IV SEE COMMENTS Last administered on 01/09/17 00:56; Start 01/06/17 at 09:45 Warfarin Sodium (Coumadin Per Physician) 1 each PRN DAILY PRN MC SEE COMMENTS Last administered on 01/07/17 12:33; Start 01/06/17 at 10:45; Stop 01/07/17 at 13:37; Status DC Furosemide (Lasix) 40 mg 1X ONCE IVP Last administered on 01/06/17 15:55; Start 01/06/17 at 16:00; Stop 01/06/17 at 16:01; Status DC Metolazone (Zaroxolyn) 5 mg DAILY PO Last administered on 01/07/17 08:40; Start 01/07/17 at 09:00; Stop 01/07/17 at 14:45; Status DC Ascorbic Acid (Vitamin C) 500 mg DAILY PO Last administered on 01/17/17 08:05 ; Start 01/08/17 at 09:00 Multivitamins/ Calcium (Thera M Plus) 1 tab DAILY PO Last administered on 08:07; Start 01/08/17 at 09:00 Albuterol Sulfate (Ventolin Neb Soln) 2.5 mg 1X ONCE NEB Last administered on 01/07/17 15:45; Start 01/07/17 at 11:45; Stop 01/07/17 at 11:46; Status DC Torsemide (Demadex) 40 mg DAILY PO ; Start 01/08/17 at 09:00; Stop 01/08/17 at 09:00; Status DC Insulin Aspart (Novolog) 8 units TIDAC SQ Last administered on 01/08/17 07:30 ; Start 01/07/17 at 16:30; Stop 01/08/17 at 12:56; Status DC Warfarin Sodium (Coumadin Per Pharmacy) 1 each PRN DAILY PRN MC SEE COMMENTS Last administered on 01/17/17 09:31; Start 01/09/17 at 13:45 Aspirin (Ecotrin) 81 mg DAILYWBKFT PO Last administered on 01/17/17 08:07; Start 01/08/17 at 08:00 Warfarin Sodium (Coumadin - No Dose Today) 1 each 1X WARF ONCE MC ; Start 01/07 at 16:00; Stop 01/07/17 at 16:01; Status DC Metolazone 2.5 mg 2.5 mg DAILY PO ; Start 01/08/17 at 09:00; Stop 01/08/17 at 09 :00; Status DC Sodium Chloride 1,000 ml @ 100 mls/hr 1X ONCE IV Last administered on 10:53; Start 01/08/17 at 08:45; Stop 01/08/17 at 18:44; Status DC Phytonadione/ Sodium Chloride (Vitamin K/Iv Sodium Chloride 0.9% 50ml) 51 ml @ 102 mls/hr 1X ONCE IV Last administered on 01/08/17 12:15; Start 01/08/17 at 11:00; Stop 01/08/17 at 11:29; Status DC Torsemide (Demadex) 20 mg DAILY PO Last administered on 01/17/17 08:05; Start 01/08/17 at 12:00 Albuterol/ Ipratropium (Duoneb) 3 ml 1X ONCE NEB ; Start 01/08/17 at 12:45; Stop 01/08/17 at 12:46; Status DC Insulin Aspart (Novolog) 5 units TIDAC SQ ; Start 01/08/17 at 16:30; Stop at 09:04; Status DC Insulin Detemir (Levemir) 25 units BID SQ Last administered on 01/10/17 08:58 ; Start 01/08/17 at 21:00; Stop 01/10/17 at 09:04; Status DC Warfarin Sodium (Coumadin - No Dose Today) 1 each 1X WARF ONCE MC ; Start 01/08 at 16:00; Stop 01/08/17 at 16:01; Status DC Phytonadione (Mephyton) 2.5 mg 1X ONCE PO Last administered on 01/08/17 16:02 ; Start 01/08/17 at 15:45; Stop 01/08/17 at 15:46; Status DC Warfarin Sodium (Coumadin - No Dose Today) 1 each 1X WARF ONCE MC ; Start 01/09 at 16:00; Stop 01/09/17 at 16:01; Status DC Lidocaine/Sodium Bicarbonate (Buffered Lidocaine 1%) 20 ml STK-MED ONCE IJ ; Start 01/09/17 at 15:15; Stop 01/09/17 at 15:16; Status DC Lidocaine/Sodium Bicarbonate (Buffered Lidocaine 1%) 8 ml 1X ONCE IJ Last administered on 01/09/17 16:25; Start 01/09/17 at 16:30; Stop 01/09/17 at 16:31 ; Status DC Potassium Chloride (Klor-Con) 40 meq 1X ONCE PO Last administered on 10:44; Start 01/10/17 at 09:15; Stop 01/10/17 at 09:16; Status DC Insulin Detemir (Levemir) 10 units BID SQ Last administered on 01/12/17 09:40 ; Start 01/10/17 at 09:00; Stop 01/12/17 at 10:04; Status DC Warfarin Sodium (Coumadin) 2 mg 1X WARF ONCE PO Last administered on 17:41; Start 01/10/17 at 16:00; Stop 01/10/17 at 16:01; Status DC Ipratropium [place] (Atrovent) 0.5 mg RTQID NEB Last administered on 01/17/17 08:00; Start 01/11/17 at 12:00 Warfarin Sodium (Coumadin) 4 mg 1X WARF ONCE PO Last administered on 16:34; Start 01/11/17 at 16:00; Stop 01/11/17 at 16:01; Status DC Furosemide (Lasix) 40 mg 1X ONCE IVP Last administered on 01/11/17 15:00; Start 01/11/17 at 15:00; Stop 01/11/17 at 15:01; Status DC Morphine Sulfate 2 mg PRN Q2HR PRN IV PAIN Last administered on 01/11/17 15:37 ; Start 01/11/17 at 15:30 Budesonide 0.5 mg 0.5 mg RTBID NEB Last administered on 01/13/17 08:15; Start 01/12/17 at 08:00; Stop 01/13/17 at 15:42; Status DC Amiodarone HCl 150 mg/Dextrose 103 ml @ 618 mls/hr 1X ONCE IV Last administered on 01/12/17 08:29; Start 01/12/17 at 07:15; Stop 01/12/17 at 07:24 ; Status DC Amiodarone HCl 900 mg/Dextrose 518 ml @ 0 mls/hr CONT PRN IV SEE I/O RECORD Last administered on 01/12/17 08:28; Start 01/12/17 at 07:30; Stop 01/12/17 at 08:31; Status DC Magnesium Sulfate/ Dextrose 50 ml @ 25 mls/hr 1X ONCE IV Last administered on 01/12/17 08:29; Start 01/12/17 at 07:30; Stop 01/12/17 at 09:29; Status DC Potassium Chloride (KCl Premix 10meq) 100 ml @ 100 mls/hr 1X ONCE IV Last administered on 01/12/17 08:30; Start 01/12/17 at 09:00; Stop 01/12/17 at 09:59 ; Status DC Insulin Detemir 10 units 10 units DAILY SQ Last administered on 01/16/17 08:41 ; Start 01/13/17 at 09:00 Meropenem 500 mg/ Sodium Chloride 50 ml @ 100 mls/hr Q8HRS IV ; Start 01/12/17 at 14:00; Status UNV Vancomycin HCl/ Sodium Chloride (Iv Sodium Chloride 0.9% 500ml Bag) 500 ml @ 250 mls/hr Q12H IV ; Start 01/12/17 at 10:15; Status UNV Vancomycin HCl 1 each 1 each PRN DAILY PRN MC SEE COMMENTS Last administered on 01/15/17 10:35; Start 01/12/17 at 10:15; Stop 01/15/17 at 22:32; Status DC Vancomycin HCl 2 gm/Sodium Chloride 500 ml @ 250 mls/hr 1X ONCE IV Last administered on 01/12/17 11:22; Start 01/12/17 at 11:00; Stop 01/12/17 at 12:59 ; Status DC Meropenem 1 gm/ Sodium Chloride 100 ml @ 200 mls/hr Q8HRS IV Last administered on 01/15/17 21:11; Start 01/12/17 at 11:00; Stop 01/15/17 at 22:31 ; Status DC Vancomycin HCl/ Sodium Chloride (Iv Sodium Chloride 0.9% 500ml Bag) 500 ml @ 250 mls/hr Q24H IV Last administered on 01/13/17 11:12; Start 01/13/17 at 11: 00; Stop 01/14/17 at 13:25; Status DC Vancomycin HCl 1 each 1X ONCE MC ; Start 01/14/17 at 10:30; Stop 01/14/17 at 10 :31; Status DC Warfarin Sodium 4 mg 4 mg 1X WARF ONCE PO Last administered on 01/12/17 16:29 ; Start 01/12/17 at 16:00; Stop 01/12/17 at 16:01; Status DC Amiodarone HCl 50 mg/Dextrose 101 ml @ 618 mls/hr 1X ONCE IV Last administered on 01/12/17 15:48; Start 01/12/17 at 16:00; Stop 01/12/17 at 16:09 ; Status DC Amiodarone HCl/ Dextrose (Cordarone) 518 ml @ 33 mls/hr CONT PRN IV SEE I/O RECORD Last administered on 01/13/17 06:36; Start 01/12/17 at 15:30; Stop 01/13 at 06:36; Status DC Warfarin Sodium (Coumadin) 5 mg 1X WARF ONCE PO Last administered on 16:40; Start 01/13/17 at 16:00; Stop 01/13/17 at 16:01; Status DC Potassium Chloride (Klor-Con) 40 meq TID PO Last administered on 01/16/17 08: 39; Start 01/13/17 at 09:15; Stop 01/16/17 at 10:32; Status DC Amiodarone HCl 400 mg 400 mg DAILY PO Last administered on 01/17/17 08:06; Start 01/13/17 at 11:00 Amiodarone HCl/ Dextrose (Cordarone) 518 ml @ 16.6 mls/hr CONT PRN IV CONTINUOUS INFUSION Last administered on 01/13/17 22:24; Start 01/13/17 at 11: 15; Stop 01/14/17 at 11:15; Status DC Furosemide (Lasix) 40 mg 1X ONCE IVP Last administered on 01/13/17 14:21; Start 01/13/17 at 14:15; Stop 01/13/17 at 14:16; Status DC Warfarin Sodium 5 mg 5 mg 1X WARF ONCE PO Last administered on 01/14/17 16:23 ; Start 01/14/17 at 16:00; Stop 01/14/17 at 16:01; Status DC Vancomycin HCl/ Sodium Chloride (Iv Sodium Chloride 0.9% 250ml) 250 ml @ 167 mls/hr Q24H IV Last administered on 01/15/17 15:37; Start 01/14/17 at 16:00; Stop 01/15/17 at 22:31; Status DC Vancomycin HCl 1 each 1 each 1X ONCE MC ; Start 01/16/17 at 15:30; Stop at 15:30; Status DC Magnesium Sulfate/ Dextrose (Magnesium Sulfate PREMIX 2GM) 50 ml @ 25 mls/hr 1X ONCE IV Last administered on 01/14/17 15:34; Start 01/14/17 at 15:15; Stop 01/14/17 at 17:14; Status DC Barium Sulfate (Varibar Thin Liquid) 148 gm 1X ONCE PO Last administered on 11:24; Start 01/15/17 at 09:45; Stop 01/15/17 at 09:46; Status DC Barium Sulfate (Varibar Thin Liquid) 148 gm 1X ONCE PO ; Start 01/15/17 at 10: 30; Stop 01/15/17 at 10:31; Status DC Warfarin Sodium (Coumadin) 4 mg 1X WARF ONCE PO Last administered on 17:21; Start 01/15/17 at 16:00; Stop 01/15/17 at 16:01; Status DC Warfarin Sodium (Coumadin) 1 mg 1X WARF ONCE PO Last administered on 17:15; Start 01/16/17 at 16:00; Stop 01/16/17 at 16:01; Status DC Sodium Polystyrene Sulfonate (Kayexalate) 15 gm 1X ONCE PO Last administered on 01/16/17 21:37; Start 01/16/17 at 21:45; Stop 01/16/17 at 21:46; Status DC Warfarin Sodium (Coumadin - No Dose Today) 1 each 1X WARF ONCE MC ; Start 01/17 at 16:00; Stop 01/17/17 at 16:01 Active Scripts Active Reported Torsemide 20 Mg Tablet 4 Tab PO DAILY Amiodarone Hcl 200 Mg Tablet 1 Tab PO DAILY Toprol Xl (Metoprolol Succinate) 25 Mg Tab.er.24h 1 Tab PO DAILY Novolog (Insulin Aspart) 100 Unit/1 Ml Cartridge 10 Unit SQ TID Lantus Solostar (Insulin Glargine,Hum.rec.anlog) 100 Unit/1 Ml Insuln.pen 40 Unit SQ BID Cyclobenzaprine Hcl 10 Mg Tablet 1 Tab PO TID Allopurinol 300 Mg Tablet 1 Tab PO DAILY Simvastatin 10 Mg Tablet 1 Tab PO QHS Coumadin (Warfarin Sodium) 2.5 Mg Tablet 1 Tab PO DAILY Potassium Gluconate 500 Mg Tablet 500 Mg PO DAILY Furosemide 40 Mg Tablet 1 Tab PO DAILY Mag-Oxide (Magnesium Oxide) 400 Mg Tablet 1 Tab PO DAILY Levothyroxine Sodium 100 Mcg Tablet 1 Tab PO DAILY Digoxin 125 Mcg Tablet 1 Tab PO DAILY Enalapril Maleate 2.5 Mg Tablet 1 Tab PO DAILY Vitamin D3 (Cholecalciferol (Vitamin D3)) 1,000 Unit Tablet 2,000 Unit PO DAILY Coreg (Carvedilol) 25 Mg Tablet 1 Tab PO BID Vitals/I & O Vital Sign - Last 24 Hours 01/16/17 01/16/17 01/16/17 01/16/17 12:00 15:09 16:00 19:24 Temp 97.8 98.4 97.8 98.4 Pulse 89 93 Resp 28 B/P 108/63 104/64 Pulse Ox 93 95 92 96 O2 Delivery Room Air Room Air Room Air Room Air 01/16/17 01/16/17 01/17/17 01/17/17 20:00 20:00 00:00 04:00 Temp 98.7 98.5 98.2 98.7 98.5 98.2 Pulse 89 89 89 Resp 29 B/P 117/63 118/58 113/55 Pulse Ox 94 93 91 O2 Delivery Room Air Room Air Room Air Room Air 01/17/17 01/17/17 01/17/17 01/17/17 08:00 08:00 08:00 08:06 Temp 97.7 97.7 Pulse 89 90 Resp 30 B/P 116/59 116/59 Pulse Ox 96 95 O2 Delivery Room Air Room Air Room Air 01/17/17 01/17/17 08:06 08:06 Pulse 90 90 B/P 116/59 116/59 Intake and Output 01/16/17 01/16/17 01/17/17 15:00 23:00 07:00 Intake Total 150 ml 1450 ml Output Total 1280 ml 430 ml Balance 150 ml 170 ml -430 ml MARITZA CHEN MD Jan 17, 2017 11:27
[2017-01-17 12:00] VITALS: BP 113/60
--- NOTE | 2017-01-17 13:56 | PDOC ---
CARDIO Progress Notes Date and Time Date of Service 01/17/2017 Time of Evaluation 1330 Subjective Subjective: No Chest Pain, No Palpitations, No Dizziness, Other (weak; dry mouth- doesnt like thickened liquids) Vitals Vitals Vital Signs Date Time Temp Pulse Resp B/P Pulse Ox O2 Delivery O2 Flow Rate FiO2 01/17/17 12:19 90 Room Air 01/17/17 12:00 98.7 89 29 113/60 98.7 01/16/17 08:00 2.0 Weight Weight [ ] Input and Output Intake and Output Intake and Output 01/17/17 07:00 Intake Total 1600 ml Output Total 1710 ml Balance -110 ml Intake Oral 1600 ml Output Urine Total 1710 ml # Bowel Movements 5 Laboratory Labs Laboratory Tests Test 01/16/17 17:13 01/16/17 21:36 01/17/17 05:00 01/17/17 07:59 Glucose (Fingerstick) 110mg/dL (70-99) 93mg/dL (70-99) 114mg/dL (70-99) Prothrombin Time 32.6SEC (11.7-14.0) Prothromb Time International Ratio 3.4 (0.8-1.1) Sodium Level 149mmol/L (136-145) Potassium Level 4.4mmol/L (3.5-5.1) Chloride Level 108mmol/L (98-107) Carbon Dioxide Level 35mmol/L (21-32) Anion Gap 6 (6-14) Blood Urea Nitrogen 47mg/dL (8-26) Creatinine 1.3mg/dL (0.7-1.3) Estimated GFR (Cockcroft-Gault) 55.1 Glucose Level 118mg/dL (70-99) Calcium Level 9.0mg/dL (8.5-10.1) Test 01/17/17 12:16 Glucose (Fingerstick) 125mg/dL (70-99) Microbiology Micro Microbiology 01/09/17 Gram Stain - Final, Complete Review of Systems Constitutional: yes: alert, weakness Ears/Nose/Throat: Yes: no symptom reported Eyes: Yes: no symptom reported Pulmonary: Yes dyspnea Cardiovascular: Yes edema Gastrointestional: Yes: constipation Genitourinary: Yes: no symptom reported Skin: Yes no symptom reported Physical Exam HEENT: Neck Supple W Full Motion Chest: Symmetric LUNGS: Other (faint bibasilar crackles) Heart: S1S2, RRR (AV paced), murmurs (3/6 systolic murmur to LLS border) Abdomen: Soft N/T Extremities: No Calf Tenderness, Other (bilateral BKA; no stump edema, no scrotal edema) Neurology: alert, oriented, follow commands Assessment Assessment 1. Acute on chronic mixed diastolic/systolic CHF/bilateral pleural effusion: improved 2. Ventricular arrhythmia s/p multiple ICD discharges: no further significant ectopies 3. 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 COPD 4. HTN/HLP/DM2 5. 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 PAFIB: Currently AV paced 7. JOHANN on CKD3 8. Hx of mitral valve repair , Hx of HIT (2009) 9. ? DINO 10. Aspiration 11. Chronic anticoagulation therapy. Recommendations Continue on amiodarone and secondary prevention Continue with current demadex dose. Daily weight and fluid restriction and to call outpt cardiology per weight parameter Agree with home health specializing on CHF to avoid repeat hospitalization Follow up with outpt avionics installer in 1-2 weeks ( Dr. Hernandez) NOE CASTLE APRN Jan 17, 2017 13:56
[2017-01-17] MEDS ORDERED: AMIO200T2 PO (14:05)
--- NOTE | 2017-01-18 02:38 | DS ---
DATE OF DISCHARGE: 01/17/2017 DISCHARGE DIAGNOSES: 1. Acute respiratory failure with congestive heart failure exacerbation. 2. Systolic congestive heart failure exacerbation with ejection fraction 15%. 3. Atrial fibrillation with rapid ventricular response. 4. Nonsustained ventricular tachycardia. 5. History of heparin-induced thrombocytopenia with extremity amputation. 6. Altered mental status and eye lacerations improved, resolved, likely due to hypoxia. 7. Hypertension. 8. Acute kidney injury. 9. Hyperlipidemia. 10. Mitral regurgitation with repair. 11. Type 2 diabetes mellitus with . 12. Bilateral pleural effusion, moderate. CONSULTATION DURING HOSPITALIZATION: Dr. Nowak, Dr. Caldera, Dr. Green. BRIEF HOSPITAL COURSE: A 66-year-old male patient admitted to the hospital on 01/06/2017 for shortness of breath. He was evaluated by Cardiology and admitted for acute respiratory failure, possible CHF exacerbation. His echocardiogram showed LV ejection fraction less than 20%. Also, the patient's ICD shows nonsustained VT. He was requiring amiodarone GTT to control his heart rate. However, it was very difficult to control his heart rate with low oxygen, which could be contributing to his SVT. Cardiology has been adjusting his rate limiting medications and currently using amiodarone and recommended to see Cardiology in 1 or 2 weeks to adjust his medications. The patient and his declined to go to halfway facility, they were adamant that they would like to go home. Family had discussed options with the palliative team at this time, they want partial code with full treatment. He has been sent home in stable condition with home health services. DISCHARGE EXAMINATION: Please see my progress note. DISCHARGE CONDITION: Stable. PROGNOSIS: Guarded. FOLLOWUP: With Cardiology in 1 or 2 weeks. MEDICATIONS: Reviewed and reconciled. Please see MRAD. DIET: Cardiac diet. Total time spent for discharge is 35 minutes for patient education, counseling, and coordination of care. MARITZA CHEN MD DR: DYLLAN/eder JOB#: [id number] / [id number]
== END 2017-01-17 14:30 | disposition home health service (06) | DRG 291 ==
LOC: 1 WEST ICU 04:11 → 6 SOUTH 01-10 15:46 → 1 WEST ICU 01-11 16:00
PROVIDERS: ADMIT Internal Medicine; ATTEND Internal Medicine
PROC: 0W993ZX Drainage of Right Pleural Cavity, Percutaneous Approach, Diagnostic (ICD-10-PCS; principal; 2017-01-09)
DX: I13.0 Hypertensive heart and chronic kidney disease with heart failure and stage 1 through stage 4 chronic kidney disease, or unspecified chronic kidney disease (principal); I50.43 Acute on chronic combined systolic (congestive) and diastolic (congestive) heart failure; G93.40 Encephalopathy, unspecified; J96.21 Acute and chronic respiratory failure with hypoxia; N17.0 Acute kidney failure with tubular necrosis; J90 Pleural effusion, not elsewhere classified; I47.1 Supraventricular tachycardia; I47.2 Ventricular tachycardia; J98.11 Atelectasis; N18.4 Chronic kidney disease, stage 4 (severe); G93.1 Anoxic brain damage, not elsewhere classified; I42.0 Dilated cardiomyopathy; D64.9 Anemia, unspecified; E03.9 Hypothyroidism, unspecified; E11.22 Type 2 diabetes mellitus with diabetic chronic kidney disease; E11.649 Type 2 diabetes mellitus with hypoglycemia without coma; E78.5 Hyperlipidemia, unspecified; E87.6 Hypokalemia; F17.200 Nicotine dependence, unspecified, uncomplicated; I25.10 Atherosclerotic heart disease of native coronary artery without angina pectoris; I34.0 Nonrheumatic mitral (valve) insufficiency; I48.0 Paroxysmal atrial fibrillation; M19.90 Unspecified osteoarthritis, unspecified site; F41.9 Anxiety disorder, unspecified; I48.2 Chronic atrial fibrillation; K59.00 Constipation, unspecified; M10.9 Gout, unspecified; T50.2X5A Adverse effect of carbonic-anhydrase inhibitors, benzothiadiazides and other diuretics, initial encounter; Z79.01 Long term (current) use of anticoagulants; Z79.4 Long term (current) use of insulin; Z82.3 Family history of stroke; Z86.73 Personal history of transient ischemic attack (TIA), and cerebral infarction without residual deficits; Z88.8 Allergy status to other drugs, medicaments and biological substances; Z89.511 Acquired absence of right leg below knee; Z89.512 Acquired absence of left leg below knee; Z95.1 Presence of aortocoronary bypass graft; Z95.2 Presence of prosthetic heart valve; Z95.810 Presence of automatic (implantable) cardiac defibrillator; Z99.3 Dependence on wheelchair; Z88.1 Allergy status to other antibiotic agents; Z88.0 Allergy status to penicillin; Z90.49 Acquired absence of other specified parts of digestive tract
CPT/HCPCS: 32555; 36415; 70450; 71010; 71250; 74230; 76705; 80048; 80053; 80061; 80202; 82947; 83615; 83735; 83986; 84157; 84443; 84484; 85007; 85027; 85610; 85730; 87071; 87075; 87205; 87641; 88112; 88305; 93306; 94250; 94640; 94660; 94760; A4215; C1729; C1892; C1894; J0282; J1815; J1940; J2185; J2270; J3370; J3430; J3480; J7030; J7040; J7042; J7050; J7060; J7644; 92526; 92610; 92611